=== PATIENT | female | born 1945 | race Caucasian/White ===

== ENCOUNTER → 2017-10-07 | Outpatient (CLI) | payer OTHER ==
[~2017-10-07] MED LIST: ARIP2TAB3 PO; ASPI81TA21 PO; ATOR-26 PO; CLON1TAB3 PO; LPR25 PO; MULT-506 PO; PARO1TAB29 PO; ZOLP10TA PO
--- NOTE | 2017-10-10 08:13 | MAMMOGRAPHY REPORT ---
BILATERAL DIGITAL SCREENING MAMMOGRAM TOMOSYNTHESIS WITH CAD: 10/07/2017 CLINICAL HISTORY: Routine screening. Patient has no complaints. TECHNIQUE: Breast tomosynthesis in addition to standard 2D mammography was performed. Current study was also evaluated with a Computer Aided Detection (CAD) system. COMPARISON: Comparison is made to exams dated: 09/27/2015 mammogram, 09/26/2014 mammogram, 09/24/2013 mammogram, 09/23/2012 mammogram, 09/30/2016 mammogram, and 04/10/2011 mammogram - [facility]. BREAST COMPOSITION: There are scattered areas of fibroglandular density in both breasts. FINDINGS: The parenchymal pattern is unchanged. No developing mass, architectural distortion or clus ter of suspicious microcalcifications is seen in either breast. IMPRESSION: ACR BI-RADS CATEGORY 2: BENIGN There is no mammographic evidence of malignancy. A 1 year screening mammogram is recommended. The pa tient will receive written notification of the results. Approximately 10% of breast cancers are not detected with mammography. A negative mammographic report should not delay biopsy if a clinically suggestive mass is present. Munira Malik M.D. ay/:10/07/2017 15:02:24 Sheet Metal Welder: Tika Shah, M, [facility] letter sent: Normal 1/2 BI-RADS Code: ACR BI-RADS Category 2: Benign
== END | disposition home or self-care (01) ==
LOC: C.MAMM 14:34
PROVIDERS: ATTEND Internal Medicine
DX: Z12.31 Encounter for screening mammogram for malignant neoplasm of breast (principal)

== ENCOUNTER → 2017-10-13 | Outpatient (CLI) | payer OTHER ==
[2017-10-13 13:26] LABS: BASO % 1.4 %; BASO ABS # 0.09 K/uL (0-0.2); COMPLETE YES; EOS % 5.7 %; HEMATOCRIT 43.2 % (37-47); IG% 0.2 %; LYMPH % 40.6 %; LYMPH ABS # 2.69 K/uL (1.2-3.4); MEAN CELL VOLUME 87.8 fL (80-100); MEAN CORPUSCULAR HEMOGLOBIN 29.3 pg (25-34); MEAN CORPUSCULAR HGB CONC 33.3 g/dl (32-36); MEAN PLATELET VOLUME 9.3 fL (7.4-10.4); MONO % 7.9 %; NEUT % 44.2 %; PLATELET COUNT 243 K/uL (130-400); RED BLOOD COUNT 4.92 M/uL (4.2-5.4); WHITE BLOOD COUNT 6.62 K/uL (4.8-10.8)
[2017-10-13 13:46] LABS: ALT/SGPT 20 U/L (12-78); AST/SGOT 20 U/L (15-37); BLOOD UREA NITROGEN 12 mg/dl (7-18); BUN/CREATININE RATIO 14.9 (10-20); CALCIUM 8.9 mg/dl (8.5-10.1); CARBON DIOXIDE 29 mmol/L (21-32); CHLORIDE 103 mmol/L (98-107); CHOLESTEROL 159 mg/dl (0-200); CREATININE 0.83 mg/dl (0.60-1.20); GLUCOSE 96 mg/dl (70-99); POTASSIUM 3.8 mmol/L (3.5-5.1); SODIUM 139 mmol/L (136-145); TRIGLYCERIDES 100 mg/dl (0-150); VERY LOW DENSITY LIPOPROT CALC 20 mg/dl
[2017-10-13 13:55] LABS: ALB/GLOB RATIO 1.1 (0.9-2); ALKALINE PHOSPHATASE 87 U/L (45-117); HDL CHOLESTEROL 79 mg/dl; LDL CHOLESTEROL CALCULATED 60 mg/dl; THYROID STIMULATING HORMONE 0.815 uIu/ml (0.300-4.500)
== END | disposition home or self-care (01) ==
LOC: C.LABBC 09:16
PROVIDERS: ATTEND Physician Assistant
DX: Z79.899 Other long term (current) drug therapy (principal); I10 Essential (primary) hypertension; I25.10 Atherosclerotic heart disease of native coronary artery without angina pectoris; R53.83 Other fatigue; M85.80 Other specified disorders of bone density and structure, unspecified site; E55.9 Vitamin D deficiency, unspecified

== ENCOUNTER → 2017-12-30 | Outpatient (CLI) | payer OTHER ==
[2017-12-30 17:09] LABS: BASO % 0.7 %; BASO ABS # 0.05 K/uL (0-0.2); EOS % 5.2 %; EOS ABS # 0.38 K/uL (0-0.5); HEMATOCRIT 42.2 % (37-47); IG# 0.01 K/uL (0.00-0.02); LYMPH % 38.8 %; LYMPH ABS # 2.86 K/uL (1.2-3.4); MEAN CELL VOLUME 87.2 fL (80-100); MEAN CORPUSCULAR HEMOGLOBIN 28.9 pg (25-34); MEAN CORPUSCULAR HGB CONC 33.2 g/dl (32-36); MEAN PLATELET VOLUME 9.4 fL (7.4-10.4); MONO % 8.5 %; MONO ABS # 0.63 K/uL (0.11-0.59); NEUT % 46.7 %; NEUT ABS # 3.44 K/uL (1.4-6.5); PLATELET COUNT 256 K/uL (130-400); RED CELL DISTRIBUTION WIDTH CV 13.3 % (11.5-14.5); RED CELL DISTRIBUTION WIDTH SD 42.8 fL (36.4-46.3); WHITE BLOOD COUNT 7.37 K/uL (4.8-10.8)
== END | disposition home or self-care (01) ==
LOC: C.LABBC 14:17
PROVIDERS: ATTEND Physician Assistant
DX: I25.10 Atherosclerotic heart disease of native coronary artery without angina pectoris (principal)

== ENCOUNTER → 2018-07-06 | Outpatient (CLI) | payer OTHER ==
[~2018-07-06] MED LIST changes: +ASPI-319 PO; -ASPI81TA21 PO; -CLON1TAB3 PO; +CLON1TAB4 PO
[2018-07-06 10:56] LABS: BASO % 0.8 %; BASO ABS # 0.05 K/uL (0-0.2); EOS % 6.5 %; EOS ABS # 0.42 K/uL (0-0.5); HEMATOCRIT 43.1 % (37-47); HEMOGLOBIN 14.7 g/dL (12.0-16.0); IG# 0.01 K/uL (0.00-0.02); LYMPH ABS # 2.91 K/uL (1.2-3.4); MEAN CELL VOLUME 87.2 fL (80-100); MEAN CORPUSCULAR HEMOGLOBIN 29.8 pg (25-34); MEAN CORPUSCULAR HGB CONC 34.1 g/dl (32-36); MEAN PLATELET VOLUME 9.4 fL (7.4-10.4); MONO ABS # 0.58 K/uL (0.11-0.59); NEUT % 38.5 %; PLATELET COUNT 256 K/uL (130-400); RED CELL DISTRIBUTION WIDTH CV 13.4 % (11.5-14.5); RED CELL DISTRIBUTION WIDTH SD 42.6 fL (36.4-46.3); WHITE BLOOD COUNT 6.47 K/uL (4.8-10.8)
[2018-07-06 11:37] LABS: ALBUMIN 3.6 gm/dl (3.4-5.0); ALKALINE PHOSPHATASE 89 U/L (45-117); ALT/SGPT 24 U/L (12-78); AST/SGOT 16 U/L (15-37); BLOOD UREA NITROGEN 13 mg/dl (7-18); CALCIUM 8.6 mg/dl (8.5-10.1); CARBON DIOXIDE 28 mmol/L (21-32); CHOLESTEROL 168 mg/dl (0-200); CREATININE 0.81 mg/dl (0.60-1.20); GLUCOSE 98 mg/dl (70-99); LDL CHOLESTEROL CALCULATED 72 mg/dl; POTASSIUM 3.7 mmol/L (3.5-5.1); SODIUM 141 mmol/L (136-145); TOTAL PROTEIN 7.2 gm/dl (6.4-8.2)
== END | disposition home or self-care (01) ==
LOC: C.LABBC 08:42
PROVIDERS: ATTEND Internal Medicine
DX: F32.9 Major depressive disorder, single episode, unspecified (principal); E78.5 Hyperlipidemia, unspecified; I10 Essential (primary) hypertension; I25.10 Atherosclerotic heart disease of native coronary artery without angina pectoris; E55.9 Vitamin D deficiency, unspecified; R53.83 Other fatigue

== ENCOUNTER 2020-03-16 08:51 | Observation (INO) ==
[2020-03-16] MEDS ORDERED: NITROGLYCERIN SL 0.4 MG/TAB TAB SL PRN ×2 (09:12→11:55)
[2020-03-16 09:21] LABS: Basophils # (auto) 0.02 K/uL (0-0.2); Basophils % (auto) 0.2 %; Eosinophils # (auto) 0.32 K/uL (0-0.5); Eosinophils % (auto) 3.4 %; Hematocrit (blood only) 43.2 % (37-47); Hemoglobin 14.8 g/dL (12.0-16.0); Immature Granulocytes # (auto) 0.02 K/uL (0.00-0.02); Immature Granulocytes % (auto) 0.2 %; Lymphocytes # (auto) 2.36 K/uL (1.2-3.4); Lymphocytes % (auto) 25.2 %; Mean Corpuscular Hemoglobin 29.7 pg (25-34); Mean Corpuscular Hgb Conc 34.3 g/dL (32-36); Mean Corpuscular Volume 86.7 fL (80-100); Mean Platelet Volume 8.6 fL (7.4-10.4); Monocytes # (auto) 0.94 K/uL (0.11-0.59); Platelet Count 249 K/uL (130-400); RDW Coefficient of Variation 13.2 % (11.5-14.5); RDW Standard Deviation 41.8 fL (36.4-46.3); Red Blood Count 4.98 M/uL (4.2-5.4); White Blood Count 9.36 K/uL (4.8-10.8)
[2020-03-16 09:32] LABS: Partial Thromboplastin Time 26.9 Seconds (21.0-31.0); Prothrombin Time 10.4 Seconds (9.0-12.0)
--- NOTE | 2020-03-16 09:33 | XRay Report ---
XR chest 1V portable HISTORY: 74 years-old Female Chest Pain acute atypical chest pain COMPARISON: Chest radiograph 09/10/2018 TECHNIQUE: Portable AP view of the chest FINDINGS: Cardiomediastinal and hilar silhouettes are within normal limits. Prior median sternotomy and CABG. T he inferior sternotomy wire is fractured. Mild left hemidiaphragmatic elevation with linear subsegmen thuy left basilar atelectasis/scarring is unchanged. There is no pneumothorax, pleural effusion, overt pulmonary edema or airspace consolidation typical for pneumonia. Degenerative changes of the shoulde rs and spine. IMPRESSION: No acute process. ACT 112: Negative or not required by law. The above report was generated using voice recognition software. It may contain grammatical, syntax o r spelling errors. Electronically signed by: Dereck Torres M.D. 03/16/2020 9:32 AM
[2020-03-16 09:36] LABS: Alanine Aminotransferase 20 U/L (12-78); Albumin Level 3.9 gm/dl (3.4-5.0); Aspartate Aminotransferase 15 U/L (15-37); BUN Creatinine Ratio 14.4 (10-20); Blood Urea Nitrogen 12 mg/dl (7-18); Calcium 8.9 mg/dl (8.5-10.1); Carbon Dioxide 28 mmol/L (21-32); Chloride 105 mmol/L (98-107); Creatinine Clr Calc Pharmacy 49.5 ml/min; Est GFR (African American) 79.3; Est GFR (Non-African American) 68.5; Glucose 89 mg/dl (70-99); Lipase 213 U/L (73-393); Potassium 3.3 mmol/L (3.5-5.1); Sodium 139 mmol/L (136-145)
--- NOTE | 2020-03-16 09:38 | Emergency Department Note ---
History of Present Illness General Chief complaint: Chest Pain Stated complaint: CHEST PAIN,HURT BURN,PAIN LT ARM AND JAW Time Seen by Provider: 03/16/20 09:00 Source: patient Mode of arrival: ambulatory Limitations: no limitations History of Present Illness Provider complaint: Chest pain Onset (ago): hour(s) 4 Location: chest Radiation: non-radiation Severity: mild Pain Consistency: + constant Maximum Pain Intensity: 3 Current Pain Intensity: 3 Quality: + burning Relieved By: + none Exacerbated By: + none Associated symptoms: + denies other symptoms Treatments prior to arrival: other (Coffee) This is a 74-year-old female who has a history of cardiac bypass that was performed 8 years ago Jose comes to the emergency department complaining of indigestion. The patient reports she is never had indigestion before however it woke her up in the middle of the night. She describes the indigestion as a burning sensation. She took coffee for the indigestion however it did not take it away. She reports never experiencing anything like this before. Home Medications Home Medications Medication Instructions Recorded Confirmed Type aripiprazole [Abilify] 2 mg PO QAM 09/10/18 03/16/20 History aspirin [Aspirin Low Dose] 81 mg PO PM 09/10/18 03/16/20 History atorvastatin [Lipitor] 80 mg PO PM 09/10/18 03/16/20 History clonazepam 1 mg PO HS 09/10/18 03/16/20 History paroxetine HCl [Paxil] 40 mg PO QAM 09/10/18 03/16/20 History trazodone 50 mg PO HS 09/10/18 03/16/20 History metoprolol tartrate 25 mg tablet 12.5 mg PO BID #90 tab 04/22/19 03/16/20 Rx paroxetine HCl 10 mg tablet 10 mg PO QAM tab 08/28/19 03/16/20 History cholecalciferol (vitamin D3) 125 5,000 units PO QAM 09/08/19 03/16/20 History mcg (5,000 unit) capsule vit C 250 mg-E 200 unit-zinc 40 1 tab PO BID 09/08/19 03/16/20 History mg-copper 1 [id number] capsule latanoprost (PF) 1 drp OPHTHALMIC (EYE) PM 10/11/19 03/16/20 History lisinopril 5 mg PO HS 10/11/19 03/16/20 History Allergies Allergy/AdvReac Type Severity Reaction Status Date / Time No Known Allergies Allergy Verified 03/16/20 09:41 Past Med/Surg History Medical History (Updated 03/16/20 @ 11:21 by Charles Gray) Basal cell carcinoma of lip Basal cell carcinoma of nose Coronary artery disease (Chronic) Depression with anxiety (Chronic) Glaucoma HTN (hypertension) (Chronic) Hyperlipidemia (Chronic) Macular degeneration (Inactive) Osteoarthritis 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) Palpitations (Inactive) Surgical History History of appendectomy History of cardiac cath 2011 @ [facility]--no stents History of cholecystectomy History of colonoscopy with polypectomy History of tonsillectomy History of tooth extraction all teeth removed History of total hysterectomy with bilateral salpingo-oophorectomy (BSO) History of wisdom tooth extraction S/P CABG x 3 [facility] Status post Mohs surgery for basal cell carcinoma x2 Family History Mother Depression Colorectal cancer Cancer Family history of esophageal cancer Myocardial infarction Sister Depression Basal cell adenocarcinoma Brother Malignant melanoma Father Myocardial infarction AAA (abdominal aortic aneurysm) Other Alcoholism in family No family history of adverse response to anesthesia Social History Preferred Language: Albanian Communication Ability: Effective Hearing Ability: Normal Director Of Clinical Education Required: No Beliefs That Will Affect Care: None marital status: Current Living Situation: Spouse Current Living Situation Comment: lives in [place]; 2 adult children current occupational 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 Other Information That Helps Us Care for You: No Feels Safe at Home: Yes Safety Concerns: Feels Safe At This Time Smoking Status: Former smoker Tobacco Type: cigarettes ; Age Started Using Tobacco: 22 ; Age Quit Using Tobacco: 64 ; packs per day: 1 ; Cigarettes Per Day: 20 ; Do You Dip or Chew Tobacco: No ; Second Hand Exposure: Yes (as a child) ; Tobacco Cessation Education Requested by Patient: No Hx Alcohol Use: Yes Alcohol type: wine Alcohol Intake Frequency: Holidays/Special Occasions Hx Substance Use: No Childhood Exposure to Second-Hand Smoke: Yes Dental Care, Regularly: No Seatbelt Use: always Sunscreen Use: No Review of Systems A total of 10 systems reviewed and were otherwise negative Physical Exam Vital Signs Vital Signs - 24 hr 03/16/20 08:56 03/16/20 09:04 03/16/20 09:10 Temperature 36.5 C Temperature Source Oral Pulse Rate 741 H 72 Pulse Rate from SpO2 Sensor 73 Respiratory Rate 18 17 Respiratory Depth Normal Blood Pressure 119/80 140/102 H Blood Pressure Mean 93 105 Blood Pressure Position Sitting Pulse Oximetry 95 96 Oxygen Delivery Method Room Air Room Air Oxygen Flow Rate 95 Sepsis Recent Fever Within 48 Hours No Sepsis Action Taken by Nursing No Action Required 03/16/20 09:25 03/16/20 09:27 03/16/20 09:39 Temperature Temperature Source Pulse Rate 70 79 Pulse Rate from SpO2 Sensor 71 79 Respiratory Rate 19 16 Respiratory Depth Blood Pressure 153/89 H 124/84 Blood Pressure Mean 93 88 Blood Pressure Position Pulse Oximetry 95 97 92 Oxygen Delivery Method Room Air Oxygen Flow Rate Sepsis Recent Fever Within 48 Hours Sepsis Action Taken by Nursing 03/16/20 09:45 03/16/20 10:07 03/16/20 10:15 Temperature Temperature Source Pulse Rate 76 77 71 Pulse Rate from SpO2 Sensor 75 77 71 Respiratory Rate 14 18 20 Respiratory Depth Blood Pressure 132/92 122/86 120/97 Blood Pressure Mean 103 92 105 Blood Pressure Position Pulse Oximetry 92 94 98 Oxygen Delivery Method Oxygen Flow Rate Sepsis Recent Fever Within 48 Hours Sepsis Action Taken by Nursing 03/16/20 10:45 Temperature Temperature Source Pulse Rate 72 Pulse Rate from SpO2 Sensor 76 Respiratory Rate 14 Respiratory Depth Blood Pressure 122/78 Blood Pressure Mean 96 Blood Pressure Position Pulse Oximetry 93 Oxygen Delivery Method Oxygen Flow Rate Sepsis Recent Fever Within 48 Hours Sepsis Action Taken by Nursing GENERAL: Patient is a healthy-appearing well-nourished female HEAD: Normocephalic atraumatic EYES: Ocular movements intact pupils equal and react to light OROPHARYNX mucous membranes are moist no exudates present no erythema or edema present NECK: Supple no nuchal rigidity CHEST: Good equal expansion LUNGS: Clear and equal to auscultation CARDIAC: Normal S1 and S2 ABDOMEN: Soft nontender no guarding BACK: No CVA tenderness EXTREMITIES: No pain upon palpation normal muscle strength in all groups no clubbing cyanosis or edema NEURO: Patient is following commands is answering questions appropriately. Alert and oriented x3 Cranial Nerves 2-12 grossly intact Course Administered Medications Aspirin (Ecotrin Ectab) 81 mg PO PM FRANK Stop: 04/15/20 20:59 Last Admin: 03/16/20 21:33 Dose: 81 mg Documented by: [id number] Atorvastatin Calcium (Lipitor) 80 mg PO PM FRANK Stop: 04/15/20 20:59 Last Admin: 03/16/20 21:35 Dose: 80 mg Documented by: [id number] Clonazepam (Klonopin) 1 mg PO HS [facility] Stop: 04/15/20 20:59 Last Admin: 03/16/20 21:33 Dose: 1 mg Documented by: [id number] Heparin Sodium (Porcine) (Heparin Sodium (Porcine)) 5,000 units SQ Q8 FRANK Stop: 04/15/20 13:59 Last Admin: 03/17/20 05:57 Dose: 5,000 units Documented by: [id number] Cosigned by: [id number] Admin: 03/16/20 21:36 Dose: 5,000 units Documented by: [id number] Cosigned by: [id number] Admin: 03/16/20 16:28 Dose: 5,000 units Documented by: [id number] Cosigned by: [id number] Latanoprost (Xalatan Oph) 1 drops OP PM FRANK Stop: 04/15/20 20:59 Last Admin: 03/16/20 22:32 Dose: Not Given Documented by: [id number] Lisinopril (Zestril) 5 mg PO HS [facility] Stop: 04/15/20 20:59 Last Admin: 03/16/20 21:35 Dose: 5 mg Documented by: [id number] Metoprolol Tartrate (Lopressor) 12.5 mg PO BID FRANK Stop: 04/15/20 20:59 Last Admin: 03/16/20 21:34 Dose: 12.5 mg Documented by: [id number] Multivitamins/Minerals (Multivitamin W/ Minerals Tab) 1 tab PO BID FRANK Stop: 04/15/20 20:59 Last Admin: 03/16/20 21:35 Dose: 1 tab Documented by: [id number] Nitroglycerin (Nitro-Bid 2%) 1 inch EXT Q6H [facility] Stop: 04/15/20 10:14 Last Admin: 03/17/20 04:20 Dose: Not Given Documented by: [id number] Admin: 03/16/20 22:33 Dose: Not Given Documented by: [id number] Admin: 03/16/20 16:29 Dose: 1 inch Documented by: [id number] Admin: 03/16/20 10:22 Dose: 1 inch Documented by: [id number] Trazodone HCl (Desyrel) 50 mg PO HS FRANK Stop: 04/15/20 20:59 Last Admin: 03/16/20 21:33 Dose: 50 mg Documented by: [id number] Discontinued Medications Nitroglycerin (Nitrostat) 0.4 mg SL UD PRN PRN Reason: Chest Pain Stop: 04/15/20 09:11 Last Admin: 03/16/20 09:31 Dose: 0.4 mg Documented by: [id number] Potassium Chloride (Klor-Con M20) 40 meq PO NOW STA Stop: 03/16/20 09:44 Last Admin: 03/16/20 10:00 Dose: 40 meq Documented by: [id number] Medical Decision Making Differential Diagnosis Cardiac ischemia, aortic dissection, pulmonary embolism, pneumothorax, pneum onia, pericarditis, myocarditis, esophageal rupture, GERD, cholecystitis, pancreatitis, musculoskeletal, as well as other pathologies. Medical Records Attestation: I reviewed the patient's medical records. Home Medications Current Medication List: was personally reviewed by me Laboratory Data Attestation: I reviewed the patient's lab results. Result diagrams: 03/16/20 09:10 03/17/20 04:19 Lab Results 03/16/20 03/16/20 03/16/20 Range/Units 09:10 09:10 09:10 WBC 9.36 (4.8-10.8) K/uL RBC 4.98 (4.2-5.4) M/uL Hgb 14.8 (12.0-16.0) g/dL Hct 43.2 (37-47) % MCV 86.7 (80-100) fL MCH 29.7 (25-34) pg MCHC 34.3 (32-36) g/dL RDW Std Deviation 41.8 (36.4-46.3) fL RDW Coeff of Paul 13.2 (11.5-14.5) % Plt Count 249 (130-400) K/uL MPV 8.6 (7.4-10.4) fL Immature Gran % (Auto) 0.2 % Neut % (Auto) 61.0 % Lymph % (Auto) 25.2 % Swift % (Auto) 10.0 % Eos % (Auto) 3.4 % Baso % (Auto) 0.2 % Immature Gran # (Auto) 0.02 (0.00-0.02) K/uL Neut # (Auto) 5.70 (1.4-6.5) K/uL Lymph # (Auto) 2.36 (1.2-3.4) K/uL Swift # (Auto) 0.94 H (0.11-0.59) K/uL Eos # (Auto) 0.32 (0-0.5) K/uL Baso # (Auto) 0.02 (0-0.2) K/uL PT 10.4 (9.0-12.0) Seconds INR 1.0 (0.9-1.1) APTT 26.9 (21.0-31.0) Seconds PTT Ratio 1.0 Sodium 139 (136-145) mmol/L Potassium 3.3 L (3.5-5.1) mmol/L Chloride 105 (98-107) mmol/L Carbon Dioxide 28 (21-32) mmol/L Anion Gap 7.0 (3-11) BUN 12 (7-18) mg/dl Creatinine 0.85 (0.6-1.2) mg/dl Est Cr Clr Drug Dosing 49.5 ml/min Est GFR ( Amer) 79.3 Est GFR (Non-Af Amer) 68.5 BUN/Creatinine Ratio 14.4 (10-20) Glucose 89 (70-99) mg/dl Calcium 8.9 (8.5-10.1) mg/dl Magnesium (1.8-2.4) mg/dl Total Bilirubin 0.6 (0.2-1) mg/dl AST 15 (15-37) U/L ALT 20 (12-78) U/L Alkaline Phosphatase 89 (45-117) U/L Total Creatine Kinase 81 (26-192) U/L CK-MB (CK-2) 1.9 (0.5-3.6) ng/ml CK/CKMB % Calc 2.3 (0-3.0) Troponin I < 0.015 (0-0.045) ng/ml Total Protein 7.3 (6.4-8.2) gm/dl Albumin 3.9 (3.4-5.0) gm/dl Globulin 3.4 (2.5-4.0) gm/dl Albumin/Globulin Ratio 1.2 (0.9-2) Lipase 213 (73-393) U/L 03/16/20 Range/Units 09:10 WBC (4.8-10.8) K/uL RBC (4.2-5.4) M/uL Hgb (12.0-16.0) g/dL Hct (37-47) % MCV (80-100) fL MCH (25-34) pg MCHC (32-36) g/dL RDW Std Deviation (36.4-46.3) fL RDW Coeff of Paul (11.5-14.5) % Plt Count (130-400) K/uL MPV (7.4-10.4) fL Immature Gran % (Auto) % Neut % (Auto) % Lymph % (Auto) % Swift % (Auto) % Eos % (Auto) % Baso % (Auto) % Immature Gran # (Auto) (0.00-0.02) K/uL Neut # (Auto) (1.4-6.5) K/uL Lymph # (Auto) (1.2-3.4) K/uL Swift # (Auto) (0.11-0.59) K/uL Eos # (Auto) (0-0.5) K/uL Baso # (Auto) (0-0.2) K/uL PT (9.0-12.0) Seconds INR (0.9-1.1) APTT (21.0-31.0) Seconds PTT Ratio Sodium (136-145) mmol/L Potassium (3.5-5.1) mmol/L Chloride (98-107) mmol/L Carbon Dioxide (21-32) mmol/L Anion Gap (3-11) BUN (7-18) mg/dl Creatinine (0.6-1.2) mg/dl Est Cr Clr Drug Dosing ml/min Est GFR ( Amer) Est GFR (Non-Af Amer) BUN/Creatinine Ratio (10-20) Glucose (70-99) mg/dl Calcium (8.5-10.1) mg/dl Magnesium 2.3 (1.8-2.4) mg/dl Total Bilirubin (0.2-1) mg/dl AST (15-37) U/L ALT (12-78) U/L Alkaline Phosphatase (45-117) U/L Total Creatine Kinase (26-192) U/L CK-MB (CK-2) (0.5-3.6) ng/ml CK/CKMB % Calc (0-3.0) Troponin I (0-0.045) ng/ml Total Protein (6.4-8.2) gm/dl Albumin (3.4-5.0) gm/dl Globulin (2.5-4.0) gm/dl Albumin/Globulin Ratio (0.9-2) Lipase (73-393) U/L Imaging Data Radiologist's Impression: [place] [phone] XRay Report Patient: JENNIFER WILLIAMSON Admit Date: 03/16/20 MR#: [id number] Address1: [address] [place] [address] Acct ID:[id number] Address2: Date: 1945 [facility] Zip: [place] [address] Age: 74 Location: ED Sex: F Room/Bed: Att Phy: Diagnosis: CHEST PAIN,HURT BURN,PAIN LT ARM AND JAW Mayra Phy: Ector Stanton MD Service Date: 03/16/20 Fam Phy: Interpreting Phy: Isai Torres Admit Phy: Ordering Phy: Ashish Santana MD cc: ~ XR chest 1V portable HISTORY: 74 years-old Female Chest Pain acute atypical chest pain COMPARISON: Chest radiograph 09/10/2018 TECHNIQUE: Portable AP view of the chest FINDINGS: Cardiomediastinal and hilar silhouettes are within normal limits. Prior median sternotomy and CABG. The inferior sternotomy wire is fractured. Mild left hemidiaphragmatic elevation with linear subsegmental left basilar atelectasis/scarring is unchanged. There is no pneumothorax, pleural effusion, overt pulmonary edema or airspace consolidation typical for pneumonia. D egenerative changes of the shoulders and spine. IMPRESSION: No acute process. ACT 112: Negative or not required by law. The above report was generated using voice recognition software. It may contain grammatical, syntax or spelling errors. Electronically signed by: Dereck Torres M.D. 03/16/2020 9:32 AM Dictated: 03/16/20929 Transcribed: 03/16/20929 ECG Data Attestation: I personally reviewed and interpreted this ECG as follows: Indication: chest pain Rate (beats per minute): 75 Rhythm: normal sinus Findings: + RBBB; no ST depression and no ST elevation Comparison ECG Date: from (09/10/2018) Change: no significant change Blood Pressure Blood Pressure Findings: Normal blood pressure MDM Narrative This is a 74-year-old female who presents emergency department complaining of chest pain. The patient's pain was relieved here in the emergency department with nitro. Her potassium was also repleted here in the emergency department. Due to the patient's past medical history I do feel that the patient should be admitted for at least observation. I did discuss this with the patient. She is in agreement with the treatment plan. Her CK-MB troponin and EKG did not show any evidence of acute ischemia. I did discuss the case with the hospitalist service who did agree to admit the patient. Patient is in agreement with the treatment plan. Impression & Plan Chest pain, Hypokalemia Discharge Plan Visit Data *Final* Discharge Date/Time: 03/16/20 10:25 Chief Complaint: Chest Pain Stated Complaint: CHEST PAIN,HURT BURN,PAIN LT ARM AND JAW ED Provider: Ashish Santana Problem: Chest pain, Hypokalemia Patient Disposition: Admitted As Inpatient Discharge Instructions Interventions: ED Discharge Assessment Last Done: 03/16/20 10:25
[2020-03-16 09:41] LABS: Albumin Globulin Ratio 1.2 (0.9-2); Alkaline Phosphatase 89 U/L (45-117); Bilirubin,Total 0.6 mg/dl (0.2-1); Creatine Kinase 81 U/L (26-192); Creatine Kinase MB 1.9 ng/ml (0.5-3.6); Globulin 3.4 gm/dl (2.5-4.0); Total Protein 7.3 gm/dl (6.4-8.2); Troponin I < 0.015 ng/ml (0-0.045)
[2020-03-16] MEDS ORDERED: POTASSIUM CHLORIDE 20 MEQ TABCR PO STA (09:43)
--- NOTE | 2020-03-16 10:04 | History & Physical Report ---
Date of Service March 16, 2020 Assessment & Plan (1) Chest pain: Presenting chest symptoms are concerning for angina given her known CAD and prior h/o CABG. She has also had several weeks of worsening STEPHENSON. Initial troponin is negative. Chest pain resolved with nitrates in the ER. EKG x 2 with anterior T wave inversions but chronic. Plan - * admit to telemetry * serial troponins * continue daily aspirin * cont statin, BB, AISHWARYA * cont nitropaste 1" q6h * no echo in several years - will order 2D echo - check LV function, wall motion, etc * formal consultation requested with [facility] [place] Card[facility] - I spoke with Dr Yusuf who will see her today * ?stress test vs proceeding with cath - defer to cardiology * lipids were just checked early this month - defer on repeat check * check hemoglobin a1c in am * TSH just checked earlier this month and was wnl * if pain recurs or there is a positive/rising troponin then initiate heparin IV (2) Coronary artery disease: s/p 3-vessel CABG 7-8 years ago at [facility] - will need to review old records to see which vessels were intervened on. See "chest pain" above. Cont asa, statin, BB, AISHWARYA and topical nitrates 1 inch q6h. Cardiology consult requested. (3) Hyperlipidemia: Cont high-intensity statin (lipitor 80mg daily). LDL on 02/24/20 was well below 70. Defer on repeat lipid profile while hospitalized. LFTs noted to be normal. (4) HTN (hypertension): Cont AISHWARYA, BB. if additional BP control is needed titrate beta philip. (5) Depression with anxiety: Follows with Dr Dougherty at [facility]. Cont all home meds. (6) S/P CABG x 3: see discussion above (7) Hypokalemia: Replaced in ER. Mag checked - wnl. Repeat BMP am. (8) DVT prophylaxis: heparin [address] on observation status of note - no symptoms/signs of COVID disease (has cough but present for 1-2 months -- PFTs were discussed as outpatient in January) History of Present Illness Chief Complaint: chest pain/heaviness, left arm pain Primary Care Provider: Ector Stanton MD Very pleasant 74yo female with h/o CAD s/p 3-vessel CABG 7-8 years ago at [facility], HTN, hyperlipidemia, anxiety d/o, and prior tobacco use who presents with the acute onset of mid-sternal chest discomfort/pain/heaviness that woke her from sleep about 0600. Some of the pain was in the high epigastric region as well. The chest symptoms were associated with dyspnea, diaphoresis, nausea, a brief episode of jaw pain, and left arm pain. The left arm pain subsided prior to coming to the hospital. She initially thought that she had indigestion but the left arm pain reminded her of her angina that she had had prior to her CABG. At some point she took a full 325mg aspirin at home. She did not have SL nitro at home. Just before 8am she called her PCP's office and advised coming to the ER. Upon arrival here her chest pain was about 7/10. She was given SL nitro x 1 with resolution of her pain down to 0/10. During her ER stay she needed to use the restroom and after using the toilet and walking back to the bed her chest pain returned. By the time of my assessment the pain once again subsided/resolved. 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 The frequency and intensity of the STEPHENSON has been getting worse in the last few weeks. She has also been experiencing more fatigue. Denies any recent chest pain episodes however. Allergies Allergy/AdvReac Type Severity Reaction Status Date / Time No Known Allergies Allergy Verified 03/16/20 09:41 Home Medications Home Medications Medication Instructions Recorded Confirmed Type aripiprazole [Abilify] 2 mg PO QAM 09/10/18 03/16/20 History aspirin [Aspirin Low Dose] 81 mg PO PM 09/10/18 03/16/20 History atorvastatin [Lipitor] 80 mg PO PM 09/10/18 03/16/20 History clonazepam 1 mg PO HS 09/10/18 03/16/20 History paroxetine HCl [Paxil] 40 mg PO QAM 09/10/18 03/16/20 History trazodone 50 mg PO HS 09/10/18 03/16/20 History metoprolol tartrate 25 mg tablet 12.5 mg PO BID #90 tab 04/22/19 03/16/20 Rx paroxetine HCl 10 mg tablet 10 mg PO QAM tab 08/28/19 03/16/20 History cholecalciferol (vitamin D3) 125 5,000 units PO QAM 09/08/19 03/16/20 History mcg (5,000 unit) capsule vit C 250 mg-E 200 unit-zinc 40 1 tab PO BID 09/08/19 03/16/20 History mg-copper 1 [id number] capsule latanoprost (PF) 1 drp OPHTHALMIC (EYE) PM 10/11/19 03/16/20 History lisinopril 5 mg PO HS 10/11/19 03/16/20 History Past Med/Surg History Medical History (Updated 03/16/20 @ 11:21 by Charles Gray) Basal cell carcinoma of lip Basal cell carcinoma of nose Coronary artery disease (Chronic) Depression with anxiety (Chronic) Glaucoma HTN (hypertension) (Chronic) Hyperlipidemia (Chronic) Macular degeneration (Inactive) Osteoarthritis 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) Palpitations (Inactive) Surgical History History of appendectomy History of cardiac cath 2011 @ [facility]--no stents History of cholecystectomy History of colonoscopy with polypectomy History of tonsillectomy History of tooth extraction all teeth removed History of total hysterectomy with bilateral salpingo-oophorectomy (BSO) History of wisdom tooth extraction S/P CABG x 3 [facility] Status post Mohs surgery for basal cell carcinoma x2 Family History Mother Depression Colorectal cancer Cancer Family history of esophageal cancer Myocardial infarction Sister Depression Basal cell adenocarcinoma Brother Malignant melanoma Father Myocardial infarction AAA (abdominal aortic aneurysm) Other Alcoholism in family No family history of adverse response to anesthesia Social History Preferred Language: Slovenian Communication Ability: Effective Hearing Ability: Normal Engineer Station Mainline Required: No Beliefs That Will Affect Care: None marital status: Current Living Situation: Spouse Current Living Situation Comment: lives in [place]; 2 adult children current occupational 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 Other Information That Helps Us Care for You: No Feels Safe at Home: Yes Safety Concerns: Feels Safe At This Time Smoking Status: Former smoker Tobacco Type: cigarettes ; Age Started Using Tobacco: 22 ; Age Quit Using Tobacco: 64 ; packs per day: 1 ; Cigarettes Per Day: 20 ; Do You Dip or Chew Tobacco: No ; Second Hand Exposure: Yes (as a child) ; Tobacco Cessation Education Requested by Patient: No Hx Alcohol Use: Yes Alcohol type: wine Alcohol Intake Frequency: Holidays/Special Occasions Hx Substance Use: No Childhood Exposure to Second-Hand Smoke: Yes Dental Care, Regularly: No Seatbelt Use: always Sunscreen Use: No Review of Systems Constitutional: + fatigue; no fever, no chills, no anorexia and no weight loss Eyes: no worsening vision Ear, Nose, Mouth, Throat: no nasal congestion, no nasal discharge and no sore throat Respiratory: + cough (chronic - several months in duration ) and + dyspnea on exertion; no sputum production Cardiovascular: as per Subjective / HPI and + chest pain; no orthopnea, no paroxysmal nocturnal dyspnea and no edema Gastrointestinal: + nausea; no abdominal pain, no vomiting and no diarrhea/loose stools Genitourinary: no dysuria Musculoskeletal: no joint pain and no myalgia Integumentary: no rash Neurologic: no paresthesia Psychiatric: + anxiety Endocrine: denies h/o Diabetes Hematologic / Lymphatic: no easy bruising Physical Exam Constitutional: average body habitus; no acute distress and no altered mental status mildly anxious; fine tremor noted (chronic) Eyes: + anicteric sclerae and PERRL ENMT: Ears: + unable to visualize TM (left - 2nd cerumen ) Mouth: no oropharynx abnormality and oral mucous membranes not dry Neck: trachea midline, no thyromegaly Respiratory: normal respiratory effort, lungs clear to auscultation Cardiovascular: Rate/Rhythm: regular rate and regular rhythm Heart Sounds: normal S1 and normal S2; no murmur Vessels: posterior tibial pulses present; no JVD Extremities: no edema Gastrointestinal (Abdomen): normal bowel sounds, soft, nontender, no hepatosplenomegaly Musculoskeletal: no cyanosis or clubbing, extremities motor strength 5/5 Skin: no rashes, warm and dry Neurologic: deep tendon reflexes 2+ bilaterally and moves all extremities; no focal motor deficits Psychiatric: Orientation: alert and oriented x 3 Affect: + anxious affect Lymphatic: no cervical lymphadenopathy Results & Data Results & Data ([facility]) Vital Signs (Past 12 Hours) Vital Signs Temp Pulse Resp BP Pulse Ox 03/16/20 09:45 76 14 132/92 92 04/30/20 09:39 79 16 124/84 92 03/16/20 09:27 70 19 153/89 H 97 03/16/20 09:25 95 03/16/20 09:04 72 17 140/102 H 96 03/16/20 08:56 36.5 C 741 H 18 119/80 95 Laboratory Results Laboratory Results - last 24 hr 03/16/20 03/16/20 03/16/20 09:10 09:10 09:10 WBC 9.36 RBC 4.98 Hgb 14.8 Hct 43.2 MCV 86.7 MCH 29.7 MCHC 34.3 RDW Std Deviation 41.8 RDW Coeff of Paul 13.2 Plt Count 249 MPV 8.6 Immature Gran % (Auto) 0.2 Neut % (Auto) 61.0 Lymph % (Auto) 25.2 [place] % (Auto) 10.0 Eos % (Auto) 3.4 Baso % (Auto) 0.2 Immature Gran # (Auto) 0.02 Neut # (Auto) 5.70 Lymph # (Auto) 2.36 [place] # (Auto) 0.94 H Eos # (Auto) 0.32 Baso # (Auto) 0.02 PT 10.4 INR 1.0 APTT 26.9 PTT Ratio 1.0 Sodium 139 Potassium 3.3 L Chloride 105 Carbon Dioxide 28 Anion Gap 7.0 BUN 12 Creatinine 0.85 Est Cr Clr Drug Dosing 49.5 Est GFR ( Amer) 79.3 Est GFR (Non-Af Amer) 68.5 BUN/Creatinine Ratio 14.4 Glucose 89 Calcium 8.9 Magnesium Total Bilirubin 0.6 AST 15 ALT 20 Alkaline Phosphatase 89 Total Creatine Kinase 81 CK-MB (CK-2) 1.9 CK/CKMB % Calc 2.3 Troponin I < 0.015 Total Protein 7.3 Albumin 3.9 Globulin 3.4 Albumin/Globulin Ratio 1.2 Lipase 213 03/16/20 09:10 WBC RBC Hgb Hct MCV MCH MCHC RDW Std Deviation RDW Coeff of Paul Plt Count MPV Immature Gran % (Auto) Neut % (Auto) Lymph % (Auto) [place] % (Auto) Eos % (Auto) Baso % (Auto) Immature Gran # (Auto) Neut # (Auto) Lymph # (Auto) [place] # (Auto) Eos # (Auto) Baso # (Auto) PT INR APTT PTT Ratio Sodium Potassium Chloride Carbon Dioxide Anion Gap BUN Creatinine Est Cr Clr Drug Dosing Est GFR ( Amer) Est GFR (Non-Af Amer) BUN/Creatinine Ratio Glucose Calcium Magnesium 2.3 Total Bilirubin AST ALT Alkaline Phosphatase Total Creatine Kinase CK-MB (CK-2) CK/CKMB % Calc Troponin I Total Protein Albumin Globulin Albumin/Globulin Ratio Lipase Diagnostic Findings cxr: FINDINGS: Cardiomediastinal and hilar silhouettes are within normal limits. Prior median sternotomy and CABG. The inferior sternotomy wire is fractured. Mild left hemidiaphragmatic elevation with linear subsegmental left basilar atelecta sis/scarring is unchanged. There is no pneumothorax, pleural effusion, overt pulmonary edema or airspace consolidation typical for pneumonia. Degenerative changes of the shoulders and spine. IMPRESSION: No acute process. EKG - my reading - NSR, RBBB, T wave inversions anterior leads (old/chronic); mild flattening ST segments I/AVL (old); LVH by voltage criteria; no new ST changes Code Status & VTE Plan Code Status full code - but would NOT want prolonged intubation/mech ventilation/life support VTE Prophylaxis Plan VTE Prophylaxis will be ordered: Yes PG Care Time/CCT Total # of Minutes Spent Total Time Spent with Patient: Total time spent is greater than 50% in coordination of care (as documented) at patient's floor/unit and/or counseling patient: Coding Level of Care Code 77149 OBS Care - Level 3 Diagnoses Chest pain R07.9 Chest pain type: unspecified Coronary artery disease I25.10 Coronary Disease-Associated Artery/Lesion type: unspecified vessel or lesion type [place] vs. transplanted heart: [place] heart Associated angina: angina presence unspecified Hyperlipidemia E78.2 Hyperlipidemia type: mixed hyperlipidemia HTN (hypertension) I10 Hypertension type: essential hypertension Depression with anxiety F41.8 S/P CABG x 3 Z95.1 Hypokalemia E87.6 DVT prophylaxis Z29.9 (1) Chest pain Chest pain type: unspecified Qualified Code(s): R07.9 - Chest pain, unspecified (2) Coronary artery disease Coronary Disease-Associated Artery/Lesion type: unspecified vessel or lesion type [place] vs. transplanted heart: [place] heart Associated angina: angina presence unspecified Qualified Code(s): I25.10 - Atherosclerotic heart disease of [place] coronary artery without angina pectoris (3) Hyperlipidemia Hyperlipidemia type: mixed hyperlipidemia Qualified Code(s): E78.2 - Mixed hyperlipidemia (4) HTN (hypertension) Hypertension type: essential hypertension Qualified Code(s): I10 - Essential (primary) hypertension
[2020-03-16] MEDS: NITROGLYCERIN 2% OINTMENT 30GM TUBE EXT SCH ×3 (10:22→22:33)
[2020-03-16] MEDS ORDERED: ACETAMINOPHEN 325 MG TAB PO PRN (11:55)
[2020-03-16] MEDS ORDERED: ALUMINUM/MAGNESIUM SUSP 30 ML UDC PO PRN (11:55)
[2020-03-16] MEDS ORDERED: MAGNESIUM HYDROXIDE SUSP 30 ML UDC PO PRN (11:55)
[2020-03-16] MEDS ORDERED: ONDANSETRON INJ 2 MG/ML 2 ML VIAL IV PRN (11:55)
[2020-03-16] MEDS ORDERED: MoRPHine SULFATE 2 MG/ML CARP IV PRN (11:55)
--- NOTE | 2020-03-16 14:55 | Electrocardiogram Report ---
Test Reason : Blood Pressure : / mmHG Vent. Rate : 075 BPM Atrial Rate : 075 BPM P-R Int : 122 ms QRS Dur : 130 ms QT Int : 436 ms P-R-T Axes : 033 -44 104 degrees QTc Int : 486 ms Normal sinus rhythm Possible Left atrial enlargement Left axis deviation Right bundle branch block Left ventricular hypertrophy with repolarization abnormality Abnormal ECG When compared with ECG of 10-SEP-2018 12:11, No significant change was found Confirmed by Osman Yusuf ([id number]) on 03/16/2020 2:55:02 PM Referred By: Confirmed By:Osman Yusuf
--- NOTE | 2020-03-16 14:57 | Electrocardiogram Report ---
Test Reason : Blood Pressure : / mmHG Vent. Rate : 066 BPM Atrial Rate : 066 BPM P-R Int : 124 ms QRS Dur : 122 ms QT Int : 432 ms P-R-T Axes : 034 -54 093 degrees QTc Int : 452 ms Normal sinus rhythm Possible Left atrial enlargement Right bundle branch block Left anterior fascicular block Bifascicular block Abnormal ECG When compared with ECG of 16-MAR-2020 09:02, (unconfirmed) Nonspecific T wave abnormality has replaced inverted T waves in Lateral leads Confirmed by Osman Yusuf ([id number]) on 03/16/2020 2:57:05 PM Referred By: REFERRED SELF Confirmed By:Osman Yusuf
--- NOTE | 2020-03-16 15:46 | XCELERA ---
[id number]
--- NOTE | 2020-03-16 16:19 | Cardiology Consultation ---
Date of Consultation March 16, 2020 Assessment & Plan (1) Chest pain: The patient's description of chest discomfort prompting hospitalization has both typical and atypical features of classic angina pectoris. Fortunately, there are no acute EKG changes, and her initial 2 troponin levels are undetectable. Would proceed with a stress echocardiogram tomorrow morning if her 3rd troponin level is not significantly elevated. (2) Coronary artery disease: The patient underwent a three-vessel bypass in February 2012 as described. (3) HTN (hypertension): Adequate control on current medical regimen. (4) Hyperlipidemia: Continue atorvastatin. History of Present Illness Attending Physician: Charles Gray History of Present Illness Mrs. Gerardo is a 74-year-old female admitted earlier today with a chest pain syndrome. This consultation was ordered to assist in her cardiac management. Of note, the patient typically sees Dr. Walsh in the outpatient setting. The patient was in her usual state of health until 530 this morning when she was awaken from sleep with a substernal chest burning type sensation. The patient noted concurrent dyspnea and low-grade nausea. Does radiation of the discomfort to her left-sided jaw. Her left upper extremity felt "heavy. " The patient took a full-strength aspirin and waited until 8 a.m. to call her primary care physician's office. She was instructed to proceed immediately to the emergency. On arrival here, the patient's initial EKG noted a right bundle-branch block with repolarization abnormalities. There is also left ventricular hypertrophy with repolarization abnormalities. This was unchanged from a prior tracing. She was given sublingual nitroglycerin and her discomfort resolved immediately. She has been pain-free since time. The patient does carry history of coronary artery disease having undergone a 3 vessel bypass in February 2012. This included DUNN to the LAD, and SVG to posterolateral branch, and SVG to the distal LCx. She has done well from a cardiac perspective since that time. Although she does not follow a routine exercise program, she is active on a daily basis caring for her home. She has never experience classic exertional angina pectoris. She further denies syncope, presyncope, PND, orthopnea, palpitations, lower extremity edema, and claudication. Currently, patient is resting comfortably in bed without complaints. Past medical and surgical history 1. CABG x 3 - February 2012, see above 2. Hypertension 3. Moderate left hypertrophy 4. Hypercholesterolemia 5. Osteopenia 6. Vitamin-D deficiency 7. Anxiety/depression 8. Interocular lens implants 9. Appendectomy 10. Cholecystectomy 11. Hysterectomy Social history and lives with her Quit tobacco at age 64, 40 pack year history One glass of wine each evening Family history Noncontributory Review of systems A 10 point review systems was negative except for that described above. Allergies Allergy/AdvReac Type Severity Reaction Status Date / Time No Known Allergies Allergy Verified 03/16/20 09:41 Home Medications Home Medications Medication Instructions Recorded Confirmed Type aripiprazole [Abilify] 2 mg PO QAM 09/10/18 03/16/20 History aspirin [Aspirin Low Dose] 81 mg PO PM 09/10/18 03/16/20 History atorvastatin [Lipitor] 80 mg PO PM 09/10/18 03/16/20 History clonazepam 1 mg PO HS 09/10/18 03/16/20 History paroxetine HCl [Paxil] 40 mg PO QAM 09/10/18 03/16/20 History trazodone 50 mg PO HS 09/10/18 03/16/20 History metoprolol tartrate 25 mg tablet 12.5 mg PO BID #90 tab 04/22/19 03/16/20 Rx paroxetine HCl 10 mg tablet 10 mg PO QAM tab 08/28/19 03/16/20 History cholecalciferol (vitamin D3) 125 5,000 units PO QAM 09/08/19 03/16/20 History mcg (5,000 unit) capsule vit C 250 mg-E 200 unit-zinc 40 1 tab PO BID 09/08/19 03/16/20 History mg-copper 1 [id number] capsule latanoprost (PF) 1 drp OPHTHALMIC (EYE) PM 10/11/19 03/16/20 History lisinopril 5 mg PO HS 10/11/19 03/16/20 History Patient History Medical History (Updated 03/16/20 @ 11:21 by Charles Gray) Basal cell carcinoma of lip Basal cell carcinoma of nose Coronary artery disease (Chronic) Depression with anxiety (Chronic) Glaucoma HTN (hypertension) (Chronic) Hyperlipidemia (Chronic) Macular degeneration (Inactive) Osteoarthritis 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) Palpitations (Inactive) Surgical History History of appendectomy History of cardiac cath 2012 @ [facility]--no stents History of cholecystectomy History of colonoscopy with polypectomy History of tonsillectomy History of tooth extraction all teeth removed History of total hysterectomy with bilateral salpingo-oophorectomy (BSO) History of wisdom tooth extraction S/P CABG x 3 [facility] Status post Mohs surgery for basal cell carcinoma x2 Family History Mother Depression Colorectal cancer Cancer Family history of esophageal cancer Myocardial infarction Sister Depression Basal cell adenocarcinoma Brother Malignant melanoma Father Myocardial infarction AAA (abdominal aortic aneurysm) Other Alcoholism in family No family history of adverse response to anesthesia Social History Preferred Language: Lithuanian Communication Ability: Effective Hearing Ability: Normal 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: No Beliefs That Will Affect Care: None marital status: Current Living Situation: Spouse Current Living Situation Comment: lives in [place]; 2 adult children 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 occupational 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 Other Information That Helps Us Care for You: No Feels Safe at Home: Yes Safety Concerns: Feels Safe At This Time Smoking Status: Former smoker Tobacco Type: cigarettes ; Age Started Using Tobacco: 22 ; Age Quit Using Tobacco: 64 ; packs per day: 1 ; Cigarettes Per Day: 20 ; Do You Dip or Chew Tobacco: No ; Second Hand Exposure: Yes (as a child) ; Tobacco Cessation Education Requested by Patient: No Hx Alcohol Use: Yes Alcohol type: wine Alcohol Intake Frequency: Holidays/Special Occasions Hx Substance Use: No Childhood Exposure to Second-Hand Smoke: Yes Dental Care, Regularly: No Seatbelt Use: always Sunscreen Use: No Physical Exam Physical Exam: In general this is a well-developed well-nourished White femalein no acute distress. HEENT exam is negative. Neck is supple with full carotid upstrokes. There are no carotid bruits. Jugular venous pressure is flat at 90. There is no thyromegaly. Cardiovascular exam reveals a regular rhythm with a normal S1-S2. Heart sounds are distant. No obvious murmurs. Chest reveals a well-healed midline scar. Lungs are clear without rales, rhonchi, or wheezes. Abdomen is soft and nontender without bruits. Extremities reveal intact radial artery and posterior tibial pulses bilaterally. There is no peripheral edema. Results & Data ([facility]) Vital Signs (Past 12 Hours) Vital Signs Temp Pulse Pulse Resp BP BP Pulse Ox 03/16/20 15:10 36.5 C 74 20 121/80 92 03/16/20 15:04 75 16 121/80 92 03/16/20 13:29 72 03/16/20 12:00 36.8 C 71 14 95 03/16/20 11:39 36.8 C 71 21 150/91 H 97 03/16/20 10:45 72 14 122/78 93 03/16/20 10:15 71 20 120/97 98 03/16/20 10:07 77 18 122/86 94 03/16/20 09:45 76 14 132/92 92 03/16/20 09:39 79 16 124/84 92 03/16/20 09:27 70 19 153/89 H 97 03/16/20 09:25 95 03/16/20 09:04 72 17 140/102 H 96 03/16/20 08:56 36.5 C 741 H 18 119/80 95 Laboratory Results CBC notes hemoglobin of 14.8, hematocrit 43.2, white count 9.36, and platelet count of 185081. Electrolytes noted a sodium of 139, potassium 3.3, chloride 105, bicarb 28, BUN 12, creatinine 0.05, and glucose of 89. Two troponin I levels are undetectable less than 0.015. Diagnostic Findings Initial EKG notes normal sinus rhythm with a complete right bundle-branch block and left ventricle hypertrophy with repolarization changes. This is unchanged from a tracing performed on September 10, 2018. grants assistant is benign. Chest x-ray shows cardiomegaly but no acute disease. PG Care Time/CCT Total # of Minutes Spent Total Time Spent with Patient: Total time spent is greater than 50% in coordination of care (as documented) at patient's floor/unit and/or counseling patient: Coding Level of Care Code 32747 OBS Care - Level 3 Diagnoses Chest pain R07.9 Chest pain type: unspecified Coronary artery disease I25.10 Associated angina: angina presence unspecified Coronary Disease-Associated Artery/Lesion type: unspecified vessel or lesion type [place] vs. transplanted heart: [place] heart HTN (hypertension) I10 Hypertension type: essential hypertension Hyperlipidemia E78.2 Hyperlipidemia type: mixed hyperlipidemia (1) Coronary artery disease Associated angina: angina presence unspecified Coronary Disease-Associated Artery/Lesion type: unspecified vessel or lesion type [place] vs. transplanted heart: [place] heart Qualified Code(s): I25.10 - Atherosclerotic heart disease of [place] coronary artery without angina pectoris (2) Hyperlipidemia Hyperlipidemia type: mixed hyperlipidemia Qualified Code(s): E78.2 - Mixed hyperlipidemia (3) Chest pain Chest pain type: unspecified Qualified Code(s): R07.9 - Chest pain, unspecified (4) HTN (hypertension) Hypertension type: essential hypertension Qualified Code(s): I10 - Essential (primary) hypertension
[2020-03-16] MEDS: HEPARIN SOD 5,000 UNIT/0.5 ML VIAL SQ SCH ×2 (16:28→21:36)
[2020-03-16] MEDS ORDERED: clonazePAM 1 MG TAB PO SCH (21:00)
[2020-03-16] MEDS ORDERED: ASPIRIN 81 MG ECTAB PO SCH (21:00)
[2020-03-16] MEDS ORDERED: LATANOPROST 0.005% OP SOLN 2.5 ML BTL OP SCH ×2 (21:00)
[2020-03-16] MEDS ORDERED: ATORVASTATIN 40 MG TAB PO SCH (21:00)
[2020-03-16] MEDS ORDERED: lisinopriL 5 MG TAB PO SCH (21:00)
[2020-03-16] MEDS ORDERED: TRAZODONE HCL 50 MG TAB PO SCH (21:00)
[2020-03-16] MEDS: METOPROLOL TARTRATE 25 MG TAB PO SCH (21:34)
[2020-03-16] MEDS: CEROVITE ADV FORMULA TAB PO SCH (21:35)
[2020-03-17] MEDS: NITROGLYCERIN 2% OINTMENT 30GM TUBE EXT SCH ×2 (04:20→08:18)
[2020-03-17 05:01] LABS: BUN Creatinine Ratio 13.9 (10-20); Calcium 8.5 mg/dl (8.5-10.1); Creatinine Clr Calc Pharmacy 51.9 ml/min; Est GFR (African American) 84.1; Est GFR (Non-African American) 72.6
[2020-03-17] MEDS: HEPARIN SOD 5,000 UNIT/0.5 ML VIAL SQ SCH (05:57)
[2020-03-17 06:03] LABS: Estimated Average Glucose 114 mg/dl; Hemoglobin A1C 5.6 % (4.5-5.6)
[2020-03-17] MEDS ORDERED: PARoxetine HCL 20 MG TAB PO SCH (09:00)
[2020-03-17] MEDS ORDERED: ARIPIprazole 1 MG/ML ORAL SOLN 150 ML BTL PO SCH (09:00)
[2020-03-17] MEDS ORDERED: CHOLECALCIFEROL 1,000 UNITS 25 MCG TAB PO SCH (09:00)
[2020-03-17] MEDS ORDERED: PARoxetine HCL 10 MG TAB PO SCH (09:00)
[2020-03-17] MEDS: METOPROLOL TARTRATE 25 MG TAB PO SCH (11:40)
[2020-03-17] MEDS: CEROVITE ADV FORMULA TAB PO SCH (11:40)
--- NOTE | 2020-03-17 13:01 | Discharge Summary ---
Date of Service March 17, 2020 Admission HPI Per Admitting Provider Very pleasant 74yo female with h/o CAD s/p 3-vessel CABG 7-8 years ago at [facility], HTN, hyperlipidemia, anxiety d/o, and prior tobacco use who presents with the acute onset of mid-sternal chest discomfort/ pain/heaviness that woke her from sleep about 0600. Some of the pain was in the high epigastric region as well. The chest symptoms were associated with dyspnea, diaphoresis, nausea, a brief episode of jaw pain, and left arm pain. The left arm pain subsided prior to coming to the hospital. She initially thought that she had indigestion but the left arm pain reminded her of her angina that she had had prior to her CABG. At some point she took a full 325mg aspirin at home. She did not have SL nitro at home. Just before 8am she called her PCP's office and advised coming to the ER. Upon arrival here her chest pain was about 7/10. She was given SL nitro x 1 with resolution of her pain down to 0/10. During her ER stay she needed to use the restroom and after using the toilet and walking back to the bed her chest pain returned. By the time of my assessment the pain once again subsided/resolved. 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 The frequency and intensity of the STEPHENSON has been getting worse in the last few weeks. She has also been experiencing more fatigue. Denies any recent chest pain episodes however. Principal Diagnosis chest pain - anxiety/stress more likely than indigestion/UGI Discharge Exam gen aao pleasant but at times tearful nad. heent nc at mmm breathing unlabored no accessory muscles good effort skin no rashes no pallor or icterus, no focal neuro deficits Discharge Data Allergies Allergy/AdvReac Type Severity Reaction Status Date / Time No Known Allergies Allergy Verified 03/16/20 09:41 Consultations 03/16/20 09:50 ED Decision to Admit Stat 03/16/20 11:55 Consult Cardiology Routine troponin negative x3, stress echo negative per input from cardiology Hospital Course (1) Chest pain: Presenting chest symptoms were concerning for angina given her known CAD and prior h/o CABG. however, fortunately troponins negative ruling out AR, and stress echo reassuring making unstable angina far less likely, cardiology saw pt and with negative stress felt that cardiac causes of pain were highly unlikley with no tachycardia/hypoxia and no real cause for VTE, this seems exceedingly unlikely as well resolved symptoms/clinical stability/BP readings/no mediastinal widening on CXR, and normal trop all plead heavily against aortic pathology on revisit of HPI pt does note that she is worried a lot about a friend who is dying, and had apparently had interactions the day prior to symptom onset - making stress/anxiety a high probability of ddx. certainly something UGI like reflux/indigestion would be possible too simply due to how common those e tiologies are, but stress/anxiety fits quite well w current situation stable for home (2) Coronary artery disease: fortunately stable. (3) Hyperlipidemia: Cont high-intensity statin (lipitor 80mg daily). LDL on 02/24/20 was well below 70. Deferred on repeat lipid profile while hospitalized. LFTs noted to be normal. (4) HTN (hypertension): Cont AISHWARYA, BB. BP readings overall acceptable (5) Depression with anxiety: Follows with Dr Dougherty at [facility]. Cont all home meds. current anxiety appears quite situational with friend's circumstances (6) S/P CABG x 3: see discussion above (7) Hypokalemia: Replaced in ER. Mag checked - wnl. 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 -the three main things that we see "masquerade" as cardiac chest pain when someone comes and after further review it isn't their heart are GI/indigestion, anxiety/stress, and rib/muscle ----the way the admitting team got your story it sounded fairly consistent with indigestion, and that may be the case; however, given that you are going through so much with your friend (i'm sorry she's going through this/sorry you are too) it seems more likely on further review that it was a set of symptoms caused by stress. both indigestion and stress can wake you from a sound sleep, but stress/anxiety is far more likely to do so. either way, since it's not been a recurrent problem I would hold off on making medication changes - and just have you follow how you're doing. if this continues to happen over and over, then it would be worth getting Dr Stanton's input on what to do next. -as we discussed, your situation is a really common thing that we see -- one of the most frequent reasons people will come to the ER is to evaluate some sort of chest discomfort or breathing problem with the concern that it may be their heart-- and i would rather you be here 100 times to have it not be cardiac than to have you sit at home for "the real thing" even once. Pending Studies at Discharge: No Stand-Alone Forms: My [facility] [employer], Smoking Cessation Medications and DC Order Prescriptions: Continued metoprolol tartrate 25 mg tablet 12.5 mg PO BID Qty: 90 RF: 3 PreserVision AREDS-2 [id number]-mg capsule 1 tab PO BID RF: 0 cholecalciferol (vitamin D3) 5,000 unit capsule 5,000 units PO QAM RF: 0 lisinopril 5 mg tablet 5 mg PO HS RF: 0 latanoprost (PF) 0.005 % Drops 1 drp OPHTHALMIC (EYE) PM RF: 0 atorvastatin [Lipitor] 80 mg Tablet 80 mg PO PM RF: 0 trazodone 50 mg tablet 50 mg PO HS RF: 0 clonazepam 1 mg Tablet 1 mg PO HS RF: 0 aspirin [Aspirin Low Dose] 81 mg Tablet,Delayed Release (Dr/Ec) 81 mg PO PM RF: 0 paroxetine HCl [Paxil] 40 mg Tablet 40 mg PO QAM RF: 0 aripiprazole [Abilify] 2 mg Tablet 2 mg PO QAM RF: 0 paroxetine HCl [Paxil] 10 mg tablet 10 mg PO QAM RF: 0 Discharge Orders: Discharge Order (Routine); Ordered 03/17/20 Ordered By: Osmany Loya Admission Data Admit Date/Time: 03/16/20 10:47 Attending Provider: Osmany Loya Admit Provider: Charles Gray Primary Care Provider: Ector Stanton Other Providers: Charles Gray ; Osman Yusuf Other Interventions: Discharge Summary Assessment (RN) Last Done: 03/17/20 12:09 Coding Level of Care Code 70596 OBS Care - Discharge Diagnoses Chest pain R07.9 Chest pain type: unspecified Coronary artery disease I25.10 Coronary Disease-Associated Artery/Lesion type: unspecified vessel or lesion type [place] vs. transplanted heart: [place] heart Associated angina: angina presence unspecified Hyperlipidemia E78.2 Hyperlipidemia type: mixed hyperlipidemia HTN (hypertension) I10 Hypertension type: essential hypertension Depression with anxiety F41.8 S/P CABG x 3 Z95.1 Hypokalemia E87.6 DVT prophylaxis Z29.9
--- NOTE | 2020-03-17 15:24 | XCELERA ---
[id number]
--- NOTE | 2020-03-17 15:29 | Electrocardiogram Report ---
Test Reason : Blood Pressure : / mmHG Vent. Rate : 073 BPM Atrial Rate : 073 BPM P-R Int : 132 ms QRS Dur : 122 ms QT Int : 436 ms P-R-T Axes : 060 -50 107 degrees QTc Int : 480 ms Normal sinus rhythm Possible Left atrial enlargement Right bundle branch block Left anterior fascicular block Bifascicular block T wave abnormality, consider lateral ischemia Abnormal ECG When compared with ECG of 16-MAR-2020 10:08, No significant change was found Confirmed by Osman Yusuf ([id number]) on 03/17/2020 3:29:48 PM Referred By: REFERRED SELF Confirmed By:Osman Yusuf
== END 2020-03-17 12:45 | disposition home or self-care (01) ==
LOC: 1E 08:51 → ED 08:51 → 1E 10:25 → SUATTDRO 10:47

== ENCOUNTER 2021-07-04 14:26 | Observation (INO) ==
[2021-07-04] MEDS ORDERED: dilTIAZem HCl 5 MG/ML 5 ML VIAL IV STA (14:56)
[2021-07-04] MEDS ORDERED: ASPIRIN CHEW 324 MG PO STA (14:56)
[2021-07-04 15:06] LABS: Basophils # (auto) 0.03 K/uL (0-0.2); Basophils % (auto) 0.4 %; Eosinophils % (auto) 2.4 %; Hematocrit (blood only) 42.6 % (37-47); Hemoglobin 14.6 g/dL (12.0-16.0); Immature Granulocytes # (auto) 0.01 K/uL (0.00-0.02); Immature Granulocytes % (auto) 0.1 %; Lymphocytes # (auto) 1.95 K/uL (1.2-3.4); Mean Corpuscular Hemoglobin 30.1 pg (25-34); Mean Corpuscular Hgb Conc 34.3 g/dL (32-36); Mean Corpuscular Volume 87.8 fL (80-100); Monocytes # (auto) 0.84 K/uL (0.11-0.59); Monocytes % (auto) 9.9 %; Neutrophils # (auto) 5.44 K/uL (1.4-6.5); Neutrophils % (auto) 64.2 %; Platelet Count 230 K/uL (130-400); RDW Standard Deviation 41.6 fL (36.4-46.3); Red Blood Count 4.85 M/uL (4.2-5.4); White Blood Count 8.47 K/uL (4.8-10.8)
--- NOTE | 2021-07-04 15:18 | Emergency Department Note ---
Impression & Plan Atrial fibrillation with rapid ventricular response, Chest pain, exertional ED Provider Note NAME: JENNIFER WILLIAMSON AGE: 76 SEX: F : 1945 ARRIVES VIA: Walk-In INFORMANT: Patient, ED PROVIDER(S): Osman Francisco DO CHIEF COMPLAINT: Chest pain HPI: The patient is a 76-year-old female who presented to the emergency departm ent for an evaluation of chest pain. The patient describes anterior chest pain that worsens with exertion. She is also had palpitations. She denies having any lower extremity swelling or pain. She does have a history of coronary artery bypass. The patient has not had any recent trauma. She has been compliant with all of her outpatient medications. She denies having any history of atrial fibrillation or atrial flutter. The patient has not seen her family doctor for the symptoms. The patient denies having any recent cold or exposure to COVID-19. She does feel more shortness of breath upon exertion. She states her symptoms are mild to moderate at this time. They improved significantly with rest. ROS: See above HPI for pertinent positives & negatives. A total of 10 systems reviewed and were otherwise negative. PAST MEDICAL HISTORY: See Below PAST SURGICAL HISTORY: See Below FAMILY HISTORY: See Below SOCIAL HISTORY: See Below HOME MEDICATIONS: See Below ALLERGIES: See Below VITALS: See Below PHYSICAL EXAMINATION: GENERAL: Patient is awake alert in no acute distress patient is resting comfortably and showing no signs of anxiety EYES: The conjunctivae are clear. The pupils are round and reactive. EARS, NOSE, MOUTH AND THROAT: The nose is without any evidence of any deformity. Mucous membranes are moist. Tongue is midline. NECK: The neck is nontender and supple. RESPIRATORY: Normal respiratory effort is noted there is no evidence of wheezing rhonchi or rales CARDIOVASCULAR: Tachycardic and irregular rate was noted to auscultation. There was no definite murmur. GASTROINTESTINAL: The abdomen is soft. Abdomen is nontender. MUSCULOSKELETAL/EXTREMITIES: There is no evidence of gross deformity full range of motion is noted in the hips and shoulders. SKIN: There is no obvious evidence of any rash. There are no petechiae, pallor or cyanosis noted. NEUROLOGIC: Patient is awake alert and oriented x 3. MEDICAL DECISION MAKING: The patient is a 76-year-old female who presented to the emergency department for an evaluation of exertional chest pain. The patient was found to be in A. fib with RVR. The patient was treated with a small fluid bolus as well as IV Cardizem. She was reevaluated multiple times. The patient went from significant tachycardia to a relatively normal rate frequently. She was experiencing her discomfort with this tachycardia. I discussed the patient's laboratory and r adiographic studies with her. Because of her complaints I also discussed her case with the on-call [facility] hospitalist. They have agreed to evaluate the patient in the emergency department for further management and disposition. Triage Nursing notes reviewed. Prior medical records reviewed Vital Signs: reviewed and remarkable for tachycardia and hypertension. Differential diagnosis: Cardiac ischemia, aortic dissection, pulmonary embolism, pneumothorax, pneumonia, pericarditis, myocarditis, esophageal rupture, GERD, cholecystitis, pancreatitis, musculoskeletal, as well as other pathologies. ER treatment provided: See below Diagnostics interpreted by me: ECG: EKG was obtained in the emergency department. My interpretation is atrial fibrillation at [address] segment abnormalities were noted. Right bundle branch block was noted. This was compared to a tracing from April 022020. Atrial fibrillation has replaced normal sinus rhythm. Cardiac Monitoring: An order was placed for continuous cardiac monitoring. The monitor shows a rate of 87 bpm with atrial fibrillation rhythm. Laboratory studies: As stated above and show below. Imaging studies: See below Consultation(s): 1630: I discussed this case with Dr. Morrison. He will evaluate the patient in the emergency department for further management and disposition. Past Med/Surg History Medical History (Updated 07/04/21 @ 17:43 by Osman Francisco DO) Basal cell carcinoma of lip HX Basal cell carcinoma of nose HX Colon polyps HX Coronary artery disease Depression with anxiety Glaucoma HTN (hypertension) Hyperlipidemia Kidney stones BOTH SIDES Macular degeneration Osteoarthritis SPINE Osteopenia after menopause Palpitations NOT REPORTED BY PT Panic disorder Surgical History History of appendectomy History of cardiac cath 2011 @ [facility]--no stents History of cholecystectomy History of colonoscopy with polypectomy History of tonsillectomy History of tooth extraction all teeth removed History of total hysterectomy with bilateral salpingo-oophorectomy (BSO) History of wisdom tooth extraction S/P CABG x 3 HX TRIPLE BYPASS 2011 FOR BLOCKAGES...[facility] Status post Mohs surgery for basal cell carcinoma x2 Family History Mother Family history of esophageal cancer Depression Myocardial infarction Lung cancer Colorectal cancer Cancer Sister Basal cell adenocarcinoma Depression Brother Malignant melanoma Father AAA (abdominal aortic aneurysm) Myocardial infarction Family history of colonic polyps Other Alcoholism in family No family history of adverse response to anesthesia Denies family history of Ovarian cancer Prostate cancer Breast cancer Social History Smoking Status: Former smoker Tobacco Type: Cigarettes Age Started Using Tobacco: 22; Age Quit Using Tobacco: 64; packs per day: 1; Years Smoked: 42; Cigarettes Per Day: 20; Second Hand Exposure: No (as a child); Hx Alcohol Use: Yes Alcohol type: wine Alcohol Intake Frequency: Monthly or Less Hx Substance Use: No Preferred Language: Croatian Communication Ability: Effective Visual Impairment: Limited Hearing Ability: Normal Call Center Trainer Required: No Beliefs That Will Affect Care: Tenriism Tenriism Beliefs: ORTHODOX marital status: Current Living Situation: Spouse Current Living Situation Comment: lives in [place]; 2 adult children current occupational 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 Feels Safe at Home: Yes Childhood Exposure to Second-Hand Smoke: Yes caffeine: Yes Dental Care, Regularly: No Physical Activity Frequency: Does not Exercise Seatbelt Use: always Sunscreen Use: Yes Do you think of yourself as: straight/heterosexual Assistive Devices: Denture - Upper, Denture - Lower and Glasses Allergies Allergies Allergy/AdvReac Type Severity Reaction Status Date / Time No Known Allergies Allergy Verified 07/04/21 16:02 Home Meds Home Medications Medication Instructions Recorded Confirmed aripiprazole 2 mg tablet (Abilify) 2 mg PO QAM 09/10/18 07/04/21 aspirin 81 mg tablet,delayed 81 mg PO HS 09/10/18 07/04/21 release (Aspirin Low Dose) paroxetine HCl 40 mg tablet (Paxil) 40 mg PO QAM 09/10/18 07/04/21 trazodone 50 mg tablet 50 mg PO HS 09/10/18 07/04/21 vit C 250 mg-vit E 90 mg-zinc 40 1 tab PO QAM 09/08/19 07/04/21 mg-copper 1 [id number] capsule (PreserVision AREDS-2) latanoprost (PF) 0.005 % eye drops 1 drp OPB HS 10/11/19 07/04/21 gabapentin 100 mg capsule 100 mg PO HS 10/05/20 07/04/21 (Neurontin) paroxetine HCl 20 mg tablet (Paxil) 20 mg PO HS 10/05/20 07/04/21 atorvastatin 80 mg tablet (Lipitor) 80 mg PO HS 06/29/21 07/04/21 tamsulosin 0.4 mg capsule 0.4 mg PO QDD 06/29/21 07/04/21 clonazepam 0.5 mg tablet 0.5 mg PO HS 07/04/21 07/04/21 Previous Rx's Medication Instructions Recorded lisinopril 5 mg tablet 5 mg PO HS #90 tab 09/27/20 metoprolol tartrate 25 mg tablet 12.5 mg PO BID #90 tab 04/23/21 ondansetron HCl 4 mg tablet 4 mg PO Q6H PRN #12 tab 06/29/21 (Zofran) nitroglycerin 0.4 mg sublingual 0.4 mg SUBLINGUAL Q5M PRN #25 tab 07/04/21 tablet (Nitrostat) Results & Data (ED) Vital Signs Vital Signs - 24 hr 07/04/21 14:27 07/04/21 14:38 07/04/21 14:46 Temperature 36.2 C L Temperature Source Temporal Artery Scan Pulse Rate 55 L 139 H Pulse Rate [Apical] Pulse Rate from SpO2 Sensor 135 H Pulse Rhythm [Apical] Respiratory Rate 18 24 Respiratory Effort / Characteristics Respiratory Depth Blood Pressure 130/92 123/100 Blood Pressure [Left Arm] Blood Pressure Mean 104 107 Blood Pressure Mean [Left Arm] Pulse Oximetry 100 97 Oxygen Delivery Method Room Air Room Air Room Air Sepsis Recent Fever Within 48 Hours No Sepsis New/Unexplained Change in Mental Status No Sepsis Action Taken by Nursing No Action Required 07/04/21 15:00 07/04/21 15:30 07/04/21 15:40 Temperature Temperature Source Pulse Rate 80 Pulse Rate [Apical] 71 Pulse Rate from SpO2 Sensor 77 Pulse Rhythm [Apical] Irregular Respiratory Rate 16 24 Respiratory Effort / Characteristics Respiratory Depth Blood Pressure 130/93 101/82 Blood Pressure [Left Arm] Blood Pressure Mean 105 88 Blood Pressure Mean [Left Arm] Pulse Oximetry 98 95 Oxygen Delivery Method Room Air Room Air Sepsis Recent Fever Within 48 Hours Sepsis New/Unexplained Change in Mental Status Sepsis Action Taken by Nursing 07/04/21 16:00 07/04/21 16:02 07/04/21 16:30 Temperature Temperature Source Pulse Rate 75 64 Pulse Rate [Apical] 64 Pulse Rate from SpO2 Sensor 67 65 Pulse Rhythm [Apical] Respiratory Rate 21 18 17 Respiratory Effort / Characteristics Non-Labored Spontaneous Respiratory Depth Normal Blood Pressure Blood Pressure [Left Arm] Blood Pressure Mean Blood Pressure Mean [Left Arm] Pulse Oximetry 95 95 96 Oxygen Delivery Method Room Air Room Air Room Air Sepsis Recent Fever Within 48 Hours Sepsis New/Unexplained Change in Mental Status Sepsis Action Taken by Nursing 07/04/21 17:00 Temperature Temperature Source Pulse Rate Pulse Rate [Apical] 87 Pulse Rate from SpO2 Sensor Pulse Rhythm [Apical] Irregular Respiratory Rate 22 Respiratory Effort / Characteristics Respiratory Depth Blood Pressure Blood Pressure [Left Arm] 141/92 H Blood Pressure Mean Blood Pressure Mean [Left Arm] 108 Pulse Oximetry 97 Oxygen Delivery Method Room Air Sepsis Recent Fever Within 48 Hours Sepsis New/Unexplained Change in Mental Status Sepsis Action Taken by Prison Medications Current Medication List: was personally reviewed by me Laboratory Data Attestation: I reviewed the patient's lab results. Result diagrams: 07/04/21 14:50 07/04/21 14:50 Lab Results 07/04/21 07/04/21 07/04/21 Range/Units 14:50 14:50 14:50 WBC 8.47 (4.8-10.8) K/uL RBC 4.85 (4.2-5.4) M/uL Hgb 14.6 (12.0-16.0) g/dL Hct 42.6 (37-47) % MCV 87.8 (80-100) fL MCH 30.1 (25-34) pg MCHC 34.3 (32-36) g/dL RDW Std Deviation 41.6 (36.4-46.3) fL RDW Coeff of Paul 13.0 (11.5-14.5) % Plt Count 230 (130-400) K/uL MPV 9.0 (7.4-10.4) fL Immature Gran % (Auto) 0.1 % Neut % (Auto) 64.2 % Lymph % (Auto) 23.0 % [place] % (Auto) 9.9 % Eos % (Auto) 2.4 % Baso % (Auto) 0.4 % Neut # (Auto) 5.44 (1.4-6.5) K/uL Lymph # (Auto) 1.95 (1.2-3.4) K/uL [place] # (Auto) 0.84 H (0.11-0.59) K/uL Eos # (Auto) 0.20 (0-0.5) K/uL Baso # (Auto) 0.03 (0-0.2) K/uL Immature Gran # (Auto) 0.01 (0.00-0.02) K/uL PT 9.9 (9.0-12.0) Seconds INR 1.0 (0.9-1.1) APTT 26.5 (21.0-31.0) Seconds PTT Ratio 1.0 Sodium 138 (136-145) mmol/L Potassium 3.7 (3.5-5.1) mmol/L Chloride 106 (98-107) mmol/L Carbon Dioxide 27 (21-32) mmol/L Anion Gap 5.0 (3-11) BUN 13 (7-18) mg/dl Creatinine 0.78 (0.6-1.2) mg/dl Est Cr Clr Drug Dosing 54.2 ml/min Est GFR ( Amer) 86.8 ml/min Est GFR (Non-Af Amer) 74.9 ml/min BUN/Creatinine Ratio 17.2 (10-20) Glucose 144 H (70-99) mg/dl Calcium 9.1 (8.5-10.1) mg/dl Magnesium 2.3 (1.8-2.4) mg/dl Total Bilirubin 0.9 (0.2-1) mg/dl AST 14 L (15-37) U/L ALT 20 (12-78) U/L Alkaline Phosphatase 112 (45-117) U/L Troponin I < 0.015 (0-0.045) ng/ml Total Protein 7.5 (6.4-8.2) gm/dl Albumin 3.9 (3.4-5.0) gm/dl Globulin 3.6 (2.5-4.0) gm/dl Albumin/Globulin Ratio 1.1 (0.9-2) TSH 0.975 (0.300-4.500) uIu/ml Urine Color Urine Appearance (Clear) Urine pH (4.5-7.5) Ur Specific [place] (1.000-1.030) Urine Protein (Negative) Urine Glucose (UA) (Negative) Urine Ketones (Negative) Urine Blood (Negative) Urine Nitrite (Negative) Urine Bilirubin (Negative) Urine Urobilinogen (Negative) Ur Leukocyte Esterase (Negative) COVID-19 Eval Order SARS-CoV-2 (PCR) (Negative) 07/04/21 07/04/21 07/04/21 Range/Units 15:21 15:21 15:39 WBC (4.8-10.8) K/uL RBC (4.2-5.4) M/uL Hgb (12.0-16.0) g/dL Hct (37-47) % MCV (80-100) fL MCH (25-34) pg MCHC (32-36) g/dL RDW Std Deviation (36.4-46.3) fL RDW Coeff of Paul (11.5-14.5) % Plt Count (130-400) K/uL MPV (7.4-10.4) fL Immature Gran % (Auto) % Neut % (Auto) % Lymph % (Auto) % [place] % (Auto) % Eos % (Auto) % Baso % (Auto) % Neut # (Auto) (1.4-6.5) K/uL Lymph # (Auto) (1.2-3.4) K/uL [place] # (Auto) (0.11-0.59) K/uL Eos # (Auto) (0-0.5) K/uL Baso # (Auto) (0-0.2) K/uL Immature Gran # (Auto) (0.00-0.02) K/uL PT (9.0-12.0) Seconds INR (0.9-1.1) APTT (21.0-31.0) Seconds PTT Ratio Sodium (136-145) mmol/L Potassium (3.5-5.1) mmol/L Chloride (98-107) mmol/L Carbon Dioxide (21-32) mmol/L Anion Gap (3-11) BUN (7-18) mg/dl Creatinine (0.6-1.2) mg/dl Est Cr Clr Drug Dosing ml/min Est GFR ( Amer) ml/min Est GFR (Non-Af Amer) ml/min BUN/Creatinine Ratio (10-20) Glucose (70-99) mg/dl Calcium (8.5-10.1) mg/dl Magnesium (1.8-2.4) mg/dl Total Bilirubin (0.2-1) mg/dl AST (15-37) U/L ALT (12-78) U/L Alkaline Phosphatase (45-117) U/L Troponin I (0-0.045) ng/ml Total Protein (6.4-8.2) gm/dl Albumin (3.4-5.0) gm/dl Globulin (2.5-4.0) gm/dl Albumin/Globulin Ratio (0.9-2) TSH (0.300-4.500) uIu/ml Urine Color Yellow Urine Appearance Clear (Clear) Urine pH 7.5 (4.5-7.5) Ur Specific [place] 1.005 (1.000-1.030) Urine Protein Negative (Negative) Urine Glucose (UA) Negative (Negative) Urine Ketones Negative (Negative) Urine Blood Negative (Negative) Urine Nitrite Negative (Negative) Urine Bilirubin Negative (Negative) Urine Urobilinogen Negative (Negative) Ur Leukocyte Esterase Negative (Negative) COVID-19 Eval Order Covid19 at [facility] SARS-CoV-2 (PCR) NEGATIVE (Negative) Administered Medications Heparin Sodium/Dextrose (Heparin Sodium/Dextrose) 25,000 units in 500 mls @ 19 mls/hr IV .Q24H [facility]; Protocol Stop: 08/03/21 17:14 Last Admin: 07/04/21 17:18 Dose: 950 units/hr, 19 mls/hr Documented by: [id number] Cosigned by: [id number] Discontinued Medications Aspirin (Aspirin Chew 324 Mg) 324 mg PO NOW STA Stop: 07/04/21 14:57 Last Admin: 07/04/21 15:15 Dose: 324 mg Documented by: [id number] Diltiazem HCl (Diltiazem Hcl 5 Mg/Ml 5 Ml Vial) 10 mg IV NOW STA Stop: 07/04/21 14:57 Last Admin: 07/04/21 15:26 Dose: 10 mg Documented by: [id number] Cosigned by: [id number] Heparin Sodium (Porcine) (Heparin Ivp From [facility] Protocol (With Bolus)) 4,000 units IV NOW ONE Stop: 07/04/21 17:16 Last Admin: 07/04/21 17:18 Dose: 4,000 units Documented by: [id number] Cosigned by: [id number] Heparin Sodium/Dextrose (Heparin Iv Adult Wt-Based Standard With Bolus Protocol) 1 ea IV NOW STA; Protocol Stop: 07/04/21 17:01 Last Admin: 07/04/21 17:21 Dose: 1 ea Documented by: [id number] Sodium Chloride (Nss) 500 mls @ 999 mls/hr IV .Q31M ONE Stop: 07/04/21 16:19 Last Infusion: 07/04/21 16:30 Dose: 0 mls/hr Documented by: [id number] Admin: 07/04/21 15:58 Dose: 999 mls/hr Documented by: [id number] Imaging Data Radiologist's Impression: Chest X-Ray 07/04/21 14:57 XR chest 1V portable CLINICAL HISTORY: weakness COMPARISON STUDY: April 02, 2021 FINDINGS: No pneumothorax. Elevated of the left hemidiaphragm and possible minimal left pleural effusion. Reticular opacities are seen at the left lower lung which might represent atelectasis or infiltrate. Cardiomediastinal silhouette is within normal limits in size. No significant pulmonary vascular congestion.. Aorta is tortuous. Prominence of right hilum is again seen. Osseous structures: Osteopenia. Degenerative changes of the spine. Redemonstration of the midline sternotomy wires. IMPRESSION: 1. Possible small left pleural effusion. Atelectasis or infiltrate at the left lower lung. 2. The rest of findings as above. ACT 112: Negative or not required by law. The above report was generated using voice recognition software. It may contain grammatical, syntax or spelling errors. Electronically signed by: Jia Su DO 07/04/2021 3:19 PM Discharge Plan Visit Data Chief Complaint: Chest Pain Stated Complaint: CHEST PAIN ED Provider: Osman Francisco Discharge Problem: Atrial fibrillation with rapid ventricular response, Chest pain, exertional Patient Disposition: Being Evaluated by Hospitalist Condition: Good Forms Stand Alone Forms: [employer] Prescriptions Prescriptions: No Action lisinopril 5 mg tablet 5 mg PO HS Qty: 90 RF: 3 metoprolol tartrate 25 mg tablet 12.5 mg PO BID Qty: 90 RF: 3 nitroglycerin [Nitrostat] 0.4 mg tablet, sublingual 0.4 mg sublingual Q5M PRN (Reason: chest pain) Qty: 25 RF: 3 paroxetine HCl [Paxil] 20 mg tablet 20 mg PO HS RF: 0 PreserVision AREDS-2 [id number] capsule 1 tab PO QAM RF: 0 gabapentin [Neurontin] 100 mg capsule 100 mg PO HS RF: 0 latanoprost (PF) 0.005 % Drops 1 drp OPB HS RF: 0 trazodone 50 mg tablet 50 mg PO HS RF: 0 aspirin [Aspirin Low Dose] 81 mg Tablet,Delayed Release (Dr/Ec) 81 mg PO HS RF: 0 paroxetine HCl [Paxil] 40 mg Tablet 40 mg PO QAM RF: 0 aripiprazole [Abilify] 2 mg Tablet 2 mg PO QAM RF: 0 atorvastatin [Lipitor] 80 mg tablet 80 mg PO HS RF: 0 tamsulosin 0.4 mg capsule 0.4 mg PO QDD RF: 0 ondansetron HCl [Zofran] 4 mg tablet 4 mg PO Q6H PRN (Reason: nausea and vomiting) Qty: 12 RF: 0 clonazepam 0.5 mg tablet 0.5 mg PO HS RF: 0 Referrals Referrals: Ector Stanton MD [Primary Care Provider] -
[2021-07-04 15:19] LABS: Partial Thromboplastin Time 26.5 Seconds (21.0-31.0); Prothrombin Time 9.9 Seconds (9.0-12.0)
[2021-07-04 15:30] LABS: Alanine Aminotransferase 20 U/L (12-78); Albumin Level 3.9 gm/dl (3.4-5.0); Aspartate Aminotransferase 14 U/L (15-37); BUN Creatinine Ratio 17.2 (10-20); Blood Urea Nitrogen 13 mg/dl (7-18); Calcium 9.1 mg/dl (8.5-10.1); Carbon Dioxide 27 mmol/L (21-32); Chloride 106 mmol/L (98-107); Creatinine Clr Calc Pharmacy 54.2 ml/min; Est GFR (African American) 86.8 ml/min; Est GFR (Non-African American) 74.9 ml/min; Glucose 144 mg/dl (70-99); Magnesium 2.3 mg/dl (1.8-2.4); Potassium 3.7 mmol/L (3.5-5.1); Sodium 138 mmol/L (136-145)
[2021-07-04 15:41] LABS: Albumin Globulin Ratio 1.1 (0.9-2); Alkaline Phosphatase 112 U/L (45-117); Bilirubin,Total 0.9 mg/dl (0.2-1); Globulin 3.6 gm/dl (2.5-4.0); Thyroid Stimulating Hormone 0.975 uIu/ml (0.300-4.500); Total Protein 7.5 gm/dl (6.4-8.2); Troponin I < 0.015 ng/ml (0-0.045)
[2021-07-04 15:49] LABS: Appearance Urine Clear (Clear); Bilirubin Urine Negative (Negative); Blood Urine Negative (Negative); Color Urine Yellow; Glucose Urine UA Negative (Negative); Ketones Urine Negative (Negative); Leukocyte Esterase Urine Negative (Negative); Nitrite Urine Negative (Negative); Protein Urine Negative (Negative); Specific Gravity Urine 1.005 (1.000-1.030); Urobilinogen Urine Negative (Negative); pH Urine 7.5 (4.5-7.5)
[2021-07-04] MEDS ORDERED: SODIUM CHLORIDE 0.9% 500 ML IV ONE (15:49)
--- NOTE | 2021-07-04 16:17 | History & Physical Report ---
Date of Service July 04, 2021 Assessment & Plan (1) Atrial fibrillation with rapid ventricular response: Plan: Patient was given a diltiazem bolus with some attempts to convert to NSR. she is having some short runs of nsr, Initial troponin is negative, electrolytes are within normal limits including magnesium and a TSH was found to be normal . We will continue her metoprolol at a higher dose which she typically is on for risk reduction and we will attempt to increase the dose as blood pressure allows. check an echocardiogram for left atrial size and systolic function . We will anticoagulate with heparin drip at this point in time and consult cardiology for further evaluation medications and outpatient follow-up. will have serial troponins also (2) Abnormal chest x-ray: Plan: Patient has comments of left basilar changes. The pt previously has had hyperinflation of her chest x ray, will order Chest CT to eval, was not started on antibiotics per ER, if CT confirms will start antibioics and check blood cultures. She relates that she had issues post op from her CABG with fluid in her chest, she also is with a significant smoking history (3) Coronary artery disease: Plan: Pt typically takes asprin atorvastatin 80 typically is on metoprolol 12.5 bid, and lisinopril these will be held while on diltiazem gtt for lower blood pressure, (4) Panic disorder: Plan: will continue abilify, clonazpam paroxitine and trazadone History of Present Illness Primary Care Provider: Ector Stanton MD 76-year-old female who presented to the emergency department for an evaluation of chest pain. The patient describes anterior chest pain that worsens with exertion. She is also had palpitations. She denies having any lower extremity swelling or pain. She does have a history of coronary artery bypass. The patient has not had any recent trauma. She has been compliant with all of her outpatient medications. She denies having any history of atrial fibrillation or atrial flutter. The patient has not seen her family doctor for the symptoms. The patient denies having any recent cold or exposure to COVID-19. She does feel more shortness of breath upon exertion. She states her symptoms are mild to moderate at this time. They improved significantly with rest. ROS Allergies Allergy/AdvReac Type Severity Reaction Status Date / Time No Known Allergies Allergy Verified 07/04/21 16:02 Home Medications Medication Instructions Recorded Confirmed Type aripiprazole 2 mg tablet (Abilify) 2 mg PO QAM 09/10/18 07/04/21 History aspirin 81 mg tablet,delayed 81 mg PO HS 09/10/18 07/04/21 History release (Aspirin Low Dose) paroxetine HCl 40 mg tablet (Paxil) 40 mg PO QAM 09/10/18 07/04/21 History trazodone 50 mg tablet 50 mg PO HS 09/10/18 07/04/21 History vit C 250 mg-vit E 90 mg-zinc 40 1 tab PO QAM 09/08/19 07/04/21 History mg-copper 1 [id number]-dscqjv capsule (PreserVision AREDS-2) latanoprost (PF) 0.005 % eye drops 1 drp OPB HS 10/11/19 07/04/21 History lisinopril 5 mg tablet 5 mg PO HS #90 tab 09/27/20 07/04/21 Rx gabapentin 100 mg capsule 100 mg PO HS 10/05/20 07/04/21 History (Neurontin) paroxetine HCl 20 mg tablet (Paxil) 20 mg PO HS 10/05/20 07/04/21 History metoprolol tartrate 25 mg tablet 12.5 mg PO BID #90 tab 04/23/21 07/04/21 Rx atorvastatin 80 mg tablet (Lipitor) 80 mg PO HS 06/29/21 07/04/21 History ondansetron HCl 4 mg tablet 4 mg PO Q6H PRN #12 tab 06/29/21 07/04/21 Rx (Zofran) tamsulosin 0.4 mg capsule 0.4 mg PO QDD 06/29/21 07/04/21 History clonazepam 0.5 mg tablet 0.5 mg PO HS 07/04/21 07/04/21 History nitroglycerin 0.4 mg sublingual 0.4 mg SUBLINGUAL Q5M PRN #25 tab 07/04/21 07/04/21 Rx tablet (Nitrostat) Past Med/Surg History Medical History (Updated 07/04/21 @ 17:43 by Osman Francisco DO) Basal cell carcinoma of lip HX Basal cell carcinoma of nose HX Colon polyps HX Coronary artery disease Depression with anxiety Glaucoma HTN (hypertension) Hyperlipidemia Kidney stones BOTH SIDES Macular degeneration Osteoarthritis SPINE Osteopenia after menopause Palpitations NOT REPORTED BY PT Panic disorder Surgical History History of appendectomy History of cardiac cath 2011 @ [facility]--no stents History of cholecystectomy History of colonoscopy with polypectomy History of tonsillectomy History of tooth extraction all teeth removed History of total hysterectomy with bilateral salpingo-oophorectomy (BSO) History of wisdom tooth extraction S/P CABG x 3 HX TRIPLE BYPASS 2011 FOR BLOCKAGES...[place] Health Status post Mohs surgery for basal cell carcinoma x2 Family History Mother Family history of esophageal cancer Depression Myocardial infarction Lung cancer Colorectal cancer Cancer Sister Basal cell adenocarcinoma Depression Brother Malignant melanoma Father AAA (abdominal aortic aneurysm) Myocardial infarction Family history of colonic polyps Other Alcoholism in family No family history of adverse response to anesthesia Denies family history of Ovarian cancer Prostate cancer Breast cancer Social History Smoking Status: Former smoker Tobacco Type: Cigarettes Age Started Using Tobacco: 22; Age Quit Using Tobacco: 64; packs per day: 1; Years Smoked: 42; Cigarettes Per Day: 20; Smoking End Date: 2011; Second Hand Exposure: No (as a child); Hx Alcohol Use: Yes Alcohol type: wine Alcohol Intake Frequency: Monthly or Less Hx Substance Use: No Preferred Language: Sinhala Communication Ability: Effective Visual Impairment: Limited Hearing Ability: Normal Window Cutter Required: No Beliefs That Will Affect Care: None marital status: Current Living Situation: Spouse Current Living Situation Comment: lives in [place]; 2 adult children current occupational 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 Other Information That Helps Us Care for You: No Feels Safe at Home: Yes Safety Concerns: Feels Safe At This Time Childhood Exposure to Second-Hand Smoke: Yes caffeine: Yes Dental Care, Regularly: No Physical Activity Frequency: Does not Exercise Seatbelt Use: always Sunscreen Use: Yes Do you think of yourself as: straight/heterosexual Assistive Devices: Denture - Upper, Denture - Lower and Glasses Review of Systems Review of Systems: Mild distress and fatigue no headache, no visual changes no speech or swallowing issues no chest pain, pressure or palpitations no shortness of breath, cough or wheezes no abdominal pain, nausea or vomiting, diarrhea or constipation no dysuria, hematuria or frequency no focal joint pain or swelling no back pain, CVA tenderness or radicular pain no bruising, bleeding or rashes no focal signs of weakness or numbness or altered sensation no complaints of anxiety or depression.. Physical Exam Physical Exam: The patient appeared well nourished and normally developed. Vital signs as documented. Head exam is normocephalic atraumatic Neck is without JVD, thyromegaly, or carotid bruits. Lungs are clear to auscultation, no focal loss of breath sounds Cardiac exam, Rhythm is regular.. No murmurs, rubs or gallops. Abdominal exam reveals normal bowel sounds, soft non tender, no masses Extremities are nonedematous and both pedal pulses are present Neurologic exam is alert and oriented, no focal loss of strength or sensation Skin is without bruises or rashes Psychologically is without concerns for anxiety or depression Results & Data Results & Data ([facility]) Vital Signs (Past 12 Hours) Vital Signs Temp Pulse Pulse Resp BP Pulse Ox 07/04/21 16:02 75 18 95 07/04/21 16:00 64 21 95 07/04/21 15:40 71 24 95 07/04/21 15:30 101/82 07/04/21 15:00 80 16 130/93 98 07/04/21 14:38 139 H 24 123/100 97 07/04/21 14:27 97.2 F L 55 L 18 130/92 100 Diagnostic Findings Chest x-ray shows atelectasis or infiltrate left lower lobe reticular opacities are seen elevation left hemidiaphragm ECG Additional Comments: ecg shows atrial fibrillation with rapid rate and right bundle branch block PG Care Time/CCT Total # of Minutes Spent Total Time Spent with Patient: Total time spent is greater than 50% in coordination of care (as documented) at patient's floor/unit and/or counseling patient: Coding Level of Care Code 85357 Initial Inpt Care Lvl 3 Diagnoses Atrial fibrillation with rapid ventricular response I48.91 Abnormal chest x-ray R93.89 Coronary artery disease I25.10 Panic disorder F41.0
[2021-07-04] MEDS ORDERED: STAT IV Infusion **Titration per Protocol STA (16:41)
[2021-07-04] MEDS ORDERED: Heparin IV Adult Wt-Based Standard WITH Bolus Protocol IV STA (17:00)
[2021-07-04] MEDS ORDERED: DIGOXIN 500 MCG/2 ML AMP IV ONE (17:00)
[2021-07-04] MEDS ORDERED: DIGOXIN 250 MCG in SYRINGE 9 ML IV STA (17:05)
--- NOTE | 2021-07-04 17:09 | Electrocardiogram Report ---
Test Reason : Blood Pressure : / mmHG Vent. Rate : 139 BPM Atrial Rate : 138 BPM P-R Int : 000 ms QRS Dur : 120 ms QT Int : 358 ms P-R-T Axes : 000 -53 083 degrees QTc Int : 544 ms Atrial fibrillation with rapid ventricular response Right bundle branch block Left anterior fascicular block Bifascicular block Minimal voltage criteria for LVH, may be normal variant Abnormal ECG When compared with ECG of 02-APR-2021 15:04, Atrial fibrillation has replaced Sinus rhythm Vent. rate has increased BY 73 BPM T wave inversion no longer evident in Lateral leads Confirmed by Osman Yusuf ([id number]) on 07/04/2021 5:09:28 PM Referred By: Confirmed By:Osman Yusuf
[2021-07-04] MEDS ORDERED: HEPARIN SODIUM/DEXTROSE 25,000 UNITS/500 ML BAG IV SCH (17:15)
[2021-07-04] MEDS ORDERED: HEPARIN SOD (PORCINE) 1000 UNIT/ML IV ONE (17:15)
[2021-07-04] MEDS ORDERED: Heparin IVP from UFH Protocol (WITH Bolus) IV ONE (17:15)
--- NOTE | 2021-07-04 19:20 | CT Scan Report ---
CT chest diagnostic wo con CT DOSE: 181.96 mGy.cm HISTORY: Abnormal chest x-ray. Left lower lobe density. eval left lower lobe TECHNIQUE: Multiaxial CT images of the chest were performed without contrast. A dose lowering techni que was utilized adhering to the principles of ALARA. COMPARISON: Abdomen and pelvis CT 06/29/2021. Chest x-ray 07/04/2021. FINDINGS: No pneumothorax. No pleural effusions. Moderate emphysema. Mild elevation of the left hemid iaphragm with linear density at the left lung base. This is similar to the prior abdomen and pelvis C T and likely represents subsegmental atelectasis or scarring. There is a 5 mm groundglass density wit hin the right lung apex on image 48. A 4 mm subpleural nodule within the right middle lobe abutting t he minor fissure on image 167. A few linear densities within the base of the right lower lobe posteri laura. This also favors subsegmental atelectasis or scarring. The central airways are patent. Limited views of the upper abdomen demonstrate a normal spleen and adrenal glands. The heart is normal in siz e. No pleural or pericardial effusions. Stable 2.7 cm cyst within the right hepatic lobe and dense ca lcification within the anterior segment of the right hepatic lobe. Normal esophagus. The ascending th oracic aorta measures up to 4.4 cm in diameter. The main pulmonary artery is normal in caliber. No me diastinal or hilar lymphadenopathy. There are poststernotomy changes. No acute fractures within the v isualized osseous structures. IMPRESSION: 1. Mild elevation of the left hemidiaphragm with linear densities at the left lung base. This is chelsey lar to the prior abdomen and pelvis CT and therefore likely represent subsegmental atelectasis or sca rring. 2. A 5 mm groundglass density within the right lung apex. A six-month follow-up chest CT is recommend ed to ensure resolution and to exclude the possibility low-grade neoplasm. 3. Moderate emphysema.. 4. Aneurysmal dilatation of the ascending thoracic aorta measuring up to 4.4 cm in diameter. ACT 112: Negative or not required by law. Electronically signed by: David Anderson M.D. 07/04/2021 7:19 PM
[2021-07-04] MEDS ORDERED: POLYETHYLENE (MIRALAX) 17 GM PACK PO PRN (20:00)
[2021-07-04] MEDS ORDERED: METOPROLOL TARTRATE 1 MG/ML VIAL IV PRN (20:00)
[2021-07-04] MEDS ORDERED: ONDANSETRON INJ 2 MG/ML 2 ML VIAL IV PRN (20:00)
[2021-07-04] MEDS ORDERED: NITROGLYCERIN SL 0.4 MG/TAB TAB SL PRN (20:00)
[2021-07-04] MEDS ORDERED: ACETAMINOPHEN 325 MG TAB PO PRN (20:00)
[2021-07-04] MEDS ORDERED: traZODone HCL 50 MG TAB PO SCH (21:00)
[2021-07-04] MEDS ORDERED: clonazePAM 0.5 MG TAB PO SCH (21:00)
[2021-07-04] MEDS ORDERED: PARoxetine HCL 20 MG TAB PO SCH (21:00)
[2021-07-04] MEDS ORDERED: GABAPENTIN 100 MG CAP PO SCH (21:00)
[2021-07-04] MEDS ORDERED: ATORVASTATIN 40 MG TAB PO SCH (21:00)
[2021-07-04] MEDS ORDERED: ASPIRIN 81 MG ECTAB PO SCH (21:00)
[2021-07-04] MEDS ORDERED: LATANOPROST 0.005% OP SOLN 2.5 ML BTL OPB SCH (21:00)
[2021-07-04] MEDS: METOPROLOL TARTRATE 25 MG TAB PO SCH (22:08)
[2021-07-05 00:01] LABS: Partial Thromboplastin Ratio 3.9
[2021-07-05 00:04] LABS: Partial Thromboplastin Time 103.3 Seconds (21.0-31.0)
[2021-07-05] MEDS: METOPROLOL TARTRATE 25 MG TAB PO SCH (08:29)
[2021-07-05 08:44] LABS: Partial Thromboplastin Ratio 2.7
[2021-07-05 08:53] LABS: BUN Creatinine Ratio 17.9 (10-20); Calcium 8.7 mg/dl (8.5-10.1); Creatinine Clr Calc Pharmacy 66.6 ml/min; Est GFR (African American) 101.9 ml/min; Est GFR (Non-African American) 87.9 ml/min; Magnesium 2.1 mg/dl (1.8-2.4); Potassium 3.7 mmol/L (3.5-5.1)
[2021-07-05 08:54] LABS: Partial Thromboplastin Time 71.9 Seconds (21.0-31.0)
[2021-07-05] MEDS ORDERED: ARIPIprazole 1 MG/ML ORAL SOLN 150 ML BTL PO SCH (09:00)
[2021-07-05] MEDS ORDERED: PARoxetine HCL 20 MG TAB PO SCH (09:00)
[2021-07-05] MEDS ORDERED: CEROVITE ADV FORMULA TAB PO SCH (09:00)
[2021-07-05 10:31] VITALS: TEMP 98.1; O2SAT 94
--- NOTE | 2021-07-05 13:52 | XCELERA ---
[id number]
--- NOTE | 2021-07-05 14:54 | Cardiology Consultation ---
Date of Consultation July 05, 2021 Assessment & Plan (1) Paroxysmal atrial fibrillation: (2) Atypical chest pain: (3) Coronary artery disease: (4) S/P CABG x 3: (5) HTN (hypertension): (6) Mild ascending aorta dilatation: ASSESSMENT/PLAN: 1. Paroxysmal atrial fibrillation with rapid ventricular response: Her morning dose of metoprolol was held due to mild bradycardia but she did receive digoxin last evening. Recommend increasing home dose of metoprolol to 25 mg twice daily on discharge. We discussed the diagnosis and treatment strategies in detail. Recommend rate control strategy for now. Recommend 30 day event monitor as an outpatient to monitor treatment response. If rate control strategy is limited due to bradycardia in the future, could consider antiarrhythmic approach. We discussed the importance of stroke risk reduction with anticoagulation. She was agreeable. Recommend novel agent on discharge if affordable. 2. CAD s/p CABG x 3: Has had atypical chest pain but different than prior angina. Troponin has remained unremarkable intermittent symptoms for 2 days and elevated heart rates with AFib. If she has recurrent issues are certainly exertional issues, could consider noninvasive ischemic evaluation as an outpatient. Her atypical chest pain may have been related to her AFib. Continue beta-philip and high-intensity statin therapy. 3. Hypertension: Blood pressure reasonably controlled. Continue current regimen as outlined. 4. Atypical chest pain: Plan as above. Possibly related to her AFib. 5. Mildly dilated ascending aorta: Recommend continuation of beta-philip. Avoid strenuous lifting for which the Valsalva maneuver is required. Annual surveillance recommended and if this is the first diagnosis of dilated ascending aorta, would recommend repeat imaging in 6 months for surveillance purposes. This diagnosis was not discussed with her as it was noted after our meeting today. This can be followed up as an outpatient with her primary cardiology team. Blood pressure control important. 6. Disposition: Plan of care discussed with primary hospitalist service, Dr. Loya. Patient care also discussed with Mr. Mcdonough as she has a pending appointment next month with him previously scheduled. Can be discharged home fr om a cardiology standpoint. Thank you for allowing me to participate in the care of your patient. Please call for any other questions or concerns. Sincerely, Edgar Capellan M.D. History of Present Illness Reason for Consultation: atrial fibrillation Requesting Physician: Dr. Morrison Attending Physician: Osmany Loya DO History of Present Illness Mrs. Gerardo is a pleasant 76-year-old female with a history significant for multivessel CAD s/p CABG x3, hypertension, dyslipidemia, anxiety with panic disorder, and obstructive airway disease/asthma. Her primary mobile patrol officer is Dr. Walsh and Siddhartha Cody Mcdonough. She has had the following studies/procedures: 1. CABG x3 February 2012 C: DUNN to LAD, SVG to PL, SVG to distal circumflex. 2. Echo 07/05/2021: Normal LV size and systolic function. EF 55-60%. Hypokinesis of the inferolateral wall. Moderate LVH of the anteroseptum. Mildly reduced RV systolic function. Mild left atrial dilation. Mild MR. RVSP 21. No significant change from prior study on 03/16/2020. She presented to [facility] and was admitted on 07/04/2021 with chest pain. She was found to be in AFib with RVR. She describes the chest pain is substernal and sharp. Episodes would last up to 10 seconds before spontaneously resolving. There was no specific trigger or alleviating factor. Symptoms would recur intermittently. There was associated shortness of breath but no radiation of the pain and no diaphoresis. This chest discomfort was completely different than prior angina. She has been experiencing this for 2 days. She has also be en experiencing palpitations, but more chronically. She has attributed palpitations to anxiety and panic attacks in the past. She has been noticing palpitations more so as well over the past 2 days. Since admission, she has had 2 episodes of chest pain but they were less intense, with the last being earlier this morning. She has not noted any palpitations since admitted. She does not recall being diagnosed with atrial fibrillation in the past. She denies melena or hematochezia but did have hematuria over the past few months attributed to kidney stones. This has since resolved. She has chronic but stable dyspnea with exertion while climbing stairs. She does not participate dedicated exercise but remains active. She denies syncope, near-syncope, edema, or exertional chest pain. While here, she has received digoxin and metoprolol tartrate 25 mg p.o. at 10:08 p.m. on 07/04/2021. Her morning dose of beta-philip was held due to bradycardia. Her heart rate was in the 50s during echo. Review of systems: As above. Review of systems otherwise negative/unremarkable. Family history: Mother had VT in her 60s and at the age of 68 with colon cancer. Social history: She quit smoking in 2011. Rare alcohol. No drugs. Lives at home with her . Has 2 daughters ([place] and [place]). Has adopted grandchildren. Her sister, Lurdes, was present at the bedside. Allergies Allergy/AdvReac Type Severity Reaction Status Date / Time No Known Allergies Allergy Verified 07/04/21 16:02 Home Medications Medication Instructions Recorded Confirmed Type aripiprazole 2 mg tablet (Abilify) 2 mg PO QAM 09/10/18 07/04/21 History aspirin 81 mg tablet,delayed 81 mg PO HS 09/10/18 07/04/21 History release (Aspirin Low Dose) paroxetine HCl 40 mg tablet (Paxil) 40 mg PO QAM 09/10/18 07/04/21 History trazodone 50 mg tablet 50 mg PO HS 09/10/18 07/04/21 History vit C 250 mg-vit E 90 mg-zinc 40 1 tab PO QAM 09/08/19 07/04/21 History mg-copper 1 [id number] capsule (PreserVision AREDS-2) latanoprost (PF) 0.005 % eye drops 1 drp OPB HS 10/11/19 07/04/21 History lisinopril 5 mg tablet 5 mg PO HS #90 tab 09/27/20 07/04/21 Rx gabapentin 100 mg capsule 100 mg PO HS 10/05/20 07/04/21 History (Neurontin) paroxetine HCl 20 mg tablet (Paxil) 20 mg PO HS 10/05/20 07/04/21 History metoprolol tartrate 25 mg tablet 12.5 mg PO BID #90 tab 04/23/21 07/04/21 Rx atorvastatin 80 mg tablet (Lipitor) 80 mg PO HS 06/29/21 07/04/21 History ondansetron HCl 4 mg tablet 4 mg PO Q6H PRN #12 tab 06/29/21 07/04/21 Rx (Zofran) tamsulosin 0.4 mg capsule 0.4 mg PO QDD 06/29/21 07/04/21 History clonazepam 0.5 mg tablet 0.5 mg PO HS 07/04/21 07/04/21 History nitroglycerin 0.4 mg sublingual 0.4 mg SUBLINGUAL Q5M PRN #25 tab 07/04/21 07/04/21 Rx tablet (Nitrostat) apixaban 5 mg tablet (Eliquis) 5 mg PO BID 30 Days #60 tab 07/05/21 Rx metoprolol tartrate 25 mg tablet 25 mg PO BID 30 Days #60 tab 07/05/21 Rx Patient History Medical History (Updated 07/05/21 @ 16:46 by Wilder Capellan MD) Basal cell carcinoma of lip HX Basal cell carcinoma of nose HX Colon polyps HX Coronary artery disease Depression with anxiety Glaucoma HTN (hypertension) Hyperlipidemia Kidney stones BOTH SIDES Macular degeneration Mild ascending aorta dilatation Osteoarthritis SPINE Osteopenia after menopause Palpitations NOT REPORTED BY PT Panic disorder Surgical History (Updated 07/05/21 @ 16:33 by Wilder Capellan MD) History of appendectomy History of cardiac cath 2011 @ [facility]--no stents History of cholecystectomy History of colonoscopy with polypectomy History of tonsillectomy History of tooth extraction all teeth removed History of total hysterectomy with bilateral salpingo-oophorectomy (BSO) History of wisdom tooth extraction S/P CABG x 3 Status post Mohs surgery for basal cell carcinoma x2 Family History Mother Family history of esophageal cancer Depression Myocardial infarction Lung cancer Colorectal cancer Cancer Sister Basal cell adenocarcinoma Depression Brother Malignant melanoma Father AAA (abdominal aortic aneurysm) Myocardial infarction Family history of colonic polyps Other Alcoholism in family No family history of adverse response to anesthesia Denies family history of Ovarian cancer Prostate cancer Breast cancer Social History Smoking Status: Former smoker Tobacco Type: Cigarettes Age Started Using Tobacco: 22; Age Quit Using Tobacco: 64; packs per day: 1; Years Smoked: 42; Cigarettes Per Day: 20; Smoking End Date: 2011; Second Hand Exposure: No (as a child); Hx Alcohol Use: Yes Alcohol type: wine Alcohol Intake Frequency: Monthly or Less Hx Substance Use: No Preferred Language: Croatian Communication Ability: Effective Visual Impairment: Limited Hearing Ability: Normal Elevator Repairer Required: No Beliefs That Will Affect Care: None marital status: Current Living Situation: Spouse Current Living Situation Comment: lives in [place]; 2 adult children current occupational 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 Alert and oriented. HEENT: Anicteric sclera. Neck: No JVD. No bruits. Normal carotid upstrokes bilaterally. Cardiac: PMI was nondisplaced. No ventricular heave. Regular in the 60s. Normal S1-S2. No murmurs, rubs, or gallops. Pulmonary: Initially had bibasilar crackles that cleared with cough. Abdomen: Soft, nontender, nondistended, with normoactive bowel sounds. No bruits noted. Extremities: 1+ radial pulses bilaterally. 2+ posterior tibialis pulses bilaterally. No significant pitting edema. No cyanosis. Psychiatric: Affect appears appropriate. Results & Data ([place]) Vital Signs (Past 12 Hours) Vital Signs Temp Pulse Pulse Resp BP BP Pulse Ox 07/05/21 10:29 36.7 C 52 L 18 121/81 94 07/05/21 10:27 64 07/05/21 07:56 37.1 C 57 L 17 134/72 95 07/05/21 04:26 36.5 C 60 16 102/67 96 Laboratory Results Laboratory Results - last 24 hr 07/04/21 07/04/21 07/04/21 14:50 14:50 14:50 WBC 8.47 RBC 4.85 Hgb 14.6 Hct 42.6 MCV 87.8 MCH 30.1 MCHC 34.3 RDW Std Deviation 41.6 RDW Coeff of Paul 13.0 Plt Count 230 MPV 9.0 Immature Gran % (Auto) 0.1 Neut % (Auto) 64.2 Lymph % (Auto) 23.0 [place] % (Auto) 9.9 Eos % (Auto) 2.4 Baso % (Auto) 0.4 Neut # (Auto) 5.44 Lymph # (Auto) 1.95 [place] # (Auto) 0.84 H Eos # (Auto) 0.20 Baso # (Auto) 0.03 Immature Gran # (Auto) 0.01 PT 9.9 INR 1.0 APTT 26.5 PTT Ratio 1.0 Sodium 138 Potassium 3.7 Chloride 106 Carbon Dioxide 27 Anion Gap 5.0 BUN 13 Creatinine 0.78 Est Cr Clr Drug Dosing 54.2 Est GFR ( Amer) 86.8 Est GFR (Non-Af Amer) 74.9 BUN/Creatinine Ratio 17.2 Glucose 144 H Calcium 9.1 Magnesium 2.3 Total Bilirubin 0.9 AST 14 L ALT 20 Alkaline Phosphatase 112 Troponin I < 0.015 Total Protein 7.5 Albumin 3.9 Globulin 3.6 Albumin/Globulin Ratio 1.1 TSH 0.975 Urine Color Urine Appearance Urine pH Ur Specific [place] Urine Protein Urine Glucose (UA) Urine Ketones Urine Blood Urine Nitrite Urine Bilirubin Urine Urobilinogen Ur Leukocyte Esterase COVID-19 Eval Order SARS-CoV-2 (PCR) Hepatitis C Ab Screen 07/04/21 07/04/21 07/04/21 14:50 15:21 15:21 WBC RBC Hgb Hct MCV MCH MCHC RDW Std Deviation RDW Coeff of Paul Plt Count MPV Immature Gran % (Auto) Neut % (Auto) Lymph % (Auto) [place] % (Auto) Eos % (Auto) Baso % (Auto) Neut # (Auto) Lymph # (Auto) [place] # (Auto) Eos # (Auto) Baso # (Auto) Immature Gran # (Auto) PT INR APTT PTT Ratio Sodium Potassium Chloride Carbon Dioxide Anion Gap BUN Creatinine Est Cr Clr Drug Dosing Est GFR ( Amer) Est GFR (Non-Af Amer) BUN/Creatinine Ratio Glucose Calcium Magnesium Total Bilirubin AST ALT Alkaline Phosphatase Troponin I Total Protein Albumin Globulin Albumin/Globulin Ratio TSH Urine Color Urine Appearance Urine pH Ur Specific [place] Urine Protein Urine Glucose (UA) Urine Ketones Urine Blood Urine Nitrite Urine Bilirubin Urine Urobilinogen Ur Leukocyte Esterase COVID-19 Eval Order Covid19 at [facility] SARS-CoV-2 (PCR) NEGATIVE Hepatitis C Ab Screen Neg 07/04/21 07/04/21 07/04/21 15:39 20:53 23:17 WBC RBC Hgb Hct MCV MCH MCHC RDW Std Deviation RDW Coeff of Paul Plt Count MPV Immature Gran % (Auto) Neut % (Auto) Lymph % (Auto) [place] % (Auto) Eos % (Auto) Baso % (Auto) Neut # (Auto) Lymph # (Auto) [place] # (Auto) Eos # (Auto) Baso # (Auto) Immature Gran # (Auto) PT INR APTT 103.3 H* PTT Ratio 3.9 Sodium Potassium Chloride Carbon Dioxide Anion Gap BUN Creatinine Est Cr Clr Drug Dosing Est GFR ( Amer) Est GFR (Non-Af Amer) BUN/Creatinine Ratio Glucose Calcium Magnesium Total Bilirubin AST ALT Alkaline Phosphatase Troponin I < 0.015 Total Protein Albumin Globulin Albumin/Globulin Ratio TSH Urine Color Yellow Urine Appearance Clear Urine pH 7.5 Ur Specific [place] 1.005 Urine Protein Negative Urine Glucose (UA) Negative Urine Ketones Negative Urine Blood Negative Urine Nitrite Negative Urine Bilirubin Negative Urine Urobilinogen Negative Ur Leukocyte Esterase Negative COVID-19 Eval Order SARS-CoV-2 (PCR) Hepatitis C Ab Screen 07/05/21 07/05/21 08:05 08:05 WBC RBC Hgb Hct MCV MCH MCHC RDW Std Deviation RDW Coeff of Paul Plt Count MPV Immature Gran % (Auto) Neut % (Auto) Lymph % (Auto) [place] % (Auto) Eos % (Auto) Baso % (Auto) Neut # (Auto) Lymph # (Auto) [place] # (Auto) Eos # (Auto) Baso # (Auto) Immature Gran # (Auto) PT INR APTT 71.9 H* PTT Ratio 2.7 Sodium 141 Potassium 3.7 Chloride 109 H Carbon Dioxide 27 Anion Gap 5.0 BUN 11 Creatinine 0.64 Est Cr Clr Drug Dosing 66.6 Est GFR ( Amer) 101.9 Est GFR (Non-Af Amer) 87.9 BUN/Creatinine Ratio 17.9 Glucose 115 H Calcium 8.7 Magnesium 2.1 Total Bilirubin AST ALT Alkaline Phosphatase Troponin I Total Protein Albumin Globulin Albumin/Globulin Ratio TSH Urine Color Urine Appearance Urine pH Ur Specific [place] Urine Protein Urine Glucose (UA) Urine Ketones Urine Blood Urine Nitrite Urine Bilirubin Urine Urobilinogen Ur Leukocyte Esterase COVID-19 Eval Order SARS-CoV-2 (PCR) Hepatitis C Ab Screen Diagnostic Findings Telemetry personally reviewed: Paroxysmal atrial fibrillation with sustained episodes but mostly sinus rhythm today. Last episode of AFib was 12:06 p.m. lasting approximately 30-40 seconds, and was with rapid ventricular response. Echo report reviewed as noted above in HPI. ECGs personally reviewed: ECG 07/04/2021 at 2:33 p.m.: AFib with RVR 139 beats per minute. RBBB. LAFB. ECG 07/05/2021 at 5:29 a.m.: Sinus bradycardia 59 beats per minute. RBBB. LAFB. Nonspecific T-wave abnormality. Chest x-ray 07/04/2021: Possible small left pleural effusion. Atelectasis or infiltrate left lower lung. CT chest without contrast 07/04/2021: Mild elevation left hemidiaphragm with linear densities left lung base. Likely represents subsegmental atelectasis or scarring per Radiology. 5 mm ground-glass density within right lung apex for which 6 month follow-up chest CT recommended by Radiology. Moderate emphysema. Ascending aorta 4.4 cm. Medications Administered Current Inpatient Medications Acetaminophen (Acetaminophen 325 Mg Tab) 650 mg PO Q4H PRN PRN Reason: Pain or Fever Stop: 08/03/21 19:59 Aripiprazole (Aripiprazole 1 Mg/Ml Oral Soln 150 Ml Btl) 2 mg PO QA FRANK Stop: 08/04/21 08:59 Last Admin: 07/05/21 08:29 Dose: 2 mg Documented by: Aspirin (Aspirin 81 Mg Ectab) 81 mg PO HS FRANK Stop: 08/03/21 20:59 Last Admin: 07/04/21 21:34 Dose: Not Given Documented by: Atorvastatin Calcium (Atorvastatin 40 Mg Tab) 80 mg PO HS FRANK Stop: 08/03/21 20:59 Last Admin: 07/04/21 21:35 Dose: 80 mg Documented by: Clonazepam (Clonazepam 0.5 Mg Tab) 0.5 mg PO HS FRANK Stop: 08/03/21 20:59 Last Admin: 07/04/21 21:33 Dose: 0.5 mg Documented by: Gabapentin (Gabapentin 100 Mg Cap) 100 mg PO HS FRANK Stop: 08/03/21 20:59 Last Admin: 07/04/21 21:35 Dose: 100 mg Documented by: Heparin Sodium/Dextrose (Heparin Sodium/Dextrose) 25,000 units in 500 mls @ 16 mls/hr IV .Q24H FRANK; Protocol Stop: 08/03/21 17:14 Last Titration: 07/05/21 09:00 Dose: 750 units/hr, 15 mls/hr Documented by: Latanoprost (Latanoprost 0.005% Op Soln 2.5 Ml Btl) 1 drops OPB [facility] Stop: 08/03/21 20:59 Last Admin: 07/04/21 21:34 Dose: 1 drops Documented by: Metoprolol Tartrate (Metoprolol Tartrate 25 Mg Tab) 25 mg PO BID [facility] Stop: 08/03/21 20:59 Last Admin: 07/05/21 08:29 Dose: Not Given Documented by: Metoprolol Tartrate (Metoprolol Tartrate 1 Mg/Ml Vial) 5 mg IV Q4H PRN PRN Reason: sbp> 185, dbp >95, HR >120 Stop: 08/03/21 19:59 Multivitamins/Minerals (Cerovite Adv Formula Tab) 1 tab PO [facility] Stop: 08/04/21 08:59 Last Admin: 07/05/21 08:29 Dose: 1 tab Documented by: Nitroglycerin (Nitroglycerin Sl 0.4 Mg/Tab Tab) 0.4 mg SL Q5M PRN PRN Reason: chest pain Stop: 08/03/21 19:59 Ondansetron HCl (Ondansetron Inj 2 Mg/Ml 2 Ml Vial) 4 mg IV Q6H PRN PRN Reason: Nausea Stop: 08/03/21 19:59 Paroxetine HCl (Paroxetine Hcl 20 Mg Tab) 20 mg PO [facility] Stop: 08/03/21 20:59 Last Admin: 07/04/21 21:35 Dose: 20 mg Documented by: Paroxetine HCl (Paroxetine Hcl 20 Mg Tab) [facility] Stop: 08/04/21 08:59 Last Admin: 07/05/21 08:30 Dose: 40 mg Documented by: Polyethylene Glycol (Polyethylene (Miralax) 17 Gm Pack) 17 gm PO DAILY PRN PRN Reason: Constipation Stop: 08/03/21 19:59 Trazodone HCl (Trazodone Hcl 50 Mg Tab) 50 mg PO [facility] Stop: 08/03/21 20:59 Last Admin: 07/04/21 22:08 Dose: 50 mg Documented by: PG Care Time/CCT Total # of Minutes Spent Total Time Spent with Patient: Total time spent is greater than 50% in coordination of care (as documented) at patient's floor/unit and/or counseling patient: Coding Level of Care Code 64883 Initial Inpt Care Lvl 3 Diagnoses Paroxysmal atrial fibrillation I48.0 Atypical chest pain R07.89 Coronary artery disease I25.10 S/P CABG x 3 Z95.1 HTN (hypertension) I10 Hypertension type: essential hypertension Mild ascending aorta dilatation I77.810 (1) HTN (hypertension) Hypertension type: essential hypertension Qualified Code(s): I10 - Essential (primary) hypertension
[2021-07-05 15:45] VITALS: BP 132/83; PULSE 63
--- NOTE | 2021-07-05 16:52 | Discharge Summary ---
Date of Service July 05, 2021 Admission HPI Per Admitting Provider 76-year-old female who presented to the emergency department for an evaluation of chest pain. The patient describes anterior chest pain that worsens with exertion. She is also had palpitations. She denies having any lower extremity swelling or pain. She does have a history of coronary artery bypass. The patient has not had any recent trauma. She has been compliant with all of her outpatient medications. She denies having any history of atrial fibrillation or atrial flutter. The patient has not seen her family doctor for the symptoms. The patient denies having any recent cold or exposure to COVID-19. She does feel more shortness of breath upon exertion. She states her symptoms are mild to moderate at this time. They improved significantly with rest. ROS Principal Diagnosis Atrial Fibrillation Discharge Exam Constitutional WD/WN, vitals as above Neck trachea midline, no thyromegaly Respiratory normal respiratory effort, lungs clear to auscultation Cardiovascular RRR, no murmur, no edema Gastrointestinal (Abdomen) normal bowel sounds, soft, nontender, no hepatosplenomegaly Musculoskeletal no cyanosis or clubbing, extremities motor strength 5/5 Psychiatric A+Ox3, euthymic affect Discharge Data Allergies Allergy/AdvReac Type Severity Reaction Status Date / Time No Known Allergies Allergy Verified 07/04/21 16:02 Consultations 07/04/21 16:32 ED Decision to Admit Stat 07/04/21 20:00 Consult Cardiology Routine Ordered Studies 07/04/21 16:42 CT chest diagnostic wo con Routine Hospital Course (1) Atrial fibrillation with rapid ventricular response: (1) Atrial fibrillation with rapid ventricular response: Patient was given a diltiazem bolus with some attempts to convert to NSR. she is having some short runs of nsr, Initial troponin was negative, electrolytes were within normal limits including magnesium and a TSH was found to be normal. We will continued her metoprolol at a higher dose which she typically is on for risk reduction and we will attempt to increase the dose as blood pressure allows. We will anticoagulated with heparin drip at this point in time and consulted cardiology for further evaluation medications and outpatient follow- up. - serial troponins negative - EKG showed bifascicular block without ischemic changes - normal sinus rhythm achieved 6 hours after admission, stable since - Echo: hypokinetic inferiolateral wall (no changes since 02/2021). Normal LV systolic function. - Patient asymptomatic, will continue with metoprolol 25mg BID for rate control. Elqiuis 5mg BID for anticoagulation. Aspirin 81mg. Continue home statin. (2) Abnormal chest x-ray: Patient has comments of left basilar changes. The pt previously has had hyperinflation of her chest x ray, ordered Chest CT to evaluate. -significant smoking history. -found to be left lower lobe atelectasis on CT scan (3) Coronary artery disease: - Pt typically takes aspirin 81mg daily and atorvastatin 80mg, continue - start metoprolol 25mg BID - start eliquis 5mg BID (4) Ground glass Density Right Lung Belt - f/u CT scan in 6 months (5) Ascending thoracic aorta aneurysm - monitor with CT scan in 6-12 months for size progression. (4) Panic disorder: - Continue home med abilify, clonazpam paroxitine and trazadone Total Time Total Time Spent Total Time Spent (In Minutes): <30 Discharge Plan Discharge Items Patient Disposition: Home - Self-Care Reason For Visit: ATRIAL FIBRILLATION RAPID VENTRICULAR RESONSE, ABN Discharge Diagnosis: Atrial Fibrillation Condition on Discharge: Good Activity: Resume your previous activity Non-emergency contact: Primary Care Provider Call non-emergency contact if: you have any medication questions and your symptoms worsen Follow-up/Referrals: Ector Stanton MD [Primary Care Provider] - Diet: Heart Healthy Addtl Attending Provider Instructions: Ms. Gerardo, estrada were admitted to the hospital for chest pain evaluation and new onset atrial fibrillation, which included an irregular rate and rhythm. Heart attack and ischemic disease was ruled out. At about 6 AM her heart went back into normal sinus rhythm and has been stable since. There are several reasons that can set your heart to go into atrial fibrillation, the most common being age. In your case it was most likely combination of age and anxiety induced. The one complication we worry about with atrial fibrillation is a potential for stroke. For stroke prevention, please prescribed you a beta-philip called metoprolol which you already use 12.5 mg twice a day. However, from here on out I want you using 25 mg twice a day. Also, to thin your blood and allow it to flow more smoother through your heart, I prescribed you an anticoagulant called Eliquis which I would like you to take 5 mg twice a day. These 2 medications together will dramatically decrease her chance of stroke in case your heart goes back into atrial fibrillation in the future. Although these medications may be more expensive than you would like, they will be worth the banks as they will increase your life expectancy. I have supplied you with 30 days worth of these medications. Following discharge, you should follow-up with their primary care provider in the next week so they can discuss atrial fibrillation in detail with you and assist with getting you the best prices for your medications. During your visit, we also performed a CT scan of your chest to evaluate lung changes found on a chest x-ray in the emergency department. On the CT exam we found a couple of things that I would just like you to follow-up with me in the future. One was a density in the upper right portion of your lung. It is unknown to what this is and could easily be benign, however, you should get a repeat CT scan for this in 6 months. Also found on the CT scan was not aneurysm under the ascending thoracic aorta measuring at about 4.4 cm. Though this is no concern at this time and should be monitored for size progression. We will get a repeat CT scan in 6 months, we can see if this aneurysm has progressed and needs to be further evaluated. Pending Studies at Discharge: No Stand-Alone Forms: My [facility] [employer], Smoking Cessation Medications and DC Order Prescriptions: New Eliquis 5 mg tablet 5 mg PO BID 30 Days Qty: 60 RF: 0 metoprolol tartrate 25 mg tablet 25 mg PO BID 30 Days Qty: 60 RF: 0 Continued lisinopril 5 mg tablet 5 mg PO HS Qty: 90 RF: 3 nitroglycerin [Nitrostat] 0.4 mg tablet, sublingual 0.4 mg sublingual Q5M PRN (Reason: chest pain) Qty: 25 RF: 3 paroxetine HCl [Paxil] 20 mg tablet 20 mg PO HS RF: 0 PreserVision AREDS-2 [id number]-mg capsule 1 tab PO QAM RF: 0 gabapentin [Neurontin] 100 mg capsule 100 mg PO HS RF: 0 latanoprost (PF) 0.005 % Drops 1 drp OPB HS RF: 0 trazodone 50 mg tablet 50 mg PO HS RF: 0 aspirin [Aspirin Low Dose] 81 mg Tablet,Delayed Release (Dr/Ec) 81 mg PO HS RF: 0 paroxetine HCl [Paxil] 40 mg Tablet 40 mg PO QAM RF: 0 aripiprazole [Abilify] 2 mg Tablet 2 mg PO QAM RF: 0 atorvastatin [Lipitor] 80 mg tablet 80 mg PO HS RF: 0 tamsulosin 0.4 mg capsule 0.4 mg PO QDD RF: 0 ondansetron HCl [Zofran] 4 mg tablet 4 mg PO Q6H PRN (Reason: nausea and vomiting) Qty: 12 RF: 0 clonazepam 0.5 mg tablet 0.5 mg PO HS RF: 0 Discontinued metoprolol tartrate 25 mg tablet 12.5 mg PO BID Qty: 90 RF: 3 Discharge Orders: Discharge Order (Routine); Ordered 07/05/21 Ordered By: Twin Singleton Admission Data Admit Date/Time: 07/04/21 16:41 Attending Provider: Osmany Loya Admit Provider: Duke Morrison Primary Care Provider: Ector Stanton Other Providers: Duke Morrison ; Osman Yusuf Other Interventions: Discharge Summary Assessment (RN) Last Done: 07/05/21 16:55 Supervising Physician Co-Signing Physician Notes I personally examined the patient and verified all casillas points of history and exam, discussed case, and agree with decision making with Dr Singleton. Feeling better. Walking around without any chest pain or discomfort, and no inappropriate tachycardia. Very much wants to go home. Vitals noted in general she is awake and alert pleasant no distress. HEENT normocephalic atraumatic mucous membranes moist. Walking around without any difficulty. No focal neuro deficits. Predominantly sinus on monitor with small burst of a flutter, when she was walking her heart rates basically stayed in the 60s. New onset atrial fibrillationrate controlled (now predominantly sinus)send out on higher dose of metoprolol than she was previously on, anticoagulate with Eliquis. Outpatient follow-up. Aortic aneurysm and groundglass nodular appearing lung lesionboth for outpatien t follow-up. Otherwise as above. Resident Activity Tracking Resident Involvement: Resident Care Provided Care Provided: Adult Hospital Medicine
--- NOTE | 2021-07-05 18:18 | Billing Data ---
Date of Service July 05, 2021 Coding Level of Care Code D/C DAY MANAGEMENT <30 MINS
--- NOTE | 2021-07-06 05:44 | Electrocardiogram Report ---
Test Reason : Blood Pressure : / mmHG Vent. Rate : 059 BPM Atrial Rate : 059 BPM P-R Int : 134 ms QRS Dur : 124 ms QT Int : 454 ms P-R-T Axes : 047 -45 094 degrees QTc Int : 449 ms Sinus bradycardia Possible Left atrial enlargement Right bundle branch block Left anterior fascicular block Bifascicular block T wave abnormality, consider lateral ischemia Abnormal ECG When compared with ECG of 04-JUL-2021 14:33, Sinus rhythm has replaced Atrial fibrillation Vent. rate has decreased BY 80 BPM Confirmed by Wilder Capellan ([id number]) on 07/06/2021 5:43:43 AM Referred By: REFERRED SELF Confirmed By:Wilder Capellan
== END 2021-07-05 17:46 | disposition home or self-care (01) ==
LOC: ED 14:26 → 2S 16:41 → SUATTDRO 16:41 → INTOOBSV 16:41 → 2S 18:40

== ENCOUNTER 2022-06-30 10:45 | Observation (INO) ==
[2022-06-30] MEDS ORDERED: SODIUM CHLORIDE 0.9% 1000ML 1,000 ML IV SCH (11:15)
[2022-06-30 11:18] LABS: Basophils # (auto) 0.06 K/uL (0-0.2); Basophils % (auto) 0.7 %; Eosinophils # (auto) 0.33 K/uL (0-0.50); Hematocrit (blood only) 46.8 % (34.1-44.9); Hemoglobin 15.4 g/dl (12.0-16.0); Immature Granulocytes # (auto) 0.02 K/uL (0.00-0.02); Immature Granulocytes % (auto) 0.2 %; Lymphocytes % (auto) 35.5 %; Mean Corpuscular Hemoglobin 28.4 pg (25.0-34.0); Mean Corpuscular Hgb Conc 32.9 g/dL (32.0-36.0); Mean Corpuscular Volume 86.2 fL (80.0-100.0); Mean Platelet Volume 8.9 fL (9.4-12.3); Monocytes # (auto) 0.76 K/uL (0.24-0.82); Monocytes % (auto) 9.3 %; Neutrophils % (auto) 50.3 %; Platelet Count 276 K/uL (130-400); RDW Coefficient of Variation 13.3 % (11.5-14.5); RDW Standard Deviation 41.3 fL (36.4-46.3); Red Blood Count 5.43 M/uL (3.93-5.22); White Blood Count 8.17 K/ul (4.8-10.8)
--- NOTE | 2022-06-30 11:22 | XRay Report ---
XR chest 1V portable CLINICAL HISTORY: Stroke Like Symptoms. Evaluate cardiopulmonary status COMPARISON STUDY: 07/04/2021 TECHNIQUE: 1 view of the chest FINDINGS: Single frontal view of the chest demonstrates the cardiomediastinal silhouette to be within normal li mits. The patient is status post previous cardiothoracic surgery. There is again asymmetric elevation of left hemidiaphragm. The lungs are clear of alveolar opacities. There is no evidence for pleural e ffusion. There is no evidence for vascular congestion. There is no acute osseous pathology. IMPRESSION: 1. No acute cardiopulmonary disease. ACT 112: Negative or not required by law. Electronically signed by: Dieudonne Moss M.D. 06/30/2022 11:20 AM
[2022-06-30] MEDS ORDERED: OPTIRAY 300 500mL IV ONE (11:24)
--- NOTE | 2022-06-30 11:37 | CT Scan Report ---
CT head/brain wo con CLINICAL HISTORY: Stroke Like Symptoms . Hypertension COMPARISON STUDY: No previous studies for comparison. CT DOSE: 1003.27 mGy.cm TECHNIQUE: Standard CT of the Brain was performed without IV contrast. A dose lowering technique was utilized adhering to the principles of ALARA. FINDINGS: Extraaxial space: There is no evidence for subdural hematoma. There are no extra-axial fluid collecti ons. Ventricles and cisterns: The ventricles are normal in size and configuration. There is no evidence fo r midline shift or mass effect. Parenchyma: There is no subarachnoid or intraparenchymal hemorrhage. There is no evidence for an acut e infarct or cerebral edema. There is mild cerebral cortical atrophy and decreased attenuation in the periventricular white matter representing remote small vessel disease. There are no gross mass lesio ns. Osseous structures: There is no evidence for an acute fracture. The visualized paranasal sinuses are clear. The mastoid air cells are clear bilaterally. Soft tissues: There is no evidence for focal soft tissue swelling. IMPRESSION: 1. No acute intracerebral pathology. 2. Cerebral cortical atrophy and remote small vessel disease. ACT 112: Negative or not required by law. Electronically signed by: Dieudonne Moss M.D. 06/30/2022 11:35 AM
--- NOTE | 2022-06-30 11:41 | CT Scan Report ---
CT angio head w con CLINICAL HISTORY: Stroke Like Symptoms . Hypertension COMPARISON STUDY: CT brain without contrast from 06/30/2022 CT DOSE: TECHNIQUE: CT Angio of the brain was performed.followed by image post processing with coronal, and s agittal MIP reformats. Contrast Volume: Optiray 320, 118 ml FINDINGS: Vascular findings: There is normal enhancement within the internal carotid arteries bilaterally. The re is normal enhancement noted within the anterior, middle and posterior cerebral arteries. Nonvascular findings: There is homogeneous attenuation of the brain parenchyma bilaterally. There is no evidence for an acute infarct or cerebral edema. IMPRESSION: 1. Negative CT angiogram of the brain with contrast. ACT 112: Negative or not required by law. Electronically signed by: Dieudonne Moss M.D. 06/30/2022 11:39 AM
[2022-06-30 11:43] LABS: Partial Thromboplastin Ratio 1.1; Prothrombin Time 10.6 Seconds (9.0-12.0)
--- NOTE | 2022-06-30 11:43 | CT Scan Report ---
CT angio neck with con CLINICAL HISTORY: Stroke Like Symptoms . Hypertension COMPARISON STUDY: No previous studies for comparison. CT DOSE: TECHNIQUE: CT Angio of the neck was performed.followed by image post processing with coronal, and sa gittal MIP reformats.. Stenosis assessment by NASCET criteria. Contrast Volume: Optiray 320, 118 ml FINDINGS: Vascular findings: Right common carotid artery: Patent without significant stenosis. Right internal carotid artery: Patent without significant stenosis. Right vertebral artery: Patent without significant stenosis. Left common carotid artery: Patent without significant stenosis. Left internal carotid artery: Patent without significant stenosis. Left vertebral artery: Patent without significant stenosis. The left vertebral arteries dominant when compared to the right. Nonvascular findings: The parotid and submandibular salivary glands appear normal. There is no enlarged cervical adenopathy noted. The airway appears patent. The thyroid gland appears within normal limits. There are mild kristie trilobular emphysematous changes at the lung apices.. Impression: 1. Essentially negative CT angiogram of the neck with contrast. ACT 112: Negative or not required by law. Electronically signed by: Dieudonne Moss M.D. 06/30/2022 11:41 AM
[2022-06-30 11:54] LABS: Albumin Globulin Ratio 1.4 (0.9-2); Albumin Level 4.2 gm/dl (3.4-5.0); BUN Creatinine Ratio 14.6 (10-20); Bilirubin,Total 0.7 mg/dl (0.2-1.0); Calcium 9.3 mg/dl (8.5-10.1); Creatinine Clr Calc Pharmacy 54.2 ml/min; Est GFR (African American) 81.7 ml/min; Est GFR (Non-African American) 70.5 ml/min; Globulin 3.1 gm/dl (2.5-4.0); Magnesium 2.2 mg/dl (1.7-2.4); Potassium 3.9 mmol/L (3.5-5.1); Total Protein 7.3 gm/dl (6.0-8.3)
[2022-06-30 11:59] LABS: Troponin I High Sensitivity 16.3 pg/ml (0-14)
[2022-06-30 12:25] LABS: Appearance Urine Clear (Clear); Bilirubin Urine Negative (Negative); Blood Urine Negative (Negative); Color Urine Yellow; Glucose Urine UA Negative (Negative); Ketones Urine Negative (Negative); Leukocyte Esterase Urine Negative (Negative); Nitrite Urine Negative (Negative); Protein Urine Negative (Negative); Specific Gravity Urine 1.023 (1.000-1.030); Urobilinogen Urine Negative (Negative)
--- NOTE | 2022-06-30 13:47 | Electrocardiogram Report ---
Test Reason : Blood Pressure : / mmHG Vent. Rate : 065 BPM Atrial Rate : 065 BPM P-R Int : 128 ms QRS Dur : 118 ms QT Int : 446 ms P-R-T Axes : 029 -53 090 degrees QTc Int : 463 ms Normal sinus rhythm Possible Left atrial enlargement Right bundle branch block Left anterior fascicular block Bifascicular block Left ventricular hypertrophy Abnormal ECG When compared with ECG of 05-JUL-2021 05:29, No significant change was found Confirmed by Osman Yusuf ([id number]) on 06/30/2022 1:47:16 PM Referred By: REFERRED SELF Confirmed By:Osman Yusuf
--- NOTE | 2022-06-30 14:04 | History & Physical Report ---
Date of Service June 30, 2022 Assessment & Plan (1) Hypertensive emergency: Plan: Presenting symptoms of left-sided numbness may have been from HTN emergency, TIA or actual stroke. If stroke is found I would anticipate a lacunar/brainstem stroke as the main symptom was that of sensory loss. Plan for MRI brain this evening. Continue metoprolol BID. If MRI brain is negative then increase her usual lisinopril to 10mg BID. Place on telemetry. (2) Numbness on left side: Plan: As stated above this could be due to the severely high blood pressure itself, TIA, or acute stroke. Fortunately the symptoms are already improving but they did last for several hours. Plan - * MRI brain r/o acute CVA * add aspirin 81mg daily in addition to usual Eliquis 5mg BID for secondary prevention * consult neurology for their opinion regarding her presentation * PT, OT, speech evals * echocardiogram - r/o source of thrombus, etc * place on telemetry * check a1c and lipids in am (3) PAF (paroxysmal atrial fibrillation): Plan: history of PAF in 2020. has been in NSR since presentation. continue Eliquis 5mg BID. continue metoprolol 25mg BID. telemetry. (4) Coronary artery disease: Plan: h/o 3-vessel CABG. HS troponins are minimally elevated - likely demand ischemia in setting of #1. follows with [facility] Cardiology. no obvious ischemic symptoms today. adding aspirin 81mg daily for possible TIA vs stroke. cont lipitor 80mg daily. cont metoprolol 25mg BID. (5) Hyperlipidemia: Plan: check lipids in am; however, last lipid profile showed LDL of 72 in November 2021. continue statin. if LDL is >70 could consider zetia in addition to her statin. (6) HTN (hypertension): Plan: see #1 above. continue metoprolol BID. continue lisinopril - was taking 10mg am, 5mg pm at home; increase to 10mg BID if MRI brain is negative for acute CVA. if MRI shows acute CVA then hold AISHWARYA to allow permissive HTN. (7) CHER (generalized anxiety disorder): Plan: Cont home meds including abilify, HS klonipin, paxil BID. She endorses severe anxiety a few days ago and again today. Consider increasing klonipin to BID dosing. Can't rule out that anxiety contributed to some of her symptoms today. (8) DVT prophylaxis: Plan: eliquis 5mg BID Plan place on observation status for now History of Present Illness Chief Complaint: numbness, elevated blood pressure Primary Care Provider: Ector Stanton MD Pleasant 76yo female with h/o CAD s/p 3-vessel CABG at [facility], severe anxiety disorder, HTN, and PAF presents from home after developing "racing heart," elevated blood pressures, and left-sided numbness. Patient states she woke up early this am, about 0430, and felt ok at that time. She went out to the living room and watched TV. Shortly after 0700 she felt her heart racing and decided to take her BP. SBP was at least 150s/160s. She doesn't recall what her pulse was. She checked her BPs at least 4-5 more times over the next 2-3 hours. Each time she took it the pressures barrera further, and at one point her SBP was in the 190s. About 0915am she noted her left face, left distal arm, and left distal leg were numb. No headache. No right-sided symptoms. She had no speech impairment or dysphagia. Her left leg felt "a little weak" when she got up to ambulate. She called her PCP's office due to the above symptoms and was advised to come to the ER. She came to [facility] and sometime while here the left-sided numbness improved. She does note, however, that the left face feels "more sensitive" than the right face. The overall numbness however has improved. Over the last few days she has felt well except for suffering a panic attack while at [employer] on . She does have severe anxiety disorder and sees Dr Dougherty from psychiatry. On Friday and Friday she felt well and did her usual day-to-day tasks at home. Patient denies any prior h/o TIA or CVA. She did not have her usual medications this am including her Eliquis. Allergies Allergy/AdvReac Type Severity Reaction Status Date / Time No Known Allergies Allergy Verified 05/01/22 13:52 Home Medications Medication Instructions Recorded Confirmed Type aripiprazole 2 mg tablet (Abilify) 2 mg PO QAM 09/10/18 05/01/22 History paroxetine HCl 40 mg tablet (Paxil) 40 mg PO QAM 09/10/18 05/01/22 History trazodone 50 mg tablet 50 mg PO HS 09/10/18 05/01/22 History vit C 250 mg-vit E 90 mg-zinc 40 1 tab PO QAM 09/08/19 05/01/22 History mg-copper 1 [id number] capsule (PreserVision AREDS-2) gabapentin 100 mg capsule 100 mg PO HS 10/05/20 05/01/22 History (Neurontin) paroxetine HCl 20 mg tablet (Paxil) 20 mg PO HS 10/05/20 05/01/22 History clonazepam 0.5 mg tablet 0.5 mg PO HS 07/04/21 05/01/22 History nitroglycerin 0.4 mg sublingual 0.4 mg sublingual Q5M PRN chest 07/04/21 05/01/22 Rx tablet (Nitrostat) pain #25 tabs apixaban 5 mg tablet (Eliquis) 5 mg PO BID 30 days #60 tabs 07/30/21 05/01/22 Rx atorvastatin 80 mg tablet (Lipitor) 80 mg PO HS #90 tabs 08/24/21 05/01/22 Rx lisinopril 5 mg tablet 5 mg PO .COMPLEX #270 tabs 02/11/22 05/01/22 Rx metoprolol tartrate 25 mg tablet 25 mg PO BID 30 days #60 tabs 03/19/22 05/01/22 Rx Past Med/Surg History Medical History Basal cell carcinoma of lip HX Basal cell carcinoma of nose HX Colon polyps HX Coronary artery disease Depression with anxiety Glaucoma HTN (hypertension) Hyperlipidemia Kidney stones BOTH SIDES - hx Macular degeneration 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 Walsh Osteoarthritis SPINE Osteopenia after menopause Palpitations just on occasion Panic disorder Surgical History History of appendectomy History of cardiac cath 2011 @ [facility]--no stents History of cholecystectomy History of colonoscopy with polypectomy History of lithotripsy History of tonsillectomy History of tooth extraction all teeth removed History of total hysterectomy with bilateral salpingo-oophorectomy (BSO) History of wisdom tooth extraction Hx of left cataract extraction S/P CABG x 3 2011 > [place] Status post Mohs surgery for basal cell carcinoma x2 Family History Mother , age 68 Family history of esophageal cancer Depression Myocardial infarction Lung cancer Colorectal cancer Cancer Sister Basal cell adenocarcinoma Depression Brother Malignant melanoma Father , age 73 - 2nd to AAA? AAA (abdominal aortic aneurysm) Myocardial infarction Family history of colonic polyps Grandfather (Maternal) Stroke Other Alcoholism in family No family history of adverse response to anesthesia Denies family history of Ovarian cancer Prostate cancer Diabetes Breast cancer Social History Smoking Status: Former smoker Tobacco Type: Cigarettes Age Started Using Tobacco: 22; Age Quit Using Tobacco: 64; packs per day: 1; Years Smoked: 42; Cigarettes Per Day: 20; Smoking End Date: 10 years ago; Second Hand Exposure: No; Hx Alcohol Use: No Hx Substance Use: No Preferred Language: Romanian Communication Ability: Effective Visual Impairment: Limited Hearing Ability: Normal [employer] Installation [employer]per Required: No Beliefs That Will Affect Care: None marital status: Current Living Situation: Spouse Current Living Situation Comment: lives in [place]; 2 adult children current occupational 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 How many Children do You have: 2 Other Information That Helps Us Care for You: No Feels Safe at Home: Yes Safety Concerns: Feels Safe At This Time Childhood Exposure to Second-Hand Smoke: Yes caffeine: Yes Dental Care, Regularly: No Physical Activity Frequency: Does not Exercise Seatbelt Use: always Sunscreen Use: Yes Do you think of yourself as: straight/heterosexual Assistive Devices: Denture - Upper, Denture - Lower and Glasses Review of Systems Review of Systems: gen - no fevers or chills eyes - no visual changes today HENT - no dysphagia; no URI symptoms neck - no pain CV - no chest pain, but palpitations/heart racing present this am pulm - no dyspnea or cough GI - no vomiting, no diarrhea, no abd pain - no dysuria musculo - denies any joint pains endo - no diabetes psych - severe anxiety; panic attacks neuro - no true vertigo, no aphasia or dysarthria skin - no rash Physical Exam Physical Exam: gen - mildly anxious, otherwise NAD; no aphasia or dysarthria eyes - PERRL HENT - MMM, no lesions, nose clear neck - no JVD, no bruits, no masses heart - RRR, s1 s2 lungs - CTA b/l abd - soft NT ND BS+; no HSM ext - no edema, pulses 2+ b/l neuro - CN 3-12 intact, strength 5/5 x 4 exts, finger/nose/finger maneuver without ataxia; visual macias full by direct confrontation; sensation intact to light touch x 4 extremities as well as face; gait not tested; speech fluent/clear; DTRs 2+ b/l psych - a/o x 3, anxious skin - no rash lymph - no cervical lymph nodes b/l Results & Data Results & Data ([facility]) Vital Signs (Past 12 Hours) Vital Signs Temp Pulse Pulse Resp BP BP Pulse Ox 06/30/22 12:30 58 L 11 L 95 06/30/22 12:30 132/84 06/30/22 12:00 60 16 96 06/30/22 12:00 137/85 06/30/22 11:34 145/91 H 06/30/22 11:34 96 06/30/22 11:32 67 18 06/30/22 11:04 157/88 H 06/30/22 11:04 65 20 94 06/30/22 11:02 66 21 94 06/30/22 11:09 78 16 158/88 H 97 06/30/22 10:49 36.2 C L 67 16 165/103 H 97 O2 Del Method 06/30/22 12:30 06/30/22 12:30 06/30/22 12:00 06/30/22 12:00 06/30/22 11:34 06/30/22 11:34 06/30/22 11:32 06/30/22 11:04 06/30/22 11:04 06/30/22 11:02 06/30/22 11:09 Room Air 06/30/22 10:49 Room Air Laboratory Results Laboratory Results - last 24 hr 06/30/22 06/30/22 06/30/22 11:01 11:01 11:01 WBC 8.17 RBC 5.43 H Hgb 15.4 Hct 46.8 H MCV 86.2 MCH 28.4 MCHC 32.9 RDW Std Deviation 41.3 RDW Coeff of Paul 13.3 Plt Count 276 MPV 8.9 L Immature Gran % (Auto) 0.2 Neut % (Auto) 50.3 Lymph % (Auto) 35.5 Collier % (Auto) 9.3 Eos % (Auto) 4.0 Baso % (Auto) 0.7 Neut # (Auto) 4.10 Lymph # (Auto) 2.90 Collier # (Auto) 0.76 Eos # (Auto) 0.33 Baso # (Auto) 0.06 Immature Gran # (Auto) 0.02 PT 10.6 INR 1.0 APTT 31.0 PTT Ratio 1.1 Sodium 139 Potassium 3.9 Chloride 104 Carbon Dioxide 28 Anion Gap 7 BUN 12 Creatinine 0.82 Est Cr Clr Drug Dosing 54.2 Est GFR ( Amer) 81.7 Est GFR (Non-Af Amer) 70.5 BUN/Creatinine Ratio 14.6 Glucose 105 H Calcium 9.3 Magnesium 2.2 Total Bilirubin 0.7 AST 18 ALT 12 Alkaline Phosphatase 103 Troponin I High Sens 16.3 H Total Protein 7.3 Albumin 4.2 Globulin 3.1 Albumin/Globulin Ratio 1.4 Urine Color Urine Appearance Urine pH Ur Specific [place] Urine Protein Urine Glucose (UA) Urine Ketones Urine Blood Urine Nitrite Urine Bilirubin Urine Urobilinogen Ur Leukocyte Esterase SARS-CoV-2, RNA, NAAT Blood Type Antibody Screen 06/30/22 06/30/22 06/30/22 11:01 11:16 17:30 WBC RBC Hgb Hct MCV MCH MCHC RDW Std Deviation RDW Coeff of Paul Plt Count MPV Immature Gran % (Auto) Neut % (Auto) Lymph % (Auto) Collier % (Auto) Eos % (Auto) Baso % (Auto) Neut # (Auto) Lymph # (Auto) Collier # (Auto) Eos # (Auto) Baso # (Auto) Immature Gran # (Auto) PT INR APTT PTT Ratio Sodium Potassium Chloride Carbon Dioxide Anion Gap BUN Creatinine Est Cr Clr Drug Dosing Est GFR ( Amer) Est GFR (Non-Af Amer) BUN/Creatinine Ratio Glucose Calcium Magnesium Total Bilirubin AST ALT Alkaline Phosphatase Troponin I High Sens 14.3 H Total Protein Albumin Globulin Albumin/Globulin Ratio Urine Color Urine Appearance Urine pH Ur Specific [place] Urine Protein Urine Glucose (UA) Urine Ketones Urine Blood Urine Nitrite Urine Bilirubin Urine Urobilinogen Ur Leukocyte Esterase SARS-CoV-2, RNA, NAAT NEGATIVE Blood Type O Positive Antibody Screen NEGATIVE 06/30/22 06/30/22 22:30 Unknown WBC RBC Hgb Hct MCV MCH MCHC RDW Std Deviation RDW Coeff of Paul Plt Count MPV Immature Gran % (Auto) Neut % (Auto) Lymph % (Auto) Collier % (Auto) Eos % (Auto) Baso % (Auto) Neut # (Auto) Lymph # (Auto) Collier # (Auto) Eos # (Auto) Baso # (Auto) Immature Gran # (Auto) PT INR APTT PTT Ratio Sodium Potassium Chloride Carbon Dioxide Anion Gap BUN Creatinine Est Cr Clr Drug Dosing Est GFR ( Amer) Est GFR (Non-Af Amer) BUN/Creatinine Ratio Glucose Calcium Magnesium Total Bilirubin AST ALT Alkaline Phosphatase Troponin I High Sens 15.9 H Total Protein Albumin Globulin Albumin/Globulin Ratio Urine Color Yellow Urine Appearance Clear Urine pH 8.0 H Ur Specific [place] 1.023 Urine Protein Negative Urine Glucose (UA) Negative Urine Ketones Negative Urine Blood Negative Urine Nitrite Negative Urine Bilirubin Negative Urine Urobilinogen Negative Ur Leukocyte Esterase Negative SARS-CoV-2, RNA, NAAT Blood Type Antibody Screen Diagnostic Findings Chest X-Ray 06/30/22 11:02 XR chest 1V portable CLINICAL HISTORY: Stroke Like Symptoms. Evaluate cardiopulmonary status COMPARISON STUDY: 07/04/2021 TECHNIQUE: 1 view of the chest FINDINGS: Single frontal view of the chest demonstrates the cardiomediastinal silhouette to be within normal limits. The patient is status post previous cardiothoracic surgery. There is again asymmetric elevation of left hemidiaphragm. The lungs are clear of alveolar opacities. There is no evidence for pleural effusion. There is no evidence for vascular congestion. There is no acute osseous pathology. IMPRESSION: 1. No acute cardiopulmonary disease. ACT 112: Negative or not required by law. Electronically signed by: Diuedonne Moss M.D. 06/30/2022 11:[address] 06/30/22 11:02 CT head/brain wo con CLINICAL HISTORY: Stroke Like Symptoms . Hypertension COMPARISON STUDY: No previous studies for comparison. CT DOSE: 1003.27 mGy.cm TECHNIQUE: Standard CT of the Brain was performed without IV contrast. A dose lowering technique was utilized adhering to the principles of ALARA. FINDINGS: Extraaxial space: There is no evidence for subdural hematoma. There are no extra-axial fluid collections. Ventricles and cisterns: The ventricles are normal in size and configuration. There is no evidence for midline shift or mass effect. Parenchyma: There is no subarachnoid or intraparenchymal hemorrhage. There is no evidence for an acute infarct or cerebral edema. There is mild cerebral cortical atrophy and decreased attenuation in the periventricular white matter representing remote small vessel disease. There are no gross mass lesions. Osseous structures: There is no evidence for an acute fracture. The visualized paranasal sinuses are clear. The mastoid air cells are clear bilaterally. Soft tissues: There is no evidence for focal soft tissue swelling. IMPRESSION: 1. No acute intracerebral pathology. 2. Cerebral cortical atrophy and remote small vessel disease. ACT 112: Negative or not required by law. Electronically signed by: Dieudonne Moss M.D. 06/30/2022 11:35 AM Head CTA 06/30/22 11:02 CT angio head w con CLINICAL HISTORY: Stroke Like Symptoms . Hypertension COMPARISON STUDY: CT brain without contrast from 06/30/2022 CT DOSE: TECHNIQUE: CT Angio of the brain was performed.followed by image post processing with coronal, and sagittal MIP reformats. Contrast Volume: Optiray 320, 118 ml FINDINGS: Vascular findings: There is normal enhancement within the internal carotid arteries bilaterally. There is normal enhancement noted within the anterior, middle and posterior cerebral arteries. Nonvascular findings: There is homogeneous attenuation of the brain parenchyma bilaterally. There is no evidence for an acute infarct or cerebral edema. IMPRESSION: 1. Negative CT angiogram of the brain with contrast. ACT 112: Negative or not required by law. Electronically signed by: Dieudonne Moss M.D. 06/30/2022 11:39 AM Neck CTA 06/30/22 11:02 CT angio neck with con CLINICAL HISTORY: Stroke Like Symptoms . Hypertension COMPARISON STUDY: No previous studies for comparison. CT DOSE: TECHNIQUE: CT Angio of the neck was performed.followed by image post processing with coronal, and sagittal MIP reformats.. Stenosis assessment by NASCET criteria. Contrast Volume: Optiray 320, 118 ml FINDINGS: Vascular findings: Right common carotid artery: Patent without significant stenosis. Right internal carotid artery: Patent without significant stenosis. Right vertebral artery: Patent without significant stenosis. Left common carotid artery: Patent without significant stenosis. Left internal carotid artery: Patent without significant stenosis. Left vertebral artery: Patent without significant stenosis. The left vertebral arteries dominant when compared to the right. Nonvascular findings: The parotid and submandibular salivary glands appear normal. There is no enlarged cervical adenopathy noted. The airway appears patent. The thyroid gland appears within normal limits. There are mild centrilobular emphysematous changes at the lung apices.. Impression: 1. Essentially negative CT angiogram of the neck with contrast. ACT 112: Negative or not required by law. Electronically signed by: Dieudonne Moss M.D. 06/30/2022 11:41 AM EKG - my reading - NSR, RBBB, no ST changes Code Status & VTE Plan Code Status full code PG Care Time/CCT Total # of Minutes Spent Total Time Spent with Patient: Total time spent is greater than 50% in coordination of care (as documented) at patient's floor/unit and/or counseling patient: Coding Level of Care Code INT OBSERVATION CARE 70M LVL 3 Diagnoses Hypertensive emergency I16.1 Numbness on left side R20.0 PAF (paroxysmal atrial fibrillation) I48.0 Coronary artery disease I25.10 Hyperlipidemia E78.2 Hyperlipidemia type: mixed hyperlipidemia HTN (hypertension) I10 Hypertension type: essential hypertension CHER (generalized anxiety disorder) F41.1 DVT prophylaxis Z29.9 (1) Hyperlipidemia Hyperlipidemia type: mixed hyperlipidemia Qualified Code(s): E78.2 - Mixed hyperlipidemia (2) HTN (hypertension) Hypertension type: essential hypertension Qualified Code(s): I10 - Essential (primary) hypertension
--- NOTE | 2022-06-30 15:37 | Emergency Department Note ---
Impression & Plan Stroke-like symptoms, Hypertension, Numbness on right side ED Provider Note INFORMANT: Patient ED PROVIDER(S): Tacho Renee MD CHIEF COMPLAINT: Numbness on the right side PLAN: Disposition: Admitted Condition: Good Outpatient prescription management: none Referral: None MEDICAL DECISION MAKING: Patient presented to emergency department complaining of right-sided numbness. She also noted moderate hypertension at home. Her hypertension improved without direct intervention here. She underwent a work-up. She is on anticoagulation and therefore is not a TNKase candidate. Stroke alert was not initiated however the work-up including imaging was expedited in the same fashion. CT was made aware and the patient was taken emergently over for CT and CT angiography. This thankfully was negative. Chest x-ray was unremarkable. ECG did not show any significant findings nor did cardiac monitoring. Patient's urinalysis, CBC, chemistry panel and LFTs were negative. The patient does have a mildly elevated troponin. In light of the hypertension, elevated troponin, and strokelike symptoms further management in the hospital is necessary. [facility] Patient was evaluated for further management. Triage Nursing notes reviewed and agree them. Vital Signs: reviewed and remarkable for no significant abnormalities Differential diagnosis: Hypertensive emergency, TIA, CVA, infection, dehydration, metabolic abnormality, hypo/hyperglycemia, electrolyte disturbance, anemia, hypoxia, cardiac sources, intracerebral event, toxicologic, neurologic, as well as other pathologies. Diagnostics interpreted by me: ECG: Twelve-lead ECG reveals a normal sinus rhythm at 65 bpm. Left atrial enlargement. Right bundle-branch block. Left anterior fascicular block. Cardiac Monitoring: Cardiac monitoring ordered by me: The patient was placed on continuous cardiac monitoring and observed. It revealed a normal sinus rhythm at 70 beats per minute without ectopy or evidence of dysrhythmia. Imaging studies: Chest x-ray unremarkable. The patient had a CT of the head, CT angiogram of the head, and CT angiogram of the neck that did not reveal any acute findings. I refer you to the EMR for further details. HPI: The patient is a 76-year old who presents to the Emergency Room with complaints of right-sided numbness. This started this morning and is improved. The patient also notes the following associated symptoms, drooping of the right side of her mouth and having high blood pressure. The patient has taken no medication for relieving factors. Current pain is rated as 0/10. Pt denies LOC, headache, fevers, chills, diaphoresis, visual changes, neck pain, chest pain, breathing difficulties, nausea, vomiting, abdominal pain, back pain, melena, hematochezia, urinary symptoms, lymphadenopathy, rash, or other complaints. ROS: See above HPI for pertinent positives & negatives. A total of 10 systems reviewed and were otherwise negative. PAST MEDICAL HISTORY:See Below , A. fib, anticoagulated PAST SURGICAL HISTORY:See Below, FAMILY HISTORY:See Below SOCIAL HISTORY:See Below, retired HOME MEDICATIONS:See Below ALLERGIES:See Below VITALS:See Below PHYSICAL EXAMINATION: GENERAL: Awake, alert, mildly anxious-appearing, in no distress HENT: Normocephalic, atraumatic. Oropharynx unremarkable. EYES: Normal conjunctiva. Sclera non-icteric. PERRLA. EOMI. NECK: Inspection normal. Non-tender. Supple. No nuchal rigidity. FROM. No masses. RESPIRATORY: Clear to auscultation. No wheezes. No rales. Normal respiratory effort. CARDIAC: Normal rate. Normal rhythm. No murmurs. No rubs. Extremities warm and well perfused. Pulses equal. No JVD. GI: Soft, non-distended. No tenderness to palpation. No rebound or guarding. No masses. RECTAL: Deferred. MUSCULOSKELETAL: Atraumatic. Chest examination reveals no tenderness. The back is symmetrical on inspection without obvious abnormality. There is no CVA tenderness to palpation. No joint edema. LOWER EXTREMITIES: Calves are equal size bilaterally and non-tender. No edema. No discoloration. NEURO: Normal sensorium. Mild tingling in the right lower face. No sensory or motor deficits noted. SKIN: No rash or jaundice noted. Tacho Renee MD Past Med/Surg History Medical History Basal cell carcinoma of lip HX Basal cell carcinoma of nose HX Colon polyps HX Coronary artery disease Depression with anxiety Glaucoma HTN (hypertension) Hyperlipidemia Kidney stones BOTH SIDES - hx Macular degeneration Mesenteric cyst just monitoring Mild ascending aorta dilatation New onset a-fib recently diagnosed 06/2021 - hospitalized at [facility] - started on BB, Eliquis > follows with Dr. Walsh Osteoarthritis SPINE Osteopenia after menopause Palpitations just on occasion Panic disorder Surgical History History of appendectomy History of cardiac cath 2011 @ [facility]--no stents History of cholecystectomy History of colonoscopy with polypectomy History of lithotripsy History of tonsillectomy History of tooth extraction all teeth removed History of total hysterectomy with bilateral salpingo-oophorectomy (BSO) History of wisdom tooth extraction Hx of left cataract extraction S/P CABG x 3 2011 > [place] Status post Mohs surgery for basal cell carcinoma x2 Family History Mother , age 68 Family history of esophageal cancer Depression Myocardial infarction Lung cancer Colorectal cancer Cancer Sister Basal cell adenocarcinoma Depression Brother Malignant melanoma Father , age 73 - 2nd to AAA? AAA (abdominal aortic aneurysm) Myocardial infarction Family history of colonic polyps Grandfather (Maternal) Stroke Other Alcoholism in family No family history of adverse response to anesthesia Denies family history of Ovarian cancer Prostate cancer Diabetes Breast cancer Social History (Updated 06/30/22 @ 15:01 by Charles Gray) Smoking Status: Former smoker Tobacco Type: Cigarettes Age Started Using Tobacco: 22; Age Quit Using Tobacco: 64; packs per day: 1; Years Smoked: 42; Cigarettes Per Day: 20; Second Hand Exposure: No; Hx Alcohol Use: Yes Alcohol type: wine Alcohol Intake Frequency: Monthly or Less Hx Substance Use: No Preferred Language: Bulgarian Communication Ability: Effective Visual Impairment: Limited Hearing Ability: Normal Photographic Reproduction Technician Required: No Beliefs That Will Affect Care: None marital status: Current Living Situation: Spouse Current Living Situation Comment: lives in [place]; 2 adult children current occupational 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 How many Children do You have: 2 Feels Safe at Home: Yes Childhood Exposure to Second-Hand Smoke: Yes caffeine: Yes Dental Care, Regularly: No Physical Activity Frequency: Does not Exercise Seatbelt Use: always Sunscreen Use: Yes Do you think of yourself as: straight/heterosexual Assistive Devices: Denture - Upper, Denture - Lower and Glasses Allergies Allergies Allergy/AdvReac Type Severity Reaction Status Date / Time No Known Allergies Allergy Verified 05/01/22 13:52 Home Meds Home Medications Medication Instructions Recorded Confirmed aripiprazole 2 mg tablet (Abilify) 2 mg PO QAM 09/10/18 05/01/22 paroxetine HCl 40 mg tablet (Paxil) 40 mg PO QAM 09/10/18 05/01/22 trazodone 50 mg tablet 50 mg PO HS 09/10/18 05/01/22 vit C 250 mg-vit E 90 mg-zinc 40 1 tab PO QAM 09/08/19 05/01/22 mg-copper 1 [id number] capsule (PreserVision AREDS-2) gabapentin 100 mg capsule 100 mg PO HS 10/05/20 05/01/22 (Neurontin) paroxetine HCl 20 mg tablet (Paxil) 20 mg PO HS 10/05/20 05/01/22 clonazepam 0.5 mg tablet 0.5 mg PO HS 07/04/21 05/01/22 Previous Rx's Medication Instructions Recorded nitroglycerin 0.4 mg sublingual 0.4 mg sublingual Q5M PRN chest 07/04/21 tablet (Nitrostat) pain #25 tabs apixaban 5 mg tablet (Eliquis) 5 mg PO BID 30 days #60 tabs 07/30/21 atorvastatin 80 mg tablet (Lipitor) 80 mg PO HS #90 tabs 08/24/21 lisinopril 5 mg tablet 5 mg PO .COMPLEX #270 tabs 02/11/22 metoprolol tartrate 25 mg tablet 25 mg PO BID 30 days #60 tabs 03/19/22 Results & Data (ED) Vital Signs Vital Signs - 24 hr 06/30/22 10:49 06/30/22 11:09 06/30/22 11:02 Temperature 36.2 C L Temperature Source Oral Pulse Rate 67 66 Pulse Rate [Apical] 78 Pulse Rate from SpO2 Sensor 66 Pulse Rhythm Regular Pulse Strength Normal Respiratory Rate 16 16 21 Respiratory Effort / Characteristics Non-Labored Spontaneous Non-Labored Respiratory Depth Normal Normal Respiratory Pattern Regular Blood Pressure 165/103 H Blood Pressure [Left Arm] 158/88 H Blood Pressure Mean 123 Blood Pressure Mean [Left Arm] 111 Blood Pressure Position Sitting Pulse Oximetry 97 97 94 Oxygen Delivery Method Room Air Room Air Sepsis Recent Fever Within 48 Hours No Sepsis New/Unexplained Change in Mental Status No Sepsis Action Taken by Nursing No Action Required 06/30/22 11:04 06/30/22 11:04 06/30/22 11:32 Temperature Temperature Source Pulse Rate 65 67 Pulse Rate [Apical] Pulse Rate from SpO2 Sensor 66 Pulse Rhythm Pulse Strength Respiratory Rate 20 18 Respiratory Effort / Characteristics Respiratory Depth Respiratory Pattern Blood Pressure 157/88 H Blood Pressure [Left Arm] Blood Pressure Mean 111 Blood Pressure Mean [Left Arm] Blood Pressure Position Pulse Oximetry 94 Oxygen Delivery Method Sepsis Recent Fever Within 48 Hours Sepsis New/Unexplained Change in Mental Status Sepsis Action Taken by Nursing 06/30/22 11:34 06/30/22 11:34 06/30/22 12:00 Temperature Temperature Source Pulse Rate Pulse Rate [Apical] Pulse Rate from SpO2 Sensor 65 Pulse Rhythm Pulse Strength Respiratory Rate Respiratory Effort / Characteristics Respiratory Depth Respiratory Pattern Blood Pressure 145/91 H 137/85 Blood Pressure [Left Arm] Blood Pressure Mean 109 102 Blood Pressure Mean [Left Arm] Blood Pressure Position Pulse Oximetry 96 Oxygen Delivery Method Sepsis Recent Fever Within 48 Hours Sepsis New/Unexplained Change in Mental Status Sepsis Action Taken by Nursing 06/30/22 12:00 06/30/22 12:30 06/30/22 12:30 Temperature Temperature Source Pulse Rate 60 58 L Pulse Rate [Apical] Pulse Rate from SpO2 Sensor 60 57 L Pulse Rhythm Pulse Strength Respiratory Rate 16 11 L Respiratory Effort / Characteristics Respiratory Depth Respiratory Pattern Blood Pressure 132/84 Blood Pressure [Left Arm] Blood Pressure Mean 100 Blood Pressure Mean [Left Arm] Blood Pressure Position Pulse Oximetry 96 95 Oxygen Delivery Method Sepsis Recent Fever Within 48 Hours Sepsis New/Unexplained Change in Mental Status Sepsis Action Taken by Nursing Laboratory Data Result diagrams: 06/30/22 11:01 06/30/22 11:01 Lab Results 06/30/22 06/30/22 06/30/22 Range/Units 11:01 11:01 11:01 WBC 8.17 (4.8-10.8) K/ul RBC 5.43 H (3.93-5.22) M/uL Hgb 15.4 (12.0-16.0) g/dl Hct 46.8 H (34.1-44.9) % MCV 86.2 (80.0-100.0) fL MCH 28.4 (25.0-34.0) pg MCHC 32.9 (32.0-36.0) g/dL RDW Std Deviation 41.3 (36.4-46.3) fL RDW Coeff of Paul 13.3 (11.5-14.5) % Plt Count 276 (130-400) K/uL MPV 8.9 L (9.4-12.3) fL Immature Gran % (Auto) 0.2 % Neut % (Auto) 50.3 % Lymph % (Auto) 35.5 % [place] % (Auto) 9.3 % Eos % (Auto) 4.0 % Baso % (Auto) 0.7 % Neut # (Auto) 4.10 (1.4-6.5) K/uL Lymph # (Auto) 2.90 (1.2-3.4) K/uL [place] # (Auto) 0.76 (0.24-0.82) K/uL Eos # (Auto) 0.33 (0-0.50) K/uL Baso # (Auto) 0.06 (0-0.2) K/uL Immature Gran # (Auto) 0.02 (0.00-0.02) K/uL PT 10.6 (9.0-12.0) Seconds INR 1.0 (0.9-1.1) APTT 31.0 (21.0-31.0) Seconds PTT Ratio 1.1 Sodium 139 (136-145) mmol/L Potassium 3.9 (3.5-5.1) mmol/L Chloride 104 (98-107) mmol/L Carbon Dioxide 28 (21-32) mmol/L Anion Gap 7 (3-11) BUN 12 (6-23) mg/dl Creatinine 0.82 (0.6-1.2) mg/dl Est Cr Clr Drug Dosing 54.2 ml/min Est GFR ( Amer) 81.7 ml/min Est GFR (Non-Af Amer) 70.5 ml/min BUN/Creatinine Ratio 14.6 (10-20) Glucose 105 H (70-99(Fasting)) mg/dl Calcium 9.3 (8.5-10.1) mg/dl Magnesium 2.2 (1.7-2.4) mg/dl Total Bilirubin 0.7 (0.2-1.0) mg/dl AST 18 (13-39) U/L ALT 12 (7-52) U/L Alkaline Phosphatase 103 (34-104) U/L Troponin I High Sens 16.3 H (0-14) pg/ml Total Protein 7.3 (6.0-8.3) gm/dl Albumin 4.2 (3.4-5.0) gm/dl Globulin 3.1 (2.5-4.0) gm/dl Albumin/Globulin Ratio 1.4 (0.9-2) Urine Color Urine Appearance (Clear) Urine pH (4.5-7.5) Ur Specific [place] (1.000-1.030) Urine Protein (Negative) Urine Glucose (UA) (Negative) Urine Ketones (Negative) Urine Blood (Negative) Urine Nitrite (Negative) Urine Bilirubin (Negative) Urine Urobilinogen (Negative) Ur Leukocyte Esterase (Negative) SARS-CoV-2, RNA, NAAT (NEGATIVE) Blood Type Antibody Screen 06/30/22 06/30/22 06/30/22 Range/Units 11:01 11:16 Unknown WBC (4.8-10.8) K/ul RBC (3.93-5.22) M/uL Hgb (12.0-16.0) g/dl Hct (34.1-44.9) % MCV (80.0-100.0) fL MCH (25.0-34.0) pg MCHC (32.0-36.0) g/dL RDW Std Deviation (36.4-46.3) fL RDW Coeff of Paul (11.5-14.5) % Plt Count (130-400) K/uL MPV (9.4-12.3) fL Immature Gran % (Auto) % Neut % (Auto) % Lymph % (Auto) % [place] % (Auto) % Eos % (Auto) % Baso % (Auto) % Neut # (Auto) (1.4-6.5) K/uL Lymph # (Auto) (1.2-3.4) K/uL [place] # (Auto) (0.24-0.82) K/uL Eos # (Auto) (0-0.50) K/uL Baso # (Auto) (0-0.2) K/uL Immature Gran # (Auto) (0.00-0.02) K/uL PT (9.0-12.0) Seconds INR (0.9-1.1) APTT (21.0-31.0) Seconds PTT Ratio Sodium (136-145) mmol/L Potassium (3.5-5.1) mmol/L Chloride (98-107) mmol/L Carbon Dioxide (21-32) mmol/L Anion Gap (3-11) BUN (6-23) mg/dl Creatinine (0.6-1.2) mg/dl Est Cr Clr Drug Dosing ml/min Est GFR ( Amer) ml/min Est GFR (Non-Af Amer) ml/min BUN/Creatinine Ratio (10-20) Glucose (70-99(Fasting)) mg/dl Calcium (8.5-10.1) mg/dl Magnesium (1.7-2.4) mg/dl Total Bilirubin (0.2-1.0) mg/dl AST (13-39) U/L ALT (7-52) U/L Alkaline Phosphatase (34-104) U/L Troponin I High Sens (0-14) pg/ml Total Protein (6.0-8.3) gm/dl Albumin (3.4-5.0) gm/dl Globulin (2.5-4.0) gm/dl Albumin/Globulin Ratio (0.9-2) Urine Color Yellow Urine Appearance Clear (Clear) Urine pH 8.0 H (4.5-7.5) Ur Specific [place] 1.023 (1.000-1.030) Urine Protein Negative (Negative) Urine Glucose (UA) Negative (Negative) Urine Ketones Negative (Negative) Urine Blood Negative (Negative) Urine Nitrite Negative (Negative) Urine Bilirubin Negative (Negative) Urine Urobilinogen Negative (Negative) Ur Leukocyte Esterase Negative (Negative) SARS-CoV-2, RNA, NAAT NEGATIVE (NEGATIVE) Blood Type O Positive Antibody Screen NEGATIVE Administered Medications Sodium Chloride (Nss 1000ml) 1,000 mls @ 50 mls/hr IV .Q20H [facility] Stop: 07/30/22 11:14 Last Admin: 06/30/22 11:44 Dose: 50 mls/hr Documented By: HS Discontinued Medications Ioversol (Optiray 300 500ml) 118 ml IV ONCE ONE Stop: 06/30/22 11:25 Last Admin: 06/30/22 11:29 Dose: 118 ml Documented By: MERCEDES Imaging Data Radiologist's Impression: Chest X-Ray 06/30/22 11:02 XR chest 1V portable CLINICAL HISTORY: Stroke Like Symptoms. Evaluate cardiopulmonary status COMPARISON STUDY: 07/04/2021 TECHNIQUE: 1 view of the chest FINDINGS: Single frontal view of the chest demonstrates the cardiomediastinal silhouette to be within normal limits. The patient is status post previous cardiothoracic surgery. There is again asymmetric elevation of left hemidiaphragm. The lungs are clear of alveolar opacities. There is no evidence for pleural effusion. There is no evidence for vascular congestion. There is no acute osseous path ology. IMPRESSION: 1. No acute cardiopulmonary disease. ACT 112: Negative or not required by law. Electronically signed by: Dieudonne Moss M.D. 06/30/2022 11:[address] 06/30/22 11:02 CT head/brain wo con CLINICAL HISTORY: Stroke Like Symptoms . Hypertension COMPARISON STUDY: No previous studies for comparison. CT DOSE: 1003.27 mGy.cm TECHNIQUE: Standard CT of the Brain was performed without IV contrast. A dose lowering technique was utilized adhering to the principles of ALARA. FINDINGS: Extraaxial space: There is no evidence for subdural hematoma. There are no extra-axial fluid collections. Ventricles and cisterns: The ventricles are normal in size and configuration. There is no evidence for midline shift or mass effect. Parenchyma: There is no subarachnoid or intraparenchymal hemorrhage. There is no evidence for an acute infarct or cerebral edema. There is mild cerebral cortical atrophy and decreased attenuation in the periventricular white matter representing remote small vessel disease. There are no gross mass lesions. Osseous structures: There is no evidence for an acute fracture. The visualized paranasal sinuses are clear. The mastoid air cells are clear bilaterally. Soft tissues: There is no evidence for focal soft tissue swelling. IMPRESSION: 1. No acute intracerebral pathology. 2. Cerebral cortical atrophy and remote small vessel disease. ACT 112: Negative or not required by law. Electronically signed by: Dieudonne Moss M.D. 06/30/2022 11:35 AM Head CTA 06/30/22 11:02 CT angio head w con CLINICAL HISTORY: Stroke Like Symptoms . Hypertension COMPARISON STUDY: CT brain without contrast from 06/30/2022 CT DOSE: TECHNIQUE: CT Angio of the brain was performed.followed by image post process ing with coronal, and sagittal MIP reformats. Contrast Volume: Optiray 320, 118 ml FINDINGS: Vascular findings: There is normal enhancement within the internal carotid arteries bilaterally. There is normal enhancement noted within the anterior, middle and posterior cerebral arteries. Nonvascular findings: There is homogeneous attenuation of the brain parenchyma bilaterally. There is no evidence for an acute infarct or cerebral edema. IMPRESSION: 1. Negative CT angiogram of the brain with contrast. ACT 112: Negative or not required by law. Electronically signed by: Dieudonne Moss M.D. 06/30/2022 11:39 AM Neck CTA 06/30/22 11:02 CT angio neck with con CLINICAL HISTORY: Stroke Like Symptoms . Hypertension COMPARISON STUDY: No previous studies for comparison. CT DOSE: TECHNIQUE: CT Angio of the neck was performed.followed by image post processing with coronal, and sagittal MIP reformats.. Stenosis assessment by NASCET criteria. Contrast Volume: Optiray 320, 118 ml FINDINGS: Vascular findings: Right common carotid artery: Patent without significant stenosis. Right internal carotid artery: Patent without significant stenosis. Right vertebral artery: Patent without significant stenosis. Left common carotid artery: Patent without significant stenosis. Left internal carotid artery: Patent without significant stenosis. Left vertebral artery: Patent without significant stenosis. The left vertebral arteries dominant when compared to the right. Nonvascular findings: The parotid and submandibular salivary glands appear normal. There is no enlarged cervical adenopathy noted. The airway appears patent. The thyroid gland appears within normal limits. There are mild centrilobular emphysematous changes at the lung apices.. Impression: 1. Essentially negative CT angiogram of the neck with contrast. ACT 112: Negative or not required by law. Electronically signed by: Dieudonne Moss M.D. 06/30/2022 11:41 AM Discharge Plan Visit Data Chief Complaint: Hypertension Stated Complaint: HYPERTENSION, TINGLING IN LEFT SIDE ED Provider: Tacho Renee Discharge Problem: Stroke-like symptoms, Hypertension, Numbness on right side Forms Stand Alone Forms: My [facility] [employer] Prescriptions Prescriptions: No Action nitroglycerin [Nitrostat] 0.4 mg tablet, sublingual 0.4 mg sublingual Q5M PRN (Reason: chest pain) Qty: 25 3RF Rx Instructions: take 1 tablet every 5 minutes as needed for angina.if not resolved after the 3rd dose,call 911 Eliquis 5 mg tablet 5 mg PO BID 30 Days Qty: 60 11RF atorvastatin [Lipitor] 80 mg tablet 80 mg PO HS Qty: 90 3RF metoprolol tartrate 25 mg tablet 25 mg PO BID 30 Days Qty: 60 5RF paroxetine HCl [Paxil] 20 mg tablet 20 mg PO HS PreserVision AREDS-2 [id number] [id number]-mg capsule 1 tab PO QAM gabapentin [Neurontin] 100 mg capsule 100 mg PO HS lisinopril 5 mg tablet 5 mg PO .COMPLEX Qty: 270 3RF Rx Instructions: 5 mg tablet. Two tablets PO daily am and one tablet PO daily pm; trazodone 50 mg tablet 50 mg PO HS paroxetine HCl [Paxil] 40 mg Tablet 40 mg PO QAM aripiprazole [Abilify] 2 mg Tablet 2 mg PO QAM clonazepam 0.5 mg tablet 0.5 mg PO HS Referrals Referrals: Ector Stanton MD [Primary Care Provider] -
--- NOTE | 2022-06-30 16:00 | Magnetic Resonance Report ---
MR brain wo con CLINICAL HISTORY: elevated BP with face numbness. Evaluate for CVA. History of basal cell carcinoma of the left than nose COMPARISON STUDY: No previous studies for comparison. TECHNIQUE: Multiplanar multisequence images of the Brain were performed without IV contrast. Diffusi on weighted imaging and ADC mapping was also performed. FINDINGS: Extra-axial space: There is no evidence for a subdural hematoma, There are no extra-axial fluid clair ections. Ventricles and cisterns: The ventricles are normal in size and configuration. There is no evidence f or midline shift or mass effect. Parenchyma: There is no evidence for an acute hemorrhage or infarct. No acute diffusion abnormalities are noted on diffusion weighted imaging or ADC mapping. There is normal barahona-white differentiation. There is mild cerebral cortical atrophy present. There is bright signal seen on T2 and FLAIR weighte d sequences within the centrum semiovale and periventricular white matter characteristic of remote sm all vessel disease. The sulci and gyri appear normal without effacement. The midline structures are u nremarkable. The posterior fossa structures appear normal. There is no evidence for mass lesion. Osseous structures: The paranasal sinuses are well aerated. The mastoid air cells are well aerated. Soft tissues: No focal soft tissue abnormalities are identified. IMPRESSION: 1. No acute intracranial abnormalities. 2. Evidence for cerebral cortical atrophy and remote small vessel disease. ACT 112: Negative or not required by law. Electronically signed by: Dieudonne Moss M.D. 06/30/2022 3:58 PM
[2022-06-30] MEDS ORDERED: PHARMACIST DISCHARGE MED REC CONSULT PRN (17:18)
[2022-06-30] MEDS ORDERED: ONDANSETRON INJ 2 MG/ML 2 ML VIAL IV PRN (17:18)
[2022-06-30] MEDS ORDERED: NITROGLYCERIN SL 0.4 MG/TAB TAB SL PRN (17:18)
[2022-06-30] MEDS ORDERED: ACETAMINOPHEN 325 MG TAB PO PRN (17:18)
[2022-06-30] MEDS ORDERED: ACETAMINOPHEN 325 MG TAB ONE (17:23)
[2022-06-30] MEDS: ASPIRIN 81 MG ECTAB PO SCH (18:42)
[2022-06-30] MEDS ORDERED: Nursing to Pharmacy Communication SCH (19:00)
[2022-06-30] MEDS: clonazePAM 0.5 MG TAB PO SCH (20:42)
[2022-06-30] MEDS: APIXABAN 5 MG TABLET PO SCH (20:43)
[2022-06-30] MEDS: GABAPENTIN 100 MG CAP PO SCH (20:44)
[2022-06-30] MEDS: ATORVASTATIN 40 MG TAB PO SCH (20:44)
[2022-06-30] MEDS: METOPROLOL TARTRATE 25 MG TAB PO SCH (20:45)
[2022-06-30] MEDS: PARoxetine HCL 20 MG TAB PO SCH (20:45)
[2022-06-30] MEDS: traZODone HCL 50 MG TAB PO SCH (20:48)
[2022-06-30] MEDS ORDERED: clonazePAM 0.5 MG TAB PO SCH (21:00)
[2022-06-30] MEDS: lisinopril 10 MG TAB PO SCH (21:37)
[2022-07-01 06:33] LABS: BUN Creatinine Ratio 13.4 (10-20); Calcium 8.9 mg/dl (8.5-10.1); Chol HDL Ratio 3.4 (0-5); Creatinine Clr Calc Pharmacy 47.6 ml/min; Est GFR (African American) 81.7 ml/min; Est GFR (Non-African American) 70.5 ml/min; Potassium 3.5 mmol/L (3.5-5.1)
[2022-07-01 06:43] LABS: Estimated Average Glucose 120 mg/dl; Hemoglobin A1C 5.8 % (4.5-5.6)
--- NOTE | 2022-07-01 08:34 | Neurology Consultation ---
Date of Consultation July 01, 2022 Assessment & Plan (1) Stroke-like symptoms: (2) Action tremor: (3) Small vessel disease, cerebrovascular: (4) Paroxysmal atrial fibrillation: (5) Panic disorder: Plan Smiley Gerardo is a 76 year old female with past medical history of CAG with 3- vessel CABG, 40+ pack year tobacco hx, hypertension, paroxysmal afib on Eliquis, severe anxiety, and glaucoma who presented with left sided paresthesias and possible left lower facial droop yesterday morning in the context of elevated blood pressures. Symptoms have mostly resolved and MRI is not suggestive of CVA. Considered TIA/CVA vs severe anxiety vs migraine vs vasospasm/blood pressure re lated. Head/neck CTA and brain MRI did not suggest CVA. She has no history of migraines. MRI brain w/ moderate small vessel disease and cerebral cortical atrophy perhaps slightly greater than expected for age. The elevation in blood pressure (183/101 was highest recorded in ED) is less likely to be contributory to symptoms given the degree of elevation and the transient nature per HPI. TIA is more more likely. Possible location of TIA would be lacunar (pure hemisensory +/- facial droop. Also considered anxiety (conversion). She is on Eliquis for parox afib (risk factor for stroke). Fasting lipid panel with LDL of 73 on atorvastatin 80. Neuro exam today was reassuring w/ symptoms essentially resolved aside from sensation changes of left face. TTE reviewed. EF 60-65%. Mild LVH. Mild MR. No interatrial shunt. Recommendations: 1. Most likely diagnosis is TIA. MRI w/ moderate small-vessel disease noted. From a neuro standpoint, add baby aspirin (indefinite duration for now) because occurred in context of while on Eliquis. Primary team and cardiology to follow risks/benefits vs bleeding risk. 2. Fasting lipids more notable for hypertriglyceridemia than LDL of 73. On atorvastatin 80mg. +/- add 2nd agent, deferring to primary team. There are case reports on Abilify and elevated triglycerides. 3. Mild action tremor. Most likely familial as mother and sister have had. Does not seem to be significantly affecting patient quality of life. Hold off on adding a medication at this time. Propronalol could be possibility but she is on metoprolol for afib. 4. Aim for blood pressure with MAP of 90-95 until 48 hours out from onset of stroke-like symptoms. Avoid excessive correction. 5. Consider B12 supplementation. B12 was 184, low end of normal. Folate was wnl. Neuro will sign-off. Please contact if any questions. Patient may f/u with neuro office PRNSiddhartha Wong MD. PGY3. Family and Community Medicine. Supervising Physician Co-Signing Physician Notes I reviewed the history and physical examination, impression and treatment recommendations of Dr. Wong and I agree with his assessments and plan. Patient is a 76-year-old with a history of hypertension, coronary artery disease, Paroxysmal atrial fibrillation on Eliquis, and is severe longstanding anxiety depression disorder. She has been on her current anxiety a lytics including Abilify for years.She awoke at 7:30 a.m. on June 30 with left face arm and leg numbness and tingling without other symptoms although there may been some weakness. Today she had some occasional dysesthesias of the left face and another occurrence of this after we left the room associated with a blood pressure of 168/89 (this occurred at 10:48 a.m.) I performed a neurologic examination and there were no speech or mentation problems, meningeal signs, or encephalopathy. The patient had normal cranial nerve function including sensation on the face. She had normal coordination of the arms but did have mild postural and action tremor bilaterally. The patient told me that her sister and mother has tremor as well. Motor strength was 5/5 and symmetrical in all limbs with normal sensation and reflexes. Toes were downgoing with plantar stimulation bilaterally. CT angiography of the head and neck were unremarkable. MRI of the brain showed no acute stroke but did show atrophy and moderate old small vessel ischemia (I reviewed these films ). Echocardiogram was largely unremarkable. The patient had some left-sided dysesthesias which were likely a TIA, despite being on anticoagulant for paroxysmal atrial fibrillation. she has hypertension which likely drove this. She is asymptomatic currently. I wonder how much her significant panic disorder and anxiety drives her blood pressure and these symptoms. Since she does have moderate small vessel ischemia and these recent symptoms I would focus on controlling blood pressure (mean arterial pressure of 95-100 and try not to lower too much) and initiate 81 mg aspirin tablet daily. There is not much to consider for tremor at this time but I could follow as an outpatient. remain in inpatient until her symptoms resolve and her blood pressure is better controlled. -Luis Daniel Melchor MD History of Present Illness Reason for Consultation: stroke-like symptoms Requesting Physician: Dr. Gray Attending Physician: Dr. Melchor History of Present Illness Smiley Gerardo is a 76 year old female with past medical history of CAG with 3- vessel CABG, hypertension, paroxysmal afib on Eliquis, severe anxiety, and glaucoma who presented with left sided paresthesias yesterday morning in the context of hypertensive urgency vs emergency. She woke up normally at 4AM and upon return from bathroom, watched TV in the living room recliner and fell back asleep. She woke up 630AM with heart racing sensation. She checked her blood pressure via wrist cuff and noted ~145/95, which is high for her. She went back to sleep. She rechecked serially and noted increase to 160s systolic. She did not have any headache, visual changes, speech changes, or chest pain. At ~7AM, she noted gradual onset of paresthesias, involving in her left face, both upper and lower. This was described as her face feeling cool, numb, and prickly. She noted that her left forearm and entire left lower extremity also had some numbness and tingling. When she checked in the mirror she thought she had a slight left lower facial droop. Patient called her PCP's office who within 30 minutes, instructed her to visit the emergency department. Patient's symptoms gradually resolved later in the day over a course of hours. Currently, her only remaining symptom complaint is altered sensation of the left side of her face and a sensation of coolness there. Patient denies history of migraines. She has severe anxiety, on paroxetine, Abilify, and Klonopin and notes that she has had similar but much milder facial numbness and extremity tingling in the past that she would notice during exacerbations of her anxiety. She denies prior history of stroke/TIA workup. Allergies Allergy/AdvReac Type Severity Reaction Status Date / Time No Known Allergies Allergy Verified 05/01/22 13:52 Home Medications Medication Instructions Recorded Confirmed Type aripiprazole 2 mg tablet (Abilify) 2 mg PO QAM 09/10/18 05/01/22 History paroxetine HCl 40 mg tablet (Paxil) 40 mg PO QAM 09/10/18 05/01/22 History trazodone 50 mg tablet 50 mg PO HS 09/10/18 05/01/22 History vit C 250 mg-vit E 90 mg-zinc 40 1 tab PO QAM 09/08/19 05/01/22 History mg-copper 1 [id number] capsule (PreserVision AREDS-2) gabapentin 100 mg capsule 100 mg PO HS 10/05/20 05/01/22 History (Neurontin) paroxetine HCl 20 mg tablet (Paxil) 20 mg PO HS 10/05/20 05/01/22 History clonazepam 0.5 mg tablet 0.5 mg PO HS 07/04/21 05/01/22 History nitroglycerin 0.4 mg sublingual 0.4 mg sublingual Q5M PRN chest 07/04/21 05/01/22 Rx tablet (Nitrostat) pain #25 tabs apixaban 5 mg tablet (Eliquis) 5 mg PO BID 30 days #60 tabs 07/30/21 05/01/22 Rx atorvastatin 80 mg tablet (Lipitor) 80 mg PO HS #90 tabs 08/24/21 05/01/22 Rx lisinopril 5 mg tablet 5 mg PO .COMPLEX #270 tabs 02/11/22 05/01/22 Rx metoprolol tartrate 25 mg tablet 25 mg PO BID 30 days #60 tabs 03/19/22 05/01/22 Rx mirtazapine 15 mg tablet (Remeron) 15 mg PO HS 07/01/22 07/01/22 History Patient History Medical History Basal cell carcinoma of lip HX Basal cell carcinoma of nose HX Colon polyps HX Coronary artery disease Depression with anxiety Glaucoma HTN (hypertension) Hyperlipidemia Kidney stones BOTH SIDES - hx Macular degeneration Mesenteric cyst just monitoring Mild ascending aorta dilatation New onset a-fib recently diagnosed 06/2021 - hospitalized at [facility] - started on BB, Eliquis > follows with Dr. Walsh Osteoarthritis SPINE Osteopenia after menopause Palpitations just on occasion Panic disorder Surgical History History of appendectomy History of cardiac cath 2011 @ [facility]--no stents History of cholecystectomy History of colonoscopy with polypectomy History of lithotripsy History of tonsillectomy History of tooth extraction all teeth removed History of total hysterectomy with bilateral salpingo-oophorectomy (BSO) History of wisdom tooth extraction Hx of left cataract extraction S/P CABG x 3 2011 > [place] Status post Mohs surgery for basal cell carcinoma x2 Family History (Updated 07/01/22 @ 10:08 by Everardo Wong MD) Mother , age 68 Family history of esophageal cancer Depression Myocardial infarction Lung cancer Colorectal cancer Cancer Tremor Sister Basal cell adenocarcinoma Depression Brother Malignant melanoma Father , age 73 - 2nd to AAA? AAA (abdominal aortic aneurysm) Myocardial infarction Family history of colonic polyps Grandfather (Maternal) Stroke Other Alcoholism in family No family history of adverse response to anesthesia Denies family history of Ovarian cancer Prostate cancer Diabetes Breast cancer Social History Smoking Status: Former smoker Tobacco Type: Cigarettes Age Started Using Tobacco: 22; Age Quit Using Tobacco: 64; packs per day: 1; Years Smoked: 42; Cigarettes Per Day: 20; Smoking End Date: 10 years ago; Second Hand Exposure: No; Hx Alcohol Use: No Hx Substance Use: No Preferred Language: Albanian Communication Ability: Effective Visual Impairment: Limited Hearing Ability: Normal Metallurgical Specialist Required: No Beliefs That Will Affect Care: None marital status: Current Living Situation: Spouse Current Living Situation Comment: lives in [place]; 2 adult children current occupational 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 Physical Exam Physical Exam: General: A&Ox4. NAD. Cooperative. Conversational. HEENT: Atraumatic, normocephalic. EOMI. PERRL. Peripheral vision intact. Moist mucous membranes. Tongue slightly dark-red in appearance. Pulm: CTAB. -wheezes, -rales, -rhonchi. Symmetrical chest rise. No respiratory distress. Cardiac: RRR, -mrg. Radial pulses intact and symmetrical. Integ: Warm, dry, intact. Msk: Moving all extremities. Psych: Affect is appropriate. Neuro: Cranial nerves II-XII intact w/ exception of sensation of V2 branch of trigeminal. Strength and sensation of extremities intact. Negative Romberg and pronator drift. No dysmetria. Normal atqjab-sb-[id number], rapid alternating movements, and heel-domínguez tests. Patellar reflexes 2+ bilaterally. Results & Data ([facility]) Vital Signs (Past 12 Hours) Vital Signs Temp Pulse Resp BP Pulse Ox O2 Del Method 07/01/22 07:00 65 17 143/87 H 96 Room Air 07/01/22 07:00 Room Air 07/01/22 07:38 61 07/01/22 07:00 36.7 C 07/01/22 05:30 55 L 19 07/01/22 05:00 54 L 17 07/01/22 05:00 115/71 07/01/22 04:30 57 L 22 07/01/22 04:00 55 L 16 07/01/22 04:00 100/63 07/01/22 03:30 62 16 07/01/22 03:00 63 19 07/01/22 03:00 137/83 07/01/22 02:30 55 L 24 07/01/22 02:00 51 L 19 07/01/22 02:00 135/87 07/01/22 01:30 55 L 15 07/01/22 01:01 86/55 L 07/01/22 01:01 51 L 16 07/01/22 01:00 52 L 17 07/01/22 01:00 78/50 L 07/01/22 05:00 36.7 C 07/01/22 00:30 50 L 15 07/01/22 00:03 51 L 15 07/01/22 00:03 96/61 L 07/01/22 00:00 48 L 16 94 06/30/22 23:30 48 L 14 06/30/22 23:00 50 L 16 06/30/22 23:00 92/56 L 07/01/22 00:00 56 L 06/30/22 23:00 36.7 C 06/30/22 22:30 56 L 13 06/30/22 22:00 54 L 16 08/14/22 22:00 141/93 H 06/30/22 21:30 67 16 06/30/22 21:00 66 16 06/30/22 21:00 178/129 H 06/30/22 20:40 64 25 H 06/30/22 20:40 175/129 H 06/30/22 20:36 177/112 H 06/30/22 20:36 70 20 Laboratory Results Cardiac Enzymes 06/30/22 06/30/22 06/30/22 Range/Units 11:01 17:30 22:30 AST 18 (13-39) U/L Troponin I High Sens 16.3 H 14.3 H 15.9 H (0-14) pg/ml Coagulation 06/30/22 Range/Units 11:01 PT 10.6 (9.0-12.0) Seconds APTT 31.0 (21.0-31.0) Seconds Lipids 07/01/22 Range/Units 05:34 Triglycerides 229 H (0-150) mg/dl Cholesterol 169 (0-200) mg/dl HDL Cholesterol 50 mg/dl Cholesterol/HDL Ratio 3.4 (0-5) CBC 06/30/22 Range/Units 11:01 WBC 8.17 (4.8-10.8) K/ul RBC 5.43 H (3.93-5.22) M/uL Hgb 15.4 (12.0-16.0) g/dl Hct 46.8 H (34.1-44.9) % Plt Count 276 (130-400) K/uL Neut # (Auto) 4.10 (1.4-6.5) K/uL Lymph # (Auto) 2.90 (1.2-3.4) K/uL [place] # (Auto) 0.76 (0.24-0.82) K/uL Eos # (Auto) 0.33 (0-0.50) K/uL Baso # (Auto) 0.06 (0-0.2) K/uL Comprehensive Metabolic Panel 06/30/22 07/01/22 Range/Units 11:01 05:34 Sodium 139 141 (136-145) mmol/L Potassium 3.9 3.5 (3.5-5.1) mmol/L Chloride 104 106 (98-107) mmol/L Carbon Dioxide 28 30 (21-32) mmol/L BUN 12 11 (6-23) mg/dl Creatinine 0.82 0.82 (0.6-1.2) mg/dl Glucose 105 H 96 (70-99(Fasting)) mg/dl Calcium 9.3 8.9 (8.5-10.1) mg/dl AST 18 (13-39) U/L ALT 12 (7-52) U/L Alkaline Phosphatase 103 (34-104) U/L Total Protein 7.3 (6.0-8.3) gm/dl Albumin 4.2 (3.4-5.0) gm/dl Intake and Output 06/30/22 07/01/22 07/01/22 22:59 06:59 14:59 Intake Total 280 / 280 Output Total 700 / 700 Balance 280 / -420 -700 / -420 Intake: IV 280 / 280 Sodium Chloride 0.9% 1000ML 1, 280 / 280 000 ml @ 50 mls/hr IV .Q20H [facility] Rx#:[id number] Output: Urine Amount (Catheter) 700 / 700 Obrien/Indwelling 700 / 700 Other: # Unmeasured Voids 1 1 1 Weight 59.903 kg Weight Measurement Method Standing Scale Diagnostic Findings Chest X-Ray 06/30/22 11:02 XR chest 1V portable CLINICAL HISTORY: Stroke Like Symptoms. Evaluate cardiopulmonary status COMPARISON STUDY: 07/04/2021 TECHNIQUE: 1 view of the chest FINDINGS: Single frontal view of the chest demonstrates the cardiomediastinal silhouette to be within normal limits. The patient is status post previous cardiothoracic surgery. There is again asymmetric elevation of left hemidiaphragm. The lungs are clear of alveolar opacities. There is no evidence for pleural effusion. There is no evidence for vascular congestion. There is no acute osseous pathology. IMPRESSION: 1. No acute cardiopulmonary disease. ACT 112: Negative or not required by law. Electronically signed by: Dieudonne Moss M.D. 06/30/2022 11:[address] 06/30/22 11:02 CT head/brain wo con CLINICAL HISTORY: Stroke Like Symptoms . Hypertension COMPARISON STUDY: No previous studies for comparison. CT DOSE: 1003.27 mGy.cm TECHNIQUE: Standard CT of the Brain was performed without IV contrast. A dose lowering technique was utilized adhering to the principles of ALARA. FINDINGS: Extraaxial space: There is no evidence for subdural hematoma. There are no extra-axial fluid collections. Ventricles and cisterns: The ventricles are normal in size and configuration. There is no evidence for midline shift or mass effect. Parenchyma: There is no subarachnoid or intraparenchymal hemorrhage. There is no evidence for an acute infarct or cerebral edema. There is mild cerebral cortical atrophy and decreased attenuation in the periventricular white matter representing remote small vessel disease. There are no gross mass lesions. Osseous structures: There is no evidence for an acute fracture. The visualized paranasal sinuses are clear. The mastoid air cells are clear bilaterally. Soft tissues: There is no evidence for focal soft tissue swelling. IMPRESSION: 1. No acute intracerebral pathology. 2. Cerebral cortical atrophy and remote small vessel disease. ACT 112: Negative or not required by law. Electronically signed by: Dieudonne Moss M.D. 06/30/2022 11:35 AM Head CTA 06/30/22 11:02 CT angio head w con CLINICAL HISTORY: Stroke Like Symptoms . Hypertension COMPARISON STUDY: CT brain without contrast from 06/30/2022 CT DOSE: TECHNIQUE: CT Angio of the brain was performed.followed by image post processing with coronal, and sagittal MIP reformats. Contrast Volume: Optiray 320, 118 ml FINDINGS: Vascular findings: There is normal enhancement within the internal carotid arteries bilaterally. There is normal enhancement noted within the anterior, middle and posterior cerebral arteries. Nonvascular findings: There is homogeneous attenuation of the brain parenchyma bilaterally. There is no evidence for an acute infarct or cerebral edema. IMPRESSION: 1. Negative CT angiogram of the brain with contrast. ACT 112: Negative or not required by law. Electronically signed by: Dieudonne Moss M.D. 06/30/2022 11:39 AM Neck CTA 06/30/22 11:02 CT angio neck with con CLINICAL HISTORY: Stroke Like Symptoms . Hypertension COMPARISON STUDY: No previous studies for comparison. CT DOSE: TECHNIQUE: CT Angio of the neck was performed.followed by image post processing with coronal, and sagittal MIP reformats.. Stenosis assessment by NASCET criteria. Contrast Volume: Optiray 320, 118 ml FINDINGS: Vascular findings: Right common carotid artery: Patent without significant stenosis. Right internal carotid artery: Patent without significant stenosis. Right vertebral artery: Patent without significant stenosis. Left common carotid artery: Patent without significant stenosis. Left internal carotid artery: Patent without significant stenosis. Left vertebral artery: Patent without significant stenosis. The left vertebral arteries dominant when compared to the right. Nonvascular findings: The parotid and submandibular salivary glands appear normal. There is no enlarged cervical adenopathy noted. The airway appears patent. The thyroid gland appears within normal limits. There are mild centrilobular emphysematous changes at the lung apices.. Impression: 1. Essentially negative CT angiogram of the neck with contrast. ACT 112: Negative or not required by law. Electronically signed by: Dieudonne Moss M.D. 06/30/2022 11:41 AM Brain MRI 06/30/22 13:55 MR brain wo con CLINICAL HISTORY: elevated BP with face numbness. Evaluate for CVA. History of basal cell carcinoma of the left than nose COMPARISON STUDY: No previous studies for comparison. TECHNIQUE: Multiplanar multisequence images of the Brain were performed without IV contrast. Diffusion weighted imaging and ADC mapping was also performed. FINDINGS: Extra-axial space: There is no evidence for a subdural hematoma, There are no extra-axial fluid collections. Ventricles and cisterns: The ventricles are normal in size and configuration. There is no evidence for midline shift or mass effect. Parenchyma: There is no evidence for an acute hemorrhage or infarct. No acute diffusion abnormalities are noted on diffusion weighted imaging or ADC mapping. There is normal barahona-white differentiation. There is mild cerebral cortical atr ophy present. There is bright signal seen on T2 and FLAIR weighted sequences within the centrum semiovale and periventricular white matter characteristic of remote small vessel disease. The sulci and gyri appear normal without effacement. The midline structures are unremarkable. The posterior fossa structures appear normal. There is no evidence for mass lesion. Osseous structures: The paranasal sinuses are well aerated. The mastoid air cells are well aerated. Soft tissues: No focal soft tissue abnormalities are identified. IMPRESSION: 1. No acute intracranial abnormalities. 2. Evidence for cerebral cortical atrophy and remote small vessel disease. ACT 112: Negative or not required by law. Electronically signed by: Dieudonne Moss M.D. 06/30/2022 3:58 PM ECG Additional Comments: 06/30/22 ecg Vent. Rate : 065 BPM Atrial Rate : 065 BPM P-R Int : 128 ms QRS Dur : 118 ms QT Int : 446 ms P-R-T Axes : 029 -53 090 degrees QTc Int : 463 ms Normal sinus rhythm Possible Left atrial enlargement Right bundle branch block Left anterior fascicular block Bifascicular block Left ventricular hypertrophy Abnormal ECG When compared with ECG of 05-JUL-2021 05:29, No significant change was found Confirmed by Osman Yusuf ([id number]) on 06/30/2022 1:47:16 PM Resident Activity Tracking Resident Involvement: Resident Care Provided Care Provided: Adult Hospital Medicine
[2022-07-01] MEDS ORDERED: NON-FORMULARY MEDICATION (Vit C,E-Zn-Coppr-Lutein-Zeaxan [Preservision Areds-2] 250-200-40 PO SCH (09:00)
[2022-07-01] MEDS ORDERED: ENOXAPARIN INJ 30 MG/0.3 ML SYR SQ SCH (09:00)
[2022-07-01] MEDS: APIXABAN 5 MG TABLET PO SCH ×2 (09:09→21:15)
[2022-07-01] MEDS: ARIPIprazole 1 MG/ML ORAL SOLN 150 ML BTL PO SCH (09:10)
[2022-07-01] MEDS: lisinopril 10 MG TAB PO SCH ×2 (09:10→21:14)
[2022-07-01] MEDS: ASPIRIN 81 MG ECTAB PO SCH (09:10)
[2022-07-01] MEDS: METOPROLOL TARTRATE 25 MG TAB PO SCH ×2 (09:11→21:14)
[2022-07-01] MEDS: PARoxetine HCL 20 MG TAB PO SCH ×2 (09:11→21:15)
--- NOTE | 2022-07-01 10:02 | XCELERA ---
[id number]
[2022-07-01 10:05] LABS: Folate (Folic Acid) 12.59 ng/ml (>5.38)
[2022-07-01] MEDS ORDERED: hydrOXYzine HCl 25 MG TAB PO PRN (10:53)
--- NOTE | 2022-07-01 14:18 | Hospitalist Progress Note ---
Date of Service July 01, 2022 Assessment & Plan (1) Numbness on left side: Plan: Had recurrence of symptoms immediately after neurology saw her- left upper extremity and then face; not very consistentTIA versus anxiety related; very anxious on exam; added aspirin, LDL notedno change for now; given recurrence of symptoms observe 1 more day per discussion with neurology (2) CHER (generalized anxiety disorder): Plan: Very anxious, suspect contributing to symptoms; discussed psychiatry input but at present she was not interested; added hydroxyzine as needed (3) HTN (hypertension): Plan: Acceptable pressuresno change today; noted increase in lisinopril dose; I cannot diagnose hypertensive emergency or urgency (4) PAF (paroxysmal atrial fibrillation): Plan: history of PAF in 2020. has been in NSR since presentation. continue Eliquis 5mg BID. continue metoprolol 25mg BID. telemetry. (5) Coronary artery disease: Plan: Troponins noted, flat; nothing to suggest ACS; echo preserved LV functionno other change other than above (6) Hyperlipidemia: Plan: Did not add additional agent; can consider as outpatient after recheck Admission and Anticipated Discharge Date Admission Date: June 30, 2022 Subjective Follow-up of left-sided numbnessimmediately after neurology saw again had recurrence of left upper extremity and facial numbness Physical Exam Physical Exam: Constitutional and general: Extremely anxious, looks biologic age Head and face: No puffiness, atraumatic Eyes: No scleral icterus, extraocular movements normal Neck: Supple, no JVD Musculoskeletal: No acute joint swelling, no bony abnormalities Skin/dermatologic/integument: No rash, no purpura Hematologic and lymphatic: pallor none, no petechia Gastrointestinal/abdomen: Nondistended, soft, nonacute Neurologic: cranial nerves intact, nonfocal when I saw her Cardiovascular: Heart rhythm regular, no rub, no murmur, no gallop Respiratory: Chest movements equal, no use of accessory muscles, no adventitious sounds Extremities: No edema, no cyanosis Results & Data Results & Data ([facility]) Vital Signs (Past 12 Hours) Vital Signs Temp Pulse Resp BP Pulse Ox O2 Del Method 07/01/22 11:16 58 L 18 155/96 H 95 Room Air 07/01/22 11:28 36.5 C 07/01/22 11:00 61 15 164/100 H 07/01/22 10:48 60 13 166/101 H 07/01/22 10:32 59 L 21 164/85 H 07/01/22 10:01 59 L 13 144/88 H 07/01/22 10:00 63 21 134/84 07/01/22 09:09 63 17 126/85 07/01/22 09:00 66 17 102/84 07/01/22 08:00 62 16 123/79 07/01/22 07:00 65 17 143/87 H 96 Room Air 07/01/22 07:00 Room Air 07/01/22 07:38 61 07/01/22 07:00 36.7 C 07/01/22 05:30 55 L 19 07/01/22 05:00 54 L 17 07/01/22 05:00 115/71 07/01/22 04:30 57 L 22 07/01/22 04:00 55 L 16 07/01/22 04:00 100/63 07/01/22 03:30 62 16 07/01/22 03:00 63 19 07/01/22 03:00 137/83 07/01/22 02:30 55 L 24 07/01/22 05:00 36.7 C Laboratory Results Laboratory Results - last 24 hr 06/30/22 06/30/22 07/01/22 17:30 22:30 05:34 Sodium 141 Potassium 3.5 Chloride 106 Carbon Dioxide 30 Anion Gap 5 BUN 11 Creatinine 0.82 Est Cr Clr Drug Dosing 47.6 Est GFR ( Amer) 81.7 Est GFR (Non-Af Amer) 70.5 BUN/Creatinine Ratio 13.4 Glucose 96 Estimat Average Glucose Hemoglobin A1c Calcium 8.9 Troponin I High Sens 14.3 H 15.9 H Triglycerides 229 H Cholesterol 169 LDL Cholesterol, Calc 73 VLDL Cholesterol, Calc 46 H HDL Cholesterol 50 Cholesterol/HDL Ratio 3.4 Vitamin B12 Folate 07/01/22 07/01/22 05:34 08:58 Sodium Potassium Chloride Carbon Dioxide Anion Gap BUN Creatinine Est Cr Clr Drug Dosing Est GFR ( Amer) Est GFR (Non-Af Amer) BUN/Creatinine Ratio Glucose Estimat Average Glucose 120 Hemoglobin A1c 5.8 H Calcium Troponin I High Sens Triglycerides Cholesterol LDL Cholesterol, Calc VLDL Cholesterol, Calc HDL Cholesterol Cholesterol/HDL Ratio Vitamin B12 187 Folate 12.59 PG Care Time/CCT Total # of Minutes Spent Total Time Spent with Patient: Total time spent is greater than 50% in coordination of care (as documented) at patient's floor/unit and/or counseling patient: Coding Level of Care Code 43723 Subseq Obs Care Lvl 2 Diagnoses Numbness on left side R20.0 CHER (generalized anxiety disorder) F41.1 HTN (hypertension) I10 Hypertension type: essential hypertension PAF (paroxysmal atrial fibrillation) I48.0 Coronary artery disease I25.10 Hyperlipidemia E78.2 Hyperlipidemia type: mixed hyperlipidemia (1) Hyperlipidemia Hyperlipidemia type: mixed hyperlipidemia Qualified Code(s): E78.2 - Mixed hyperlipidemia (2) HTN (hypertension) Hypertension type: essential hypertension Qualified Code(s): I10 - Essential (primary) hypertension
[2022-07-01] MEDS ORDERED: MIRTAZAPINE TAB 15 MG TAB PO SCH (21:00)
[2022-07-01] MEDS: traZODone HCL 50 MG TAB PO SCH (21:13)
[2022-07-01] MEDS: clonazePAM 0.5 MG TAB PO SCH (21:13)
[2022-07-01] MEDS: ATORVASTATIN 40 MG TAB PO SCH (21:14)
[2022-07-01] MEDS: GABAPENTIN 100 MG CAP PO SCH (21:14)
[2022-07-02] MEDS ORDERED: STROKE PATIENT DISCHARGE STA (07:55)
--- NOTE | 2022-07-02 07:55 | Discharge Summary ---
Date of Service July 02, 2022 Admission HPI Per Admitting Provider Pleasant 76yo female with h/o CAD s/p 3-vessel CABG at [facility], severe anxiety disorder, HTN, and PAF presents from home after developing "racing heart," elevated blood pressures, and left-sided numbness. Patient states she woke up early this am, about 0430, and felt ok at that time. She went out to the living room and watched TV. Shortly after 0700 she felt her heart racing and decided to take her BP. SBP was at least 150s/160s. She doesn't recall what her pulse was. She checked her BPs at least 4-5 more times over the next 2-3 hours. Each time she took it the pressures barrera further, and at one point her SBP was in the 190s. About 0915am she noted her left face, left distal arm, and left distal leg were numb. No headache. No right-sided symptoms. She had no speech impairment or dysphagia. Her left leg felt "a little weak" when she got up to ambulate. She called her PCP's office due to the above symptoms and was advised to come to the ER. She came to [facility] and sometime while here the left-sided numbness improved. She does note, however, that the left face feels "more sensitive" than the right face. The overall numbness however has improved. Over the last few days she has felt well except for suffering a panic attack while at [employer] . She does have severe anxiety disorder and sees Dr Dougherty from psychiatry. On Friday and Friday she felt well and did her usual day-to-day tasks at home. Patient denies any prior h/o TIA or CVA. She did not have her usual medications this am including her Eliquis. Principal Diagnosis Possible TIA Discharge Exam Constitutional and general: No acute distress, looks biologic age Head and face: No puffiness, atraumatic Eyes: No scleral icterus, extraocular movements normal Neck: Supple, no JVD Musculoskeletal: No acute joint swelling, no bony abnormalities Skin/dermatologic/integument: No rash, no purpura Hematologic and lymphatic: pallor +, no petechia Gastrointestinal/abdomen: Nondistended, soft, nonacute Neurologic: Cranial nerves intact, nonfocal; intention-like tremor noted Psychiatry: Awake, alert, pleasant, communicative Cardiovascular: Heart rhythm regular, no rub, no murmur, no gallop Respiratory: Chest movements equal, no use of accessory muscles, no adventitious sounds Extremities: No edema, no cyanosis Vital Signs Temp Pulse Pulse Resp BP BP Pulse Ox 07/02/22 04:10 36.3 C L 60 18 113/79 99 07/01/22 23:34 60 07/01/22 20:40 139/89 07/01/22 19:37 36.7 C 78 18 94/69 L 94 07/01/22 18:22 94 07/01/22 16:45 61 19 148/94 H 94 07/01/22 14:25 66 20 166/90 H 07/01/22 14:00 68 18 127/86 07/01/22 13:00 63 18 127/88 07/01/22 12:00 62 15 152/93 H 07/01/22 11:52 62 22 128/95 07/01/22 16:00 61 07/01/22 16:47 36.6 C 07/01/22 11:16 58 L 18 155/96 H 95 07/01/22 11:28 36.5 C 07/01/22 11:00 61 15 164/100 H 07/01/22 10:48 60 13 166/101 H 07/01/22 10:32 59 L 21 164/85 H 07/01/22 10:01 59 L 13 144/88 H 07/01/22 10:00 63 21 134/84 07/01/22 09:09 63 17 126/85 07/01/22 09:00 66 17 102/84 07/01/22 08:00 62 16 123/79 O2 Del Method 07/02/22 04:10 07/01/22 23:34 07/01/22 20:40 07/01/22 19:37 Room Air 07/01/22 18:22 07/01/22 16:45 Room Air 07/01/22 14:25 07/01/22 14:00 07/01/22 13:00 07/01/22 12:00 07/01/22 11:52 07/01/22 16:00 07/01/22 16:47 07/01/22 11:16 Room Air 07/01/22 11:28 07/01/22 11:00 07/01/22 10:48 07/01/22 10:32 07/01/22 10:01 07/01/22 10:00 07/01/22 09:09 07/01/22 09:00 07/01/22 08:00 Intake and Output 07/01/22 07/02/22 07/02/22 22:59 06:59 14:59 Intake Total 200 / 200 Balance 200 / 200 Intake: Oral 200 / 200 Other: # Unmeasured Voids 2 Weight 60 kg Discharge Data Allergies Allergy/AdvReac Type Severity Reaction Status Date / Time No Known Allergies Allergy Verified 05/01/22 13:52 Consultations 06/30/22 17:18 Consult Neurology Routine Ordered Studies 06/30/22 11:02 CT angio head w con Stat CT angio neck with con Stat CT head/brain wo con Stat 06/30/22 13:55 MRI Brain [MR brain wo con] Routine Hospital Course (1) Numbness on left side: Resolved; imaging and echo noncontributory including CTA head and neck and MRI brain except for small vessel disease on MRI; today feels well and wants to go home; etiology not completely clear TIA versus related to anxiety; continue low- dose aspirin; outpatient neurology follow-up including for tremor (2) CHER (generalized anxiety disorder): Continue hydroxyzine as needed; psychiatry follow-up (3) HTN (hypertension): Fluctuating pressures but clinically doing well; lisinopril at discharge increased to 7.5 twice a day compared to prior home dose of 10 mg once a day (4) PAF (paroxysmal atrial fibrillation): history of PAF in 2020. has been in NSR since presentation. continue Eliquis 5mg BID. continue metoprolol 25mg BID. telemetry. (5) Coronary artery disease: Troponins noted, flat; nothing to suggest ACS; echo preserved LV functionno other change other than above (6) Hyperlipidemia: LDL 73; at present did not add additional agent; can consider as outpatient after recheck Plan Low B12 levelsupplemented Total Time Total Time Spent Total Time Spent (In Minutes): 25 Discharge Plan Discharge Items Patient Disposition: Home - Self-Care Reason For Visit: HTN EMERGENCY,POSSIBLE TIA Discharge Diagnosis: Possible TIA Activity: Resume your previous activity Non-emergency contact: Primary Care Provider Call non-emergency contact if: your symptoms worsen Follow-up/Referrals: Ector Stanton MD [Primary Care Provider] - Henrik Melchor MD [Physician] - (TIA, tremors, seen in housefollow-up in about a month) Derick Dougherty MD [Physician] - (Known to you, admitted with possible TIA, follow-up for anxiety disorder) Diet: Heart Healthy Addtl Attending Provider Instructions: One of your blood pressure medicine dose has been increase (lisinopril increased from 10 mg once a day to 7.5 mg twice a day); new prescription has been sent to pharmacy; in order to avoid confusion best start a new prescription and discard the old bottles of lisinopril; there has been no change in metoprolol. Keep all prior your healthcare appointments Pending Studies at Discharge: No Stand-Alone Forms: My [facility], Smoking Cessation Medications and DC Order Prescriptions: New aspirin 81 mg Tablet,Delayed Release (Dr/Ec) 81 mg PO QAM Qty: 30 2RF cyanocobalamin (vitamin B-12) 500 mcg Tablet 2,000 mcg PO QAM Qty: 120 0RF hydroxyzine HCl 25 mg Tablet 25 mg PO Q8 PRN (Reason: anxiety) Qty: 20 0RF lisinopril [Zestril] 5 mg Tablet 7.5 mg PO BID Qty: 120 1RF Rx Instructions: New dose of this medication Continued nitroglycerin [Nitrostat] 0.4 mg tablet, sublingual 0.4 mg sublingual Q5M PRN (Reason: chest pain) Qty: 25 3RF Rx Instructions: take 1 tablet every 5 minutes as needed for angina.if not resolved after the 3rd dose,call 911 Eliquis 5 mg tablet 5 mg PO BID 30 Days Qty: 60 11RF atorvastatin [Lipitor] 80 mg tablet 80 mg PO HS Qty: 90 3RF metoprolol tartrate 25 mg tablet 25 mg PO BID 30 Days Qty: 60 5RF paroxetine HCl [Paxil] 20 mg tablet 20 mg PO HS PreserVision AREDS-2 [id number]-mg capsule 1 tab PO QAM gabapentin [Neurontin] 100 mg capsule 100 mg PO HS trazodone 50 mg tablet 50 mg PO HS paroxetine HCl [Paxil] 40 mg Tablet 40 mg PO QAM aripiprazole [Abilify] 2 mg Tablet 2 mg PO QAM mirtazapine [Remeron] 15 mg Tablet 15 mg PO HS clonazepam 0.5 mg tablet 0.5 mg PO HS Discontinued lisinopril 5 mg tablet 5 mg PO .COMPLEX Qty: 270 3RF Rx Instructions: 5 mg tablet. Two tablets PO daily am and one tablet PO daily pm; Discharge Orders: Discharge Order (Routine); Ordered 07/02/22 Ordered By: Muriel La Admission Data Admit Date/Time: 06/30/22 14:46 Attending Provider: Muriel La Admit Provider: Charles Gray Primary Care Provider: Ector Stanton Other Providers: German Philippe Coding Level of Care Code 36996 OBS Care - Discharge Diagnoses Numbness on left side R20.0 CHER (generalized anxiety disorder) F41.1 HTN (hypertension) I10 Hypertension type: essential hypertension PAF (paroxysmal atrial fibrillation) I48.0 Coronary artery disease I25.10 Hyperlipidemia E78.2 Hyperlipidemia type: mixed hyperlipidemia
[2022-07-02] MEDS: ASPIRIN 81 MG ECTAB PO SCH (08:17)
[2022-07-02] MEDS: METOPROLOL TARTRATE 25 MG TAB PO SCH (08:17)
[2022-07-02] MEDS: APIXABAN 5 MG TABLET PO SCH (08:17)
[2022-07-02] MEDS: ARIPIprazole 1 MG/ML ORAL SOLN 150 ML BTL PO SCH (08:18)
[2022-07-02] MEDS: PARoxetine HCL 20 MG TAB PO SCH (08:18)
--- NOTE | 2022-07-02 08:43 | Neurology Progress Note ---
Date of Service July 02, 2022 Assessment & Plan (1) Stroke-like symptoms: (2) Action tremor: (3) Small vessel disease, cerebrovascular: (4) Paroxysmal atrial fibrillation: (5) Panic disorder: Plan The patient had some intermittent left-sided dysesthesias which were likely a TIA. This was despite being on anticoagulant for paroxysmal atrial fibrillation. she has hypertension which likely drove this. She is asymptomatic currently with no dysesthesias. Neurologic examination is unremarkable focal findings, meningeal signs, or encephalopathy. Her significant panic disorder and anxiety likely increases her blood pressure and intensifies the dysesthesias. MRI of the brain showed no stroke. CT angiography of the head and neck were unremarkable. MRI of the brain showed no acute stroke but did show atrophy and moderate old small vessel ischemia (I reviewed these films ). Echocardiogram was largely unremarkable. 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 She has a significant anxiety and panic disorder on multiple medications. This has been fairly stable. The patient has elevated triglycerides with a normal total cholesterol and LDL. She is on high dose atorvastatin already. I would point out that there are case reports in the literature that correlate Abilify and elevated triglycerides. Recommendations: 1. continue 81 mg aspirin tablet daily. 2. continue Eliquis 5 mg twice daily. 3. There is nothing I am going to do for the tremor currently but we could follow as an outpatient and make additional recommendations depending on her clinical course. 4. Avoid over-correction of blood pressure, aiming for a mean arterial pressure of at least 90-95. 5. B12 was somewhat low at 187. I would suggest B12 replacement ( 1000 mcg shot once, followed by multiple vitamin with B12 daily) Please contact me if I can be of further assistance in this case. Otherwise, If desired, follow up in 2-3 weeks as an outpatient in Neurology with 1 of our PAs. Overall, I spent a total of 35 minutes with this case including review of records, direct evaluation the patient bedside, and discussion of the case with the patient at bedside. Admission and Anticipated Discharge Date Admission Date: June 30, 2022 Subjective patient feels well this morning with no numbness or tingling on her face bilaterally, pain or headache, dizziness, vision problems, speech abnormalities, or walking problems. She has no numbness or weakness in the limbs. Blood pressure is 106/71 and she is afebrile. Echocardiogram showed some mild left ventricular hypertrophy but otherwise was unremarkable Results & Data ([facility]) Vital Signs (Past 12 Hours) Vital Signs Temp Pulse Pulse Resp BP Pulse Ox 07/02/22 08:00 36.4 C L 66 18 106/71 97 07/02/22 04:10 36.3 C L 60 18 113/79 99 07/01/22 23:34 60 07/01/22 20:40 139/89 Exam (Neuro) Physical Exam: she is awake and alert. Speech is without aphasia or dysarthria. Mood is normal and affect is appropriate. Thought processes are intact. Extraocular eye muscles are intact without nystagmus. There is no facial droop. Tongue is midline. Coordination is normal in the arms without ataxia. There is mild postural action tremor bilaterally but no rest tremor. Strength is symmetrical the limbs and gait is stable. PG Care Time/CCT Total # of Minutes Spent Total Time Spent with Patient: Total time spent is greater than 50% in coordination of care (as documented) at patient's floor/unit and/or counseling patient: Coding Level of Care Code 33772 Subseq Hosp Care Lvl 3 Diagnoses Stroke-like symptoms R29.90 Action tremor G25.2 Small vessel disease, cerebrovascular I67.9 Paroxysmal atrial fibrillation I48.0 Panic disorder F41.0
[2022-07-02] MEDS ORDERED: CYANOCOBALAMIN (B-12) 500 MCG TABLET PO SCH (09:00)
[2022-07-02] MEDS ORDERED: lisinopril 5 MG TAB PO SCH (09:00)
== END 2022-07-02 09:21 | disposition home or self-care (01) ==
LOC: 1E 10:45 → ED 10:45 → SUATTDRO 14:46 → 1E 16:28 → 2S 07-01 19:34

== ENCOUNTER 2024-01-21 19:51 | Observation (INO) ==
[2024-01-21] MEDS: MoRPHine SULFATE 2 MG/ML CARP IV STA ×2 (20:23→21:23)
[2024-01-21] MEDS: FAMOTIDINE 20MG IV PUSH 20 MG/5 ML SYR IV STA (20:25)
[2024-01-21] MEDS: ACETAMINOPHEN 1,000 MG/100 ML VIAL IV STA (20:29)
[2024-01-21 20:39] LABS: Basophils # (auto) 0.03 K/uL (0.00-0.20); Basophils % (auto) 0.3 %; Eosinophils # (auto) 0.17 K/uL (0.00-0.50); Eosinophils % (auto) 1.9 %; Hematocrit (blood only) 37.1 % (37.0-47.0); Hemoglobin 12.1 g/dl (12.0-16.0); Immature Granulocytes # (auto) 0.05 K/uL (0.01-0.20); Immature Granulocytes % (auto) 0.5 %; Lymphocytes # (auto) 1.64 K/uL (1.20-3.40); Lymphocytes % (auto) 17.9 %; Mean Corpuscular Hemoglobin 28.8 pg (25.0-34.0); Mean Corpuscular Hgb Conc 32.6 g/dL (32.0-36.0); Mean Corpuscular Volume 88.3 fL (80.0-100.0); Mean Platelet Volume 8.2 fL (9.4-12.4); Monocytes # (auto) 1.08 K/uL (0.11-0.59); Monocytes % (auto) 11.8 %; Neutrophils # (auto) 6.17 K/uL (1.40-6.50); Neutrophils % (auto) 67.6 %; Platelet Count 374 K/uL (130-400); RDW Coefficient of Variation 13.9 % (11.5-14.5); RDW Standard Deviation 45.1 fL (36.4-46.3); White Blood Count 9.14 K/ul (4.8-10.8)
[2024-01-21 20:53] LABS: Alanine Aminotransferase 22 U/L (7-52); Albumin Globulin Ratio 1.2 (0.9-2); Albumin Level 3.8 gm/dl (3.4-5.0); Alkaline Phosphatase 117 U/L (34-104); Anion Gap 11 (3-11); Aspartate Aminotransferase 19 U/L (13-39); BUN Creatinine Ratio 11.1 (10-20); Bilirubin,Total 1.1 mg/dl (0.2-1.0); Blood Urea Nitrogen 7 mg/dl (6-23); Calcium 8.9 mg/dl (8.6-10.3); Carbon Dioxide 27 mmol/L (21-32); Chloride 103 mmol/L (98-107); Est GFR (Non-African American) 87.1 ml/min; Globulin 3.3 gm/dl (2.5-4.0); Glucose 100 mg/dl (70-99(Fasting)); Sodium 141 mmol/L (136-145); Total Protein 7.1 gm/dl (6.0-8.3)
[2024-01-21 21:00] LABS: Troponin I High Sensitivity 49.7 pg/ml (0-14)
[2024-01-21 21:04] LABS: INR 1.2 (0.9-1.1); Partial Thromboplastin Time 27 Seconds (21-31); Prothrombin Time 12.7 Seconds (9.0-12.0)
[2024-01-21] MEDS: OPTIRAY 320 125ml IV ONE (21:12)
[2024-01-21] MEDS: ONDANSETRON INJ 2 MG/ML 2 ML VIAL IV STA (21:22)
--- NOTE | 2024-01-21 22:02 | CT Scan Report ---
Exam(s): CTA CHEST W/WO Contrast IV Amt: 116ml EXAM: CT Angiography Chest Without and With Intravenous Contrast CLINICAL HISTORY: Reason for exam: chest pain, hx intramural hematoma. TECHNIQUE: Axial computed tomographic angiography images of the chest without and with intravenous contrast. CTDI is 20.2 mGy and DLP is 727 mGy-cm. Automated exposure control was utilized for the study. A dose lowering technique was utilized adhering to the principles of ALARA. MIP reconstructed images were created and reviewed. CONTRAST: Patient received 116ml of IV contrast COMPARISON: January 12, 2024 FINDINGS: Pulmonary arteries: Unremarkable. No pulmonary embolism. 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 Great vessels of aortic arch: The great vessels are widely patent. Lungs: Mild emphysematous changes in the lungs. Small amount of left lung base atelectasis, similar to previous. No mass. Pleural space: There are small bilateral pleural effusions measuring approximate 1 cm. No pneumothorax. Heart: Previous CABG with severe coronary calcification and mild cardiomegaly. No pericardial effusion. No evidence of RV dysfunction. Bones/joints: Mild multilevel degenerative change are seen throughout the spine. No acute fracture or subluxation is seen. Soft tissues: Unremarkable. Lymph nodes: Unremarkable. No enlarged lymph nodes. Gallbladder and bile ducts: Limited images of the upper abdomen demonstrate biliary duct dilation. 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 No great vessel compromise is seen. Small bilateral pleural effusions with mild emphysematous changes and bibasilar atelectasis, increased since previous. Communications: Call Doctor Aortic Dissection Electronically signed by: José Diana MD 01/21/24 22:01 PM
--- NOTE | 2024-01-21 22:22 | Emergency Department Note ---
Impression & Plan Chest pain, Elevated troponin, Dissecting aneurysm of thoracic aorta, Raven type A ED Provider Note ED Provider Note NAME: JENNIFER WILLIAMSON AGE:78 SEX: Female : 1945 ARRIVES VIA: private vehicle INFORMANT: Patient ED PROVIDER(s): Linsey Polo DO CHIEF COMPLAINT: chest pain HPI: This is a 78-year-old female who presents emergency department due to concern for abrupt onset central chest pain. Patient states she was seated this evening when the pain began and was sharp. She states it was nonradiating but admits to increased shortness of breath and nausea with it. at bedside states she has also had dyspnea with exertion over the last several days since she was admitted last week to [facility] following her initial presentation here. They state she had a problem with her aorta and was sent down there via aviation for additional evaluation. No surgical intervention performed but her medications were changed and she was discharged on Friday. She states she has been adhering to the new medication regimen. She has been more fatigued since her hospitalization, and had persistent nausea and dry heaving. She denies fevers or chills, worsening cough, leg swelling, or abdominal pain. PAST MEDICAL HISTORY:See Below PAST SURGICAL HISTORY:See Below FAMILY HISTORY:See Below SOCIAL HISTORY:See Below HOME MEDICATIONS:See Below ALLERGIES:See Below VITALS:See Below PHYSICAL EXAMINATION: GENERAL: alert, well appearing, well nourished, no distress, non-toxic EYE EXAM: normal conjunctiva, PERRL and EOM's grossly intact OROPHARYNX: no exudate, no erythema, lips, buccal mucosa, and tongue normal and mucous membranes are moist NECK: supple, no nuchal rigidity, no adenopathy, non-tender LUNGS: Clear to auscultation. Normal chest wall mechanics, no w/r/r HEART: no murmurs, S1 normal and S2 normal ABDOMEN: abdomen soft, non-tender, normo-active bowel sounds, no masses, no rebound or guarding. BACK: Back is symmetrical on inspection and there is no deformity, no midline tenderness, no CVA tenderness. SKIN: no rashes, petechiae, orbruising UPPER EXTREMITIES: upper extremities are grossly normal. FROM, nml pulses b/l. LOWER EXTREMITIES: No pitting edema. FROM, nml pulses b/l. NEURO EXAM: Normal sensorium, cranial nerves II-XII grossly intact, normal speech, no facial droop,nogross weakness of arms, no gross weakness of legs. Gross sensation intact. No ataxia. Vital Signs: reviewed and remarkable Differential Diagnosis: acute coronary syndrome, pericarditis, pulmonary embolus, aortic dissection, pneumonia, pneumothorax, musculoskeletal pain, shingles, GERD, GI bleed, as well as others were considered MEDICAL DECISION MAKING: This is a 78-year-old female presents emergency department due to concern for chest pain. Patient with recent evaluation here and transferred to [facility] due to concern for acute aortic syndrome due to an intramural hematoma. Patient was afebrile vital signs stable on arrival here. Labs drawn and sent, IV established, EKG and chest x-ray performed bedside interpreted by me and patient sent urgently for CT angiography of the chest. Patient was started on gentle IV fluid hydration and given IV morphine, IV Tylenol, and IV Zofran for her symptoms. Patient did have improvement after 2 doses of IV morphine. I did receive a call from overnight outside radiology who read the CT and states there is a clear dissection and increased size of the hematoma. Case discussed with cardiothoracic surgery at [facility] and significant time spent discussing findings as well as recommendations of CT surgery with the patient and family at bedside. After extensive discussion, patient does not want to be transferred, does not want surgical intervention, understands the high rate of mortality with this process and would like to remain here close to family. Given concern for pain control and blood pressure control we discussed inpatient management here until medication adjustments and possible arrangements for home hospice could be made. Patient and family verbalized understanding of this. Consultation(s): 2209: Discussed with outside rad Dr. Diana, CT chest with Alfonzo A dissection. 223: Discussed with Dr. George, on-call for for cardiothoracic surgery initially via transfer center. Recommends discussion with cardiac surgeon. 2244: Discussed with Dr. Garvey, CTS, at [facility]. Upon review, he agrees CT tonight does appear worse compared to prior. We discussed presentation, labs, vitals. He recommends maintaining systolic blood pressure less than 120. They suggest patient still not a surgical candidate and medical management advised. He is going to discuss with the CT surgeon who saw the patient last week during her stay additionally. 2319: Additional discussion with . Dr. Vaughan, CT surgery, agreed that patient not a surgical candidate, and that medical management or comfort care is appropriate at this time. ER Treatment Provided: See below 2250: Extensive bedside conversation with patient and 2 family members regarding the CT findings as well as my discussion with cardiothoracic surgery at [facility]. After lengthy discussion, patient states she does not want to have surgery and she understands the risk of mortality associated with her current condition. She states she does not want transferred to [facility]. Patient would like to be assured that she would not have pain. We also discussed CT surgery recommendation for blood pressure and heart rate control. Patient and family understand critical nature of these findings and her presentation tonight and verbalized understanding of recommendations made by cardiothoracic surgery. We discussed that we cannot predict if or when she may succumb to this disease. They inquired as to possibility of arranging home hospice additionally. They would like to remain local and ideally at home so that family could be with her. Diagnostics Interpreted By Me: -ECG: Normal sinus at 93, leftward axis, incomplete right bundle branch block, ST depression noted in V2 and V3, baseline artifact noted, other prior T wave inversions now appear improved compared to prior from January 12, 2024 -Cardiac Monitoring: An order was placed for continuous cardiac monitoring. The monitor shows a rate of 94 with normal sinus rhythm. -Laboratory studies: As stated above and show below. -Imaging studies: X-ray Chest: A single view study of the chest was reviewed and was negative for cardiomegaly, focal infiltrate, pulmonary edema, or wide mediastinum. Midline sternotomy wires noted. Right pleural effusion now seen, new compared to prior Triage Nursing Note Reviewed Prior/Outside Records Reviewed -recent discharge summary from [facility] on 01/16/24 reviewed Critical Care: Critical care of 72 min performed to assess and manage high likelihood of life- threatening aortic dissection, involving labs and imaging performed with assessment to evaluate chest pain diagnosis with frequent reassessment. This time includes bedside time, treatment discussions with patient/family/consultants, documentation time and excludes procedure time. 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 Walsh Mild ascending aorta dilatation Kidney stones BOTH SIDES - hx Panic disorder Colon polyps HX Macular degeneration Palpitations just on occasion Osteoarthritis SPINE Basal cell carcinoma of nose HX Basal cell carcinoma of lip HX Depression with anxiety Osteopenia after menopause Hyperlipidemia Coronary artery disease Glaucoma Surgical History Hx of left cataract extraction History of lithotripsy History of total hysterectomy with bilateral salpingo-oophorectomy (BSO) History of colonoscopy with polypectomy History of cholecystectomy History of appendectomy Status post Mohs surgery for basal cell carcinoma x2 History of tooth extraction all teeth removed History of wisdom tooth extraction History of tonsillectomy History of cardiac cath 2011 @ [facility]--no stents S/P CABG x 3 2011 > [facility] Family History Mother , age 68 Family history of esophageal cancer Depression Myocardial infarction Lung cancer Colorectal cancer Cancer Tremor Sister Basal cell adenocarcinoma Depression Brother Malignant melanoma Father , age 73 - 2nd to AAA? AAA (abdominal aortic aneurysm) Myocardial infarction Family history of colonic polyps Grandfather (Maternal) Stroke Other Alcoholism in family No family history of adverse response to anesthesia Denies family history of Ovarian cancer Prostate cancer Diabetes Breast cancer Social History Smoking Status: Former smoker Tobacco Type: Cigarettes Age Started Using Tobacco: 22; Age Quit Using Tobacco: 64; packs per day: 1; Cigarettes Per Day: 20; Second Hand Exposure: No; Do You Dip or Chew Tobacco: No; Hx Alcohol Use: No Hx Substance Use: No Preferred Language: Bruneian Communication Ability: Effective Visual Impairment: Limited Hearing Ability: Normal Water Mechanic Required: No Beliefs That Will Affect Care: None marital status: Current Living Situation: Spouse Current Living Situation Comment: lives in [place]; 2 adult children current occupational 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 How many Children do You have: 2 Feels Safe at Home: Yes Childhood Exposure to Second-Hand Smoke: Yes Diet: regular caffeine: Yes Dental Care, Regularly: No Physical Activity Frequency: Does not Exercise Seatbelt Use: always Sunscreen Use: Yes Do you think of yourself as: straight/heterosexual Assistive Devices: None Allergies Allergies Allergy/AdvReac Type Severity Reaction Status Date / Time amlodipine Allergy Unknown Verified 01/21/24 23:18 pneumococcal vaccine Allergy Unknown Verified 01/21/24 23:19 Home Meds Home Medications Medication Instructions Recorded Confirmed paroxetine HCl 40 mg tablet (Paxil) 40 mg PO QAM 09/10/18 01/21/24 trazodone 50 mg tablet 50 mg PO HS PRN Insomnia 09/10/18 01/21/24 vit C 250 mg-vit E 90 mg-zinc 40 2 tab PO QAM 09/08/19 01/21/24 mg-copper 1 [id number] capsule (PreserVision AREDS-2) gabapentin 100 mg capsule 100 mg PO DAILY PRN Anxiety 10/01/22 01/21/24 (Neurontin) aripiprazole 2 mg tablet (Abilify) 2 mg PO DAILY 05/08/23 01/21/24 docusate sodium 100 mg capsule 100 mg PO TID PRN Constipation 01/20/24 01/21/24 labetalol 100 mg tablet 100 mg PO BID 01/20/24 01/21/24 amiodarone 200 mg tablet 200 mg PO .UD 01/21/24 01/21/24 levalbuterol tartrate 45 1 inh inhalation Q4H PRN shortness 01/21/24 01/21/24 mcg/actuation aerosol inhaler of breath or wheezing (Xopenex HFA) oxycodone 5 mg tablet 5 mg PO Q4H PRN Pain 01/21/24 01/21/24 sennosides 8.6 mg tablet (senna) 8.6 mg PO DAILY PRN Constipation 01/21/24 01/21/24 Previous Rx's Medication Instructions Recorded nitroglycerin 0.4 mg sublingual 0.4 mg sublingual Q5M PRN chest 07/04/21 tablet (Nitrostat) pain #25 tabs atorvastatin 80 mg tablet (Lipitor) 80 mg PO HS #90 tabs 01/13/23 clonazepam 0.5 mg tablet 0.5 mg PO HS #3 tabs 04/04/23 Results & Data (ED) Vital Signs Vital Signs - 24 hr 01/21/24 19:54 01/21/24 19:57 01/21/24 19:57 Temperature 36.0 C L Temperature Source Temporal Artery Scan Pulse Rate 88 Pulse Rate [Apical] Pulse Rate from SpO2 Sensor Respiratory Rate 16 Respiratory Effort / Characteristics Non-Labored Spontaneous Respiratory Depth Normal Respiratory Pattern Blood Pressure 132/84 Blood Pressure [Left Arm] Blood Pressure Mean 100 Blood Pressure Mean [Left Arm] Blood Pressure Position Sitting Blood Pressure Position [Left Arm] Pulse Oximetry 94 94 94 Oxygen Delivery Method Room Air Room Air Room Air Oxygen Flow Rate Sepsis Recent Fever Within 48 Hours No Sepsis New/Unexplained Change in Mental Status N/A Sepsis Action Taken by Nursing No Action Required Oxygen Flow Rate - Titration Pulse Oximetry Post Tiitration 01/21/24 20:22 01/21/24 20:29 01/21/24 21:23 Temperature Temperature Source Pulse Rate 88 92 H 93 H Pulse Rate [Apical] Pulse Rate from SpO2 Sensor 93 H 92 H Respiratory Rate 17 21 Respiratory Effort / Characteristics Respiratory Depth Respiratory Pattern Blood Pressure 149/83 H 142/84 H Blood Pressure [Left Arm] Blood Pressure Mean 105 103 Blood Pressure Mean [Left Arm] Blood Pressure Position Blood Pressure Position [Left Arm] Pulse Oximetry 93 93 Oxygen Delivery Method Oxygen Flow Rate Sepsis Recent Fever Within 48 Hours Sepsis New/Unexplained Change in Mental Status Sepsis Action Taken by Nursing Oxygen Flow Rate - Titration Pulse Oximetry Post Tiitration 01/21/24 21:30 01/21/24 21:34 01/21/24 21:40 Temperature Temperature Source Pulse Rate 94 H 96 H Pulse Rate [Apical] Pulse Rate from SpO2 Sensor 94 H 95 H Respiratory Rate 22 16 Respiratory Effort / Characteristics Respiratory Depth Respiratory Pattern Blood Pressure 140/76 Blood Pressure [Left Arm] Blood Pressure Mean 97 Blood Pressure Mean [Left Arm] Blood Pressure Position Blood Pressure Position [Left Arm] Pulse Oximetry 88 L 94 Oxygen Delivery Method Nasal Cannula Nasal Cannula Oxygen Flow Rate 0 2 Sepsis Recent Fever Within 48 Hours Sepsis New/Unexplained Change in Mental Status Sepsis Action Taken by Nursing Oxygen Flow Rate - Titration 2 Pulse Oximetry Post Tiitration 93 01/21/24 22:33 01/21/24 22:45 01/21/24 22:55 Temperature Temperature Source Pulse Rate 96 H 75 75 Pulse Rate [Apical] Pulse Rate from SpO2 Sensor Respiratory Rate Respiratory Effort / Characteristics Respiratory Depth Respiratory Pattern Blood Pressure 134/80 132/74 132/74 Blood Pressure [Left Arm] Blood Pressure Mean Blood Pressure Mean [Left Arm] Blood Pressure Position Blood Pressure Position [Left Arm] Pulse Oximetry Oxygen Delivery Method Oxygen Flow Rate Sepsis Recent Fever Within 48 Hours Sepsis New/Unexplained Change in Mental Status Sepsis Action Taken by Nursing Oxygen Flow Rate - Titration Pulse Oximetry Post Tiitration 01/21/24 23:00 01/21/24 23:17 01/21/24 23:36 Temperature Temperature Source Pulse Rate 72 80 Pulse Rate [Apical] 76 Pulse Rate from SpO2 Sensor Respiratory Rate 18 Respiratory Effort / Characteristics Non-Labored Spontaneous Respiratory Depth Normal Respiratory Pattern Regular Blood Pressure 138/87 144/81 H Blood Pressure [Left Arm] Blood Pressure Mean Blood Pressure Mean [Left Arm] Blood Pressure Position Blood Pressure Position [Left Arm] Pulse Oximetry 94 Oxygen Delivery Method Nasal Cannula Oxygen Flow Rate 2 Sepsis Recent Fever Within 48 Hours Sepsis New/Unexplained Change in Mental Status Sepsis Action Taken by Nursing Oxygen Flow Rate - Titration Pulse Oximetry Post Tiitration 01/22/24 00:07 01/22/24 00:15 01/22/24 00:15 Temperature Temperature Source Pulse Rate 74 66 Pulse Rate [Apical] 65 Pulse Rate from SpO2 Sensor Respiratory Rate 18 Respiratory Effort / Characteristics Non-Labored Spontaneous Respiratory Depth Normal Respiratory Pattern Regular Blood Pressure 129/62 Blood Pressure [Left Arm] 117/68 Blood Pressure Mean Blood Pressure Mean [Left Arm] 84 Blood Pressure Position Blood Pressure Position [Left Arm] Semi-fowlers Pulse Oximetry 92 Oxygen Delivery Method Nasal Cannula Oxygen Flow Rate 2 Sepsis Recent Fever Within 48 Hours Sepsis New/Unexplained Change in Mental Status Sepsis Action Taken by Nursing Oxygen Flow Rate - Titration Pulse Oximetry Post Tiitration 01/22/24 00:27 Temperature Temperature Source Pulse Rate 65 Pulse Rate [Apical] Pulse Rate from SpO2 Sensor Respiratory Rate Respiratory Effort / Characteristics Respiratory Depth Respiratory Pattern Blood Pressure 117/68 Blood Pressure [Left Arm] Blood Pressure Mean Blood Pressure Mean [Left Arm] Blood Pressure Position Blood Pressure Position [Left Arm] Pulse Oximetry Oxygen Delivery Method Oxygen Flow Rate Sepsis Recent Fever Within 48 Hours Sepsis New/Unexplained Change in Mental Status Sepsis Action Taken by Nursing Oxygen Flow Rate - Titration Pulse Oximetry Post Tiitration Laboratory Data 01/21/24 20:17 01/21/24 20:17 Lab Results 01/21/24 01/21/24 Range/Units 20:17 22:33 WBC 9.14 (4.8-10.8) K/ul RBC 4.20 (4.20-5.40) M/uL Hgb 12.1 (12.0-16.0) g/dl Hct 37.1 (37.0-47.0) % MCV 88.3 (80.0-100.0) fL MCH 28.8 (25.0-34.0) pg MCHC 32.6 (32.0-36.0) g/dL RDW Std Deviation 45.1 (36.4-46.3) fL RDW Coeff of Paul 13.9 (11.5-14.5) % Plt Count 374 (130-400) K/uL MPV 8.2 L (9.4-12.4) fL Immature Gran % (Auto) 0.5 % Neut % (Auto) 67.6 % Lymph % (Auto) 17.9 % Fergus % (Auto) 11.8 % Eos % (Auto) 1.9 % Baso % (Auto) 0.3 % Neut # (Auto) 6.17 (1.40-6.50) K/uL Lymph # (Auto) 1.64 (1.20-3.40) K/uL Fergus # (Auto) 1.08 H (0.11-0.59) K/uL Eos # (Auto) 0.17 (0.00-0.50) K/uL Baso # (Auto) 0.03 (0.00-0.20) K/uL Immature Gran # (Auto) 0.05 (0.01-0.20) K/uL PT 12.7 H (9.0-12.0) Seconds INR 1.2 H (0.9-1.1) APTT 27 (21-31) Seconds PTT Ratio 1.0 Sodium 141 (136-145) mmol/L Potassium 3.0 L (3.5-5.1) mmol/L Chloride 103 (98-107) mmol/L Carbon Dioxide 27 (21-32) mmol/L Anion Gap 11 (3-11) BUN 7 (6-23) mg/dl Creatinine 0.63 (0.6-1.2) mg/dl Est Cr Clr Drug Dosing Not Reportable Est GFR ( Amer) 101.0 ml/min Est GFR (Non-Af Amer) 87.1 ml/min BUN/Creatinine Ratio 11.1 (10-20) Glucose 100 H (70-99(Fasting)) mg/dl Calcium 8.9 (8.6-10.3) mg/dl Total Bilirubin 1.1 H (0.2-1.0) mg/dl AST 19 (13-39) U/L ALT 22 (7-52) U/L Alkaline Phosphatase 117 H (34-104) U/L Troponin I High Sens 49.7 H 41.7 H (0-14) pg/ml Total Protein 7.1 (6.0-8.3) gm/dl Albumin 3.8 (3.4-5.0) gm/dl Globulin 3.3 (2.5-4.0) gm/dl Albumin/Globulin Ratio 1.2 (0.9-2) Administered Medications Sodium Chloride (Nss) 1,000 mls @ 125 mls/hr IV .Q8H FRANK Stop: 02/20/24 22:29 Last Admin: 01/21/24 22:28 Dose: 125 mls/hr Documented By: JEMIMA Discontinued Medications Famotidine (Pepcid 20mg Iv Push) 20 mg in 5 mls @ 2.5 mls/min IV NOW STA Stop: 01/21/24 20:19 Last Admin: 01/21/24 20:25 Dose: 2.5 mls/min Documented By: JEMIMA Acetaminophen (Ofirmev) 1,000 mg in 100 mls @ 400 mls/hr IV NOW STA Stop: 01/21/24 20:32 Last Infusion: 01/21/24 20:44 Dose: Infused Documented By: Admin: 01/21/24 20:29 Dose: 400 mls/hr Documented By: JEMIMA Ioversol (Optiray 320 125ml) 116 ml IV ONCE ONE Stop: 01/21/24 21:13 Last Admin: 01/21/24 21:12 Dose: 116 ml Documented By: TIANNA Labetalol HCl (Labetalol Hcl Iv 5 Mg/Ml 20ml) 5 mg IV NOW STA Stop: 01/21/24 22:20 Last Admin: 01/21/24 22:33 Dose: 5 mg Documented By: JEMIMA Co-signed By: Labetalol HCl (Labetalol Hcl Iv 5 Mg/Ml 20ml) 5 mg IV NOW STA Stop: 01/21/24 22:41 Last Admin: 01/21/24 22:55 Dose: 5 mg Documented By: JEMIMA Co-signed By: Labetalol HCl (Labetalol Hcl Iv 5 Mg/Ml 20ml) 10 mg IV NOW STA Stop: 01/21/24 23:29 Last Admin: 01/21/24 23:36 Dose: 10 mg Documented By: JEMIMA Co-signed By: JARED Labetalol HCl (Labetalol Hcl Iv 5 Mg/Ml 20ml) 10 mg IV NOW STA Stop: 01/21/24 23:58 Last Admin: 01/22/24 00:07 Dose: 10 mg Documented By: JEMIMA Co-signed By: JS Morphine Sulfate (Morphine Sulfate 2 Mg/Ml Carp) 2 mg IV NOW STA Stop: 01/21/24 20:19 Last Admin: 01/21/24 20:23 Dose: 2 mg Documented By: JEMIMA Morphine Sulfate (Morphine Sulfate 2 Mg/Ml Carp) 2 mg IV NOW STA Stop: 01/21/24 21:06 Last Admin: 01/21/24 21:23 Dose: 2 mg Documented By: JEMIMA Ondansetron HCl (Ondansetron Inj 2 Mg/Ml 2 Ml Vial) 4 mg IV NOW STA Stop: 01/21/24 21:06 Last Admin: 01/21/24 21:22 Dose: 4 mg Documented By: JEMIMA Imaging Data Radiologist's Impression: Chest CTA 01/21/24 20:10 CR Exam(s): CTA CHEST W/WO Contrast IV Amt: 116ml EXAM: CT Angiography Chest Without and With Intravenous Contrast CLINICAL HISTORY: Reason for exam: chest pain, hx intramural hematoma. TECHNIQUE: Axial computed tomographic angiography images of the chest without and with intravenous contrast. CTDI is 20.2 mGy and DLP is 727 mGy-cm. Automated exposure control was utilized for the study. A dose lowering technique was utilized adhering to the principles of ALARA. MIP reconstructed images were created and reviewed. CONTRAST: Patient received 116ml of IV contrast COMPARISON: January 12, 2024 FINDINGS: Pulmonary arteries: Unremarkable. No pulmonary embolism. Aorta: There is a Alfonzo a dissection with dilation of the ascending aortic arch to 4.4 cm and mural thrombus extending over the descending thoracic aorta to the level of the diaphragm. Great vessels of aortic arch: The great vessels are widely patent. Lungs: Mild emphysematous changes in the lungs. Small amount of left lung base atelectasis, similar to previous. No mass. Pleural space: There are small bilateral pleural effusions measuring approximate 1 cm. No pneumothorax. Heart: Previous CABG with severe coronary calcification and mild cardiomegaly. No pericardial effusion. No evidence of RV dysfunction. Bones/joints: Mild multilevel degenerative change are seen throughout the spine. No acute fracture or subluxation is seen. Soft tissues: Unremarkable. Lymph nodes: Unremarkable. No enlarged lymph nodes. Gallbladder and bile ducts: Limited images of the upper abdomen demonstrate biliary duct dilation. IMPRESSION: There is a Alfonzo A dissection with dilation of the ascending aortic arch to 4.4 cm and mural thrombus extending over the descending thoracic aorta to the level of the diaphragm. No great vessel compromise is seen. Small bilateral pleural effusions with mild emphysematous changes and bibasilar atelectasis, increased since previous. Communications: Call Doctor Aortic Dissection Electronically signed by: José Diana MD 01/21/24 22:01 PM Discharge Plan Visit Data Chief Complaint: Chest Pain Stated Complaint: CHEST PAIN, SOB, JUST LIFE-FLIGHTED ED Provider: Linsey Polo Discharge Problem: Chest pain, Elevated troponin, Dissecting aneurysm of thoracic aorta, Raven type A Forms Stand Alone Forms: My [facility] [employer] Prescriptions Prescriptions: No Action nitroglycerin [Nitrostat] 0.4 mg tablet, sublingual 0.4 mg sublingual Q5M PRN (Reason: chest pain) Qty: 25 3RF Rx Instructions: take 1 tablet every 5 minutes as needed for angina.if not resolved after the 3rd dose,call 911 atorvastatin [Lipitor] 80 mg tablet 80 mg PO HS Qty: 90 3RF clonazepam 0.5 mg tablet 0.5 mg PO HS Qty: 3 0RF PreserVision AREDS-2 [id number] capsule 2 tab PO QAM gabapentin [Neurontin] 100 mg capsule 100 mg PO DAILY PRN (Reason: Anxiety) docusate sodium 100 mg capsule 100 mg PO TID PRN (Reason: Constipation) labetalol 100 mg tablet 100 mg PO BID trazodone 50 mg tablet 50 mg PO HS PRN (Reason: Insomnia) paroxetine HCl [Paxil] 40 mg Tablet 40 mg PO QAM aripiprazole [Abilify] 2 mg tablet 2 mg PO DAILY amiodarone 200 mg tablet 200 mg PO .UD Rx Instructions: BEGIN 01/19/24 : TAKE ONE TABLET BY MOUTH WITH BREAKFAST, AND ONE TABLET WITH LUNCH, AND ONE TABLET WITH EVENING MEAL FOR ONE WEEK. THEN, TAKE ONE TABLET BY MOUTH WITH BREAKFAST AND ONE TABLET WITH EVENING MEAL ONLY FOR THE REST OF THE MONTH. TAKE THIS MEDICATION WITH MEALS. levalbuterol tartrate [Xopenex HFA] 45 mcg/actuation HFA aerosol inhaler 1 inh inhalation Q4H PRN (Reason: shortness of breath or wheezing) sennosides [senna] 8.6 mg Tablet 8.6 mg PO DAILY PRN (Reason: Constipation) oxycodone 5 mg tablet 5 mg PO Q4H PRN (Reason: Pain) Referrals Referrals: Valerie Gonsalves DO [Primary Care Provider] -
[2024-01-21] MEDS: SODIUM CHLORIDE 0.9% 1,000 ML IV SCH (22:28)
[2024-01-21] MEDS: LABETALOL HCL IV 5 MG/ML 20ML IV STA ×3 (22:33→23:36)
[2024-01-22] MEDS: LABETALOL HCL IV 5 MG/ML 20ML IV STA (00:07)
--- NOTE | 2024-01-22 00:47 | History & Physical Report ---
Date of Service January 22, 2024 Assessment & Plan (1) Dissecting aneurysm of thoracic aorta, [place] type A: (2) Aortic mural thrombus: (3) Aortic arch syndrome: (4) Enlarging aortic aneurysm: (5) Elevated troponin: (6) S/P CABG x 3: (7) Coronary artery disease: (8) Hypertension: (9) CHER (generalized anxiety disorder): Plan Dissecting aneurysm of thoracic aorta, [place] type a/aortic mural thrombus/aortic arch syndrome/enlarging aortic aneurysm- Patient has did been determined to not be a good surgical candidate, and would therefore be admitted for pain control and to control blood pressure Patient will be DNR/DNI. Patient has had questions regarding hospice, and palliative care will be consulted in the morning Patient did receive multiple doses of labetalol: 5, 5, 10 then 10 mg IV, with systolic blood pressure decreased to less than 120, target recommended by [facility] surgery She also received morphine 2 mg IV, then 4 mg IV with good pain control Will increase patient's labetalol from 100 mg p.o. twice daily to 200 mg p.o. twice daily, and continue amiodarone 200 mg twice daily Labetalol 10 mg IV every 4 hours as needed systolic blood pressure greater than 160 Acetaminophen 650 mg by mouth every 6 hours as needed for mild pain or fever Oxycodone 5 mg by mouth every 4 hours as needed for moderate pain Roxanol 10 mg by mouth every 1 hour as needed for severe pain Zofran ODT 8 mg every 4 hours as needed Lorazepam 0.5 mg every 6 hours as needed for breakthrough anxiety NSS + KCl 20 mill equivalents at 80 mL/h x 1 L Insomnia/generalized anxiety disorder- Continue aripiprazole, clonazepam at bedtime, gabapentin as needed, paroxetine, and trazodone at bedtime as needed History of Present Illness Chief Complaint: The patient presents to the emergency department with acute onset of centralized chest pain that began earlier this evening while seated, and since that time has become more short of breath and had nausea without vomiting. Her reports that she has been progressively more short of breath over the last several days since she was discharged from [facility] in [place], where she was noted to have a problem with her aorta, with determination that she was not a surgical intervention candidate and she was to be managed medically. During that admission, she was started on labetalol 100 mg p.o. twice daily, and amiodarone 200 mg daily, which she reports taking as directed. At that admission, she also had her anticoagulation Eliquis stopped due to concerns regarding potential bleeding from her aorta Primary Care Provider: Valerie Gonsalves DO The patient is a 78-year-old female with a past medical history including aortic mural thrombus, enlarging aortic aneurysm, aortic arch syndrome, multiple pulmonary nodules, COPD with emphysema, status post CABG x 3, coronary artery disease, generalized anxiety disorder, hypertension, cerebrovascular disease and B12 deficiency. She presents to the emergency department with symptoms and history as above. CT angiography of chest performed in the emergency departments evening showed ascending aortic dissection 4.4 cm, and when reviewed by cardiothoracic surgery at [facility] in [place], they felt that there was a worsening since she was there and discharged on 01/16/2024. Since cardiothoracic surgery felt that there was no surgical intervention to be performed since she was not a good candidate, they advised admission to [facility] and control of blood pressure and pain. Allergies Allergy/AdvReac Type Severity Reaction Status Date / Time amlodipine Allergy Unknown Verified 01/21/24 23:18 pneumococcal vaccine Allergy Unknown Verified 01/21/24 23:19 Home Medications Medication Instructions Recorded Confirmed Type paroxetine HCl 40 mg tablet (Paxil) 40 mg PO QAM 09/10/18 01/21/24 History trazodone 50 mg tablet 50 mg PO HS PRN Insomnia 09/10/18 01/21/24 History vit C 250 mg-vit E 90 mg-zinc 40 2 tab PO QAM 09/08/19 01/21/24 History mg-copper 1 [id number] capsule (PreserVision AREDS-2) nitroglycerin 0.4 mg sublingual 0.4 mg sublingual Q5M PRN chest 07/04/21 01/21/24 Rx tablet (Nitrostat) pain #25 tabs gabapentin 100 mg capsule 100 mg PO DAILY PRN Anxiety 10/01/22 01/21/24 History (Neurontin) atorvastatin 80 mg tablet (Lipitor) 80 mg PO HS #90 tabs 01/13/23 01/21/24 Rx clonazepam 0.5 mg tablet 0.5 mg PO HS #3 tabs 04/04/23 01/21/24 Rx aripiprazole 2 mg tablet (Abilify) 2 mg PO DAILY 05/08/23 01/21/24 History docusate sodium 100 mg capsule 100 mg PO TID PRN Constipation 01/20/24 01/21/24 History labetalol 100 mg tablet 100 mg PO BID 01/20/24 01/21/24 History amiodarone 200 mg tablet 200 mg PO .UD 01/21/24 01/21/24 History levalbuterol tartrate 45 1 inh inhalation Q4H PRN shortness 01/21/24 01/21/24 History mcg/actuation aerosol inhaler of breath or wheezing (Xopenex HFA) oxycodone 5 mg tablet 5 mg PO Q4H PRN Pain 01/21/24 01/21/24 History sennosides 8.6 mg tablet (senna) 8.6 mg PO DAILY PRN Constipation 01/21/24 01/21/24 History Past Med/Surg History Medical History Osteoporosis DVT prophylaxis Numbness on right side Stroke-like symptoms Numbness on left side Mesenteric cyst just monitoring New onset a-fib recently diagnosed 06/2021 - hospitalized at [facility] - started on BB, Eliquis > follows with Dr. Walsh Mild ascending aorta dilatation Kidney stones BOTH SIDES - hx Panic disorder Colon polyps HX Macular degeneration Palpitations just on occasion Osteoarthritis SPINE Basal cell carcinoma of nose HX Basal cell carcinoma of lip HX Depression with anxiety Osteopenia after menopause Hyperlipidemia Coronary artery disease Glaucoma Surgical History Hx of left cataract extraction History of lithotripsy History of total hysterectomy with bilateral salpingo-oophorectomy (BSO) History of colonoscopy with polypectomy History of cholecystectomy History of appendectomy Status post Mohs surgery for basal cell carcinoma x2 History of tooth extraction all teeth removed History of wisdom tooth extraction History of tonsillectomy History of cardiac cath 2011 @ [facility]--no stents S/P CABG x 3 2011 > [facility] Family History Mother , age 68 Family history of esophageal cancer Depression Myocardial infarction Lung cancer Colorectal cancer Cancer Tremor Sister Basal cell adenocarcinoma Depression Brother Malignant melanoma Father , age 73 - 2nd to AAA? AAA (abdominal aortic aneurysm) Myocardial infarction Family history of colonic polyps Grandfather (Maternal) Stroke Other Alcoholism in family No family history of adverse response to anesthesia Denies family history of Ovarian cancer Prostate cancer Diabetes Breast cancer Social History Smoking Status: Former smoker Tobacco Type: Cigarettes Age Started Using Tobacco: 22; Age Quit Using Tobacco: 64; packs per day: 1; Cigarettes Per Day: 20; Second Hand Exposure: No; Do You Dip or Chew Tobacco: No; Hx Alcohol Use: No Hx Substance Use: No Preferred Language: Korean Communication Ability: Effective Visual Impairment: Limited Hearing Ability: Normal [place] Required: No Beliefs That Will Affect Care: None marital status: Current Living Situation: Spouse Current Living Situation Comment: lives in [place]; 2 adult children current occupational 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 How many Children do You have: 2 Feels Safe at Home: Yes Childhood Exposure to Second-Hand Smoke: Yes Diet: regular caffeine: Yes Dental Care, Regularly: No Physical Activity Frequency: Does not Exercise Seatbelt Use: always Sunscreen Use: Yes Do you think of yourself as: straight/heterosexual Assistive Devices: None Review of Systems Review of Systems: The patient denies palpitations, lower extremity swelling, sore throat, fevers, chills, sweats, vomiting, diarrhea , constipation, abdominal pain, pelvic pain, blood in urine or stool, dysuria, urinary frequency or urgency, lightheadedness, dizziness, headache, memory loss, loss of consciousness, rash, abnormal bruising or bleeding, imbalance, focal weakness, numbness or tingling in arms or legs, generalized arthralgias or myalgias, back or neck pain, or night sweats. The review of systems is otherwise negative other than for that already noted above, and at least 10 systems have been reviewed. Physical Exam Physical Exam: The patient is awake, alert and oriented 3, well developed and well nourished, normocephalic and atraumatic, lying in bed and in no acute distress. HEENT--PERRL, EOMI, mucous membranes and oropharynx normal Neck--supple. No JVD. No bruits. Thyroid normal, trachea midline, no adenopathy. Heart--normal S1 and S2. No murmurs, rubs or gallops. Lungs--clear bilaterally, no respiratory distress, no accessory muscle use. Abdomen--normal bowel sounds and soft. Nontender. Nondistended Extremities--No edema. Dermatologic--normal skin turgor, normal color, no abnormal lymph nodes, no rash. Neurologic--cranial nerves II through XII grossly intact. Rheumatologic--normal range of motion. Psychiatric--normal affect. Results & Data Results & Data Vital Signs (Past 12 Hours) Vital Signs Temp Pulse Pulse Resp BP BP Pulse Ox 01/22/24 00:27 65 117/68 01/22/24 00:15 66 01/22/24 00:15 65 18 117/68 92 01/22/24 00:07 74 129/62 01/21/24 23:36 80 144/81 H 01/21/24 23:17 72 138/87 01/21/24 23:00 76 18 94 01/21/24 22:55 75 132/74 01/21/24 22:45 75 132/74 01/21/24 22:33 96 H 134/80 01/21/24 21:40 96 H 16 94 01/21/24 21:34 88 L 01/21/24 21:30 94 H 22 140/76 01/21/24 21:23 93 H 21 142/84 H 93 01/21/24 20:29 92 H 17 149/83 H 93 01/21/24 20:22 88 01/21/24 19:57 94 01/21/24 19:57 94 01/21/24 19:54 36.0 C L 88 16 132/84 94 O2 Del Method O2 Flow Rate 01/22/24 00:27 01/22/24 00:15 01/22/24 00:15 Nasal Cannula 2 01/22/24 00:07 01/21/24 23:36 01/21/24 23:17 01/21/24 23:00 Nasal Cannula 2 01/21/24 22:55 01/21/24 22:45 01/21/24 22:33 01/21/24 21:40 Nasal Cannula 2 01/21/24 21:34 Nasal Cannula 0 01/21/24 21:30 01/21/24 21:23 01/21/24 20:29 01/21/24 20:22 01/21/24 19:57 Room Air 01/21/24 19:57 Room Air 01/21/24 19:54 Room Air Laboratory Results Laboratory Results WBC 8.97 K/ul (4.8-10.8) 01/22/24 04:08 RBC 3.75 M/uL (4.20-5.40) L 01/22/24 04:08 Hgb 10.8 g/dl (12.0-16.0) L 01/22/24 04:08 Hct 33.1 % (37.0-47.0) L 01/22/24 04:08 MCV 88.3 fL (80.0-100.0) 01/22/24 04:08 MCH 28.8 pg (25.0-34.0) 01/22/24 04:08 MCHC 32.6 g/dL (32.0-36.0) 01/22/24 04:08 RDW Std Deviation 44.7 fL (36.4-46.3) 01/22/24 04:08 RDW Coeff of Paul 13.8 % (11.5-14.5) 01/22/24 04:08 Plt Count 339 K/uL (130-400) 01/22/24 04:08 MPV 8.3 fL (9.4-12.4) L 01/22/24 04:08 Immature Gran % (Auto) 0.8 % 01/22/24 04:08 Neut % (Auto) 70.5 % 01/22/24 04:08 Lymph % (Auto) 14.8 % 01/22/24 04:08 [place] % (Auto) 13.0 % 01/22/24 04:08 Eos % (Auto) 0.7 % 01/22/24 04:08 Baso % (Auto) 0.2 % 01/22/24 04:08 Neut # (Auto) 6.32 K/uL (1.40-6.50) 01/22/24 04:08 Lymph # (Auto) 1.33 K/uL (1.20-3.40) 01/22/24 04:08 [place] # (Auto) 1.17 K/uL (0.11-0.59) H 01/22/24 04:08 Eos # (Auto) 0.06 K/uL (0.00-0.50) 01/22/24 04:08 Baso # (Auto) 0.02 K/uL (0.00-0.20) 01/22/24 04:08 Immature Gran # (Auto) 0.07 K/uL (0.01-0.20) 01/22/24 04:08 PT 12.7 Seconds (9.0-12.0) H 01/21/24 20:17 INR 1.2 (0.9-1.1) H 01/21/24 20:17 APTT 27 Seconds (21-31) 01/21/24 20:17 PTT Ratio 1.0 01/21/24 20:17 Sodium 140 mmol/L (136-145) 01/22/24 04:08 Potassium 3.3 mmol/L (3.5-5.1) L 01/22/24 04:08 Chloride 105 mmol/L (98-107) 01/22/24 04:08 Carbon Dioxide 25 mmol/L (21-32) 01/22/24 04:08 Anion Gap 10 (3-11) 01/22/24 04:08 BUN 8 mg/dl (6-23) 01/22/24 04:08 Creatinine 0.66 mg/dl (0.6-1.2) 01/22/24 04:08 Est Cr Clr Drug Dosing 66.8 ml/min 01/22/24 04:08 Est GFR ( Amer) 99.5 ml/min 01/22/24 04:08 Est GFR (Non-Af Amer) 85.8 ml/min 01/22/24 04:08 BUN/Creatinine Ratio 12.1 (10-20) 01/22/24 04:08 Glucose 129 mg/dl (70-99(Fasting)) H 01/22/24 04:08 Calcium 8.2 mg/dl (8.6-10.3) L 01/22/24 04:08 Phosphorus 4.4 mg/dl (2.5-4.9) 01/22/24 04:08 Total Bilirubin 1.1 mg/dl (0.2-1.0) H 01/21/24 20:17 AST 19 U/L (13-39) 01/21/24 20:17 ALT 22 U/L (7-52) 01/21/24 20:17 Alkaline Phosphatase 117 U/L (34-104) H 01/21/24 20:17 Troponin I High Sens 41.7 pg/ml (0-14) H 01/21/24 22:33 Total Protein 7.1 gm/dl (6.0-8.3) 01/21/24 20:17 Albumin 3.5 gm/dl (3.4-5.0) 01/22/24 04:08 Globulin 3.3 gm/dl (2.5-4.0) 01/21/24 20:17 Albumin/Globulin Ratio 1.2 (0.9-2) 01/21/24 20:17 Impressions Chest CTA 01/21/24 20:10 CR Exam(s): CTA CHEST W/WO Contrast IV Amt: 116ml EXAM: CT Angiography Chest Without and With Intravenous Contrast CLINICAL HISTORY: Reason for exam: chest pain, hx intramural hematoma. TECHNIQUE: Axial computed tomographic angiography images of the chest without and with intravenous contrast. CTDI is 20.2 mGy and DLP is 727 mGy-cm. Automated exposure control was utilized for the study. A dose lowering technique was utilized adhering to the principles of ALARA. MIP reconstructed images were created and reviewed. CONTRAST: Patient received 116ml of IV contrast COMPARISON: January 12, 2024 FINDINGS: Pulmonary arteries: Unremarkable. No pulmonary embolism. Aorta: There is a [place] a dissection with dilation of the ascending aortic arch to 4.4 cm and mural thrombus extending over the descending thoracic aorta to the level of the diaphragm. Great vessels of aortic arch: The great vessels are widely patent. Lungs: Mild emphysematous changes in the lungs. Small amount of left lung base atelectasis, similar to previous. No mass. Pleural space: There are small bilateral pleural effusions measuring approximate 1 cm. No pneumothorax. Heart: Previous CABG with severe coronary calcification and mild cardiomegaly. No pericardial effusion. No evidence of RV dysfunction. Bones/joints: Mild multilevel degenerative change are seen throughout the spine. No acute fracture or subluxation is seen. Soft tissues: Unremarkable. Lymph nodes: Unremarkable. No enlarged lymph nodes. Gallbladder and bile ducts: Limited images of the upper abdomen demonstrate biliary duct dilation. IMPRESSION: There is a [place] A dissection with dilation of the ascending aortic arch to 4.4 cm and mural thrombus extending over the descending thoracic aorta to the level of the diaphragm. No great vessel compromise is seen. Small bilateral pleural effusions with mild emphysematous changes and bibasilar atelectasis, increased since previous. Communications: Call Doctor Aortic Dissection Electronically signed by: José Diana MD 01/21/24 22:01 PM Code Status & VTE Plan Code Status DNR/DNI VTE Prophylaxis Plan VTE Prophylaxis will be ordered: Yes PG Care Time/CCT Total # of Minutes Spent Total Time Spent with Patient: Total time spent is greater than 50% in coordination of care (as documented) at patient's floor/unit and/or counseling patient: Coding Level of Care Code 11942 INT INP/OBS CARE 3/75MIN Diagnoses Dissecting aneurysm of thoracic aorta, [place]fon[place] type A I71.010 Aortic mural thrombus I74.10 Aortic arch syndrome M31.4 Enlarging aortic aneurysm I71.9 Elevated troponin R79.89 S/P CABG x 3 Z95.1 Coronary artery disease I25.10 Hypertension I10 CHER (generalized anxiety disorder) F41.1
[2024-01-22] MEDS ORDERED: LABETALOL HCL IV 5 MG/ML 20ML IV PRN (00:48)
[2024-01-22] MEDS: MoRPHine SULFATE 4 MG/ML 1 ML CARP\\VIAL IV PRN (01:12)
[2024-01-22] MEDS ORDERED: ONDANSETRON 4 MG OD TAB PO PRN (01:16)
[2024-01-22] MEDS ORDERED: ACETAMINOPHEN 325 MG TAB PO PRN (01:56)
[2024-01-22] MEDS ORDERED: DOCUSATE SODIUM 100 MG CAP PO PRN (01:56)
[2024-01-22] MEDS ORDERED: LEVALBUTEROL TARTRATE 15 GM HFA.AER.AD INH PRN (01:56)
[2024-01-22] MEDS ORDERED: traZODone HCL 50 MG TAB PO PRN (01:56)
[2024-01-22] MEDS ORDERED: SENNA 8.6 MG TAB PO PRN (01:56)
[2024-01-22] MEDS: NSS + 20MEQ KCL 20 MEQ/1,000 ML BAG IV SCH (02:16)
[2024-01-22] MEDS: LORazepam 0.5 MG TAB PO PRN (03:37)
[2024-01-22] MEDS: MoRPHine SULFATE 10 MG/0.5 ML UDP PO PRN (04:02)
[2024-01-22 04:40] LABS: Basophils # (auto) 0.02 K/uL (0.00-0.20); Basophils % (auto) 0.2 %; Eosinophils # (auto) 0.06 K/uL (0.00-0.50); Eosinophils % (auto) 0.7 %; Hematocrit (blood only) 33.1 % (37.0-47.0); Hemoglobin 10.8 g/dl (12.0-16.0); Immature Granulocytes # (auto) 0.07 K/uL (0.01-0.20); Immature Granulocytes % (auto) 0.8 %; Lymphocytes # (auto) 1.33 K/uL (1.20-3.40); Lymphocytes % (auto) 14.8 %; Mean Corpuscular Hemoglobin 28.8 pg (25.0-34.0); Mean Corpuscular Hgb Conc 32.6 g/dL (32.0-36.0); Mean Corpuscular Volume 88.3 fL (80.0-100.0); Mean Platelet Volume 8.3 fL (9.4-12.4); Monocytes # (auto) 1.17 K/uL (0.11-0.59); Neutrophils # (auto) 6.32 K/uL (1.40-6.50); Neutrophils % (auto) 70.5 %; Platelet Count 339 K/uL (130-400); RDW Coefficient of Variation 13.8 % (11.5-14.5); RDW Standard Deviation 44.7 fL (36.4-46.3); Red Blood Count 3.75 M/uL (4.20-5.40); White Blood Count 8.97 K/ul (4.8-10.8)
[2024-01-22 04:48] LABS: Albumin Level 3.5 gm/dl (3.4-5.0); BUN Creatinine Ratio 12.1 (10-20); Calcium 8.2 mg/dl (8.6-10.3); Creatinine Clr Calc Pharmacy 66.8 ml/min; Est GFR (African American) 99.5 ml/min; Est GFR (Non-African American) 85.8 ml/min; Phosphorus 4.4 mg/dl (2.5-4.9); Potassium 3.3 mmol/L (3.5-5.1)
[2024-01-22] MEDS: GABAPENTIN 100 MG CAP PO PRN (05:01)
[2024-01-22] MEDS: NITROGLYCERIN SL 0.4 MG/TAB TAB SL PRN (05:03)
--- NOTE | 2024-01-22 06:43 | XRay Report ---
XR chest 1V not portable CLINICAL HISTORY: Chest pain, nonspecific TECHNIQUE: Single frontal radiograph of the chest was obtained. Comparison: Comparison is made to chest radiograph 01/12/2024 FINDINGS: Median sternotomy wires are unchanged. The aorta is tortuous. The remainder of the cardiomediastinal silhouette is unremarkable. The lungs are clear. Small bilateral pleural effusions are seen. IMPRESSION: Small bilateral pleural effusions. ACT 112: Negative or not required by law. Electronically signed by: Clyde Sabillon M.D. 01/22/2024 6:42 AM
[2024-01-22] MEDS: AMIODARONE 200 MG TAB PO SCH (08:29)
[2024-01-22] MEDS: POTASSIUM CHLORIDE / WTR 10 MEQ/100 ML PLCT IV SCH (08:29)
[2024-01-22] MEDS: oxyCODONE HCL IR 5 MG TAB (IMMEDIATE RELEASE) PO PRN (08:29)
[2024-01-22] MEDS: LABETALOL HCL 200 MG TAB PO SCH (08:29)
[2024-01-22] MEDS: ARIPIprazole 1 MG/ML ORAL SOLN 150 ML BTL PO SCH (08:30)
[2024-01-22] MEDS: PARoxetine HCL 20 MG TAB PO SCH (08:30)
[2024-01-22] MEDS ORDERED: NON-FORMULARY MEDICATION (Vit C,E-Zn-Coppr-Lutein-Zeaxan [Preservision Areds-2] 250-200-40 PO SCH (09:00)
[2024-01-22] MEDS: POTASSIUM CHLORIDE 20 MEQ/15 ML UDC PO STA (11:59)
--- OUTSIDE RECORDS SUMMARY | 2024-01-22 12:17 | External Medical Summary | Summary of Care ---
Author Name Unknown Organization [facility] Address [address] [place] [address] Phone [phone] Care Team Providers Care Mva Reactor Operator Name Role Phone Valerie Gonsalves MD Primary Care Provider [phone] Encounter Details Date Type Department Care Team (Late st Contact Info) Description 01/16/2024 CardioDiagnostic Study Cardiothoracic Surg [facility] [address] [place] [address] Rain Boland PA-C [address] [place] [address] EKG Report Allergies Active Allergy Reactions Criticality Noted Date Comments Amlodipine 12/12/2023 Pneumococcal Vaccines Edema Other,Rash Low 09/09/20 13 documented as of this encounter (statuses as of 01/19/2024) Medications Medication Sig Dispensed Refills Start Date End Date Status ABILIFY 2 MG PO TABS 1 tab once a day 0 Active NITROGLYCERIN 0.4 MG SL SUBLIndications:INT ERFACED RESULT 1 Tab Sublingual Every 5 minutes as needed for chest pain. Seek medical attention if you use this medication 20 Tab 20 04/27/2012 Active clonazePAM (KLONOPIN) 0.5 MG Tablet Take 1 Tablet by mouth at bedtime. 0 01/09/2015 Active PARoxetine (PAXIL) 10 MG Tablet 0 01/09/2015 Active atorvaSTATin (LIPITOR) 80 MG Tablet 0 01/06/2015 Active PARoxetine (PAXIL) 40 MG Tablet Take 1 Tablet by mouth in the morning. 0 01/15/2017 Active gabapentin (NEURONTIN) 100 MG Capsule take 1 capsule by mouth once daily if needed for anxiety 0 04/09/2018 Active traZODone (DESYREL) 50 MG Tablet Take 1 Tablet by mouth at bedtime as needed. 0 10/11/2019 Active PreserVision AREDS 2 Oral Tablet Chewable Take by mouth. 0 Active Levalbuterol Tartrate 45 MCG/ACT Inhalation Aerosol (Xopenex HFA) Inhale 1 Puff by mouth every 4 hours as needed for Wheezing. 0 Active Labetalol HCl 100 MG Oral Tablet (Normodyne) Take 1 Tablet by mouth in the morning and 1 Tablet before bedtime. 60 Tablet 2 01/16/2024 Active Sennosides 8.6 MG Oral Tablet (Senokot) Take 1 Tablet by mouth daily as needed for Constipation. 10 Tablet 0 01/16/2024 Active Docusate Sodium 100 MG Oral Capsule (Colace) Take 1 Capsule by mouth 3 times a day as needed for Constipation. 10 Capsule 0 01/16/2024 Active Amiodarone HCl 200 MG Oral Tablet (Cordarone) Take 1 Tablet by mouth with breakfast and 1 Tablet at lunch and 1 Tablet with dinner for 1 week. Then take 1 tablet by mouth with breakfast and 1 tablet by mouth with dinner only for the rest of the month.Take this medication with meals. 63 Tablet 0 01/16/2024 Active documented as of this encounter (statuses as of 01/19/2024) Active Problems Problem Noted Date Diagnosed Date Intramural aortic hematoma 01/14/2024 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 S/P CABG x 3 01/13/2024 Overview: 2011 History of basal cell carcinoma 09/06/2013 Overview: BCC R ala 10/2019 BCC on right upper cutaneous lip - 2012 BCC on left nasal ala -2011 treated Mohs surgery BCC on left nose - 2007 Pericarditis 04/28/2012 Chronic coronary artery disease 03/17/2012 Depression 03/17/2012 Anxiety 03/17/2012 Tobacco use disorder 03/17/2012 ADVANCE DIRECTIVE INFORMATION 10/19/2007 Overview: No, Advance Directive brochure offered , patient declined. documented as of this encounter (statuses as of 01/19/2024) Immunizations Name Administration Dates Next Due Pneumococcal Polysaccharide PPV23 (Pneumovax) documented as of this encounter Social History Tobacco Use Types Packs/Day Years Used Date Smoking Tobacco: Former Cigarettes Q uit: 01/10/2013 Smokeless Tobacco: Never Alcohol Use Standard Drinks/Week Comments No 0 (1 standard drink = 0.6 oz pur e alcohol) Sex and Gender Information Value Date Recorded Sex Assigned at Not on file Gender Identity Not on file Sexual Orientation Not on file Job Start Date Occupation Industry Not on file Not on file Not on file documented as of this encounter Procedure Notes * Haja Rodriguez DO - 01/16/2024 2:20 PM ESTAssociated Order(s): EKG REPORT REASON FOR STUDY: CHEST PAIN CONCLUSIONS: Normal sinus rhythm Right bundle branch block Nonspecific T wave abnormality When compared with ECG of 15-JAN-2024 15:46, (unconfirmed) No significant change was found Ventricular Rate: 83 Atrial Rate: 83 NH Interval: 132 QRS Duration: 120 QT/QTc: 394/462 ms P-R-T [place]: -1 : -26 : 86 degrees documented in this encounter Plan of Treatment Upcoming Encounters Date Type Department Care Team (Late st Contact Info) Description 02/18/2024 2:15 PM EDT Office Visit Cardiothoracic Surg [facility] [address] [place] [address] Brandan Fish MD [address] [place] [address] Scheduled Procedures Name Priority Associated Diagnoses Date/Ti me COLONOSCOPY FLEXIBLE PROXIMA L DIAGNOSTIC Recall Screening for malignant neoplasm of colon Health Maintenance Due Date Last Done Comments DXA Scan 1945 Depression Screening 1959 Hepatitis C Screening 1965 DTaP,Tdap,and Td Vaccines (1 - Tdap) 1966 Zoster Vaccines (1 of 2) 1997 Pneumococcal Vaccine: 65+ Years (2 of 2 - PCV) 03/17/2013 03/17/2012 COLONOSCOPY-EVERY 5 YRS AGES 18-100 12/01/2018 12/01/2013, 12/01/2013 COVID-19 Vaccine ( - 2022-2 4 season) 2023 Influenza Vaccine (FLU shot) (#1) 2023 GARDASIL-HPV IMMUNIZATION SERIES Aged Out No longer eligible b ased on patient's age to complete this topic Hepatitis B Aged Out No longer eligi ble based on patient's age to complete this topic MENINGOCOCCAL (MENACTRA/MENVEO) Aged Out No longer eligible b ased on patient's age to complete this topic documented as of this encounter Medical Devices Implanted Type Area [place] Weaver Device Identifier Shelf Expiration Date Model / Serial / Lot Sut Steel 6 [id number] - [id number] Implanted:Qty: 6 on 03/19/2012 at [place] [facility] [place] N/A: Chest DO NOT USE 11/17/2016 [id number] / / [id number] Graft Marker Coronary - [id number] Implanted:Qty: 2 on 03/19/2012 at OR [facility] [place] N/A: Aorta VM CARDIO VASCULAR 05/17/2014 [id number] / / [id number] documented as of this encounter Procedures Procedure Name Priority Date/Time Associated Diagnosis Comments EKG REPORT 01/16/2024 2:20 PM EST documented in this encounter Results * EKG REPORT (01/16/2024 2:20 PM EST) 01/16/2024 2:20 PM EST Narrative Procedure Note Haja Rodriguez DO - 01/16/2024 2:20 PM EST REASON FOR STUDY: CHEST PAIN CONCLUSIONS: Normal sinus rhythm Right bundle branch block Nonspecific T wave abnormality When compared with ECG of 15-JAN-2024 15:46, (unconfirmed) No significant change was found Ventricular Rate: 83 Atrial Rate: 83 NH Interval: 132 QRS Duration: 120 QT/QTc: 394/462 ms P-R-T [place]: -1 : -26 : 86 degrees Rain Boland PA-C EKG documented in this encounter Advance Directives Latest Code Status on File Code Status Date Activated Date Inactivated Comments Full Code 01/13/2024 2:57 AM 01/16/2024 9:18 PM This o rder reflects the patients wishes and were consensually agreed upon. Question Answer Comments Discussion of Advance Directives occurred with: Patient Code Status History Code Status Date Activated Date Inactivated Comments Full Code 04/26/2012 3:07 AM 04/27/2012 5:25 PM This order reflects the patients wishes and were consensually agreed upon. Question Answer Comments Discussion of Advance Directives occurred with: Patient Does the patient have a Living Will? No Does the patient have Health Care Power of Pari Mutuel Ticket Seller? No Full Code 03/19/2012 2:23 PM 03/23/2012 4:55 PM This o rder reflects the patients wishes and were consensually agreed upon. Full Code 03/16/2012 3:59 PM 03/19/2012 6:27 AM This o rder reflects the patients wishes and were consensually agreed upon. Question Answer Comments Discussion of Advance Directives occurred with: Patient Does the patient have a Living Will? No Does the patient have Health Care Power of Pari Mutuel Ticket Seller? No Care Teams Mva Reactor Operator Relationship Specialty Start Date End Date Valerie Gonsalves MD [address] [place] [address] PCP - General Family Medicine 12/18/23 documented as of this encounter
--- OUTSIDE RECORDS SUMMARY | 2024-01-22 12:17 | External Medical Summary ---
Author Name Unknown Address Unknown Organization K01:LABORATORY [facility] [place] - [address] [place] [address] Laboratory Report Ordering Provider Test Date Status KOKI MORA 01/16/2024 04:29:00 Final Observation Date Value Abnormality Reference (Units ) Status BUN 01/16/2024 04:29:00 17 6-20 (mg/dL) Final Creatinine 01/16/2024 04:29:00 0.8 0.5-1.0 (mg/dL) Final Glomerular filtration rate/1.73 sq M.predicted [Volume Rate/Area] in Serum, Plasma or Blood by Creatinine-based formula (CKD-EPI) 01/16/2024 04:29:00 77 >=60 (mL/min) Final eGFR is calculated based on the CKD-EPI 2020 equation SODIUM 01/16/2024 04:29:00 135 135-146 (m mol/L) Final Potassium 01/16/2024 04:29:00 3.9 3.5-5.1 (m mol/L) Final Cl 01/16/2024 04:29:00 103 98-107 (mm ol/L) Final CO2 01/16/2024 04:29:00 22 22-32 (mmo l/L) Final Anion gap 01/16/2024 04:29:00 10 7-15 (mmol /L) Final Glucose 01/16/2024 04:29:00 122 Above high normal 70 -120 (mg/dL) Final Calcium 01/16/2024 04:29:00 8.4 8.4-10.2 ( mg/dL) Final Performing Location LAB[facility]ORY [facility] [place] - [address] [place] [address]
--- OUTSIDE RECORDS SUMMARY | 2024-01-22 12:17 | External Medical Summary | Summary of Care ---
Author Name Unknown Organization [facility] Address [address] [place] [address] Phone [phone] Care Team Providers Care Building Operator Name Role Phone Valreie Gonsalves MD Primary Care Provider [phone] Reason for Visit * Reason Onset Date Comments Order Request 01/17/2024 Encounter Details Date Type Department Care Team ([facility] st Contact Info) Description 01/17/2024 Telephone Cardiothoracic Surg [facility] [address] [place], [place] [id number] Blanca Belle PA-C [address] [place] [address] Order Request Allergies Active Allergy Reactions Criticality Noted Date Comments Amlodipine 12/12/2023 Pneumococcal Vaccines Edema Other,Rash Low 09/09/20 13 documented as of this encounter (statuses as of 01/17/2024) Medications Medication Sig Dispensed Refills Start Date [...] with meals. 63 Tablet 0 01/16/2024 Active oxyCODONE HCl 5 MG Oral Tablet (Oxy IR) Take 1 Tablet by mouth every 4 hours as needed for Pain, Severe. 30 Tablet 0 01/17/2024 Active documented as of this encounter (statuses as of 01/17/2024) Active Problems Problem Noted Date Diagnosed Date [...] as of this encounter (statuses as of 01/17/2024) Immunizations Name Administration Dates Next Due Pneumococcal [...] on file documented as of this encounter Plan of Treatment Scheduled Procedures Name Priority Associated Diagnoses Date/Ti [...] AGES 18-100 12/01/2018 12/01/2013, 12/01/2013 COVID-19 Vaccine (1 - 2022-2 4 season) 2023 Influenza Vaccine [...] this encounter Medical Devices Implanted Type Area Sales Promotion Coordinator Device Identifier Shelf Expiration Date Model / Serial / Lot Sut Steel 6 [id number] - [id number] Implanted:Qty: 6 on 03/19/2012 at OR [facility] [place] N/A: Chest DO NOT USE 11/17/2016 [id number] / / [id number] Graft Marker Coronary - [id number] Implanted:Qty: 2 on 03/19/2012 at OR [facility] N/A: Aorta VM CARDIO VASCULAR 05/17/2014 [id number] / / [id number] documented as of this encounter Advance Directives Latest Code Status [...] the patient have Health Care Power of Federal Appellate Law Clerk? No Full Code 03/19/2012 2:23 PM 03/23/2012 4:55 PM This or nita reflects the patients wishes and were consensually agreed upon. Full Code 03/16/2012 3:59 PM 03/19/2012 6:27 AM This o rder reflects the patients wishes and were consensually agreed upon. Question Answer Comments Discussion of Advance Directives occurred with: Patient Does the patient have a Living Will? No Does the patient have Health Care Power of Federal Appellate Law Clerk? No Care Teams Building Operator Relationship Specialty Start Date End Date Valerie Gonsalves MD [address] [place] [address] PCP - General Family Medicine 12/18/23 documented as of this encounter
--- OUTSIDE RECORDS SUMMARY | 2024-01-22 12:17 | External Medical Summary ---
Author Name Unknown Address Unknown Organization K01:LAB[facility]ATORY [place] - [address] [place] [address] Laboratory Report Ordering Provider Test Date Status KOKI MORA 01/16/2024 04:29:00 Final Observation Date Value Abnormality Reference (Units ) Status WBC, Total 01/16/2024 04:29:00 8.00 4.00-10.80 (K/uL) Final RBC 01/16/2024 04:29:00 3.31 3.85-5.15 (M/uL) Final Hemoglobin 01/16/2024 04:29:00 10.0 Below low normal 12.0-15.3 (g/dL) Final HCT 01/16/2024 04:29:00 30.9 Below low normal 36.0-45.2 (%) Final MCV 01/16/2024 04:29:00 93.4 81.5-97.5 (fL) Final MCH 01/16/2024 04:29:00 30.2 27.0-34.0 (pg) Final MCHC 01/16/2024 04:29:00 32.4 32.0-36.0 (g/dL) Final RDW 01/16/2024 04:29:00 13.9 11.5-15.5 (%) Final Platelets 01/16/2024 04:29:00 139 Below low normal 140-400 (K/uL) Final MPV 01/16/2024 04:29:00 9.5 6.6-11.1 (fL) Final Nucleated erythrocytes/100 leukocytes [Ratio] in Blood by Automated count 01/16/2024 04:29:00 0 <=0 (/100 WBCs) Final Performing Location [facility]AT[facility] [place] - [address] [place] [address]
--- OUTSIDE RECORDS SUMMARY | 2024-01-22 12:17 | External Medical Summary | Summary of Care ---
Author Name Unknown Organization [facility] Address [address] [place] [address] Phone [phone] Care Team Providers Care Montessori Lead Teacher Name Role Phone Valerie Gonsalves MD Primary Care Provider [phone] Reason for Visit * Reason Onset Date Comments Order Request 01/17/2024 Encounter Details Date Type Department Care Team (Late st Contact Info) Description 01/17/2024 Telephone Cardiothoracic Surg [facility] [address], [place] [phone] Blanca Belle PA-C [address], [place] [phone] Order Request Allergies Active Allergy Reactions Criticality Noted Date Comments Amlodipine 12/12/2023 Pneumococcal Vaccines Edema Other,Rash Low 09/09/20 13 documented as of this encounter (statuses as of 01/20/2024) Medications Medication Sig Dispensed Refills Start Date [...] as of this encounter (statuses as of 01/20/2024) Active Problems Problem Noted Date Diagnosed Date [...] as of this encounter (statuses as of 01/20/2024) Immunizations Name Administration Dates Next Due Pneumococcal [...] on file documented as of this encounter Miscellaneous Notes * Telephone Encounter - Rain Capellan RN - 01/20/2024 1:59 PM EST [facility] will not accept orders without a precert. Email sent to [facility] team to obtain precert. This can take 3-5 business days. Will fax all information once precert is received. Rain Capellan RN 01/20/2024 2:01 PM * Telephone Encounter - Jacinta Underwood OSA - 01/20/2024 9:43 AM EST Pt (Tirso) calling in stating they want to go to [facility] Could someone fax the orders to [facility] so the pt can be scheduled. The states [facility] still doesn't have the orders for the pt to get scheduled yet. Pt would like an appointment set up ANJELICA. documented in this encounter Plan of Treatment Upcoming Encounters Date Type Department Care Team (Late st Contact Info) Description 01/23/2024 10:00 AM EST Telemedicine Cardiothoracic Surg [facility], [address] [address] Davey Mobley PA-C [address] [facility] [place] [address] 02/18/2024 2:15 PM EDT Office Visit Cardiothoracic Surg [facility] [address] [place] [address] Brandan Fish MD [address] [place] [address] Scheduled Procedures Name Priority Associated Diagnoses Date/Ti [...] this encounter Medical Devices Implanted Type Area Clinical Informatics Specialist Device Identifier Shelf Expiration Date Model / Serial / Lot Sut Steel 6 M654g - [id number] Implanted:Qty: 6 on 03/19/2012 at OR [facility] N/A: Chest DO NOT USE 11/17/2016 [id number] / / [id number] Graft Marker Coronary - [id number] Implanted:Qty: 2 on 03/19/2012 at OR [facility] N/A: Aorta VM CARDIO VASCULAR 05/17/2014 [id number] / / [id number] documented as of this encounter Advance Directives [...] the patient have Health Care Power of Carpenter Apprentice? No Full Code 03/19/2012 2:23 PM 03/23/2012 [...] the patient have Health Care Power of Carpenter Apprentice? No Care Teams Montessori Lead Teacher Relationship Specialty Start Date End Date Valerie Gonsalves MD [address] [place] [address] PCP - General Family Medicine 12/18/23 documented as of this encounter
--- OUTSIDE RECORDS SUMMARY | 2024-01-22 12:17 | External Medical Summary | Summary of Care ---
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 Role Phone Valerie Gonsalves MD Primary Care Provider [phone] Reason for Referral * Precert (Within 10 days (routine)) - Pending Review Specialty Diagnoses / Procedures Referred By Contac t Referred To Contact Radiology Diagnoses Intramural aortic hematoma (HCC) Procedures CTA CHEST NON-CORONARY W CONTRAST Blanca Belle PA-C [address] [place] [address] Referral ID Status Reason Start Date Expiration Date V isits Requested Visits Authorized [id number] Pending Review 02/16/2024 999 999 * Precert (Within 10 days (routine)) - Pending Review Specialty Diagnoses / Procedures Referred By Contac t Referred To Contact Radiology Diagnoses Intramural aortic hematoma (HCC) Procedures CT ABD/PELVIS W IV CONTRAST - WO ORAL CONTRAST Blanca Belle PA-C [address] [place] [address] Referral ID Status Reason Start Date Expiration Date V isits Requested Visits Authorized [id number] Pending Review 02/16/2024 999 999 Reason for Visit * Auth/Cert Specialty Diagnoses / Procedures Referred By Contac t Referred To Contact Diagnoses acute aortic syndrome [facility] [address] [place] [address] Phone: [phone] Admissions [facility] [address] [place] [address] Referral ID Status Reason Start Date Expiration Date Visits Re quested Visits Authorized [id number] Encounter Details Date Type Department Care Team (Latest Contact Info) Description 01/13/2024 2:44 AM EST - 01/16/2024 5:18 PM EST Hospital Encounter CICU, Cardiac Intensive Care Unit [facility] 7TH [address] [place] [address] Brandan Fish MD [address] [place] [address] EKG Report Discharge Disposition: Home - Self Care Allergies Active Allergy Reactions Criticality Noted Date Comments Amlodipine 12/12/2023 Pneumococcal Vaccines Edema Other,Rash Low 09/09/20 13 documented as of this encounter (statuses as of 01/17/2024) Medications Medication Sig Dispensed Refills Start Date End Date Status ABILIFY 2 MG PO TABS 1 tab once a day 0 Active NITROGLYCERIN 0.4 MG SL SUBLIndications: INTERFACED RESULT 1 Tab Sublingual Every 5 minutes [...] Oral Tablet Chewable Take by mouth. 0 Activ e Levalbuterol Tartrate 45 MCG/ACT Inhalation Aerosol (Xopenex [...] with meals. 63 Tablet 0 01/16/2024 Active METOPROLOL TARTRATE 25 MG PO TABSIndications: Chronic coronary artery disease Take 1/2 tab two times daily 60 Tab 3 03/23/2012 4 Discontinued ASPIRIN 325 MG PO TABSIndications: INTERFACED RESULT,Chronic coronary artery disease,BCC (basal cell carcinoma), face,Pericarditi s,Neoplasm of uncertain behavior of skin,ADVANCE DIRECTIVE INFORMATION,Hist ory of basal cell carcinoma,Depres althea,Anxiety,Tob acco use disorder As directed 200 Tab 0 04/27/2012 4 Discontinued busPIRone (BUSPAR) 5 MG Tablet Take 5 mg by mouth 2 times a day as needed. 0 02/03/2017 4 Discontinued lisinopril (PRINIVIL) 5 MG Tablet 0 01/17/2017 4 Discontinued latanoprost (XALATAN) 0.005 % ophthalmic solution place 1 drop into both eyes at bedtime 0 02/16/2018 4 Discontinued Apixaban 5 MG Oral Tablet (Eliquis) Eliquis 5 mg tablet take 1 tablet by mouth twice a day 0 4 Discontinued amLODIPine 1.25 MG OR TABS Take by mouth daily. 0 4 Discontinued Vitamin B12 100 MCG Oral Tablet Take by mouth. 0 4 Discontinued Potassium Citrate ER 10 MEQ (1080 MG) Oral Tablet Extended Release (Urocit-K) Take 1 Tablet by mouth in the morning. 0 4 Discontinued Amiodarone HCl 200 MG Oral Tablet (Cordarone) Take 1 Tablet by mouth in the morning and 1 Tablet at noon and 1 Tablet in the evening with meals. 30 Tablet 1 01/16/2024 4 Discontinued Docusate Sodium 100 MG Oral Capsule (Colace) Take 1 Capsule by mouth in the morning and 1 Capsule before bedtime. 10 Capsule 0 01/16/2024 4 Discontinued documented as of this encounter (statuses as [...] on file documented as of this encounter Last Filed Vital Signs Vital Sign Reading Time Taken Comments Blood Pressure 129/70 01/16/2024 1:00 PM EST Pulse 91 01/16/2024 3:00 PM EST Temperature 36.7 C (98.1 F) 01/16/2024 12:[address] Respiratory Rate 18 01/16/2024 3:00 PM EST Oxygen Saturation 93% 01/16/2024 3:00 PM EST Inhaled Oxygen Concentration - - Weight 63.6 kg (140 lb 3.4 oz) 01/16/2024 6:00 A M EST Height 158.8 cm (5' 2.52") 01/13/2024 3:45 AM ES T Body Mass Index 25.22 01/13/2024 3:45 AM EST documented in this encounter Discharge Instructions * Discharge Instr - AVS* Rain Boland PA-C - 01/16/2024 12:39 PM EST Discharge Date: 01/16/24 You may call of the department of Cardiothoracic Surgery at [phone] during business hours for any questions or test results. After hours emergencies: Call [phone] and have theCardiothoracic Surgery service paged. The information below provides you with the instructions and the list of medications you need to betaking following discharge from the hospital. If you have any questions, please ask before leaving.Please carry this letter with you when you see your doctor in the clinic. If you have questions, you can reach us at the numbers above. Brief summary of your inpatient care: you were treated medically with blood pressure control for your aortic aneurysm Your doctors during this hospitalization included: Your primary diagnosis at discharge was intramural aortic hematoma. Inpatient test results pending: None Operations & Procedures: None Complications: none significant Advance Directive Documented: Advance Directive Does the Patient have an Advance Directive? Yes Diet: Previous diet Activity: As tolerated Driving: N/A. Date you may return to work or school: N/A See your primary care physician (Valerie Gonsalves MD) in 1 week, cardiac surgery in 1 week and 1 month Routine wound/surgical site care: Soap and water, open to air. If skin glue present, some will peeloff on its own- you may peel it off completely in 1 week. Continue to wash over it daily. Remove any Band-Aids or dressing and CHANGE daily if needed. Watch for signs of infections: including increased redness, swelling, drainage, opening of either your sternal incision or leg incision, fever or chills. If this occurs call the office number above immediately and a surgeon or PA will see you immediately. Wear your STELLA stockings or AISHWARYA wraps during the day and remove at night. This helps to prevent tension on your incisions and prevents swelling. Weigh Yourself daily: You should SHOWER daily. Use soap and water on your incisions. DO NOT take tub baths. Medications: Prescriptions that are given without refills are only required for 30 days. Other Special Instructions: Home: No special instructions needed. You will receive a call from the Cardiac Rehab to schedule your Consultation. If not arranged by the time of your post-op follow-up visit, please let your surgical team know and this can be arranged. If you feel suicidal or homicidal, please call the crisis hotline at [phone]). documented in this encounter Progress Notes * Brandan Fish MD - 01/16/2024 12:06 AM EST PROGRESS NOTE - CARDIAC SURGERY [facility] [address] Name: Smiley Gerardo Location: [facility] H770/A Date: 01/16/2024 Time: 12:06 AM OPERATION: none SURGEON: Brandan Fish MD POD#: HD #4 PATIENT ISSUES/EVENTS: Stable. Mild chest pain. repeat CTA slightly worsening IMH No further afib PHYSICAL EXAM: General: no acute distress Heart Exam: regular rate and rhythm Lungs: clear to auscultation Abdominal Exam: abdomen soft, non-tender, no abnormal masses, and no hepatosplenomegaly Extremities: warm and dry Incision: n/a Neurological: alert Pulses: dorsalis pedis and posterior tibials ASSESSMENT/PLAN: Cardiovascular -history of afib -NSR HR 80-90 labetalol po. Afib 01/15 amio gtt to run out. 200 po BID -lipitor - CTA 01/13 with extensive IMH from ascending, arch and descending as well as a projection from the root to the left coronary ostium. DUNN patient 1 graft appears open and one most likely occluded -repeat CT 1. Slightly larger IMH also described a hypodense area in right hepatic lobe. And also a ? Appendiceal mucocele Pulmonary -NC O2 - 2L less O2 requirements after diureses -Pulm toilet -inhalers for COPD GI- -regular diet -Bowel regimen - LBM 01/13 -GI prophylaxis Endocrine- No history of diabetes - -pre-op renal function nl -voiding . Diuresed will repeat Hematology -holding Eliquis Infectious disease No infectious issue Neuro- History of anxiety Back on abilify, paxil,gabapentin, trazadone, clonazepam Plan Mild chest pain overnight NSR with good BP management CTA yesterday worsening IMH, possible appendiceal mucocele and hypodense are of right hepatic lobe Looking for rehab placement Brittney Balbuena PA-C 01/16/2024 12:19 AM Some back pain Hemodynamics stable Blood pressure well controlled CTA with improved appearance ascending aorta. Descending aorta with some progression and possible new area of ulceration Still believe medical therapy less risky than surgery Discussed with family yesterday afternoon Discharge planning - will need rehab * Brandan Joyce MD - 01/15/2024 12:02 AM EST PROGRESS NOTE - CARDIAC SURGERY [facility] [address] Name: Smiley Gerardo Location: [facility] H770/A Date: 01/15/2024 Time: 12:02 AM OPERATION: none SURGEON: Brandan Fish MD POD#: HD #3 PATIENT ISSUES/EVENTS: mild abdominal discomfort today . On more O2. Diuresed PHYSICAL EXAM: General: no acute distress Heart Exam: regular rate and rhythm Lungs: clear to auscultation Abdominal Exam: abdomen soft, non-tender, no abnormal masses, and no hepatosplenomegaly Extremities: warm and dry Incision: n/a Neurological: alert Pulses: dorsalis pedis and posterior tibials ASSESSMENT/PLAN: Cardiovascular -history of afib -NSR HR 80-90 labetalol po -lipitor - repeat CTA yesterday with extensive IMH from ascending, arch and descending as well as a projection from the root to the left coronary ostium. DUNN patient 1 graft appears open and one most likely occluded -will repeat CT today Pulmonary -NC O2 with increased O2 requirement -Pulm toilet -inhalers for COPD GI- -regular diet -Bowel regimen -GI prophylaxis Endocrine- No history of diabetes - -pre-op renal function nl -voiding . Diuresed will repeat Hematology -holding Eliquis Infectious disease No infectious issue Neuro- History of anxiety Back on abilify, paxil,gabapentin, trazadone, clonazepam Plan BP controlled on po labetalol Mild abdominal pain tonight Requiring more O2 - diuresed Repeat CTA today Brittney Balbuena PA-C 01/15/2024 12:05 AM addendum Asymptomatic Afib with RVR overnight lop IV, amio bolus, amio gtt and po started. Correct K+ Now in NSR ATTENDING STAFF I have seen and examined the patient. No pain. Brief afib. CTA today. Ambulate/PT evaluation for discharge planning * Brandan Fish MD - 01/14/2024 12:51 AM EST PROGRESS NOTE - CARDIAC SURGERY [facility] [address] Name: Smiley Gerardo Location: [facility] H770/A Date: 01/14/2024 Time: 12:51 AM OPERATION: none SURGEON: Brandan Fish MD POD#: 1 PATIENT ISSUES/EVENTS: admitted yesterday with an aortic mural hematoma- medical management. Pain free overnight. Labetolol started per Vascular . Vascular consulted for new abdominal pain PHYSICAL EXAM: General: no acute distress Heart Exam: regular rate and rhythm Lungs: clear to auscultation Abdominal Exam: abdomen soft, non-tender, no abnormal masses, and no hepatosplenomegaly Extremities: warm and dry Incision: n/a Neurological: alert Pulses: dorsalis pedis and posterior tibials ASSESSMENT/PLAN: Cardiovascular -history of afib -NSR labetalol started goal systolic BP <120 HR 60 -lipitor - repeat CTA yesterday with extensive IMH from ascending, arch and descending as well as a projection from the root to the left coronary ostium. DUNN patient 1 graft appears open and one most likely occluded Pulmonary -NC O2 -Pulm toilet -inhalers GI- - clear liquid diet -Bowel regimen -GI prophylaxis Endocrine- No history of diabetes - -pre-op renal function nl -voiding Hematology -holding Eliquis Infectious disease No infectious issue Neuro- History of anxiety Back on abilify, paxil,gabapentin, trazadone, clonazepam Plan No further abdominal pain BP control on labetalol Brittney Balbuena PA-C Abdominal, chest pain resolved Remains stable On IV labetolol Will convert to PO HTN meds Mobilize CTA tomorrow documented in this encounter H&P Notes * Brandan Fish MD - 01/13/2024 1:02 AM EST HISTORY AND PHYSICAL EXAMINATION - CARDIAC SURGERY [facility] [address] Name: Smiley Gerardo Location: [facility] H770/A Date: 01/13/2024 Time: 1:03 AM REFERRING PHYSICIAN: Jhonatan Bolanos MD PCP: Ector Stanton MD [employer] [employer] ERECTING: Dr. Walsh REASON FOR ADMISSION: ascending aortic intramural hematoma HPI: Smiley Gerardo is a 78 year old female who presents with [facility] with atypical chest pain and hypotension found to have an ascending aortic intramural hematoma on CT and transferred to [facility]. She had been hypertensive Friday and took her prn amlodipine. After a baby shower yesterday she hadacute chest pain that radiated to her left neck and arm. EMS was called and she was taken to [facility], after a dose of nitro she was hypotensive in the 70's systolic and required 3 L of Volume. BP stable on transport and now >100. NSR mild sternal pain and a little in her neck but her arm feels normal. Patient has PMH of: COPD with emphysema, CAD s/p CABG x 3 2011, CHER, hyperlipidemia, HTN, PAF-on eliquis, pulmonary nodule, hematochezia- Scope revealed hemorrhoids and diverticulosis Prior to Admission medications Medication Sig Last Dose Discont. amLODIPine 1.25 MG OR TABS Take by mouth daily. Levalbuterol Tartrate 45 MCG/ACT Inhalation Aerosol (Xopenex HFA) Inhale 1 Puff by mouth every 4 hours as needed for Wheezing. Potassium Citrate ER 10 MEQ (1080 MG) Oral Tablet Extended Release (Urocit-K) Take 1 Tablet by mouth in the morning. PreserVision AREDS 2 Oral Tablet Chewable Take by mouth. Vitamin B12 100 MCG Oral Tablet Take by mouth. Apixaban 5 MG Oral Tablet (Eliquis) Eliquis 5 mg tablet take 1 tablet by mouth twice a day traZODone (DESYREL) 50 MG Tablet Take 1 Tablet by mouth at bedtime as needed. gabapentin (NEURONTIN) 100 MG Capsule take 1 capsule by mouth once daily if needed for anxiety latanoprost (XALATAN) 0.005 % ophthalmic solution place 1 drop into both eyes at bedtime Patient not taking: No sig reported busPIRone (BUSPAR) 5 MG Tablet Take 5 mg by mouth 2 times a day as needed. Patient not taking: Reported on 10/29/2021 lisinopril (PRINIVIL) 5 MG Tablet PARoxetine (PAXIL) 40 MG Tablet Take 1 Tablet by mouth in the morning. atorvaSTATin (LIPITOR) 80 MG Tablet clonazePAM (KLONOPIN) 0.5 MG Tablet Take 1 Tablet by mouth at bedtime. PARoxetine (PAXIL) 10 MG Tablet ASPIRIN 325 MG PO TABS As directed NITROGLYCERIN 0.4 MG SL SUBL 1 Tab Sublingual Every 5 minutes as needed for chest pain. Seek medical attention if you use this medication ABILIFY 2 MG PO TABS 1 tab once a day METOPROLOL TARTRATE 25 MG PO TABS Take 1/2 tab two times daily CURRENT HOSPITAL MEDICATIONS: Note that completed medications (per the MAR) continue to display for 24 hours. Ordered medicationsto be given in the future also display. Current Facility-Administered Medications Medication Dose Route Frequency Provider [START ON 01/14/2024] hEParin inj 5,000 Units 5,000 Units Subcutaneous Q8H Brittney Balbuena PA-C sodium chloride 0.9 % flush peripheral milagro 3 mL 3 mL IV Push Q Shift Brittney Balbuena PA-C ALLERGIES: Amlodipine and Pneumococcal vaccines PAST MEDICAL HISTORY: Past Medical History: Diagnosis Date CAD (coronary artery disease) of artery bypass graft 03/2012 PAST SURGICAL HISTORY: Past Surgical History: Procedure Laterality Date CABG, ARTERIAL, SINGLE 03/19/2012 CORONARY ARTERY BYPASS GRAFT USING ARTERY 1 GRAFT performed by JAVI COSTA at [facility] COLONOSCOPY, DIAGNOSTIC (RECTUM) 12/01/2013 COLONOSCOPY FLEXIBLE PROXIMAL DIAGNOSTIC performed by Víctor Sy MD at ENDOSCOPY [facility] EGD, FLEXIBLE, DIAGNOSTIC 12/01/2013 ESOPHAGOGASTRODUODENOSCOPY (EGD), FLEXIBLE, TRANSORAL, DIAGNOSTIC performed by Víctor Sy MD at [facility]OSCOPY [facility] Hx of vein harvest or stripping?: yes SOCIAL HISTORY: Drug Use: Social History Tobacco Use Smoking status: Former Current packs/day: 0.00 Types: Cigarettes Quit date: 01/10/2013 Years since quittin.0 Smokeless tobacco: Never Substance Use Topics Alcohol use: No Drug use: No FAMILY HISTORY: No family history on file. REVIEW OF SYSTEMS: Constitutional: denies weight loss, denies fever, denies shaking chills Eyes: denies double vision , denies blurred vision , denies amaurosis fugax Ear, nose and throat: denies decreased hearing, denies trouble swallowing, denies epistaxis Dental: top plates, bottom plates Cardiac: see HPI Vascular: no claudication Respiratory: denies shortness of breath, denies dyspnea on exertion (STEPHENSON) Gastrointestinal: denies dysphagia, denies nausea, denies vomiting Genitourinary: denies dysuria, denies nocturia, denies hematuria Musculoskeletal: denies joint pain, denies joint deformities, denies chronic muscle pain Psychiatric: anxiety, denies depression Skin: denies rash, denies non-healing ulcers, denies jaundice Neurologic: denies trouble speaking, denies amaurosis fugax, denies syncope Endocrine: denies constant thirst, denies constant hunger, denies constant urinating Hematologic / Lymphatic: denies blood clotting problems Immunologic: denies exposure to hepatitis, denies exposure to TB CARDIOTHORACIC COMPLETE PHYSICAL EXAM: Most Recent Vital Signs: BP: 97 mmHg/49 mmHg (01/13/24 0300) Pulse: 76 (01/13/24 0315) Temp: 36.89 C (01/13/24 0240) Temp Summary: Temp Min: 36.9 C (98.4 F) Max: 36.9 C (98.4 F) SpO2: 95 % (01/13/24314) O2 flow rate: 2 L/MIN (01/13/24314) Supplemental O2 Delivery: Nasal Cannula (01/13/24314) PHYSICAL EXAM: General: no acute distress and anxious Teeth: edentulous Neck: supple, no adenopathy, no bruits, thyroid normal size, non-tender, without nodularity, normaljugular venous pulse, no hepatojugular reflux Lungs: clear to auscultation and percussion Cardiac Exam: regular rate & rhythm no murmurs gallops or rubs - normal S1, normal S2 Pulses: The following pulses are normal: carotids, femorals, abdominal aorta, dorsalis pedis pulses, and posterior tibials Extremities: no edema and no cyanosis Skin: skin color, texture, turgor are normal, no rashes or significant lesions Neuro: grossly normal exam Veins prior GSV harvest left LABS/STUDIES: Echo pending Labs reviewed as indicted below: Pending Hgb 12.7 at [facility] Society of Thoracic Surgeons (STS) Risk Score: STS site IMPRESSION: ascending aortic intramural hematoma Echo no pericardial effusion Repeat CTA 12 hour Brittney Balbuena PA-C 01/13/2024 3:36 AM Patient seen and studies reviewed. Smiley Gerardo is a 78-year-old female with past medical history significant for coronary artery bypass grafting x3 in 2012 and known 4.5 cm ascending aorta who presented to [facility] with a sudden onsetof atypical chest and back pain. She was initially hypotensive and received fluid resuscitation with normalization of her hemodynamics. A CT scan of the chest revealed an intramural hematoma of the ascending aorta extending throughout the arch and into the proximal descending aorta. There was no pericardial effusion and no intimal dissection flap within the aortic lumen. Her pain improved and [facility]was [facility] and [facility]. On arrival she was hemodynamically stable. She is anxious but states that her pain is nearly completely resolved. Shehas palpable pulses in all extremities and shows no evidence of malperfusion. Troponins are mildly elevated. She is on chronic anticoagulation with Eliquis. She took her last dose yesterday. Smiley has an intramural hematoma of the ascending aorta. Normally we would recommend surgical treatment. However Smiley has significant issues that place her at near prohibitive surgical risk. Sheis of advanced age and frail. Her chronic anticoagulation makes bleeding complications a serious issue. More importantly she would require redo sternotomy and a very difficult technical surgical procedure that would be prolonged. There is no recent evaluation of her coronary status although from anoperative report in 2012 it was described that she had heavily calcified and small coronary arteries that were not amenable to redo surgery should they become stenotic. Saphenous vein has been harvested from both extremities limiting options for revascularization should it be necessary. I think allthese place her at prohibitive risk for surgical repair of her intramural hematoma. The other treatment option would be permissive hypotension with hopes that the intramural hematoma will seal off and remained contained. Certainly this also has significant risk however given the risk of surgery I be lieve that medical therapy is the less risky option. I discussed all this in detail with Smiley. She understands that both surgical and medical treatment have significant risk and she shares my concern about her ability to tolerate major redo heart surgery. Our plan will be to repeat a CT scan later today to abalone processor stability or progression of the intramural hematoma. documented in this encounter Procedure Notes * Bob Mcgill DO - 01/15/2024 5:49 AM ESTAssociated Order(s): EKG REASON FOR STUDY: ? junctional;SOB (shortness of breath) CONCLUSIONS: Normal sinus rhythm Left axis deviation Right bundle branch block Marked ST abnormality, possible septal subendocardial injury When compared with ECG of 13-JAN-2024 12:48, ST now depressed in Lateral leads T wave inversion now evident in Lateral leads Ventricular Rate: 76 Atrial Rate: 76 DE Interval: 126 QRS Duration: 124 QT/QTc: 420/472 ms P-R-T [place]: 33 : -30 : 91 degrees * Maurice Choi MD - 01/13/2024 2:50 AM ESTAssociated Order(s): EKG REASON FOR STUDY: ROUTINE CONCLUSIONS: Normal sinus rhythm Left axis deviation Left ventricular hypertrophy with secondary QRS widening ST & T wave abnormality, consider anterior ischemia Abnormal ECG When compared with ECG of 27-APR-2012 06:33, Borderline criteria for Lateral infarct are no longer Present Criteria for Inferior-posterior infarct are no longer Present T wave inversion more evident in Anterior leads Nonspecific T wave abnormality has replaced inverted T waves in Lateral leads Ventricular Rate: 71 Atrial Rate: 71 DE Interval: 128 QRS Duration: 118 QT/QTc: 450/489 ms P-R-T [place]: 30 : -37 : 114 degrees documented in this encounter Consult Notes * Corazon Montes OTR/L - 01/16/2024 8:58 AM ESTAssociated Order(s): ADULT OCCUPATIONAL THERAPY CONSULT IP GENERAL EVALUATION - Occupational Therapy [address] [address] Name: Smiley Gerardo Location: [facility] H770/A Date: 01/16/2024 Time: 3:03 PM Smiley Gerardo is a 78 year old female. Patient Status: Inpatient Insurance: Payor: [employer] MEDICARE ADVANTAGE Plan: [employer] MEDICARE ADVANTAGE PPO Product Type: *No Product type* Patient Seen: at bedside, nursing cleared patient for therapy Patient Identified By: Name, ID Band and Date Diagnosis: aortic mural thrombus (01/16/24857) Status of treatment: Evaluation completed (01/16/24857) Orders: OT evaluation and treatment (01/16/24857) Weight Bearing Status: Weight bearing as tolerated (01/16/24857) Precautions: Alarms;Falls;Oxygen;Safety (01/16/24857) Total Treatment Time: 23 (01/16/24857) Past Medical History: Past Medical History: Diagnosis Date CAD (coronary artery disease) of artery bypass graft 03/2012 Past Surgical History: Past Surgical History: Procedure Laterality Date CABG, ARTERIAL, SINGLE 03/19/2012 CORONARY ARTERY BYPASS GRAFT USING ARTERY 1 GRAFT performed by JAVI COSTA at OR [facility] COLONOSCOPY, DIAGNOSTIC (RECTUM) 12/01/2013 COLONOSCOPY FLEXIBLE PROXIMAL DIAGNOSTIC performed by Víctor Sy MD at ENDOSCOPY [facility] EGD, FLEXIBLE, DIAGNOSTIC 12/01/2013 ESOPHAGOGASTRODUODENOSCOPY (EGD), FLEXIBLE, TRANSORAL, DIAGNOSTIC performed by Víctor Sy MD at ENDOSCOPY [facility] Social History/Disposition Lives with: Spouse (01/16/24857) Assistance available: Yes (01/16/24857) Dwelling type: Single story home (01/16/24857) Entry steps: 1 (01/16/24857) Inside steps: None (01/16/24857) Bedroom location: 1st floor (01/16/24857) Bath location: 1st floor full bath (01/16/24857) Prior Level of Function Reported by: Patient (01/16/24857) Ambulation: Ambulatory without device (01/16/24857) Grooming: Independent (01/16/24857) Bathing: Independent (01/16/24857) Dressing: Independent (01/16/24857) Feeding: Independent (01/16/24857) Toileting: Independent (01/16/24857) Meal Prep: Independent (01/16/24857) Homemaking: Independent (01/16/24857) Shopping: Independent (01/16/24857) Driving: Yes (01/16/24857) Subjective: Pt agreeable to OT evaluation. Pain: No complaints of pain Observations Consciousness: Alert (01/16/24857) Orientation: Oriented times 4 (01/16/24857) Psychosocial: Patient can communicate basic needs;Patient can converse in a social setting (01/16/24857) Sitting posture: Forward head;Rounded shoulders (01/16/24857) Standing posture: Forward head;Rounded shoulders (01/16/24857) Safety awareness: The Patient verbalizes insight of current deficits.;Needs cueing supervision. (01/16/24857) Other Findings Endurance: Functional activity;Fair (01/16/24857) Light touch sensation: LUE;RUE;Intact (01/16/24857) Coordination: LUE;RUE;Intact (01/16/24857) Current Functional Status: Bilateral Upper Extremity Range of Motion: WFL (01/16/24857) Strength Assessment: Deficits noted (01/16/24857) LUE: Shoulder;Elbow;Grasp;3+/5 (01/16/24857) RUE: Shoulder;Elbow;Grasp;3+/5 (01/16/24857) Self Care Able to provide self care: Yes (01/16/24857) Feeding: Supervision (Please comment) (pt has mild difficulty maintain food on spoon secondary to hand tremors) (01/16/24857) Grooming: Supervision (Please comment) (to comb hair and wash face when seated in recliner chair) (01/16/24857) Dressing Upper Body: Minimal Assistance (to don gown secondary to line management) (01/16/24857) Lower Body: Contact Guard (to don socks) (01/16/24857) Functional Ambulation Assistive Device: No device (pt reaches for furniture and handrails) (01/16/24857) Distance in feet:: 200 (01/16/24857) Level of Assistance: Contact Guard (01/16/24857) Bed Mobility Supine-Sit: Supervision (Please comment) (01/16/24857) OT Transfers Sit-Stand: Contact Guard (01/16/24857) Stand-Sit: Contact Guard (01/16/24857) Bed-Chair: Contact Guard (01/16/24857) Balance Sit (Static): Fair (01/16/24857) Sit (Dynamic): Fair (01/16/24857) Stand (Static): Fair (-) (01/16/24857) Stand (Dynamic): Fair (-) (01/16/24857) Alarm Status Patient positioned in: Chair (01/16/24857) With: Pressure pad alarm intact and functioning and call hernandez in reach (01/16/24857) Patient and Family Goals: to get well and to return home Patient Education Education Topic: Role of OT;Plan of care goals (01/16/24857) Review of Precautions: Safety;Fall (01/16/24857) Method of Education: Verbalized to patient (03/01/24 0858) Education Provided to: Patient (01/16/24857) Response to Education: Receptive and agreeable to education (01/16/24857) Barriers to learning: Medical status (01/16/24857) Preferred learning method: Combination (01/16/24857) Treatment Provided: Self Half-Way Management Trainin minutes Evaluation Moderate Complexity 10 minutes - 92000: Patient was cooperative during treatment session. Moderate complexity evaluation performed and 3-5 activity limitations were identified, including ADL deficit, functional mobility deficit, bed mobility deficit, decreased strength, decreased endurance, and impaired balance. Minimal or moderate modification of the functional task was necessary to complete the evaluation. Deficits Requiring O.T. Treatment: Deficits requiring O.T. treatment needs: ADL/self-care;Balance;Endurance;Functional mobility;IADL;Safety;Upper extremity strength;Weakness (01/16/24857) Goal Time Frame: 10 visits Assessment: Pt is a 78 year old female admitted to [facility] for an aortic mural thrombus. Pt reports shelives at home with her in a 1 story home with 1 MONI. Pt reports prior to admission she was independent in all ADL/IADL tasks and did not utilize a device for mobility. Pt supine in bed upon therapists arrival. Pt completed supine to sit transfer with supervision with use of bed railing to assist with righting trunk into neutral seated position. Pt tolerated ~5mins seated EOB with fair seated balance to further increase postural strengthening and endurance during functional ADL/IADL tasks. Pt donned socks seated EOB with contact guard assistance to ensure safety with forward readching.Pt completed sit to stand transfer from EOB with no device with contact guard assistance to [facility] due to slight instability and generalized weakness. Pt completed ~200ft of functional mobility throughout hallway with no device with contact guard assistance. Pt frequently reaches for furniture and handrails throughout mobility, therapist educated pt on use of a rolling walker for added stability, however pt declined use of rolling walker at this time. Pt reported feelings of fatigue requesting return to room. Once seated in recliner chair, pt combed hair and washed face with supervision. Pt required min A to don gown secondary to line management. Pt demonstrated ability to complete self-feeding task with supervision, however pt demonstrates mild difficulty maintaining food on spoon secondary to hand tremors. Pt reports tremors are chronic and she is following up with neurology post d/c. Pt would benefit from continue skilled OT services to further increase strength, endurance,and independence in ADL/IADL tasks and facilitate a safe transition to the next level of care. Please consider home with post-acute care services which may include home health or outpatient therapy. The level of care will be determined in collaboration with the patient, family/caregiver and care team members. OT Goals: Upper Extremity Strength/ROM Pt will increase bilateral upper extremity strength by 1/2 muscle grade. ADL/IADL Tasks Pt will demonstrate upper body bathing with independence. Pt will demonstrate upper body dressing with independence. Pt will demonstrate lower body bathing with independence. Pt will demonstrate lower body dressing with independence. Pt will demonstrate toileting with independence. Pt will demonstrate grooming with independence. Bed Mobility/Functional Mobility Pt will complete supine to sit transfer with independence. Pt will complete sit to supine transfer with independence. Pt will complete functional mobility with least restrictive device with independence. OT Transfers Pt will demonstrate sit to stand transfers with independence. Pt will demonstrate bed to chair transfers with independence. Pt will demonstrate toilet transfers with independence. Pt will demonstrate tub bench/shower transfers with independence. Balance Pt will increase seated balance to fair + during ADL tasks. Pt will increase standing balance to fair + during ADL tasks. Treatment Plan: Safety, Homemaking Skills, Bed mobility training, Functional Ambulation, Transfer training, Upper extremity strengthening, Balance activities, ADL training, and Endurance Anticipated Frequency (on eval): 1 to 3 times per week (01/16/24857) AM-PAC Help From Another Person Eating Meals: A little (01/16/24857) Help From Another Person Taking Care of Personal Grooming: A little (01/16/24857) Help From Another Person To Put On/Take Off Upper Body Clothing: A little (01/16/24857) Help From Another Person To Put On/Take Off Lower Body Clothing: A little (01/16/24857) Help From Another Person Toileting: A little (01/16/24857) Help From Another Person Bathing: A little (01/16/24857) OT AM-PAC Score: 18 (01/16/24857) OT AM-PAC t-Scale Score: 38.66 (01/16/24857) A portion of this AM-PAC assessment not scored based on functional assessment, rather clinical decision making utilized based on current findings and/or prior level of function. Please refer to future AM-PAC calculations of functional ability as they become available. * Ese Cyr, PT - 01/16/2024 8:58 AM ESTAssociated Order(s): ADULT PHYSICAL THERAPY CONSULT IP GENERAL EVALUATION - Physical Therapy [address] [address] Name: Smiley Gerardo Location: [facility] H770/A Date: 01/16/2024 Time: 3:45 PM Smiley Gerardo is a/an 78 year old female. Patient Status: Inpatient Insurance: Payor: [employer] MEDICARE ADVANTAGE Plan: [employer] MEDICARE ADVANTAGE PPO Product Type: *No Product type* Patient Seen: at bedside, nursing cleared patient for therapy Patient Identified By: Name, ID Band and Date Diagnosis: chest pain (01/16/24857) Status of treatment: Evaluation completed (01/16/24857) Orders: PT evaluation and treatment (01/16/24857) Weight Bearing Status: Weight bearing as tolerated (01/16/24857) Precautions: Oxygen (01/16/24857) Total Treatment Time--free text: 23 (01/16/24857) Past Medical History: Past Medical History: Diagnosis Date CAD (coronary artery disease) of artery bypass graft 03/2012 Past Surgical History: Past Surgical History: Procedure Laterality Date CABG, ARTERIAL, SINGLE 03/19/2012 CORONARY ARTERY BYPASS GRAFT USING ARTERY 1 GRAFT performed by JAVI COSTA at OR [facility] COLONOSCOPY, DIAGNOSTIC (RECTUM) 12/01/2013 COLONOSCOPY FLEXIBLE PROXIMAL DIAGNOSTIC performed by Víctor Sy MD at ENDOSCOPY [facility] EGD, FLEXIBLE, DIAGNOSTIC 12/01/2013 ESOPHAGOGASTRODUODENOSCOPY (EGD), FLEXIBLE, TRANSORAL, DIAGNOSTIC performed by Víctor Sy MD at ENDOSCOPY [facility] Subjective: Pt in bed and willing to get up to the chair. Social History/Disposition Lives with: Spouse (01/16/24857) Assistance available: Yes (01/16/24857) Dwelling type: Single story home (01/16/24857) Entry steps: 1 (01/16/24857) Inside steps: None (01/16/24857) Bedroom location: 1st floor (01/16/24857) Bath location: 1st floor full bath (01/16/24857) Prior Level of Function Reported by: Patient (01/16/24857) Ambulation: Ambulatory without device (01/16/24857) Observations Consciousness: Alert (01/16/24857) Orientation: Oriented times 4 (01/16/24857) Psychosocial: Patient can communicate basic needs (01/16/24857) Pain: No complaints of pain Range of Motion Range of Motion: WNL (01/16/24857) Strength Assessment Strength Assessment: Deficits noted (01/16/24857) WNL, except: LLE;RLE (01/16/24857) LLE: 4/5 (01/16/24857) RLE: 4/5 (01/16/24857) P.T. Bed Mobility Supine-Sit: Supervision (01/16/24857) Transfers Sit-Stand: Contact Guard (01/16/24857) Stand-Sit: Contact Guard (01/16/24857) Ambulation: Distance ambulated (feet): 200 ft Assist: Contact Guard Balance Sit (Static): Good (01/16/24857) Sit (Dynamic): Good (01/16/24857) Stand (Static): Fair (01/16/24857) Stand (Dynamic): Fair (01/16/24857) Patient and or Family Goal(s): to return home Patient Education Review of Precautions: Safety (01/16/24857) Safety Awareness: Patient verbalizes insight of current deficits (01/16/24857) Preferred learning method: Combination (01/16/24857) Barriers to learning: Medical Status (01/16/24857) Method of Education: Verbalized to patient (01/16/24857) Topic of Education: Safety with mobility and Goals/plan of care Method of Education: Verbal discussion and explanation provided to patient: verbalized understanding and or agreement of this information Treatment Provided: Gait Training 8 minutes: gait training with no device Evaluation Moderate Complexity 15 minutes - 85242: Patient was cooperative and pleasant during treatment session. Moderate complexity evaluation performed and 1-2 personal factors or comorbidities were identified that will impact plan of care, including cardiac history and requires O2. Patient presents with limitations in strength, bed mobility, transfers, gait, elevations, and balance, which will impact plan of care. These limitations will be addressed by the goals set for this patient. Alarm Status Patient positioned in: Chair (01/16/24857) With: Pressure pad alarm intact and functioning and call hernandez in reach (01/16/24857) Following session patient seated OOB in chair with chair alarm activated and cord plugged into callbell system. Treatment Status: Treatment at bedside (01/16/24857) Goals: Demonstrate Bed Mobility with: Supine to Sit: independent (pt does 100%) Sit to supine: independent (pt does 100%) Demonstrate Transfers with: Sit to stand: independent (pt does 100%) Stand to sit: independent (pt does 100%) Bed to chair: independent (pt does 100%) Demonstrate Ambulation: distance in feet: 250 ft level of assistance on level surface: independent (pt does 100%) Demonstrate Stairclimbing: Number of steps: 1 and Level of Assistance: independent (pt does 100%) Increase Strength of: BLE's to 5/5 Increase Balance: G dynamic standing Time Frame: 8 visits Assessment: Pt lives with her in a 1 story home with 1 step to enter and was not using a device for ambulation. She presented to the hospital on 01/13 with aortic mural thrombus. Pt on O2 at 2 L/min. Pt able to complete supine to sit with supervision. She was then able to stand and ambulatewithout a device 200 ft contact guard with slow and steady gait. Pt attempting to reach for hand rail in hallway and stationary objects. Offered use of a walker however pt declined. Feel pt would benefit from PT services in order to increase overall functional mobility as well as activity tolerance. Please consider home with post-acute care services which may include home health or outpatient therapy. The level of care will be determined in collaboration with the patient, family/caregiver and care team members. Deficits requiring P.T. treatment needs: Safety;Mobility;Balance;Weakness;Lower extremity strength (01/16/24857) Equipment Needs: Treatment Plan: Bed mobility training, Transfer training, Gait training, Elevation training, Strengthening exercises: BLE's, and Balance activities Anticipated Frequency (on eval): 1 to 3 times per week (01/16/24857) AM PAC Score with Stairs: 18 A portion of this AM-PAC assessment not scored based on functional assessment due to no assessment of elevations; rather clinical decision making utilized based on current findings and/or prior levelof function. Please refer to future AM-PAC calculations of functional ability as they become available. * Shan Church MD - 01/14/2024 9:30 AM ESTAssociated Order(s): VASCULAR SURGERY CONSULT IP See consult note already completed * Reuben Mac DO - 01/13/2024 5:21 PM EST CONSULT - Vascular Surgery [address] [address] Name: Smiley Gerardo Location: [facility] H770/A Date: 01/13/2024 Time: 5:21 PM Date of Service: 01/13/2024 5:21 PM Requesting Service/Physician: cardiac surgery Chief Complaint: back pain and chest pain HPI: This is a 78 year old women with a history of CABG in 2011, COPD and afib on eliquis who presented with chest pain and hypotension to [facility]. She was found to have a type A IMH and transferred to [facility]. She is being treated medically for her IMH and since arriving her chest pain has improved with anti impulse therapy but she has developed back pain this afternoon. Denies nausea, vomiting, abdominal pain. Currently denies back pain after receiving pain medication. FAMILY HISTORY: Family history is noncontributory. Current Facility-Administered Medications Medication Dose Route Frequency Provider Acetaminophen (Tylenol) tab 650 mg 650 mg Oral Q6H PRN Brittney Balbuena PA-C Albuterol Sulfate (Proventil) (2.5 MG/3ML) 0.083% inhalation solution 2.5 mg 2.5 mg Nebulizer Q4H PRN Brittney Balbuena PA-C ARIPiprazole (Abilify) tab 1 mg 1 mg Oral BID(AM/PM) Brittney Balbuena PA-C atorvaSTATin (Lipitor) tab 80 mg 80 mg Oral Q 1700 Brittney Balbuena PA-C clonazePAM (KlonoPIN) tab 0.5 mg 0.5 mg Oral Q8H PRN Tricia Russell PA-C Gabapentin (Neurontin) cap 200 mg 200 mg Oral HS Brittney Balbuena PA-C [START ON 01/14/2024] hEParin inj 5,000 Units 5,000 Units Subcutaneous Q8H Brittney Balbuena PA-C labetalol (Trandate) 500 mg in NSS 250 mL INFUSION Final Conc = 2 mg/mL 0.2 mg/min Intravenous Continuous PaceRain burris PA-C ondansetron (Zofran) inj 4 mg 4 mg IV Push Q6H PRN Tricia Russell PA-C oxyCODONE (Oxy IR) tab 5 mg 5 mg Oral Q4H PRN Brittney Balbuena PA-C PARoxetine (pAXil) tab 20 mg 20 mg Oral HS Brittney Balbuena PA-C PARoxetine (pAXil) tab 40 mg 40 mg Oral Daily(AM) Brittney Balbuena PA-C sodium chloride 0.9 % flush peripheral milagro 3 mL 3 mL IV Push Q Shift Brittney Balbuena PA-C traZODone (Desyrel) tab 50 mg 50 mg Oral QHS Brittney Balbuena PA-C Review of patient's allergies indicates: Allergen Reactions Amlodipine Pneumococcal Vaccines Edema Other and Rash Patient Active Problem List Diagnosis Code ADVANCE DIRECTIVE INFORMATION Chronic coronary artery disease I25.10 Depression F32.A Anxiety F41.9 Tobacco use disorder F17.200 Pericarditis I31.9 History of basal cell carcinoma Z85.828 Aortic mural thrombus (HCC) I74.10 S/P CABG x 3 Z95.1 Past Medical History: Diagnosis Date CAD (coronary artery disease) of artery bypass graft 03/2012 Past Surgical History: Procedure Laterality Date CABG, ARTERIAL, SINGLE 03/19/2012 CORONARY ARTERY BYPASS GRAFT USING ARTERY 1 GRAFT performed by JAVI COSTA at [facility] COLONOSCOPY, DIAGNOSTIC (RECTUM) 12/01/2013 COLONOSCOPY FLEXIBLE PROXIMAL DIAGNOSTIC performed by Víctor Sy MD at ENDOSCOPY [facility] EGD, FLEXIBLE, DIAGNOSTIC 12/01/2013 ESOPHAGOGASTRODUODENOSCOPY (EGD), FLEXIBLE, TRANSORAL, DIAGNOSTIC performed by Víctor Sy MD at ENDOSCOPY [facility] No family history on file. Social History Socioeconomic History Marital status: Spouse name: Not on file Number of children: Not on file Years of education: Not on file Highest education level: Not on file Occupational History Not on file Tobacco Use Smoking status: Former Current packs/day: 0.00 Types: Cigarettes Quit date: 01/10/2013 Years since quittin.0 Smokeless tobacco: Never Substance and Sexual Activity Alcohol use: No Drug use: No Sexual activity: Not on file Other Topics Concern Not on file Social History Narrative Not on file Social Determinants of Health Financial Resource Strain: Not on file Food Insecurity: Not on file Transportation Needs: Not on file Physical Activity: Not on file Stress: Not on file Social Connections: Not on file Intimate Partner Violence: Not on file Housing Stability: Not on file COMPLETE REVIEW OF SYSTEMS: Neurological: Negative for stroke, TIA, amaurosis fugax GENERAL MULTI-SYSTEM PHYSICAL EXAM: Vital Signs: BP 142/85 | Pulse 90 | Temp 37.6 C (99.7 F) (Tympanic) | Resp 20 | Ht 1.588 m (5' 2.52") | Wt 62.9 kg (138 lb 10.7 oz) | SpO2 91% | BMI 24.94 kg/m | BSA 1.67 m GENERAL: Normal grooming habits, no acute distress, and appears stated age. NECK: No masses and Normal Thyroid. RESPIRATORY: mild wheezes audible speaks in full sentences without difficulty. CARDIOVASCULAR: regular rate. GASTROINTESTINAL: no tenderness, protuberant, and abdominal aorta not palpable. LYMPHATIC: cervical lymph nodes normal and inguinial lymph nodes normal. SKIN: no ulcers, no rash, no induration, capillary refill normal, and no dependent rubor. PSYCHIATRIC: orientation to time, place and person normal and recent and remote memory normal. EYES: conjunctivae normal, eye lids normal, pupils normal, and irises normal. NEUROLOGIC: Cranial nerves intact, Motor function intact, and Sensory exam intact Vascular: left radial palpable Bilateral femoral pulses are palpable Non palpable DP or PT bilaterally DIAGNOSTIC STUDIES: CTA chest revived, large IMH in ascending and descending aorta IMPRESSIONS: IMH with type A and type B components PLAN: - agree with medical management of type B IMH with anti impulse therapy serial exams - currently creatinine is baseline, lactic acid is not elevated and abdominal exam is benign - please update vascular surgery with any change in abdominal or extremity exam. Reuben Mac DO Vascular Surgery Fellow Associated attestation - Shan Church MD - 01/14/2024 9:29 AM EST I saw and evaluated the patient 01/13/24. I have reviewed the trainee note and agree. IMH with entry points in ascending aorta and descending aorta. Certainly could cover descending aorta with stent graft but this would do nothing for ascending aorta defect which appears to be the larger issue. Discussed with cardiac surgeons and reviewed CT scans with them yesterday. Feel best option with patient is continued medical management given her medical problems. Please call us back with any questions Thanks * Anival Hernandez RN - 01/13/2024 2:31 PM EST CARE MANAGEMENT - ADULT INITIAL SCREENING [facility] [address] Name: Smiley Gerardo Location: [facility] H770/A Date: 01/13/2024 Time: 2:31 PM Discussed patient with the interdisciplinary care team. This Tax Compliance Agent performed a chart review and met with Tirso Reis, her at bedside to complete admission screen and assessed needs for transition planning. The healthcare account manager role and services were explained and emotional support was provided. Chief Complaint: No chief complaint on file. Prior Living Arrangements What was your living situation prior to admission/observation?: Independently;With Spouse ([phone]) Living Quarters: House (01/13/241421) Number of steps to enter living quarters:: 2 (01/13/241421) History of falling: No (01/13/24 0300) Prior Level of Functioning Describe the patient's ability prior to admission/observation to perform ADLs: Performs independently (01/13/241421) Describe the patient's mobility status prior to admission: Patient ambulates independently (01/13/241421) Patient uses assistive device: No (01/13/241421) Caregiver Information Patient Contacts Name Relation Home Work Mobile Tirso Gerardo Spouse [phone] Mitchell Ugarte Other - (no specific identity) [phone] Risk Stratification/Psychosocial/Care Gaps Risk Stratification Psycho Social / Medical Concerns Identified: Adjustment to illness/injury;New serious diagnosis (01/13/241421) OBRA or OPTIONS needed for placement: No (01/13/241421) Readmission Risk Score: 11.62 (01/13/24 1200) AM-PAC Score With Stairs : 10 (01/13/24 0800) Prior to Admission Services Services Prior to Admission [place] Dept[employer] of Aging (PDA) Waiver Program: N/A (01/13/241421) LOAD MIXER Transportation (Services received within the last 30 days): Family/Friends Personal Vehicle (01/13/241421) Outpatient Tax Compliance Agent: No care steamship agent to display Patient/Family Expectations: medical management of AAA at this time For further screening information, please refer to the Care Management flow document. documented in this encounter Nursing Notes * Jinny Leigh RN - 01/16/2024 5:18 PM EST I have conducted the discharge appointment with the patient (Smiley Gerardo) and spouse (Ever Gerardo) on 01/16/2024 at 16:45. This discussion occurred bedside. Meds to beds offered: yes. The following post care is planned: PCP follow up and cardiac surgery follow up in one week/month. I encouraged the patient and/or family to call the hospital with any questions or concerns about the hospital admission. At the time of discharge patient had pain management with oral medications, denied nausea, chest pain or breathing difficulty. Patient assisted out to personal vehicle and assisted into vehicle, spouse present. * Frederick Jin RN - 01/13/2024 3:00 AM EST Dual Licensed Skin Assessment completed by Frederick Jin, RN and Michelle Davis RN. The patient is/has a N/A Skin Breakdown (includes non blanchable erythema): No documented in this encounter Miscellaneous Notes * Care Plan - Nubia Lopez RN - 01/16/2024 5:56 AM EST Clinical Goal(s): Patient will maintain O2 sat greater than 92% this shift (01/15/241999) Possible barriers to meeting goal(s)/advancing plan of care: copd Stability of the patient: Moderately stable - low risk of patient condition declining or worsening Summary regarding today's goal(s): Met: Recommendations: O2 prn and treatments per orders * Ancillary Progress Note - Purnima Soto RN - 01/15/2024 1:53 PM EST CARE MANAGEMENT - ADULT TRANSITION NOTE [facility] [place] [address] Name: Smiley Gerardo Location: [facility] H770/A Date: 01/15/2024 Time: 8:45 AM Risk Stratification Risk Stratification Psycho Social / Medical Concerns Identified: Adjustment to illness/injury;New serious diagnosis (01/13/241421) OBRA or OPTIONS needed for placement: No (01/13/241421) Readmission Risk Score: 11.01 (01/15/24 0801) AM-PAC Score With Stairs : 17 (01/15/24 0800) Caregiver Information Patient Contacts Name Relation Home Work Mobile Tirso Gerardo Spouse [phone] Liam Ugarte Adult Child [phone] Transition of Care Checklist Narrative: Patient discussed in IDT rounds and chart reviewed. Patient is not medically stable for discharge. Requiring amiodarone gtt. Plan for repeat CTA today. Further disposition planning pendingmedical stability and OOB therapy evals. CM will continue to follow and support any needs. Anticipated Transportation at Discharge: Family Patient/Family Expectations: Return home when medically stable, needs evolving Transition Planning Transition Planning Transition Plan/Considerations: Needs uncertain at this time - Continue monitoring for needs;Discussed at Interdisciplinary Team / Boost Rounds;CM provided contact information and will update plan asneeds arise (01/13/24 142) Transition plan discussed with - Enter name and phone #: Tirso Reis, spouse, and daughter (01/13/24 4894) Additional Considerations: Care Management will continue to monitor and assist with discharge planning needs * Ancillary Progress Note - Sydnie Castillo RRT - 01/15/2024 9:21 AM EST PATIENT DRIVEN PROTOCOL - Respiratory Care Services [address] [address] Name: Smiley Gerardo Location: [facility] H770/A Date: 01/15/2024 Time: 9:21 AM Patient Driven Protocol Summary: Re-evaluation . This Treatment Plan and medications will be reviewed by the Primary Care Team for any contraindications. Respiratory Care Treatment Plan Aerosol Therapy Treatment:: Hand Held Nebulizer Tx PRN with Albuterol Sulfate: Unit dose 0.083%. to reduce work of breathing and improve pulmonary gas exchange. . Pulmonary Volume Expansion Therapy: Incentive Spirometry PRN to prevent or treat alveolar consolidation and atelectasis. . Secretion Management Treatment: Flutter TherapyPRN to enhance mobilization of secretions. . The patient will be re-evaluated: No re-evaluation needed. Indications for treatment met. The Triage Level is: (Assessment Score = 6 -10) Level 4. Triage Level Definitions: Level 1 Severe Respiratory/Airway Compromise Level 2 Moderate Respiratory/Airway Compromise or high risk for pulmonary complications Level 3 Mild Respiratory/Airway Compromise or moderate risk for pulmonary complications Level 4 Episodic Respiratory/Airway Compromise or low risk for pulmonary complications Level 5 No Respiratory/Airway Compromise Triage 1 Triage 2 Triage 3 Triage 4 Triage 5 greater than 20 16 - 20 11 - 15 6 - 10 0 - 5 Medical Record Assessment Clinical Findings Pulmonary Status: 3 - Pulm Impairment (acute or chronic) w/o exacerbation, or 1 - 2 rib fractures Surgical Status: 0 - No Surgical History Chest X-Ray: 2 - Infiltrates and/or Atelectasis Assessment Score: 5 Patient Assessment Clinical Findings Respiratory Pattern: 0 - RR 12 - 20; Patient only gets breathless with strenuous exercise. Breath Sounds: 0 - Clear to auscultation Cough Effectiveness: 0 - Strong non-productive Sputum Production: 0 - No sputum production Level of Activity: 1 - Ambulatory with assist O2 needed to keep SpO2 greater than or equal to 92%: 1 - Oxygen 1-3 LPM or FiO2 less than 35% Assessment Score: 2 Total Assessment Score: 7 Breath Sounds: Inspiratory and expiratory clear bilaterally.. Cough and Sputum: An effective cough produced no sputum... CXR: 1. Small to moderate pleural effusion. 2. Pulmonary edema. 3. Patchy atelectasis or infiltrate at the left lung base.. Vital Signs: Resp: 18 (01/15/24 08) Pulse: 75 (01/15/24799) Temp: 37.2 C (99 F) (01/15/24 08) BP: 108/60 (01/15/24 08) SpO2: 100 % (01/15/24799) PFT: Inspiratory capacity: 1.0L. Primary Service: Cardiac Surgery. Admitting Diagnosis: Chest pain, unspecified type [R07.9] Pulmonary Diagnosis: Atelectasis and COPD. Prescriptions/Home Medications/Durable Medical Equipment: n/a. Recommended New home medications/durable medical equipment/outpatient pulmonary/sleep referral n/a. * Care Plan - Nubia Lopez RN - 01/15/2024 5:06 AM EST Clinical Goal(s): Patient will maintain O2 sat greater than 92% this shift (01/14/241999) Possible barriers to meeting goal(s)/advancing plan of care: COPD Stability of the patient: Moderately stable - low risk of patient condition declining or worsening Summary regarding today's goal(s): Met: Recommendations: O2 prn and treatments per orders * Ancillary Progress Note - Anival Hernandez RN - 01/14/2024 9:15 AM EST CARE MANAGEMENT - ADULT TRANSITION NOTE [facility] [address] Name: Smiley Gerardo Location: [facility] H770/A Date: 01/14/2024 Time: 9:15 AM Risk Stratification Risk Stratification Psycho Social / Medical Concerns Identified: Adjustment to illness/injury;New serious diagnosis (01/13/241421) OBRA or OPTIONS needed for placement: No (01/13/241421) Readmission Risk Score: 10.46 (01/14/24800) AM-PAC Score With Stairs : 10 (01/13/241999) Caregiver Information Patient Contacts Name Relation Home Work Mobile Tirso Gerardo Spouse [phone] Liam Ugarte Adult Child [phone] Transition of Care Checklist Narrative: CM has been following Smiley's hospital course. Patient discussed in IDT rounds. They are not medically stable for discharge at this time. She is being followed by CVTS and Vascular surgery for IMH of aorta. She remains on NCO2@4L/min and labetolol infusion. Team medically managing her at this time. She has a strong support system, with and adult children that can assist at discharge. Discharge plan evolving - CM will continue to follow for discharge needs. Anticipated Transportation at Discharge: family Patient/Family Expectations: return to home, pending medical stability Transition Planning Transition Planning Transition Plan/Considerations: Needs uncertain at this time - Continue monitoring for needs;Discussed at Interdisciplinary Team / Boost Rounds;CM provided contact information and will update plan asneeds arise (01/13/241427) Transition plan discussed with - Enter name and phone #: Tirso Reis, spouse, and daughter (01/13/241427) Additional Considerations: n/a Care Management will continue to monitor and assist with discharge planning needs * Communication - Brandan Joyce MD - 01/13/2024 5:20 PM EST CARDIAC SURGERY Worsening back pain today. Improved with IV pain medicine. On exam, afebrile, BP 140/80. No peritoneal signs, palpable femoral, pedal pulses. Will get labs, trend lactate. She just had CTA at 1145 today- there is some progression of IMH in the distal descending thoracic aorta. Pt and family have desired nonoperative management of ascending, and will continue to pursue that course with BP and paincontrol. I updated the family at the bedside. Will also get opinion from Vascular surgery- I reviewed with the case with them. * Ancillary Progress Note - Paul Andrea RRT - 01/13/2024 6:42 AM EST PATIENT DRIVEN PROTOCOL - Respiratory Care Services [address] [address] Name: Smiley Gerardo Location: [facility] H770/A Date: 01/13/2024 Time: 6:42 AM Patient Driven Protocol Summary: Initial evaluation performed. This Treatment Plan and medications will be reviewed by the Primary Care Team for any contraindications. Respiratory Care Treatment Plan Aerosol Therapy Treatment:: Hand Held Nebulizer Tx PRN with Albuterol Sulfate: Unit dose 0.083%. to reduce work of breathing and improve pulmonary gas exchange. . Pulmonary Volume Expansion Therapy: Incentive Spirometry BID to prevent or treat alveolar consolidation and atelectasis. . Secretion Management Treatment: Flutter TherapyQID to enhance mobilization of secretions. . The patient will be re-evaluated: within 24 hours. The Triage Level is: (Assessment Score = 6 -10) Level 4. Triage Level Definitions: Level 1 Severe Respiratory/Airway Compromise Level 2 Moderate Respiratory/Airway Compromise or high risk for pulmonary complications Level 3 Mild Respiratory/Airway Compromise or moderate risk for pulmonary complications Level 4 Episodic Respiratory/Airway Compromise or low risk for pulmonary complications Level 5 No Respiratory/Airway Compromise Triage 1 Triage 2 Triage 3 Triage 4 Triage 5 greater than 20 16 - 20 11 - 15 6 - 10 0 - 5 Medical Record Assessment Clinical Findings Pulmonary Status: 0 - No Smoking or quit greater than 10 years ago Surgical Status: 1 - General Surgery Chest X-Ray: 1 - CXR Pending Assessment Score: 2 Patient Assessment Clinical Findings Respiratory Pattern: 0 - RR 12 - 20; Patient only gets breathless with strenuous exercise. Breath Sounds: 3 - Crackles, mild wheezes, coarse bronchial, upper airway noises Cough Effectiveness: 1 - Strong productive Sputum Production: 1 - Less than 20 ml per day, chronic Level of Activity: 0 - Ambulatory O2 needed to keep SpO2 greater than or equal to 92%: 1 - Oxygen 1-3 LPM or FiO2 less than 35% Assessment Score: 6 Total Assessment Score: 8 Breath Sounds: Inspiratory and expiratory rhonchi bilaterally.. Cough and Sputum: An effective cough produced sputum that was swallowed... CXR: pending. Vital Signs: Resp: 19 (01/13/24614) Pulse: 81 (01/13/24614) Temp: 37 C (98.6 F) (01/13/24399) BP: 101/54 (01/13/24614) SpO2: 93 % (01/13/24614) PFT: Minimal Predicted IC: 0.684 L. Inspiratory capacity: 0.374L. Primary Service: Cardiac Surgery. Admitting Diagnosis: Chest pain, unspecified type [R07.9] Pulmonary Diagnosis: Asthma and COPD. Prescriptions/Home Medications/Durable Medical Equipment: levalbuterol PRN. * Progress Notes - Non-Billable - Jcarlos Merrill MD - 01/13/2024 5:01 AM EST Limited Transthoracic Echo (TTE) Reason: Effusion Ordering Service: CVT surgery Date: 01/13/2024 Time: 5:01 AM History: 78 y F presented to outside facility with chest pain and found to have arotic intramural thrombus. A limited TTE was ordered to evaluate Pericardial effusion. Vital Signs: BP: 98 mmHg/55 mmHg (01/13/24429) Pulse: 75 (01/13/24429) Temp: 37 C (01/13/24399) Temp Summary: Temp Min: 36.9 C (98.4 F) Max: 37 C (98.6 F) SpO2: 93 % (02/27/24 0430) O2 flow rate: 2 L/MIN (01/13/24 0400) Supplemental O2 Delivery: Nasal Cannula (01/13/24 0400) Echo Findings: Left Ventricle (LV) = EF >50%, no dilatation (qualitatively) Right Ventricle (RV) = Normal function, no dilatation (qualitatively) Wall Motion Abnormalities = No gross wall motion noted Valves = MV mild to moderate MR present, AV poorly visualized, no significant AI appreciated, TV mild TR present, PV not visualized adequately Hemodynamics = IVC Collapsible Pericardium = small anterior effusion present PLAN: - Please place order for repeat full transthoracic echo in am. Formal read will be done by daytime attending. documented in this encounter Plan of Treatment Scheduled Orders Name Type Priority Associated Diagnoses Orde r Schedule CT ABD/PELVIS W IV CONTRAST - WO ORAL CONTRAST Medical Imaging Routine Intramural aortic hematoma (HCC) Expected: 02/16/2024, Expires: 02/16/2024 CTA CHEST NON-CORONARY W CONTRAST Medical Imaging Routine Intramural aortic hematoma (HCC) Expected: 02/16/2024, Expires: 02/16/2024 Scheduled Procedures Name Priority Associated Diagnoses Date/Ti [...] this encounter Medical Devices Implanted Type Area Sign Painter Apprentice Device Identifier Shelf Expiration Date Model / Serial / Lot Sut Steel 6 [id number] - [id number] Implanted:Qty: 6 on 03/19/2012 at OR [facility] N/A: Chest DO NOT USE 11/17/2016 [id number] / / [id number] Graft Marker Coronary - [id number] Implanted:Qty: 2 on 03/19/2012 at OR [facility] N/A: Aorta VM CARDIO VASCULAR 05/17/2014 [id number] / / [id number] documented as of this encounter Procedures Procedure Name Priority Date/Time Associated Diagnosis Comments PT INR STAT 01/16/2024 4:30 AM EST BASIC METABOLIC PANEL STAT 01/16/2024 4:29 AM EST CBC STAT 01/16/2024 4:29 AM EST CTA CHEST/ABDOMEN/PELVIS Routine 01/15/2024 8:25 AM EST HC ECG TRACING ONLY Routine 01/15/2024 5 :49 AM EST SOB (shortness of breath) DIFFERENTIAL, AUTOMATED STAT 01/15/2024 4:44 AM EST BASIC METABOLIC PANEL Routine 01/15/2024 4:44 AM EST CBC STAT 01/15/2024 4:44 AM EST LACTATE Routine 01/15/2024 4:44 AM EST CBC STAT 01/15/2024 4:44 AM EST CULTURE, URINE, QUANTITATIVE Routine 01/14/2024 8:38 AM EST DIFFERENTIAL, AUTOMATED STAT 01/14/2024 4:36 AM EST BASIC METABOLIC PANEL Routine 01/14/2024 4:36 AM EST CBC STAT 01/14/2024 4:36 AM EST LACTATE Routine 01/14/2024 4:36 AM EST CBC STAT 01/14/2024 4:36 AM EST LACTATE Routine 01/13/2024 4:34 PM EST GLUCOSE METER, POINT OF CARE ANJELICA 01/13/2024 12:[address] CARDIAC COMPLETE STAT 01/13/2024 1 1:40 AM EST ECHO, COMPLETE (2D), TRANS-THORACIC Routine 01/13/2024 10:23 AM EST Chest pain, unspecified type LACTATE STAT 01/13/2024 9:26 AM EST BASIC METABOLIC PANEL STAT 01/13/2024 9:25 AM EST ECHO, TTE, LIMITED Routine 01/13/2024 7: 52 AM EST Valvular heart disease XR CHEST 1 VIEW Routine 01/13/2024 6:09 AM EST SARS-COV-2 (COVID-19), NAAT STAT 01/13/2024 4:19 AM EST DIFFERENTIAL, AUTOMATED STAT 01/13/2024 3:55 AM EST TROPONIN T, HIGH SENSITIVITY STAT 01/13/2024 3:55 AM EST RETICULOCYTE PANEL STAT 01/13/2024 3: 55 AM EST HEPATIC FUNCTION PANEL STAT 3:55 AM EST BASIC METABOLIC PANEL STAT 01/13/2024 3:55 AM EST TYPE AND SCREEN STAT 01/13/2024 3:55 AM EST IRON SCREEN, INCLUDING TIBC STAT 01/13/2024 3:55 AM EST CBC STAT 01/13/2024 3:55 AM EST PT INR STAT 01/13/2024 3:55 AM EST CBC STAT 01/13/2024 3:55 AM EST TSH STAT 01/13/2024 3:55 AM EST HC COMPATIBILITY ELECTRONIC CROSSMATCH Routine 01/13/2024 3:00 AM EST HC ECG TRACING ONLY Routine 01/13/2024 2 :50 AM EST Chest pain documented in this encounter Results * PT INR (01/16/2024 4:30 AM EST) Prothrombin Time 14.3 11.6 - 15.2 seconds 01/16/2024 5:17 AM EST LABORATORY [facility] INR 1.1 0.8 - 1.2 01/16/2024 5:17 AM EST LABORATORY [facility] Blood Venous blood specimen / Unknown Venipuncture / Unknown 01/16/2024 4:30 AM EST 01/16/2024 4:51 AM EST Narrative LABORATORY [facility] - 01/16/2024 5:17 AM EST Warfarin Therapy INR: 2.0-3.0 conventional anticoagulation INR: 2.5-3.5 high intensity anticoagulation Brittney Balbuena PA-C LAB BLOOD ORDERABL ES LABORATORY [facility] [address] [place] [address] * (ABNORMAL) CBC (01/16/2024 4:29 AM EST) WBC 8.00 4.00 - 10.80 K/uL 01/16/2024 5:06 AM EST LABORATORY [facility] RBC 3.31 3.85 - 5.15 M/uL 01/16/2024 5:06 AM EST LABORATORY [facility] HGB 10.0(L) 12.0 - 15.3 g/dL 01/16/2024 5:06 AM EST LABORATORY [facility] HCT 30.9(L) 36.0 - 45.2 % 01/16/2024 5:06 AM EST LABORATORY [facility] MCV 93.4 81.5 - 97.5 fL 01/16/2024 5:06 AM EST LAB[facility]ATORY [facility] MCH 30.2 27.0 - 34.0 pg 01/16/2024 5:06 AM EST LABORATORY [facility] MCHC 32.4 32.0 - 36.0 g/dL 01/16/2024 5:06 AM EST LAB[facility]ATORY [facility] RDW 13.9 11.5 - 15.5 % 01/16/2024 5:06 AM EST LABORATORY [facility] PLT 139(L) 140 - 400 K/uL 01/16/2024 5:06 AM EST LAB[facility]AT[facility] MPV 9.5 6.6 - 11.1 fL 01/16/2024 5:06 AM EST LAB[facility]ATORY [facility] nRBCs 0 <=0 /100 WBCs 01/16/2024 5:06 AM EST LAB[facility]AT[facility] Blood Venous blood specimen / Unknown Venipuncture / Unknown 01/16/2024 4:29 AM EST 01/16/2024 4:51 AM EST Brittney Balbuena PA-C LAB BLOOD ORDERABL ES LABORATORY [facility] [address] [place] [address] * (ABNORMAL) BASIC METABOLIC PANEL (01/16/2024 4:29 AM EST) BUN 17 6 - 20 mg/dL 01/16/2024 5:23 AM EST LAB[facility]ATORY [facility] Creatinine 0.8 0.5 - 1.0 mg/dL 01/16/2024 5:23 AM EST LAB[facility]ATORY [facility] Estimated Glomerular Filtration Rate 77 >=60 mL/min 01/16/2024 5:23 AM EST LAB[facility]AT[facility] Comment:eGFR is calculated b ased on the CKD-EPI 2020 equation Sodium 135 135 - 146 mmol/L 01/16/2024 5:23 AM EST LAB[facility]ATORY [facility] Potassium 3.9 3.5 - 5.1 mmol/L 01/16/2024 5:23 AM EST LAB[facility]ATORY [facility] Chloride 103 98 - 107 mmol/L 01/16/2024 5:23 AM EST LAB[facility]ATORY [facility] CO2 22 22 - 32 mmol/L 01/16/2024 5:23 AM EST LAB[facility]ATORY [facility] Anion Gap 10 7 - 15 mmol/L 01/16/2024 5:23 AM EST LAB[facility]ATORY [facility] Glucose 122(H) 70 - 120 mg/dL 01/16/2024 5:23 AM EST LAB[facility]AT[facility] Calcium 8.4 8.4 - 10.2 mg/dL 01/16/2024 5:23 AM EST LAB[facility]ATORY [facility] Blood Venous blood specimen / Unknown Venipuncture / Unknown 01/16/2024 4:29 AM EST 01/16/2024 4:51 AM EST Brittney Balbuena PA-C LAB BLOOD ORDERABL ES LABORATORY [facility] [address] [place] [address] * CTA CHEST/ABDOMEN/PELVIS (01/15/2024 8:25 AM EST) Anatomical Region Laterality Modality Chest, Abdomen, Pelvis, Body, Cardio Computed Tomography 01/15/2024 11:4 4 AM EST Narrative 01/15/2024 11:42 AM EST EXAM: CTA CHEST/ABDOMEN/PELVIS HISTORY: monitoring aortic mural hematoma COMPARISON: CT dated 01/13/2024, outside CT dated 01/12/2024 TECHNIQUE: CTA chest, abdomen and pelvis with IV contrast FINDINGS: Chest: There is mild cardiomegaly, stable since prior CTA. There is no pericardial effusion. A large intramural hematoma is again seen throughout the thoracic aorta. At the proximal descending thoracic aorta, there is a focus of irregular IV contrast extending from the posteromedial aorta into the intramural hematoma, increased in size as compared to the prior exam (series 5, image 98). There are additional smaller foci more distally, similar to the prior exam. However there is a new focus of penetrating ulcer at the level of the thoracic outlet (series 5, image 298). The evaluation of the mediastinum is limited for lymphadenopathy. There are moderate-sized bilateral pleural effusions. There is thickening of the secondary interlobular septa, consistent with mild pulmonary edema. Findings consistent with pulmonary emphysema are noted. There is bilateral lower lobe compressive atelectasis. There is no pneumothorax. Abdomen/pelvis: The evaluation of the abdominal and pelvic viscera is limited secondary to the early phase of contrast administration. The liver is normal in size. Dystrophic calcifications are seen in the left hepatic lobe. A hypodense lesion in the right hepatic lobe measuring 1.9 x 1.6 cm, not further characterized on this exam. There is a small cyst in the right hepatic lobe (series 4 image 77). The gallbladder is absent. The pancreas is unremarkable. The spleen is unremarkable. The right adrenal gland is unremarkable. There is mild nonspecific thickening of the left adrenal gland. There is no hydronephrosis. Several small bilateral renal hypodensities are noted, too small to further characterize. The bladder is unremarkable. The uterus is not seen. The stomach is grossly unremarkable. There is no evidence of small bowel obstruction. There are no enlarged lymph nodes. There is a large tubular fluid-filled structure in the right lower quadrant abutting the cecum possibly abnormal appendix. There are sigmoid colonic diverticula. There is no evidence of acute diverticulitis. The colon is otherwise not adequately evaluated for masses or polyps with CT. There is minimal pelvic free fluid. Bones and soft tissues: The bones are osteopenic. There are median sternotomy wires. There are moderate degenerative changes of the thoracic and lumbar spine. There are median sternotomy wires. There is a lipoma in the left lateral abdominal wall measuring 6.8 x 3.4 cm (series 5, image 293). IMPRESSION: Chest: 1. A large intramural hematoma is again seen throughout the thoracic aorta. There are several foci of penetrating ulcer with IV contrast extending from the lumen into the intramural hematoma, also seen on the prior exam. The focus of penetrating ulcer at the proximal descending thoracic aorta has increased in size with a larger focus of IV contrast extending from the posteromedial lumen of the aorta into the intramural hematoma. There is also a new focus of penetrating ulcer at the level of the thoracic outlet. The findings are concerning for pending rupture. 2. Moderate-sized bilateral pleural effusions. Mild pulmonary edema. Bilateral lower lobe compressive atelectasis. 3. Pulmonary emphysema. Abdomen/pelvis: 1. No new findings in the abdomen. 2. A hypodense lesion in the right hepatic lobe measuring 1.9 x 1.6 cm, not further characterized on this exam. Consider a follow up ultrasound for further evaluation. 3. A large tubular fluid-filled structure in the right lower quadrant abutting the cecum, also seen on the prior outside CT, maybe abnormal appendix. 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 The differential diagnosis includes a fluid collection or lymphocele. Since an appendiceal malignancy is not reliably differentiated, consider surgical consultation or close continued follow-up. 4. Other incidental findings as detailed above. Procedure Note Clemencia Martinez MD - 01/15/2024 EXAM: CTA CHEST/ABDOMEN/PELVIS HISTORY: monitoring aortic mural hematoma COMPARISON: CT dated 01/13/2024, outside CT dated 01/12/2024 TECHNIQUE: CTA chest, abdomen and pelvis with IV contrast FINDINGS: Chest: There is mild cardiomegaly, stable since prior CTA. There is nopericardial effusion. A large intramural hematoma is again seen throughout the thoracic aorta.At the proximal descending thoracic aorta, there is a focus of irregularIV contrast extending from the posteromedial aorta into the intramuralhematoma, increased in size as compared to the prior exam (series 5, image98). There are additional smaller foci more distally, similar to theprior exam. However there is a new focus of penetrating ulcer at thelevel of the thoracic outlet (series 5, image 298). The evaluation of the mediastinum is limited for lymphadenopathy. There are moderate-sized bilateral pleural effusions. There is thickeningof the secondary interlobular septa, consistent with mild pulmonaryedema. Findings consistent with pulmonary emphysema are noted. There isbilateral lower lobe compressive atelectasis. There is no pneumothorax. Abdomen/pelvis: The evaluation of the abdominal and pelvic viscera islimited secondary to the early phase of contrast administration. Theliver is normal in size. Dystrophic calcifications are seen in the lefthepatic lobe. A hypodense lesion in the right hepatic lobe measuring 1.9x 1.6 cm, not further characterized on this exam. There is a small cystin the right hepatic lobe (series 4 image 77). The gallbladder is absent. The pancreas is unremarkable. The spleen is unremarkable. The right adrenal gland is unremarkable. There is mild nonspecificthickening of the left adrenal gland. There is no hydronephrosis. Several small bilateral renal hypodensitiesare noted, too small to further characterize. The bladder isunremarkable. The uterus is not seen. The stomach is grossly unremarkable. There is no evidence of small bowelobstruction. There are no enlarged lymph nodes. There is a large tubular fluid-filled structure in the right lowerquadrant abutting the cecum possibly abnormal appendix. There are sigmoid colonic diverticula. There is no evidence of acutediverticulitis. The colon is otherwise not adequately evaluated formasses or polyps with CT. There is minimal pelvic free fluid. Bones and soft tissues: The bones are osteopenic. There are mediansternotomy wires. There are moderate degenerative changes of the thoracicand lumbar spine. There are median sternotomy wires. There is a lipoma in the left lateral abdominal wall measuring 6.8 x 3.4cm (series 5, image 293). IMPRESSION: Chest: 1. A large intramural hematoma is again seen throughout the thoracicaorta. There are several foci of penetrating ulcer with IV contrastextending from the lumen into the intramural hematoma, also seen on theprior exam. The focus of penetrating ulcer at the proximal descendingthoracic aorta has increased in size with a larger focus of IV contrastextending from the posteromedial lumen of the aorta into the intramuralhematoma. There is also a new focus of penetrating ulcer at the level ofthe thoracic outlet. The findings are concerning for pending rupture. 2. Moderate-sized bilateral pleural effusions. Mild pulmonary edema.Bilateral lower lobe compressive atelectasis. 3. Pulmonary emphysema. Abdomen/pelvis: 1. No new findings in the abdomen. 2. A hypodense lesion in the right hepatic lobe measuring 1.9 x 1.6 cm,not further characterized on this exam. Consider a follow up ultrasoundfor further evaluation. 3. A large tubular fluid-filled structure in the right lower quadrantabutting the cecum, also seen on the prior outside CT, maybe abnormalappendix. 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 Thedifferential diagnosis includes a fluid collection or lymphocele. Sincean appendiceal malignancy is not reliably differentiated, considersurgical consultation or close continued follow-up. 4. Other incidental findings as detailed above. Rain Boland PA-C RAD CT * EKG (01/15/2024 5:49 AM EST) 01/15/2024 5:49 AM EST Narrative Procedure Note Bob Mcgill, DO - 01/15/2024 5:49 AM EST REASON FOR STUDY: ? junctional;SOB (shortness of breath) CONCLUSIONS: Normal sinus rhythm Left axis deviation Right bundle branch block Marked ST abnormality, possible septal subendocardial injury When compared with ECG of 13-JAN-2024 12:48, ST now depressed in Lateral leads T wave inversion now evident in Lateral leads Ventricular Rate: 76 Atrial Rate: 76 DE Interval: 126 QRS Duration: 124 QT/QTc: 420/472 ms P-R-T [place]: 33 : -30 : 91 degrees Brittney Balbuena PA-C EKG [facility] * (ABNORMAL) DIFFERENTIAL, AUTOMATED (01/15/2024 4:44 AM EST) WBC 8.79 4.00 - 10.80 K/uL 01/15/2024 5:04 AM EST LAB[facility] Neutrophils % 70.2 40.0 - 75.0 % 01/15/2024 5:04 AM EST [facility] Lymphocytes % 14.4(L) 18.0 - 42.0 % 01/15/2024 5:04 AM EST [facility] Monocytes % 13.9(H) 1.0 - 11.0 % 01/15/2024 5:04 AM EST [facility] Eosinophils % 0.6 0.0 - 6.0 % 01/15/2024 5:04 AM EST [facility] Basophils % 0.3 0.0 - 2.0 % 01/15/2024 5:04 AM EST [facility] Immature Granulocytes % 0.6 0.0 - 2.0 % 01/15/2024 5:04 AM EST [facility] Absolute Neutrophils 6.17 1.80 - 7.70 K/uL 01/15/2024 5:04 AM EST [facility] Absolute Lymphocytes 1.27 1.00 - 4.80 K/ul 01/15/2024 5:04 AM EST [facility] Absolute Monocytes 1.22(H) 0.00 - 1.10 K/uL 01/15/2024 5:04 AM EST [facility] Absolute Eosinophils 0.05 0.00 - 0.70 K/uL 01/15/2024 5:04 AM EST [facility] Absolute Basophils 0.03 0.00 - 0.20 K/uL 01/15/2024 5:04 AM EST [facility] Absolute Immature Granulocytes 0.05 0.00 - 0.20 K/uL 01/15/2024 5:04 AM EST [facility] Blood Venous blood specimen / Unknown Venipuncture / Unknown 01/15/2024 4:44 AM EST 01/15/2024 4:50 AM EST Brittney Balbuena PA-C LAB BLOOD ORDERABL ES [facility] [address] [place] [address] * (ABNORMAL) CBC (01/15/2024 4:44 AM EST) WBC 8.79 4.00 - 10.80 K/uL 01/15/2024 5:04 AM EST [facility] RBC 3.37 3.85 - 5.15 M/uL 01/15/2024 5:04 AM EST [facility] HGB 10.1(L) 12.0 - 15.3 g/dL 01/15/2024 5:04 AM EST [facility] HCT 31.4(L) 36.0 - 45.2 % 01/15/2024 5:04 AM EST [facility] MCV 93.2 81.5 - 97.5 fL 01/15/2024 5:04 AM EST [facility] MCH 30.0 27.0 - 34.0 pg 01/15/2024 5:04 AM EST [facility] MCHC 32.2 32.0 - 36.0 g/dL 01/15/2024 5:04 AM EST [facility] RDW 13.7 11.5 - 15.5 % 01/15/2024 5:04 AM EST [facility] PLT 126(L) 140 - 400 K/uL 01/15/2024 5:04 AM EST [facility] MPV 9.2 6.6 - 11.1 fL 01/15/2024 5:04 AM EST LABORATORY [facility] nRBCs 0 <=0 /100 WBCs 01/15/2024 5:04 AM EST LABORATORY [facility] Blood Venous blood specimen / Unknown Venipuncture / Unknown 01/15/2024 4:44 AM EST 01/15/2024 4:50 AM EST Brittney Balbuena PA-C LAB BLOOD ORDERABL ES Performing Organization Address City/[facility]/ZIP Co de Phone Number LABORATORY [facility] [address] [place] [address] * LACTATE (01/15/2024 4:44 AM EST) Lactate 0.9 0.4 - 2.0 mmol/L 01/15/2024 5:16 AM EST LABORATORY [facility] Blood Venous blood specimen / Unknown Venipuncture / Unknown 01/15/2024 4:44 AM EST 01/15/2024 4:50 AM EST Tricia Russell PA-C LAB BLOOD ORDERA BLES Performing Organization Address City[facility] Co de Phone Number LABORATORY [facility] [address] [place] [address] * (ABNORMAL) BASIC METABOLIC PANEL (01/15/2024 4:44 AM EST) BUN 16 6 - 20 mg/dL 01/15/2024 5:18 AM EST LABORATORY [facility] Creatinine 0.8 0.5 - 1.0 mg/dL 01/15/2024 5:18 AM EST [facility] Estimated Glomerular Filtration Rate 80 >=60 mL/min 01/15/2024 5:18 AM EST [facility] Comment:eGFR is calculated b ased on the CKD-EPI 2020 equation Sodium 135 135 - 146 mmol/L 01/15/2024 5:18 AM EST [facility] Potassium 3.3(L) 3.5 - 5.1 mmol/L 01/15/2024 5:18 AM EST [facility] Chloride 103 98 - 107 mmol/L 01/15/2024 5:18 AM EST [facility] CO2 23 22 - 32 mmol/L 01/15/2024 5:18 AM EST [facility] Anion Gap 9 7 - 15 mmol/L 01/15/2024 5:18 AM EST [facility] Glucose 116 70 - 120 mg/dL 01/15/2024 5:18 AM EST [facility] Calcium 8.4 8.4 - 10.2 mg/dL 01/15/2024 5:18 AM EST [facility] Blood Venous blood specimen / Unknown Venipuncture / Unknown 01/15/2024 4:44 AM EST 01/15/2024 4:50 AM EST Tricia Russell PA-C LAB BLOOD ORDERA BLES Performing Organization Address City/[facility]/ZIP Co de Phone Number LABORATORY [facility] [address] [place] [address] * CULTURE, URINE, QUANTITATIVE (01/14/2024 8:38 AM EST) Pathologist [facility] Culture Growth No significant growth 01/15/2024 8:52 AM EST [facility] Urine Urine specimen obtained by clean catch procedure / Unknown Non-blood Collection / Unknown 01/14/2024 8:38 AM EST 01/14/2024 9:09 AM EST Brittney Balbuena PA-C LAB MICRO - GENERA L ORDERABLES Performing Organization Address [facility]/ZIP Co de Phone Number LABORATORY [facility] [address] [place] [address] * (ABNORMAL) DIFFERENTIAL, AUTOMATED (01/14/2024 4:36 AM EST) WBC 9.55 4.00 - 10.80 K/uL 01/14/2024 5:18 AM EST [facility] Neutrophils % 72.4 40.0 - 75.0 % 01/14/2024 5:18 AM EST [facility] Lymphocytes % 12.3(L) 18.0 - 42.0 % 01/14/2024 5:18 AM EST [facility] Monocytes % 14.6(H) 1.0 - 11.0 % 01/14/2024 5:18 AM EST [facility] Eosinophils % 0.0 0.0 - 6.0 % 01/14/2024 5:18 AM EST [facility] Basophils % 0.2 0.0 - 2.0 % 01/14/2024 5:18 AM EST [facility] Immature Granulocytes % 0.5 0.0 - 2.0 % 01/14/2024 5:18 AM EST [facility] Absolute Neutrophils 6.92 1.80 - 7.70 K/uL 01/14/2024 5:18 AM EST [facility] Absolute Lymphocytes 1.17 1.00 - 4.80 K/ul 01/14/2024 5:18 AM EST [facility] Absolute Monocytes 1.39(H) 0.00 - 1.10 K/uL 01/14/2024 5:18 AM EST [facility] Absolute Eosinophils 0.00 0.00 - 0.70 K/uL 01/14/2024 5:18 AM EST [facility] Absolute Basophils 0.02 0.00 - 0.20 K/uL 01/14/2024 5:18 AM EST [facility] Absolute Immature Granulocytes 0.05 0.00 - 0.20 K/uL 01/14/2024 5:18 AM EST [facility] Blood Venous blood specimen / Unknown Venipuncture / Unknown 01/14/2024 4:36 AM EST 01/14/2024 5:09 AM EST Brittney Balbuena PA-C LAB BLOOD ORDERABL ES LABORATORY [facility] [address] [place] [address] * (ABNORMAL) CBC (01/14/2024 4:36 AM EST) WBC 9.55 4.00 - 10.80 K/uL 01/14/2024 5:18 AM EST [facility] RBC 3.55 3.85 - 5.15 M/uL 01/14/2024 5:18 AM EST [facility] HGB 10.7(L) 12.0 - 15.3 g/dL 01/14/2024 5:18 AM EST [facility] HCT 33.4(L) 36.0 - 45.2 % 01/14/2024 5:18 AM EST [facility] MCV 94.1 81.5 - 97.5 fL 01/14/2024 5:18 AM EST [facility] MCH 30.1 27.0 - 34.0 pg 01/14/2024 5:18 AM EST [facility] MCHC 32.0 32.0 - 36.0 g/dL 01/14/2024 5:18 AM EST [facility] RDW 13.7 11.5 - 15.5 % 01/14/2024 5:18 AM EST [facility] PLT 156 140 - 400 K/uL 01/14/2024 5:18 AM EST [facility] MPV 9.0 6.6 - 11.1 fL 01/14/2024 5:18 AM EST [facility] nRBCs 0 <=0 /100 WBCs 01/14/2024 5:18 AM EST [facility] Blood Venous blood specimen / Unknown Venipuncture / Unknown 01/14/2024 4:36 AM EST 01/14/2024 5:09 AM EST Brittney Balbuena PA-C LAB BLOOD ORDERABL ES Performing Organization Address City/[facility]/ZIP Co de Phone Number LABORATORY [place] [address] [place] [address] * (ABNORMAL) LACTATE (01/14/2024 4:36 AM EST) Lactate 2.4(H) 0.4 - 2.0 mmol/L 01/14/2024 5:35 AM EST [facility] Blood Venous blood specimen / Unknown Venipuncture / Unknown 01/14/2024 4:36 AM EST 01/14/2024 5:09 AM EST Tricia Russell PA-C LAB BLOOD ORDERA BLES LABORATORY [facility] [address] [place] [address] * (ABNORMAL) BASIC METABOLIC PANEL (01/14/2024 4:36 AM EST) BUN 16 6 - 20 mg/dL 01/14/2024 5:38 AM EST [facility] Creatinine 0.7 0.5 - 1.0 mg/dL 01/14/2024 5:38 AM EST [facility] Estimated Glomerular Filtration Rate 87 >=60 mL/min 01/14/2024 5:38 AM EST [facility] Comment:eGFR is calculated b ased on the CKD-EPI 2020 equation Sodium 141 135 - 146 mmol/L 01/14/2024 5:38 AM EST [facility] Potassium 3.8 3.5 - 5.1 mmol/L 01/14/2024 5:38 AM EST [facility] Chloride 109(H) 98 - 107 mmol/L 01/14/2024 5:38 AM EST [facility] CO2 22 22 - 32 mmol/L 01/14/2024 5:38 AM EST [facility] Anion Gap 10 7 - 15 mmol/L 01/14/2024 5:38 AM EST [facility] Glucose 127(H) 70 - 120 mg/dL 01/14/2024 5:38 AM EST [facility] Calcium 8.6 8.4 - 10.2 mg/dL 01/14/2024 5:38 AM EST [facility] Blood Venous blood specimen / Unknown Venipuncture / Unknown 01/14/2024 4:36 AM EST 01/14/2024 5:10 AM EST Tricia Russell PA-C LAB BLOOD ORDERA BLES LABORATORY [facility] [address] [place] [address] * LACTATE (01/13/2024 4:34 PM EST) Lactate 1.8 0.4 - 2.0 mmol/L 01/13/2024 5:07 PM EST [facility] Blood Venous blood specimen / Unknown Venipuncture / Unknown 01/13/2024 4:34 PM EST 01/13/2024 4:38 PM EST Rain Boland PA-C LAB BLOOD ORDERABLES LABORATORY [facility] [address] [place] [address] * GLUCOSE METER, POINT OF CARE (01/13/2024 12:43 PM EST) Glucose Meter 106 70 - 120 mg/dL 01/13/2024 9:49 PM EST City Notes [facility] Blood Whole blood specimen / Unknown 01/13/2024 12:43 PM EST 01/13/2024 9:49 PM EST Brandan Fish MD LAB POINT O F CARE TEST DOCKED DEVICE UNSOLICITED RESULTS [facility] [address] [place] [address] * CT CARDIAC COMPLETE (01/13/2024 11:40 AM EST) Anatomical Region Laterality Modality Cardio, Chest, Body Computed Jeff ography Narrative 01/13/2024 4:43 PM EST Interpretation Summary 1. Extensive intramural hematoma extending from the proximal ascending aorta, arch, and descending aorta, in keeping with known history. This is complicated by an ulcer-like projection extending from the aortic root at the left coronary ostium. Ulcer-like projections known to adversely affect prognosis (with lower likelihood of resorption and higher likelihood of progressive dissection/rupture) and are likely on the spectrum with a limited intimal tear. 2. Severe nisqually coronary disease; heavy calcification renders [place] vessels uninterpretable. 3. The left internal mammary artery graft to the 'left anterior descending vessel' is patent. There are two saphenous vein grafts. The first graft is likely patent: there is contrast opacification throughout its proximal and mid segments however the touchdown (in the region of the posterolateral branch) is not well seen. The other graft has no contrast opacification and is likely occluded. 4. Inferolateral wall thinning consistent with prior infarction. 5. Pulmonary interstitial edema and small pleural effusions implying decompensated heart failure. 6. Background moderate COPD. The exam quality is fair (artifacts are present that interfere with interpretation). Coronary Findings The exam quality is fair (artifacts are present that interfere with interpretation). The Agatston calcium score is 3460. The patients age and sex matched coronary calcium content is 99 % (BLAKELY). Left Main Coronary Artery There is an ulcer-like projection extending from the ostium of the left main and extending posteriorly. The left main is otherwise a short segment and patent without significant stenosis. Left Anterior Descending Coronary Artery The LAD is heavily calcified in its proximal portion and is not interpretable. Circumflex Coronary Artery The proximal circumflex is heavily calcified and is not interpretable. Right Coronary Artery The proximal RCA is heavily calcified and is not interpretable. The remainder of the RCA is also fairly calcified. Bypass Grafts The left internal mammary artery graft to the 'left anterior descending vessel' is patent. There are two saphenous vein grafts. The first graft is likely patent: there is contrast opacification throughout its proximal and mid segments however the touchdown (in the region of the posterolateral branch) is not well seen. The other graft has no contrast opacification and is likely occluded. Great Vessels Extensive intramural hematoma extending from the proximal ascending aorta, arch, and descending aorta is noted. As above, there is an ulcer-like projection of contrast extending from the ostium of the left coronary artery into the posterior wall of the aorta at the root. Ulcer-like blood pool in this area measures 2.4 x 0.6 x 2.0 cm. Other small foci of intramural blood pool not contiguous with the aortic lumen are thought to have no prognostic significance in contrast with ULPs. The main PA is borderline enlarged (30 mm). The pulmonary venous drainage is normal. Pericardium The pericardium is of normal thickness without evidence of significant pericaridal effusion. Noncardiac findings Interlobular septal thickening typical of hydrostatic/cardiogenic edema. Small pleural effusions. Moderate emphysema predominating in the upper lung zones. Referral Diagnosis Chest pain R07.89 Mural thrombus I21.3 CAD (coronary artery disease) I25.10 Procedure Details The Body Mass Index is '24.9' meter squared . Patient has a history of prior CABG. Indication: chronic chest pain with low intermediate risk of CAD. Cardiac CT protocol: "Retrospective" . Cardiac CT with Ca score performed: [id number] (0149T and 0151T). Heart Rate: "92-94" bpm. Dose Length Produce (DLP) "738.8". Radiation dose: '10.3' mSv. Voltage setting: '110' KV. Field of view: 'entire chest.' Scan Length 252 mm. IV contrast dose: '66' ml Visapaque. mAs "196". Contrast infusion rate "5.0 mL/s". Nursing Care:: Cecilia Kaufman RN heavy equipment service technician: Rolanda Gonzalez RT( R) Quantitative Analysis Inferolateral wall thinning consistent with prior infarction. Aortic root: 29 x 29 x 29 mm (transverse). Tricia Russell PA-C RAD CT * ECHO, COMPLETE (2D), TRANS-THORACIC (01/13/2024 10:23 AM EST) Pathologist [facility] LEFT VENTRICULAR EJECTION FRACTION 55 % [facility] 01/13/2024 3:16 AM EST Brittney Balbuena PA-C ECHOCARDIOLOGY Performing Organization Address City/[facility]/ZIP Co de Phone Number [facility] * LACTATE (01/13/2024 9:26 AM EST) Pathologist [facility] Lactate 1.4 0.4 - 2.0 mmol/L 01/13/2024 10:03 AM EST LABORATORY [facility] Blood Venous blood specimen / Unknown Venipuncture / Unknown 01/13/2024 9:26 AM EST 01/13/2024 9:35 AM EST Tricia Russell PA-C LAB BLOOD ORDERA BLES LABORATORY [facility] [address] [place] [address] * (ABNORMAL) BASIC METABOLIC PANEL (01/13/2024 9:25 AM EST) Pathologist [facility] BUN 15 6 - 20 mg/dL 01/13/2024 10:02 AM EST LABORATORY [facility] Creatinine 0.7 0.5 - 1.0 mg/dL 01/13/2024 10:02 AM EST LABORATORY [facility] Estimated Glomerular Filtration Rate >90 >=60 mL/min 01/13/2024 10:02 AM EST LABORATORY [facility] Comment:eGFR is calculated b ased on the CKD-EPI 2020 equation Sodium 140 135 - 146 mmol/L 01/13/2024 10:02 AM EST [facility] Potassium 3.8 3.5 - 5.1 mmol/L 01/13/2024 10:02 AM EST [facility] Chloride 111(H) 98 - 107 mmol/L 01/13/2024 10:02 AM EST [facility] CO2 19(L) 22 - 32 mmol/L 01/13/2024 10:02 AM EST [facility] Anion Gap 10 7 - 15 mmol/L 01/13/2024 10:02 AM EST [facility] Glucose 109 70 - 120 mg/dL 01/13/2024 10:02 AM EST [facility] Calcium 8.0(L) 8.4 - 10.2 mg/dL 01/13/2024 10:02 AM EST LABORATORY [facility] Blood Venous blood specimen / Unknown Venipuncture / Unknown 01/13/2024 9:25 AM EST 01/13/2024 9:36 AM EST Tricia Russell PA-C LAB BLOOD ORDERA BLES LABORATORY [facility] [address] [place] [address] * ECHO, TTE, LIMITED (01/13/2024 7:52 AM EST) LEFT VENTRICULAR EJECTION FRACTION 55 % [facility] 01/13/2024 9:43 AM EST Brittney Balbuena PA-C ECHOCARDIOLOGY [facility] * XR CHEST 1 VIEW (01/13/2024 6:09 AM EST) Anatomical Region Laterality Modality Chest Computed Radiogr aphy 01/13/2024 11:5 9 AM EST Impressions 01/13/2024 11:56 AM EST IMPRESSION 1. Small to moderate pleural effusion. 2. Pulmonary edema. 3. Patchy atelectasis or infiltrate at the left lung base. Narrative 01/13/2024 11:56 AM EST EXAM XR CHEST 1 VIEW- 01/13/2024 6:09 am HISTORY pre-op COMPARISON Chest radiographs from 04/26/2012. TECHNIQUE A single portable semi-upright AP view of the chest was obtained at 0604 hours. FINDINGS Catheters: None Tubes: None Foreign bodies: No radiopaque foreign bodies are identified. The chest wall and cardiomediastinal structures are stable in appearance. The patient is status post median sternotomy and CABG. There is no significant right pleural effusion. There is a small to moderate left pleural effusion. There are Tavo B lines noted, consistent with pulmonary edema. There is patchy atelectasis or infiltrate at the left lung base. Procedure Note Go, Naeem Bernard MD - 01/13/2024 EXAM XR CHEST 1 VIEW- 01/13/2024 6:09 am HISTORY pre-op COMPARISON Chest radiographs from 04/26/2012. TECHNIQUE A single portable semi-upright AP view of the chest was obtained at 0604hours. FINDINGS Catheters: None Tubes: None Foreign bodies: No radiopaque foreign bodies are identified. The chest wall and cardiomediastinal structures are stable in appearance.The patient is status post median sternotomy and CABG. There is nosignificant right pleural effusion. There is a small to moderate leftpleural effusion. There are Tavo B lines noted, consistent withpulmonary edema. There is patchy atelectasis or infiltrate at the leftlung base. IMPRESSION IMPRESSION 1. Small to moderate pleural effusion. 2. Pulmonary edema. 3. Patchy atelectasis or infiltrate at the left lung base. Brittney Balbuena PA-C RADIOLOGY (RAD GEN ERAL) * SARS-COV-2 (COVID-19), NAAT (01/13/2024 4:19 AM EST) [facility] SARS-CoV-2 (COVID-19) Result Negative Negative 01/13/2024 6:02 AM EST LABORATORY [facility] Comment: 2019 Novel Coronavirus not detected. This express test was developed and its performance characteristics determined by [facility]. It has not been cleared or approved by the U.S. Food and Drug Administration (FDA). FDA does not require this test to go thru premarket FDA review. This test is used for clinical purposes. It should not be regarded as investigational or for research. This laboratory is certified under the Clinical Laboratory Improvement Amendments (CLIA) as qualified to perform high complexity clinical laboratory testing. This test is a nucleic acid amplification test (NAAT), a reverse transcriptase polymerase chain reaction (RT-PCR) test, or a Centers for Disease Control- acceptable equivalent. The test is performed in a high complexity Clinical Laboratory Improvement Amendments-(CLIA) certified laboratory. The test is acceptable for SARS-CoV-2 diagnosis, surveillance, and travel within the [place] and to most countries. Please check with local testing authorities about requirements before travel. The validation of bronchial specimens, tracheal aspirates, and sputum for this assay was developed and performance characteristics determined by [facility]. The validation of alternate specimen types has not been cleared or approved by the U.S. Food and Drug Administration (FDA). It has been determined that such clearance is not necessary. Upper Respiratory Mid-turbinate nasal swab / Unknown Non-blood Collection / Unknown 01/13/2024 4:19 AM EST 01/13/2024 5:00 AM EST Brittney Balbuena PA-C LAB MICRO - GENERA L ORDERABLES Performing Organization Address [facility] Co de Phone Number LABORATORY [place] [address] [place] [address] * (ABNORMAL) TROPONIN T, HIGH SENSITIVITY (01/13/2024 3:55 AM EST) Troponin T, High Sensitivity 80(H) <=14 ng/L 01/13/2024 5:01 AM EST LABORATORY [facility] Blood Venous blood specimen / Unknown Venipuncture / Unknown 01/13/2024 3:55 AM EST 01/13/2024 4:25 AM EST Brittney Balbuena PA-C LAB BLOOD ORDERABL ES Performing Organization Address [facility] Co de Phone Number LABORATORY [place] [address] [place] [address] * (ABNORMAL) DIFFERENTIAL, AUTOMATED (01/13/2024 3:55 AM EST) WBC 8.67 4.00 - 10.80 K/uL 01/13/2024 4:35 AM EST LAB[facility]ATORY [facility] Neutrophils % 84.0(H) 40.0 - 75.0 % 01/13/2024 4:35 AM EST LAB[facility] Lymphocytes % 9.7(L) 18.0 - 42.0 % 01/13/2024 4:35 AM EST LAB[facility] Monocytes % 5.7 1.0 - 11.0 % 01/13/2024 4:35 AM EST LAB[facility] Eosinophils % 0.1 0.0 - 6.0 % 01/13/2024 4:35 AM EST LAB[facility] Basophils % 0.2 0.0 - 2.0 % 01/13/2024 4:35 AM EST LAB[facility] Immature Granulocytes % 0.3 0.0 - 2.0 % 01/13/2024 4:35 AM EST LAB[facility] Absolute Neutrophils 7.28 1.80 - 7.70 K/uL 01/13/2024 4:35 AM EST LAB[facility] Absolute Lymphocytes 0.84(L) 1.00 - 4.80 K/ul 01/13/2024 4:35 AM EST LAB[facility] Absolute Monocytes 0.49 0.00 - 1.10 K/uL 01/13/2024 4:35 AM EST LAB[facility] Absolute Eosinophils 0.01 0.00 - 0.70 K/uL 01/13/2024 4:35 AM EST [facility] Absolute Basophils 0.02 0.00 - 0.20 K/uL 01/13/2024 4:35 AM EST LAB[facility] Absolute Immature Granulocytes 0.03 0.00 - 0.20 K/uL 01/13/2024 4:35 AM EST [facility] Blood Venous blood specimen / Unknown Venipuncture / Unknown 01/13/2024 3:55 AM EST 01/13/2024 4:25 AM EST Brittney Balbuena PA-C LAB BLOOD ORDERABL ES LABORATORY [facility] [address] [place] [address] * (ABNORMAL) CBC (01/13/2024 3:55 AM EST) WBC 8.67 4.00 - 10.80 K/uL 01/13/2024 4:35 AM EST LAB[facility]ORY [facility] RBC 3.75 3.85 - 5.15 M/uL 01/13/2024 4:35 AM EST LAB[facility] HGB 11.3(L) 12.0 - 15.3 g/dL 01/13/2024 4:35 AM EST LAB[facility] HCT 34.1(L) 36.0 - 45.2 % 01/13/2024 4:35 AM EST LAB[facility] MCV 90.9 81.5 - 97.5 fL 01/13/2024 4:35 AM EST LAB[facility] MCH 30.1 27.0 - 34.0 pg 01/13/2024 4:35 AM EST [facility] MCHC 33.1 32.0 - 36.0 g/dL 01/13/2024 4:35 AM EST LAB[facility] RDW 13.6 11.5 - 15.5 % 01/13/2024 4:35 AM EST LAB[facility]ORY [facility] PLT 187 140 - 400 K/uL 01/13/2024 4:35 AM EST LAB[facility] MPV 9.4 6.6 - 11.1 fL 01/13/2024 4:35 AM EST LAB[facility] nRBCs 0 <=0 /100 WBCs 01/13/2024 4:35 AM EST LABORATORY C Blood Venous blood specimen / Unknown Venipuncture / Unknown 01/13/2024 3:55 AM EST 01/13/2024 4:25 AM EST Brittney Balbuena PA-C LAB BLOOD ORDERABL ES Performing Organization Address City/State/[facility] Co de Phone Number LABORATORY [facility] [address] [place] [address] * TYPE AND SCREEN (01/13/2024 3:55 AM EST) ABO O 01/13/2024 5:09 AM EST LABORATORY [facility] BLOOD BANK Rh Positive 01/13/2024 5:09 AM EST LABORATORY [facility] BLOOD BANK Red Blood Cell Antibody Screen Negative 01/13/2024 5:09 AM EST LABORATORY [facility] BLOOD BANK Specimen Expiration Date 01/16/2024 23:59 01/13/2024 5:09 AM EST LABORATORY [facility] BLOOD BANK Blood Venous blood specimen / Unknown Venipuncture / Unknown 01/13/2024 3:55 AM EST 01/13/2024 4:25 AM EST Brittney Balbuena PA-C LAB BLOOD BANK OMARI T ORDERABLES Performing Organization Address [facility]/ZIP Co de Phone Number LABORATORY [facility] BLOOD BANK [address] [place] [address] * PT INR (01/13/2024 3:55 AM EST) Prothrombin Time 13.9 11.6 - 15.2 seconds 01/13/2024 6:37 AM EST LABORATORY [facility] INR 1.1 0.8 - 1.2 01/13/2024 6:37 AM EST LABORATORY [facility] Blood Venous blood specimen / Unknown Venipuncture / Unknown 01/13/2024 3:55 AM EST 01/13/2024 4:26 AM EST Narrative LABORATORY [facility] - 01/13/2024 6:37 AM EST Warfarin Therapy INR: 2.0-3.0 conventional anticoagulation INR: 2.5-3.5 high intensity anticoagulation Brittney Balbuena PA-C LAB BLOOD ORDERABL ES Performing Organization Address City/[facility] Co de Phone Number LABORATORY [facility] [address] [place] [address] * RETICULOCYTE PANEL (01/13/2024 3:55 AM EST) Reticulocyte Percent 1.48 0.80 - 1.90 % 01/13/2024 4:35 AM EST LABORATORY [facility] Absolute Reticulocyte 55.5 31.3 - 100.1 K/uL 01/13/2024 4:35 AM EST LABORATORY [facility] Immature Reticuloctye Fraction 7.7 2.5 - 20.6 % 01/13/2024 4:35 AM EST LABORATORY [facility] Reticulocyte Hemoglobin 34.8 29.7 - 37.4 pg 01/13/2024 4:35 AM EST LABORATORY C Blood Venous blood specimen / Unknown Venipuncture / Unknown 01/13/2024 3:55 AM EST 01/13/2024 4:25 AM EST Brittney Balbuena PA-C LAB BLOOD ORDERABL ES Performing Organization Address [facility] Co de Phone Number LABORATORY [facility] [address] [place] [address] * (ABNORMAL) IRON SCREEN, INCLUDING TIBC (01/13/2024 3:55 AM EST) Iron 83 33 - 151 ug/dL 01/13/2024 5:01 AM EST LABORATORY [facility] Iron Binding Capacity 243(L) 250 - 425 ug/dL 01/13/2024 5:01 AM EST LABORATORY [facility] Transferrin Saturation Percent 34 15 - 55 % 01/13/2024 5:01 AM EST LABORATORY [facility] Blood Venous blood specimen / Unknown Venipuncture / Unknown 01/13/2024 3:55 AM EST 01/13/2024 4:25 AM EST Brittney Balbuena PA-C LAB BLOOD ORDERABL ES Performing Organization Address [facility] Co de Phone Number LABORATORY C [address] [place] [address] * TSH (01/13/2024 3:55 AM EST) Pathologist [facility] TSH 1.55 0.27 - 4.20 uIU/mL 01/13/2024 5:56 AM EST LABORATORY [facility] Blood Venous blood specimen / Unknown Venipuncture / Unknown 01/13/2024 3:55 AM EST 01/13/2024 4:25 AM EST Brittney Balbuena PA-C LAB BLOOD ORDERABL ES Performing Organization Address [facility] Co de Phone Number LABORATORY [facility] [address] [place] [address] * (ABNORMAL) HEPATIC FUNCTION PANEL (01/13/2024 3:55 AM EST) Albumin 3.5(L) 3.8 - 5.0 g/dL 01/13/2024 5:01 AM EST LABORATORY [facility] AST 33 10 - 35 U/L 01/13/2024 5:01 AM EST LABORATORY [facility] Alkaline Phosphatase 67 35 - 130 U/L 01/13/2024 5:01 AM EST LABORATORY [facility] ALT 20 10 - 35 U/L 01/13/2024 5:01 AM EST LABORATORY [facility] Bilirubin, Total 0.6 <=1.2 mg/dL 01/13/2024 5:01 AM EST LABORATORY [facility] Bilirubin, Direct 0.2 0.0 - 0.3 mg/dL 01/13/2024 5:01 AM EST LABORATORY [facility] Protein 5.7(L) 6.0 - 8.3 g/dL 01/13/2024 5:01 AM EST LABORATORY [facility] Blood Venous blood specimen / Unknown Venipuncture / Unknown 01/13/2024 3:55 AM EST 01/13/2024 4:25 AM EST Brittney Balbuena PA-C LAB BLOOD ORDERABL ES LABORATORY [facility] [address] [place] [address] * (ABNORMAL) BASIC METABOLIC PANEL (01/13/2024 3:55 AM EST) BUN 14 6 - 20 mg/dL 01/13/2024 5:01 AM EST LABORATORY [facility] Creatinine 0.7 0.5 - 1.0 mg/dL 01/13/2024 5:01 AM EST LABORATORY [facility] Estimated Glomerular Filtration Rate 90 >=60 mL/min 01/13/2024 5:01 AM EST LABORATORY [facility] Comment:eGFR is calculated b ased on the CKD-EPI 2020 equation Sodium 141 135 - 146 mmol/L 01/13/2024 5:01 AM EST LABORATORY [facility] Potassium 4.0 3.5 - 5.1 mmol/L 01/13/2024 5:01 AM EST LABORATORY [facility] Chloride 112(H) 98 - 107 mmol/L 01/13/2024 5:01 AM EST LABORATORY [facility] CO2 18(L) 22 - 32 mmol/L 01/13/2024 5:01 AM EST LABORATORY [facility] Anion Gap 11 7 - 15 mmol/L 01/13/2024 5:01 AM EST LABORATORY [facility] Glucose 106 70 - 120 mg/dL 01/13/2024 5:01 AM EST LABORATORY [facility] Calcium 7.7(L) 8.4 - 10.2 mg/dL 01/13/2024 5:01 AM EST LABORATORY [facility] Blood Venous blood specimen / Unknown Venipuncture / Unknown 01/13/2024 3:55 AM EST 01/13/2024 4:25 AM EST Brittney Balbuena PA-C LAB BLOOD ORDERABL ES Performing Organization Address City/[facility]/ZIP Co de Phone Number LABORATORY [facility] [address] [place] [address] * PREPARE PACKED RED BLOOD CELLS (01/13/2024 3:00 AM EST) Unit Product Code C5901X18 LABORATORY C BLOOD BANK Unit Number [id number] LABO RATORY C BLOOD BANK Unit ABO O LABORATORY [facility] BLOOD BANK Unit Rh POS LABORATORY [facility] BLOOD BANK Unit Crossmatch Compatible LABORATORY [facility] BLOOD BANK Unit Status RE LABORATO RY C BLOOD BANK Unit Blood Type OPOS LABORATORY [facility] BLOOD BANK Unit Expiration [id number] LABORATORY [facility] BLOOD BANK Unit Barcode 5100 LABORAT ORY C BLOOD BANK Unit Product Code [id number] LABORATORY C BLOOD BANK Unit Number [id number] LABO RATORY C BLOOD BANK Unit ABO O LABORATORY [facility] BLOOD BANK Unit Rh POS LABORATORY [facility] BLOOD BANK Unit Crossmatch Compatible LABORATORY [facility] BLOOD BANK Unit Status RE LABORATO RY C BLOOD BANK Unit Blood Type OPOS LABORATORY [facility] BLOOD BANK Unit Expiration [id number] LABORATORY C BLOOD BANK Unit Barcode 5100 LABORAT ORY C BLOOD BANK 01/13/2024 3:00 AM EST Brittney Balbuena PA-C BLD BANK PRODUCT O RDERABLES LABORATORY [facility] BLOOD BANK [address] [place] [address] * EKG (01/13/2024 2:50 AM EST) 01/13/2024 2:50 AM EST Narrative Procedure Note Maurice Choi MD - 01/13/2024 2:50 AM EST REASON FOR STUDY: ROUTINE CONCLUSIONS: Normal sinus rhythm Left axis deviation Left ventricular hypertrophy with secondary QRS widening ST & T wave abnormality, consider anterior ischemia Abnormal ECG When compared with ECG of 27-APR-2012 06:33, Borderline criteria for Lateral infarct are no longer Present Criteria for Inferior-posterior infarct are no longer Present T wave inversion more evident in Anterior leads Nonspecific T wave abnormality has replaced inverted T waves in [place] Ventricular Rate: 71 Atrial Rate: 71 DE Interval: 128 QRS Duration: 118 QT/QTc: 450/489 ms P-R-T [place]: 30 : -37 : 114 degrees Brittney Balbuena PA-C EKG [facility] documented in this encounter Visit Diagnoses Diagnosis 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 Chest pain, unspecified type Valvular heart disease Endocarditis, valve unspecified, unspecified cause SOB (shortness of breath) Shortness of breath 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, unspecified site Depression Depressive disorder, not elsewhere classified Chronic coronary artery disease Coronary atherosclerosis of unspecified type of vessel, [place] or graft S/P CABG x 3 Postsurgical aortocoronary bypass status Anxiety Anxiety state, unspecified 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 Given 01/15/2024 8:48 AM EST 650 mg Given 01/13/2024 8:51 AM EST 650 mg Albuterol Sulfate (Proventil) (2.5 MG/3ML) 0.083% inhalation solution 2.5 mg 2.5 mg, Nebulizer, Q4H PRN Dyspnea, Starting on Fri01/13/24 at 0608, Until Fri01/16/24 at 2118 Given 01/15/2024 6:06 PM EST 2.5 mg Given 01/15/2024 9:09 AM EST 2.5 mg Given 01/14/2024 10:28 PM EST 2.5 mg Amiodarone (Cordarone) 150 mg in dextrose 100 mL BOLUS 150 mg, Central IV, ONCE, 1 dose, On Deb 01/15/24 at 0145, Administer over 10 Minutes, USE 0.22 micron inline filter Rate Change 01/15/2024 1:16 AM EST 900 mg/hr 600 mL/hr Start Infusion 01/15/2024 1:15 AM EST 150 mg 660 mL/hr Amiodarone (Cordarone) 150 mg in dextrose 100 mL BOLUS 150 mg, Central IV, ONCE, 1 dose, On Deb 01/15/24 at 0200, Administer over 10 Minutes, USE 0.22 micron inline filter Rate Change 01/15/2024 1:33 AM EST 594.6 mg/hr 436.1 mL/hr New Bag 01/15/2024 1:33 AM EST 150 mg 660 mL/hr amiodarone (Cordarone) 900 mg in NSS 500 mL INFUSION Central IV, 1 mg/min (33.3333 mL/hr, rounded to 33.33 mL/hr), Amiodarone to be run using Smart pump mode: Pump is programmed to *ALERT* at 200 ml to notify of RATE change from 1mg/min to go to 0.5 mg/min. Use 0.22 micron filter., CONTINUOUS, Starting on Fri01/15/24 at 0245, Until Fri01/15/24 at 0455 Rate Change 01/15/2024 3:55 AM EST 0.5 mg/min 16.67 mL/hr Rate Verify 01/15/2024 3:00 AM EST 1 mg/min 33.33 mL/hr New Bag 01/15/2024 2:38 AM EST 1 mg/min 33.33 mL/hr amiodarone (Cordarone) 900 mg in NSS 500 mL INFUSION Central IV, 0.5 mg/min (16.6667 mL/hr, rounded to 16.67 mL/hr), Amiodarone to be run using Smart pump mode: Pump is programmed to *ALERT* at 200 ml to notify of RATE change from 1mg/min to go to 0.5 mg/min. Use 0.22 micron filter., CONTINUOUS CALL PHARMACY TO DISPENSE, Starting on Fri01/15/24 at 0815, Until Fri01/15/24 at 2213 Rate Verify 01/16/2024 12:00 AM EST 0.5 mg/min 16.66 mL/hr Nurse Change 01/15/2024 7:11 PM EST 0.5 mg/min 16.67 mL/hr Rate Verify 01/15/2024 12:00 PM EST 0.5 mg/min 16.66 mL/hr amiodarone (Cordarone) 900 mg in NSS 500 mL INFUSION Central IV, 0.5 mg/min (16.6667 mL/hr, rounded to 16.67 mL/hr), Please let gtt run out and do not replace Amiodarone to be run using Smart pump mode: Pump is programmed to *ALERT* at 200 ml to notify of RATE change from 1mg/min to go to 0.5 mg/min. Use 0.22 micron filter., CONTINUOUS CALL PHARMACY TO DISPENSE, Starting on Fri01/15/24 at 2245, Until Fri01/16/24 at 0536 Rate Verify 01/15/2024 10:45 PM EST 0.5 mg/min 16.67 mL/hr amiodarone (Cordarone) tab 200 mg 200 mg, Oral, WITH MEALS, First dose on Fri01/15/24 at 0800, Until Discontinued Given 01/16/2024 12:07 PM EST 200 mg Given 01/16/2024 9:00 AM EST 200 mg Given 01/15/2024 4:24 PM EST 200 mg ARIPiprazole (Abilify) tab 1 mg 1 mg, Oral, BID (.AM/PM), First dose on Fri01/13/24 at 0900, Until Discontinued Given 01/16/2024 9:00 AM EST 1 mg Given 01/15/2024 9:22 PM EST 1 mg Given 01/15/2024 8:46 AM EST 1 mg atorvaSTATin (Lipitor) tab 80 mg 80 mg, Oral, Q1700, First dose on Fri01/13/24 at 1700, Until Discontinued Given 01/15/2024 4:24 PM EST 80 mg Given 01/14/2024 4:44 PM EST 80 mg Given 01/13/2024 5:11 PM EST 80 mg clonazePAM (KlonoPIN) tab 0.5 mg 0.5 mg, Oral, Q8H PRN Anxiety, Starting on Fri01/13/24 at 1321, Until Fri01/16/24 at 2118 Given 01/16/2024 5:1 1 AM EST 0.5 mg Given 01/15/2024 9:38 PM EST 0.5 mg Given 01/14/2024 10:22 PM EST 0.5 mg Furosemide (Lasix) inj 40 mg 40 mg, IV Push, ONCE, On Fri01/14/24 at 1830, For 1 dose Given 01/14/2024 7:30 PM EST 40 mg Furosemide (Lasix) inj 40 mg 40 mg, IV Push, ONCE, On Fri01/15/24 at 0900, For 1 dose Given 01/15/2024 8:45 AM EST 40 mg Gabapentin (Neurontin) cap 200 mg 200 mg, Oral, HS, First dose on Fri01/13/24 at 2200, Until Discontinued Given 01/15/2024 9:38 PM EST 200 mg Given 01/14/2024 10:22 PM EST 200 mg Given 01/13/2024 9:07 PM EST 200 mg hEParin inj 5,000 Units 5,000 Units, Subcutaneous, Q8H, First dose on Fri01/14/24 at 0600, Until Discontinued, Post-op Given 01/16/2024 6:38 AM EST 5,000 Units Abdomen Left Lower Given 01/15/2024 9:38 PM EST 5,000 Units A bdomen Right Lower Given 01/15/2024 1:23 PM EST 5,000 Units A bdomen Left Lower Ioversol (Optiray 350) 74 % inj 100 mL 100 mL, Intravenous, ONCE, On Fri01/13/24 at 1215, For 1 dose, Radiology Medication Routing (Non-IR) Given 01/13/2024 12:15 PM EST 67 mL Ioversol (Optiray 350) 74 % inj 100 mL 100 mL, Intravenous, ONCE, On Fri01/15/24 at 0900, For 1 dose, Radiology Medication Routing (Non-IR) Given 01/15/2024 9:00 AM EST 84 mL labetalol (Normodyne) tab 100 mg 100 mg, Oral, BID (.AM/PM), First dose on Fri01/14/24 at 0900, Until Discontinued, Hold for HR less than 60 or SBP below 100 and notify service if dose is held Given 01/16/2024 9:00 AM EST 100 mg Given 01/15/2024 9:22 PM EST 100 mg Given 01/15/2024 8:46 AM EST 100 mg labetalol (Trandate) 500 mg in NSS 250 mL INFUSION Final Conc = 2 mg/mL Intravenous, 0.2 mg/min (6 mL/hr), TOTAL VOLUME TO = 250 mL CONC: 2 MG/mL Please hold for MAP below 60, CONTINUOUS, Starting on Fri01/13/24 at 1815, Until Fri01/13/24 at 1947 Rate Change 01/13/2024 8:27 PM EST 1 mg/min 30 mL/hr New Bag 01/13/2024 7:31 PM EST 0.2 mg/min 6 mL/hr labetalol (Trandate) 500 mg in NSS 250 mL INFUSION Final Conc = 2 mg/mL Intravenous, 1 mg/min (30 mL/hr), TOTAL VOLUME TO = 250 mL CONC: 2 MG/mL Please hold for MAP below 60, CONTINUOUS, Starting on Fri01/13/24 at 2030, Until Fri01/14/24 at 1410 Rate Verify 01/14/2024 1:00 PM EST 1 mg/min 30 mL/hr New Bag 01/14/2024 12:18 PM EST 1 mg/min 30 mL/hr Rate Verify 01/14/2024 12:16 PM EST 1 mg/min 30 mL/hr LORazepam (Ativan) inj 0.5 mg 0.5 mg, IV Push, ONCE, On Fri01/13/24 at 0915, For 1 dose, MUST FURTHER DILUTE FOR IV PUSH WITH EQUAL VOLUME OF NSS Given 01/13/2024 8:51 AM EST 0.5 mg LORazepam (Ativan) inj 1 mg 1 mg, IV Push, Q6H PRN Agitation, Starting on Fri01/13/24 at 1118, Until Fri01/13/24 at 1250, MUST FURTHER DILUTE FOR IV PUSH WITH EQUAL VOLUME OF NSS Given 01/13/2024 11:30 AM EST 1 mg LORAzepam (Ativan) tab 0.5 mg 0.5 mg, Sublingual, ONCE, On Fri01/13/24 at 0645, For 1 dose Given 01/13/2024 6:11 AM EST 0.5 mg Metoprolol Tartrate (Lopressor) inj 5 mg 5 mg, IV Push, ONCE, On Fri01/15/24 at 0145, For 1 dose Given 01/15/2024 1:11 AM EST 5 mg Metoprolol Tartrate (Lopressor) tab 12.5 mg 12.5 mg, Oral, Q12H, First dose on Fri01/13/24 at 1400, Until Discontinued, Hold for HR less than 60 or SBP below 100 and notify service if dose is held Given 01/13/2024 1:39 PM EST 12.5 mg ondansetron (Zofran) inj 4 mg 4 mg, IV Push, Q6H PRN Nausea, Starting on Fri01/13/24 at 0845, Until Fri01/16/24 at 2117 Given 01/16/2024 3:14 PM EST 4 mg Given 01/13/2024 3:40 PM EST 4 mg oxyCODONE (Oxy IR) tab 5 mg 5 mg, Oral, Q4H PRN Pain, Moderate, Starting on Fri01/13/24 at 0532, Until Fri01/16/24 at 2117 Given 01/16/2024 3:12 PM EST 5 mg Given 01/16/2024 5:11 AM EST 5 mg Given 01/15/2024 1:46 PM EST 5 mg PARoxetine (pAXil) tab 20 mg 20 mg, Oral, HS, First dose on Fri01/13/24 at 2200, Until Discontinued Given 01/15/2024 10:44 PM EST 20 mg Given 01/14/2024 10:22 PM EST 20 mg Given 01/13/2024 9:07 PM EST 20 mg PARoxetine (pAXil) tab 40 mg 40 mg, Oral, Daily(AM), First dose on Fri01/13/24 at 0900, Until Discontinued Given 01/16/2024 9:00 AM EST 40 mg Given 01/15/2024 8:45 AM EST 40 mg Given 01/14/2024 8:28 AM EST 40 mg potassium chloride ER tab 20 mEq 20 mEq, Oral, ONCE, On Fri01/14/24 at 1830, For 1 dose, This med should NOT be Crushed or Chewed Given 01/14/2024 7:28 PM EST 20 mEq potassium chloride ER tab 20 mEq 20 mEq, Oral, ONCE, On Fri01/15/24 at 0900, For 1 dose, This med should NOT be Crushed or Chewed Given 01/15/2024 8:48 AM EST 20 mEq potassium chloride ER tab 20 mEq 20 mEq, Oral, PRN Other, Potassium repletion, Starting on Fri01/15/24 at 0530, Until Fri01/16/24 at 2118, Patients MUST meet ALL the following criteria. IF ANY criteria are not met, Do Not Administer, and call covering provider for orders 1. Serum creatinine must be less than 1.5 2. Current urine output must be greater than 30 mL/hr. 3. Patient is taking medications by mouth (PO). Potassium repletion based on level 4.0 - 4.2, Give 20mEq x 1 dose 3.5 - 3.9, Give 20mEq every 2 hours x 2 doses 3.0 - 3.4, Give 20mEq every 2 hours x 3 doses If potassium is less than 3.0, Give 20mEq x1 dose and immediately call the covering provider for orders. 4. BMP result must be no older than 24 hours. Given 01/16/2024 11:00 AM EST 20 mEq Given 01/16/2024 9:00 AM EST 20 mEq Given 01/15/2024 11:11 AM EST 20 mEq sodium chloride 0.9 % flush peripheral milagro 3 mL 3 mL, IV Push, QSHIFT, First dose on Fri01/13/24 at 0800, Until Discontinued, Do not flush if lock, PICC, or central line not in place; IV infusing or unable to flush., Post-op Given 01/16/2024 8 :00 AM EST 3 mL Given 01/16/2024 12:03 AM EST 3 mL Given 01/15/2024 4:00 PM EST 3 mL traZODone (Desyrel) tab 50 mg 50 mg, Oral, QHS, First dose on Fri01/13/24 at 2200, Until Discontinued Given 01/15/2024 9:38 PM EST 50 mg Given 01/14/2024 10:22 PM EST 50 mg Given 01/13/2024 9:07 PM EST 50 mg documented in this encounter Active and Recently Administered Medications Times are shown in EST. Scheduled Medication Order 01/14/2024 01/15/2024 01/16/2024 Amiodarone (Cordarone) 150 mg in dextrose 100 mL BOLUS (COMPLETED) 150 mg, Central IV, ONCE, 1 dose, On Deb 01/15/24 at 0145, Administer over 10 Minutes, USE 0.22 micron inline filter 0115 (Start Infusion - Provider: Nubia Lopez RN)0116 (Rate Change - Provider: Nubia Lopez RN)0125 (Finish Infusion - Provider: Nubia Lopez RN) Amiodarone (Cordarone) 150 mg in dextrose 100 mL BOLUS (COMPLETED) 150 mg, Central IV, ONCE, 1 dose, On Deb 01/15/24 at 0200, Administer over 10 Minutes, USE 0.22 micron inline filter 0133 (New Bag - Provider: Nubia Lopez RN)0133 (Paused - Provider: Nubia Lopez RN)0133 (Rate Change - Provider: Nubia Lopez RN)0148 (Finish Infusion - Provider: Nubia Lopez RN - Comment: per ignacio Balbuena, wanted infusion to run a bit slower) amiodarone (Cordarone) tab 200 mg 200 mg, Oral, WITH MEALS, First dose on Fri01/15/24 at 0800, Until Discontinued 0847 (Given - Provider: Katelyn Mott RN)1111 (Given - Provider: Katelyn Mott RN)1624 (Given - Provider: Katelyn Mott RN) 0900 (Given - Provider: Brandie Edwards, FIORELLA)1207 (Given - Provider: Brandie Edwards RN)1700 (Due) ARIPiprazole (Abilify) tab 1 mg 1 mg, Oral, BID (.AM/PM), First dose on Fri01/13/24 at 0900, Until Discontinued 08 (Given - Provider: Cecilia Balderas RN)2012 (Given - Provider: Nubia Lopez RN) 0846 (Given - Provider: Katelyn Mott RN)2122 (Given - Provider: Nubia Lopez RN) 0900 (Given - Provider: Brandie Edwards RN) atorvaSTATin (Lipitor) tab 80 mg 80 mg, Oral, Q1700, First dose on Fri01/13/24 at 1700, Until Discontinued 1644 (Given - Provider: Cecilia Balderas, FIORELLA) 1624 (Given - Provider: Katelyn Mott RN) 1700 (Due) Furosemide (Lasix) inj 40 mg (COMPLETED) 40 mg, IV Push, ONCE, On Fri01/14/24 at 1830, For 1 dose 1930 (Given - Provider: Cecilia Balderas RN) Furosemide (Lasix) inj 40 mg (COMPLETED) 40 mg, IV Push, ONCE, On Fri01/15/24 at 0900, For 1 dose 0845 (Given - Provider: Katelyn Mott RN) Gabapentin (Neurontin) cap 200 mg 200 mg, Oral, HS, First dose on Fri01/13/24 at 2200, Until Discontinued 2221 (Given - Provider: Nubia Lopez RN) 2138 (Given - Provider: Nubia Lopez RN) hEParin inj 5,000 Units 5,000 Units, Subcutaneous, Q8H, First dose on Fri01/14/24 at 0600, Until Discontinued, Post-op 0509 (Given - Provider: Allie Ramos RN)1519 (Given - Provider: Cecilia Balderas RN)2223 (Given - Provider: Nubia Lopez RN) 0547 (Given - Provider: Nubia Lopez RN)1323 (Given - Provider: Katelyn Mott RN)2138 (Given - Provider: Nubia Lopez RN) 0638 (Given - Provider: Nubia Lopez RN)1400 (Due) Ioversol (Optiray 350) 74 % inj 100 mL (COMPLETED) 100 mL, Intravenous, ONCE, On Fri01/15/24 at 0900, For 1 dose, Radiology Medication Routing (Non-IR) 0900 (Given - Provider: Jinny Lovelace, TECH) labetalol (Normodyne) tab 100 mg 100 mg, Oral, BID (.AM/PM), First dose on Fri01/14/24 at 0900, Until Discontinued, Hold for HR less than 60 or SBP below 100 and notify service if dose is held 827 (Given - Provider: Cecilia Balderas RN)2012 (Given - Provider: Nubia Lopez RN) 0846 (Given - Provider: Katelyn Mott, FIORELLA)2121 (Given - Provider: Nubia Lopez, FIORELLA) 0900 (Given - Provider: Brandie Edwards RN) Metoprolol Tartrate (Lopressor) inj 5 mg (COMPLETED) 5 mg, IV Push, ONCE, On Fri01/15/24 at 0145, For 1 dose 0111 (Given - Provider: Nubia Lopez RN) milk of magnesia (Mom) oral susp 30 mL 30 mL, Oral, ONCE, On Fri01/16/24 at 1545, For 1 dose 1545 (Due) PARoxetine (pAXil) tab 20 mg 20 mg, Oral, HS, First dose on Fri01/13/24 at 2200, Until Discontinued 2221 (Given - Provider: Nubia Lopez RN) 2243 (Given - Provider: Nubia Lopez RN) PARoxetine (pAXil) tab 40 mg 40 mg, Oral, Daily(AM), First dose on Fri01/13/24 at 0900, Until Discontinued 827 (Given - Provider: Cecilia Balderas RN) 0845 (Given - Provider: Katelyn Mott, FIORELLA) 0900 (Given - Provider: Brandie Edwards, FIORELLA) potassium chloride ER tab 20 mEq (COMPLETED) 20 mEq, Oral, ONCE, On Fri01/14/24 at 1830, For 1 dose, This med should NOT be Crushed or Chewed 1928 (Given - Provider: Cecilia Balderas, FIORELLA) potassium chloride ER tab 20 mEq (COMPLETED) 20 mEq, Oral, ONCE, On Fri01/15/24 at 0900, For 1 dose, This med should NOT be Crushed or Chewed 0848 (Given - Provider: Katelyn Mott, FIORELLA) sodium chloride 0.9 % flush peripheral milagro 3 mL 3 mL, IV Push, QSHIFT, First dose on Fri01/13/24 at 0800, Until Discontinued, Do not flush if lock, PICC, or central line not in place; IV infusing or unable to flush., Post-op 0000 (Given - Provider: Allie Ramos RN)0800 (Not Given - Provider: Cecilia Balderas RN - Reason: Parameter(s) Not Met)1645 (Given - Provider: Cecilia Balderas, FIORELLA)2330 (Given - Provider: Nubia Lopez RN) 0800 (Given - Provider: Katelyn Mott, FIORELLA)1600 (Given - Provider: Katelyn Mott, FIORELLA) 0003 (Given - Provider: Nubia Lopez RN)0800 (Given - Provider: Brandie Edwards RN)1600 (Due) traZODone (Desyrel) tab 50 mg 50 mg, Oral, QHS, First dose on Fri01/13/24 at 2200, Until Discontinued 2221 (Given - Provider: Nubia Lopez RN) 2138 (Given - Provider: Nubia Lopez RN) Continuous Medication Order 01/14/2024 01/15/2024 01/16/2024 amiodarone (Cordarone) 900 mg in NSS 500 mL INFUSION (CANCELED) Central IV, 1 mg/min (33.3333 mL/hr, rounded to 33.33 mL/hr), Amiodarone to be run using Smart pump mode: Pump is programmed to *ALERT* at 200 ml to notify of RATE change from 1mg/min to go to 0.5 mg/min. Use 0.22 micron filter., CONTINUOUS, Starting on Fri01/15/24 at 0245, Until Fri01/15/24 at 0455 0238 (New Bag - Provider: Nubia Lopez RN)0300 (Rate Verify - Provider: Nubia Lopez RN)0355 (Rate Change - Provider: Nubia Lopez RN - Comment: per pac jeana)0500 (Finish Infusion - Provider: Nubia Lopez RN) amiodarone (Cordarone) 900 mg in NSS 500 mL INFUSION (CANCELED) Central IV, 0.5 mg/min (16.6667 mL/hr, rounded to 16.67 mL/hr), Amiodarone to be run using Smart pump mode: Pump is programmed to *ALERT* at 200 ml to notify of RATE change from 1mg/min to go to 0.5 mg/min. Use 0.22 micron filter., CONTINUOUS CALL PHARMACY TO DISPENSE, Starting on Fri01/15/24 at 0815, Until Fri01/15/24 at 2213 0500 (Continue on Pump - Provider: Nubia Lopez RN - Comment: pac jeana changed rate to 0.5 at time noted earlier)0500 (Rate Verify - Provider: Nubia Lopez RN)0700 (Rate Verify - Provider: Nubia Lopez RN)1200 (Rate Verify - Provider: Katelyn Mott, RN)1911 (Nurse Change - Provider: Katelyn Mott, RN) 0000 (Rate Verify - Provider: Nubia Lopez RN) amiodarone (Cordarone) 900 mg in NSS 500 mL INFUSION (CANCELED) Central IV, 0.5 mg/min (16.6667 mL/hr, rounded to 16.67 mL/hr), Please let gtt run out and do not replace Amiodarone to be run using Smart pump mode: Pump is programmed to *ALERT* at 200 ml to notify of RATE change from 1mg/min to go to 0.5 mg/min. Use 0.22 micron filter., CONTINUOUS CALL PHARMACY TO DISPENSE, Starting on Fri01/15/24 at 2245, Until Fri01/16/24 at 0536 2245 (Rate Verify - Provider: Nubia Lopez RN) 0600 (Stopped - Provider: Nubia Lopez RN) labetalol (Trandate) 500 mg in NSS 250 mL INFUSION Final Conc = 2 mg/mL (CANCELED) Intravenous, 1 mg/min (30 mL/hr), TOTAL VOLUME TO = 250 mL CONC: 2 MG/mL Please hold for MAP below 60, CONTINUOUS, Starting on Fri01/13/24 at 2030, Until Fri01/14/24 at 1410 0000 (Rate Verify - Provider: Allie Ramos RN)0001 (New Bag - Provider: Allie Ramos, RN)0302 (New Bag - Provider: Allie Ramos, RN)0500 (Rate Verify - Provider: Allie Ramos, FIORELLA)0600 (Rate Verify - Provider: Allie Ramos RN)0800 (Rate Verify - Provider: Cecilia Balderas RN)0900 (Rate Verify - Provider: Cecilia Balderas, FIORELLA)1000 (Rate Verify - Provider: Cecilia Balderas RN)1030 (Rate Verify - Provider: Cecilia Balderas, FIORELLA)1031 (Rate Verify - Provider: Cecilia Balderas, FIORELLA)1100 (Rate Verify - Provider: Cecilia Balderas, FIORELLA)1200 (Rate Verify - Provider: Cecilia Balderas RN)1216 (Rate Verify - Provider: Cecilia Balderas RN)1218 (New Bag - Provider: Cecilia Balderas, FIORELLA)1300 (Rate Verify - Provider: Cecilia Balderas, FIORELLA)1359 (Stopped - Provider: Cecilia Balderas RN) PRN Medication Order 01/14/2024 01/15/2024 01/16/2024 Acetaminophen (Tylenol) tab 650 mg 650 mg, Oral, Q6H PRN Pain, Mild, Starting on Fri01/13/24 at 0532, Until Fri01/16/24 at 2118, Maximum of 4 grams (4000 mg) per day. 0848 (Given - Provider: Katelyn Mott RN) Albuterol Sulfate (Proventil) (2.5 MG/3ML) 0.083% inhalation solution 2.5 mg 2.5 mg, Nebulizer, Q4H PRN Dyspnea, Starting on Fri01/13/24 at 0608, Until Fri01/16/24 at 2118 0641 (Given - Provider: Gilmar Aponte, EMBER-FILTER MACHINE OPERATOR)1342 (Given - Provider: Brandan Montoya RRT)1745 (Given - Provider: Brandan Montoya ACTUARIAL ASSISTANT)2228 (Given - Provider: Gilmar Aponte, EMBER-FILTER MACHINE OPERATOR) 0909 (Given - Provider: Sydnie Castillo RRT)1806 (Given - Provider: Sydnie Castillo RRT) clonazePAM (KlonoPIN) tab 0.5 mg 0.5 mg, Oral, Q8H PRN Anxiety, Starting on Fri01/13/24 at 1321, Until Fri01/16/24 at 2118 2222 (Given - Provider: Nubia Lopez RN) 2138 (Given - Provider: Nubia Lopez RN) 0511 (Given - Provider: Nubia Lopez RN) ondansetron (Zofran) inj 4 mg 4 mg, IV Push, Q6H PRN Nausea, Starting on Fri01/13/24 at 0845, Until Fri01/16/24 at 2117 1514 (Given - Provider: Jinny Leigh, RN) oxyCODONE (Oxy IR) tab 5 mg 5 mg, Oral, Q4H PRN Pain, Moderate, Starting on Fri01/13/24 at 0532, Until Fri01/16/24 at 2117 0013 (Given - Provider: Nubia Lopez RN)1346 (Given - Provider: Katelyn Mott RN) 0511 (Given - Provider: Nubia Lopez RN)1512 (Given - Provider: Jinny Leigh RN) potassium chloride ER tab 20 mEq 20 mEq, Oral, PRN Other, Potassium repletion, Starting on Deb 01/15/24 at 0530, Until Fri01/16/24 at 2117, Patients MUST meet ALL the following criteria. IF ANY criteria are not met, Do Not Administer, and call covering provider for orders 1. Serum creatinine must be less than 1.5 2. Current urine output must be greater than 30 mL/hr. 3. Patient is taking medications by mouth (PO). Potassium repletion based on level 4.0 - 4.2, Give 20mEq x 1 dose 3.5 - 3.9, Give 20mEq every 2 hours x 2 doses 3.0 - 3.4, Give 20mEq every 2 hours x 3 doses If potassium is less than 3.0, Give 20mEq x1 dose and immediately call the covering provider for orders. 4. BMP result must be no older than 24 hours. 0547 (Given - Provider: Nubia Lopez RN)0745 (Given - Provider: Katelyn Mott RN)1111 (Given - Provider: Katelyn Mott RN) 0900 (Given - Provider: Brandie Edwards RN)1100 (Given - Provider: Brandie Edwards RN) documented in this encounter Advance Directives Latest [...] the patient have Health Care Power of Geothermal Production Manager? No Full Code 03/19/2012 2:23 PM 03/23/2012 [...] the patient have Health Care Power of Geothermal Production Manager? No Care Teams Fastener Sewing Machine Operator Relationship Specialty Start Date End Date Valerie Gonsalves MD [address] [facility] [address] PCP - General Family Medicine 12/18/23 documented as of this encounter
--- OUTSIDE RECORDS SUMMARY | 2024-01-22 12:17 | External Medical Summary | Summary of Care ---
Author Name Unknown Organization [facility] Address [address] [place] [address] Phone [phone] Care Team Providers Care Health Plan Manager Name Role Phone Valerie Gonsalves MD Primary Care Provider [phone] Encounter Details Date Type Department Care Team (Latest Contact Info) Description 01/12/2024 10:20 PM EST - 01/12/2024 10:24 PM EST Hospital Encounter Radiology Film File [address] [place] [address] Arrived Discharge Disposition: Home - Self Care Allergies Active Allergy Reactions Criticality Noted Date Comments Amlodipine 12/12/2023 Pneumococcal Vaccines Edema Other,Rash Low 09/09/20 13 documented as of this encounter (statuses as of 01/15/2024) Medications Medication Sig Dispensed Refills Start Date End Date Status METOPROLOL TARTRATE 25 MG PO TABSIndications:Rebecca mcmillan coronary artery disease Take 1/2 tab two times daily 60 Tab 3 03/23/2012 Suspended Additional Information ABILIFY 2 MG PO TABS 1 tab once a day 0 Suspende d ASPIRIN 325 MG PO TABSIndications:IN TERFACED RESULT,Chronic coronary artery disease,BCC (basal cell carcinoma), face,Pericarditis, Neoplasm of uncertain behavior of skin,ADVANCE DIRECTIVE INFORMATION,Histor y of basal cell carcinoma,Depressi on,Anxiety,Tobacco use disorder As directed 200 Tab 0 04/27/2012 Suspended Additional Information Patient not taking.Reported on 01/13/2024 NITROGLYCERIN 0.4 MG SL SUBLIndications:IN TERFACED RESULT 1 Tab Sublingual Every 5 minutes as needed for chest pain. Seek medical attention if you use this medication 20 Tab 20 04/27/2012 Suspended Additional Information clonazePAM (KLONOPIN) 0.5 MG Tablet Take 1 Tablet by mouth at bedtime. 0 01/09/2015 Suspended PARoxetine (PAXIL) 10 MG Tablet 0 01/09/2015 Suspended atorvaSTATin (LIPITOR) 80 MG Tablet 0 01/06/2015 Suspended PARoxetine (PAXIL) 40 MG Tablet Take 1 Tablet by mouth in the morning. 0 01/15/2017 Suspended lisinopril (PRINIVIL) 5 MG Tablet 0 01/17/2017 Suspended gabapentin (NEURONTIN) 100 MG Capsule take 1 capsule by mouth once daily if needed for anxiety 0 04/09/2018 Suspended traZODone (DESYREL) 50 MG Tablet Take 1 Tablet by mouth at bedtime as needed. 0 10/11/2019 Suspended Apixaban 5 MG Oral Tablet (Eliquis) Eliquis 5 mg tablet take 1 tablet by mouth twice a day 0 Suspended PreserVision AREDS 2 Oral Tablet Chewable Take by mouth. 0 Suspended amLODIPine 1.25 MG OR TABS Take by mouth daily. 0 Suspended Levalbuterol Tartrate 45 MCG/ACT Inhalation Aerosol (Xopenex HFA) Inhale 1 Puff by mouth every 4 hours as needed for Wheezing. 0 Suspended Vitamin B12 100 MCG Oral Tablet Take by mouth. 0 Suspe nded Potassium Citrate ER 10 MEQ (1080 MG) Oral Tablet Extended Release (Urocit-K) Take 1 Tablet by mouth in the morning. 0 Suspended documented as of this encounter (statuses as of 01/15/2024) Active Problems Problem Noted Date Diagnosed Date [...] as of this encounter (statuses as of 01/15/2024) Immunizations Name Administration Dates Next Due Pneumococcal [...] this encounter Medical Devices Implanted Type Area Manager Wireless Device Identifier Shelf Expiration Date Model / Serial / Lot Sut Steel 6 [id number] - [id number] Implanted:Qty: 6 on 03/19/2012 at OR [facility] N/A: Chest DO NOT USE 11/17/2016 [id number] / / [id number] Graft Marker Coronary - [id number] Implanted:Qty: 2 on 03/19/2012 at OR [facility] N/A: Aorta VM CARDIO VASCULAR 05/17/2014 [id number] / / [id number] documented as of this encounter Procedures Procedure Name Priority Date/Time Associated Diagnosis Comments RADIOLOGY EXAM - CT (IMAGES ONLY, NO REPORT) Routine 01/12/2024 10:20 PM EST documented in this encounter Results * RADIOLOGY EXAM - CT (IMAGES ONLY, NO REPORT) (01/12/2024 10:20 PM EST) 01/12/2024 10:1 8 PM EST Narrative Scheduling, Silent - 01/14/2024 2:52 PM EST This is an imaging study not interpreted or resulted by a [employer] or [employer] contracted radiologist. Brandan Fish MD RAD CT documented in this encounter Advance Directives Latest Code Status on File Code Status Date Activated Date Inactivated Comments Full Code 01/13/2024 2:57 AM This order reflects the patients wishes and [...] the patient have Health Care Power of Soil Sort Worker? No Full Code 03/19/2012 2:23 PM 03/23/2012 [...] the patient have Health Care Power of Soil Sort Worker? No Care Teams Health Plan Manager Relationship Specialty Start Date End Date Valerie Gonsalves MD [address] [facility] [place] [address] PCP - General Family Medicine 12/18/23 documented as of this encounter
--- OUTSIDE RECORDS SUMMARY | 2024-01-22 12:17 | External Medical Summary ---
Author Name Unknown Address Unknown Organization [id number]:LABORATORY [facility] [place] - [address] [place] [address] Laboratory Report Ordering Provider Test Date Status KOKI MORA 01/16/2024 04:30:00 Final Warfarin Therapy
INR: 2 .0-3.0 conventional anticoagulation
INR: 2.5- 3.5 high intensity anticoagulation Observation Date Value Abnormality Reference (Units ) Status PT 01/16/2024 04:30:00 14.3 11.6-15.2 (seconds) Final INR 01/16/2024 04:30:00 1.1 0.8-1.2 Final Performing Location LABORATORY [facility] [place] - [address] [place] [address]
--- OUTSIDE RECORDS SUMMARY | 2024-01-22 12:17 | External Medical Summary | Summary of Care ---
Author Name Unknown Organization [facility] Address [address] [place] [address] Phone [phone] Care Team Providers Care Ground Operations Supervisor Name Role Phone Valerie Gonsalves MD Primary Care Provider [phone] Encounter Details Date Type Department Care Team (Latest Contact Info) Description 01/12/2024 10:40 PM EST - 01/12/2024 11:59 PM EST Hospital Encounter Radiology Film File [address] [place] [address] Arrived Discharge Disposition: Home - [...] this encounter Medical Devices Implanted Type Area Sandfill Operator Device Identifier Shelf Expiration Date Model / Serial / Lot Sut Steel 6 M654g - [id number] Implanted:Qty: 6 on 03/19/2012 at OR [facility] N/A: Chest DO NOT USE 11/17/2016 [id number] / / [id number] Graft Marker Coronary - [id number] Implanted:Qty: 2 on 03/19/2012 at OR [facility] N/A: Aorta VM CARDIO VASCULAR 05/17/2014 [id number] / / [id number] documented as of this encounter Procedures Procedure Name Priority Date/Time Associated Diagnosis Comments RADIOLOGY EXAM - GENERAL RAD (IMAGES ONLY,NO REPORT) Routine 01/12/2024 10:40 PM EST documented in this encounter Results * RADIOLOGY EXAM - GENERAL RAD (IMAGES ONLY,NO REPORT) (01/12/2024 10:40 PM EST) 01/12/2024 10:3 7 PM EST Narrative Scheduling, Silent - 01/14/2024 2:51 PM EST This is an imaging study not interpreted or resulted by a [employer] or [employer] contracted radiologist. Brandan Fish MD RADIOLOGY ( RAD GENERAL) documented in this encounter Advance Directives Latest [...] the patient have Health Care Power of Director Sales? No Full Code 03/19/2012 2:23 PM 03/23/2012 [...] the patient have Health Care Power of Director Sales? No Care Teams Ground Operations Supervisor Relationship Specialty Start Date End Date Valerie Gonsalves MD [address] [place] [address] PCP - General Family Medicine 12/18/23 documented as of this encounter
--- OUTSIDE RECORDS SUMMARY | 2024-01-22 12:17 | External Medical Summary | Summary of Care ---
Author Name Unknown Organization [facility] Address [address] [place] [address] Phone [phone] Care Team Providers Care Manager Of Regulatory Affairs Name Role Phone Valerie Gonsalves MD Primary Care Provider [phone] Reason for Visit * Reason Onset Date Comments Order Request 01/17/2024 Encounter Details Date Type Department Care Team (Late st Contact Info) Description 01/17/2024 Telephone Cardiothoracic Surg [facility] [address], [place] [id number] Blanca Belle PA-C [address], [place] [phone] Order Request Allergies Active Allergy Reactions Criticality [...] encounter Miscellaneous Notes * Telephone Encounter - Jacinta Underwood OSA - 01/20/2024 9:43 AM EST Pt (Tirso) calling in stating [facility]. Could someone [facility] the orders [facility] [...] 2:15 PM EDT Office Visit Cardiothoracic Surg [facility] [address] [place] [address] Brandan Fish MD [address] [place] [address] Scheduled Procedures Name Priority Associated Diagnoses Date/Ti [...] this encounter Medical Devices Implanted Type Area Records Officer Device Identifier Shelf Expiration Date Model / Serial / Lot Sut Steel 6 M654g - [id number] Implanted:Qty: 6 on 03/19/2012 at OR [facility] N/A: Chest DO NOT USE 11/17/2016 [id number] / / [id number] Graft Marker Coronary - [id number] Implanted:Qty: 2 on 03/19/2012 at OR [facility] N/A: Aorta VM CARDIO VASCULAR 05/17/2014 [id number] / / [id number] documented as of this encounter Advance Directives [...] the patient have Health Care Power of Treater Helper? No Full Code 03/19/2012 2:23 PM 03/23/2012 [...] the patient have Health Care Power of Treater Helper? No Care Teams Manager Of Regulatory Affairs Relationship Specialty Start Date End Date Valerie Gonsalves MD [address] [facility] [place] [address] PCP - General Family Medicine 12/18/23 documented as of this encounter
--- OUTSIDE RECORDS SUMMARY | 2024-01-22 12:17 | External Medical Summary | Summary of Care ---
Author Name Unknown Organization [facility] Address [address] [place] [address] Phone [phone] Care Team Providers Care Showroom Sales Assistant Name Role Phone Valerie Gonsalves MD Primary Care Provider [phone] Reason for Visit * Reason Onset Date Comments Order Request 01/17/2024 Encounter Details Date Type Department Care Team (Late st Contact Info) Description 01/17/2024 Telephone Cardiothoracic Surg [facility] [address], [place] [phone] Blanca Belle PA-C [address], [place] [phone] Order Request Allergies Active Allergy Reactions Criticality Noted Date Comments Amlodipine 12/12/2023 Pneumococcal Vaccines Edema Other,Rash Low 09/09/20 13 documented as of this encounter (statuses as of 01/21/2024) Medications Medication Sig Dispensed Refills Start Date [...] as of this encounter (statuses as of 01/21/2024) Active Problems Problem Noted Date Diagnosed Date [...] as of this encounter (statuses as of 01/21/2024) Immunizations Name Administration Dates Next Due Pneumococcal [...] Capellan RN - 01/20/2024 1:[address] [facility] will not accept orders without a precert. Email sent to [facility] team to obtain precert. This can take 3-5 business days. Will fax all information once precert is received. Attempted to call patient to make her aware. There was no answer at this time, I left a VM with my call back number. Rain Capellan RN 01/20/2024 2:01 PM * Telephone Encounter - Jacinta Underwood OSA - 01/20/2024 9:43 AM EST Pt (Tirso) calling in stating they want to go to [facility] Could someone fax the orders to [facility] so the pt can be scheduled. The states [facility] still doesn't have the orders for the pt to get scheduled yet. Pt would like an appointment set up ANJELICA. documented in this encounter Plan of Treatment Upcoming Encounters Date Type Department Care Team (Late st Contact Info) Description 01/23/2024 10:00 AM EST Telemedicine Cardi[facility]acic [facility] [address] [place] [address] Davey Mobley PA-C Formerly named [facility] [address] [facility] [place] [address] 02/18/2024 2:15 PM EDT Office Visit Cardiothoracic Surg [facility] [address] [place] [address] Brandan Fish MD [address] [place] [address] Scheduled Procedures Name Priority Associated Diagnoses Date/Ti [...] this encounter Medical Devices Implanted Type Area In Store Demonstrator Device Identifier Shelf Expiration Date Model / Serial / Lot Sut Steel 6 M654g - [id number] Implanted:Qty: 6 on 03/19/2012 at OR [facility] N/A: Chest DO NOT USE 11/17/2016 M654G / / [id number] Graft Marker Coronary - [id number] Implanted:Qty: 2 on 03/19/2012 at OR [facility] N/A: Aorta VM CARDIO VASCULAR 05/17/2014 [id number] / / [id number] documented as of this encounter Advance Directives [...] the patient have Health Care Power of Manager Mobility? No Full Code 03/19/2012 2:23 PM 03/23/2012 [...] the patient have Health Care Power of Manager Mobility? No Care Teams Showroom Sales Assistant Relationship Specialty Start Date End Date Valerie Gonsalves MD [address] [place] [address] PCP - General Family Medicine 12/18/23 documented as of this encounter
--- OUTSIDE RECORDS SUMMARY | 2024-01-22 12:17 | External Medical Summary | Summary of Care ---
Author Name Unknown Organization [facility] Address [address] [place] [address] Phone [phone] Care Team Providers Care Spiritual Advisor Name Role Phone Valerie Gonsalves MD Primary Care Provider [phone] Encounter Details Date Type Department Care Team (Latest Contact Info) Description 01/12/2024 10:25 PM EST - 01/12/2024 10:39 PM EST Hospital Encounter Radiology Film File [address] [place] [address] Arrived Discharge Disposition: Home - [...] this encounter Medical Devices Implanted Type Area Food And Beverage Intern Device Identifier Shelf Expiration Date Model / Serial / Lot Sut Steel 6 M654g - [id number] Implanted:Qty: 6 on 03/19/2012 [place] [facility] [place]/A: Chest DO NOT USE 11/17/2016 [id number] / / [id number] Graft Marker Coronary - [id number] Implanted:Qty: 2 on 03/19/2012 [place] [facility] [place]/A: Aorta VM CARDIO VASCULAR 05/17/2014 [id number] / / [id number] documented as of this encounter Procedures Procedure Name Priority Date/Time Associated Diagnosis Comments RADIOLOGY EXAM - CT (IMAGES ONLY, NO REPORT) Routine 01/12/2024 10:25 PM EST documented in this encounter Results * RADIOLOGY EXAM - CT (IMAGES ONLY, NO REPORT) (01/12/2024 10:25 PM EST) 01/12/2024 10:1 8 PM EST Narrative Scheduling, Silent - 01/14/2024 2:53 PM EST This is an imaging study not interpreted or resulted by a [employer])er or [employer] contracted radiologist. Brandan Fish MD RAD CT [...] the patient have Health Care Power of Tank Pumper? No Full Code 03/19/2012 2:23 PM 03/23/2012 [...] the patient have Health Care Power of Tank Pumper? No Care Teams Spiritual Advisor Relationship Specialty Start Date End Date Valerie Gonsalves MD [address] [facility] [place] [address] PCP - General Family Medicine 12/18/23 documented as of this encounter
--- OUTSIDE RECORDS SUMMARY | 2024-01-22 12:18 | External Medical Summary ---
Author Name Unknown Address Unknown Organization K01:LABORATORY [facility] - [address] [facility] [address] Laboratory Report Ordering Provider Test Date Status YEYO BAKER 01/13/2024 09:25:00 Final Observation Date Value Abnormality Reference (Units ) Status BUN 01/13/2024 09:25:00 15 6-20 (mg/dL) Final Creatinine 01/13/2024 09:25:00 0.7 0.5-1.0 (mg/dL) Final Glomerular filtration rate/1.73 sq M.predicted [Volume Rate/Area] in Serum, Plasma or Blood by Creatinine-based formula (CKD-EPI) 01/13/2024 09:25:00 >90 >=60 (mL/min) Final eGFR is calculated based on the CKD-EPI 2020 equation SODIUM 01/13/2024 09:25:00 140 135-146 (m mol/L) Final Potassium 01/13/2024 09:25:00 3.8 3.5-5.1 (m mol/L) Final Cl 01/13/2024 09:25:00 111 Above high normal 98 -107 (mmol/L) Final CO2 01/13/2024 09:25:00 19 Below low normal 22- 32 (mmol/L) Final Anion gap 01/13/2024 09:25:00 10 7-15 (mmol /L) Final Glucose 01/13/2024 09:25:00 109 70-120 (mg /dL) Final Calcium 01/13/2024 09:25:00 8.0 Below low normal 8.4 -10.2 (mg/dL) Final Performing Location LABORATORY [facility] - [address] [place] [address]
--- OUTSIDE RECORDS SUMMARY | 2024-01-22 12:18 | External Medical Summary ---
Author Name Unknown Address Unknown Organization K01:LABORATORY [facility] - [facility] [address] [place] [address] Laboratory Report Ordering Provider Test Date Status YEYO BAKER 01/15/2024 04:44:00 Final Observation Date Value Abnormality Reference (Units ) Status BUN 01/15/2024 04:44:00 16 6-20 (mg/dL) Final Creatinine 01/15/2024 04:44:00 0.8 0.5-1.0 (mg/dL) Final Glomerular filtration rate/1.73 sq M.predicted [Volume Rate/Area] in Serum, Plasma or Blood by Creatinine-based formula (CKD-EPI) 01/15/2024 04:44:00 80 >=60 (mL/min) Final eGFR is calculated based on the CKD-EPI 2020 equation SODIUM 01/15/2024 04:44:00 135 135-146 (m mol/L) Final Potassium 01/15/2024 04:44:00 3.3 Below low normal 3.5 -5.1 (mmol/L) Final Cl 01/15/2024 04:44:00 103 98-107 (mm ol/L) Final CO2 01/15/2024 04:44:00 23 22-32 (mmo l/L) Final Anion gap 01/15/2024 04:44:00 9 7-15 (mmol /L) Final Glucose 01/15/2024 04:44:00 116 70-120 (mg /dL) Final Calcium 01/15/2024 04:44:00 8.4 8.4-10.2 ( mg/dL) Final Performing Location LABORATORY [facility] - [address] [place] [address]
--- OUTSIDE RECORDS SUMMARY | 2024-01-22 12:18 | External Medical Summary ---
Author Name Unknown Address Unknown Organization K01[facility] [address] [place] [address] [place] [address] Laboratory Report Ordering Provider Test Date Status FLORINA GIBBONS 01/13/2024 16:34:00 Final Observation Date Value Abnormality Reference (Units ) Status Lactic Acid 01/13/2024 16:34:00 1.8 0.4-2.0 (mmol/L) Final Performing Location [facility] [place] [address] [facility] [address]
--- OUTSIDE RECORDS SUMMARY | 2024-01-22 12:18 | External Medical Summary ---
Author Name Unknown Address Unknown Organization K01:[facility] [address] [place] [address] Laboratory Report Ordering Provider Test Date Status KOKI MORA 01/15/2024 04:44:00 Final Observation Date Value Abnormality Reference (Units ) Status WBC, Total 01/15/2024 04:44:00 8.79 4.00-10.80 (K/uL) Final RBC 01/15/2024 04:44:00 3.37 3.85-5.15 (M/uL) Final Hemoglobin 01/15/2024 04:44:00 10.1 Below low normal 12.0-15.3 (g/dL) Final HCT 01/15/2024 04:44:00 31.4 Below low normal 36.0-45.2 (%) Final MCV 01/15/2024 04:44:00 93.2 81.5-97.5 (fL) Final MCH 01/15/2024 04:44:00 30.0 27.0-34.0 (pg) Final MCHC 01/15/2024 04:44:00 32.2 32.0-36.0 (g/dL) Final RDW 01/15/2024 04:44:00 13.7 11.5-15.5 (%) Final Platelets 01/15/2024 04:44:00 126 Below low normal 140-400 (K/uL) Final MPV 01/15/2024 04:44:00 9.2 6.6-11.1 (fL) Final Nucleated erythrocytes/100 leukocytes [Ratio] in Blood by Automated count 01/15/2024 04:44:00 0 <=0 (/100 WBCs) Final Performing Location [facility] - [address] [place] [address]
--- OUTSIDE RECORDS SUMMARY | 2024-01-22 12:18 | External Medical Summary | Summary of Care ---
Author Name Unknown Organization [facility] Address [address] [place] [address] Phone [phone] Care Team Providers Care Narrative Writer Name Role Phone Valerie Gonsalves MD Primary Care Provider [phone] Reason for Visit * Auth/Cert Specialty Diagnoses / Procedures Referred By Fozia t Referred To Contact Diagnoses acute aortic syndrome [facility] [address] [place] [address] Phone: [phone] [facility] [address] [place] [address] Referral ID Status Reason Start Date Expiration Date Visits Re quested Visits Authorized [id number] Encounter Details Date Type Department Care Team (Latest Contact Info) Description 01/13/2024 10:21 AM EST - 01/13/2024 11:59 PM EST Hospital Encounter Cardiac Studies [facility] [address] [place] [address] Discharge Disposition: Home - Self Care Allergies Active Allergy Reactions Criticality Noted Date Comments Amlodipine 12/12/2023 Pneumococcal Vaccines Edema Other,Rash Low 09/09/20 13 documented as of this encounter (statuses as of 01/14/2024) Medications Medication Sig Dispensed Refills Start Date End Date Status METOPROLOL TARTRATE 25 MG PO TABSIndications:Ch ronic coronary artery disease Take 1/2 tab two [...] as of this encounter (statuses as of 01/14/2024) Active Problems Problem Noted Date Diagnosed Date 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 S/P CABG x [...] as of this encounter (statuses as of 01/14/2024) Immunizations Name Administration Dates Next Due Pneumococcal [...] this encounter Medical Devices Implanted Type Area Regulatory Affairs Spec Device Identifier Shelf Expiration Date Model / Serial / Lot Sut Steel 6 [id number] - [id number] Implanted:Qty: 6 on 03/19/2012 at [place] [facility] [place] N/A: Chest DO NOT USE 11/17/2016 [id number] / / [id number] Graft Marker Coronary - [id number] Implanted:Qty: 2 on 03/19/2012 at OR [facility] N/A: Aorta VM CARDIO VASCULAR 05/17/2014 [id number] / / [id number] documented as of this encounter Procedures Procedure Name Priority Date/Time Associated Diagnosis Comments ECHO, COMPLETE (2D), TRANS-THORACIC Routine 01/13/2024 10:23 AM EST Chest pain, unspecified type documented in this encounter Visit Diagnoses Diagnosis 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 documented in this encounter Administered Medications Inactive Administered Medications - up to 3 most recent administrations Medication Order MAR Action Action Date Dose Rate Site perflutren lipid microsphere inj SUSP 1.956 mg 1.956 mg, Intravenous, ONCE PRN Other, For Echo Only - Suboptimal Echo Images, Starting on e 01/13/24 at 1021, Until Fri01/13/24 at 1220, For 2 hours, Administer IVP over 45 seconds, Cardiac Studies_HODHOV Given 01/13/2024 10:22 AM EST 1.956 mg documented in this encounter Advance Directives Latest [...] the patient have Health Care Power of Temporary Administrative Assistant? No Full Code 03/19/2012 2:23 PM 03/23/2012 [...] the patient have Health Care Power of Temporary Administrative Assistant? No Care Teams Narrative Writer Relationship Specialty Start Date End Date Valerie Gonsalves MD [address] [place] [facility] [address] PCP - General Family Medicine 12/18/23 documented as of this encounter
--- OUTSIDE RECORDS SUMMARY | 2024-01-22 12:18 | External Medical Summary ---
Author Name Unknown Address Unknown Organization K01:[facility] [address] [facility] [address] Laboratory Report Ordering Provider Test Date Status KOKI MORA 01/15/2024 04:44:00 Final Observation Date Value Abnormality Reference (Units ) Status SYNC LEUKOCYTES IN BLOOD BY AUTOMATED COUNT 01/15/2024 04:44:00 8.79 4.00-10.80 (K/uL) Final Segs 01/15/2024 04:44:00 70.2 40.0-75.0 (%) Final Lymphs % 01/15/2024 04:44:00 14.4 Below low normal 18.0-42.0 (%) Final Monos 01/15/2024 04:44:00 13.9 Above high normal 1.0-11.0 (%) Final Eosinophils 01/15/2024 04:44:00 0.6 0.0-6.0 (%) Final Basos 01/15/2024 04:44:00 0.3 0.0-2.0 (%) Final Immature Granulocyte, Percent 01/15/2024 04:44:00 0.6 0.0-2.0 (%) Final Absolute Segs 01/15/2024 04:44:00 6.17 1.80-7.70 (K/uL) Final Lymphs, absolute 01/15/2024 04:44:00 1.27 1.00-4.80 (K/ul) Final Monos, Abs 01/15/2024 04:44:00 1.22 Above high normal 0.00-1.10 (K/uL) Final Eos, Abs 01/15/2024 04:44:00 0.05 0.00-0.70 (K/uL) Final Basos, Abs 01/15/2024 04:44:00 0.03 0.00-0.20 (K/uL) Final Immature Granulocytes, Number 01/15/2024 04:44:00 0.05 0.00-0.20 (K/uL) Final Performing Location [facility] [facility] [address] [address]
--- OUTSIDE RECORDS SUMMARY | 2024-01-22 12:18 | External Medical Summary | Summary of Care ---
Author Name Unknown Organization [facility] Address [address] [place] [address] Phone [phone] Care Team Providers Care Career And Transition Teacher Name Role Phone Valerie Gonsalves MD Primary Care Provider [phone] Encounter Details Date Type Department Care Team (Late st Contact Info) Description 01/12/2024 Orders Only Cardiothoracic Surg [facility] [address] [place] [address] Brandan Fish MD [address], [place] [id number] Allergies Active Allergy Reactions Criticality Noted Date [...] this encounter Medical Devices Implanted Type Area Federal Appellate Law Clerk Device Identifier Shelf Expiration Date Model / Serial / Lot Sut Steel 6 M654g - [id number] Implanted:Qty: 6 on 03/19/2012 [place] [facility] [place]A: Chest DO NOT USE 11/17/2016 M654G / / [id number] Graft Marker Coronary - [id number] Implanted:Qty: 2 on 03/19/2012 [place] [facility] [place]A: Aorta VM CARDIO VASCULAR 05/17/2014 [id number] / / [id number] documented as of this encounter Procedures Procedure [...] study not interpreted or resulted by a Seen or Seen contracted radiologist. Brandan Fish MD RADIOLOGY ( [...] the patient have Health Care Power of Environmental Health Manager? No Full Code 03/19/2012 2:23 PM [...] the patient have Health Care Power of Environmental Health Manager? No Care Teams Career And Transition Teacher Relationship Specialty Start Date End Date Valerie Gonsalves MD [address] [place] [address] PCP - General Family Medicine 12/18/23 documented as of this encounter
--- OUTSIDE RECORDS SUMMARY | 2024-01-22 12:18 | External Medical Summary | Summary of Care ---
Author Name Unknown Organization [facility] Address [address] [place] [address] Phone [phone] Care Team Providers Care Cook Dessert Name Role Phone Ector Stanton MD Primary Care Provider [phone] Encounter Details Date Type Department Care Team (Latest Contact Info) Description 07/14/2023 12:15 PM EDT - 07/14/2023 11:59 PM EDT Hospital Encounter Radiology Film [facility] [address] [place] [address] Discharge Disposition: Home - Self [...] by mouth twice a day 0 Suspended documented as of this encounter [...] AGES 18-100 12/01/2018 12/01/2013, 12/01/2013 COVID-19 Vaccine (2022-2 4 season) 2023 Influenza Vaccine (FLU shot) [...] this encounter Medical Devices Implanted Type Area Specialist Employee Labor Relations Device Identifier Shelf Expiration Date Model / Serial / Lot Sut Steel 6 M654g - [id number] Implanted:Qty: 6 on 03/19/2012 at OR [facility] [place] N/A: Chest DO NOT USE 11/17/2016 M654G / / [id number] Graft Marker Coronary - [id number] Implanted:Qty: 2 on 03/19/2012 at OR [facility] [place] N/A: Aorta VM CARDIO VASCULAR 05/17/2014 [id number] / / [id number] documented as of this encounter Procedures Procedure Name Priority Date/Time Associated Diagnosis Comments RADIOLOGY EXAM - CT (IMAGES ONLY, NO REPORT) Routine 07/14/2023 12:15 PM EDT documented in this encounter Results * RADIOLOGY EXAM - CT (IMAGES ONLY, NO REPORT) (07/14/2023 12:15 PM EDT) 07/14/2023 12:1 1 PM EDT Narrative Scheduling, Silent - 01/14/2024 2:55 PM EST This is an imaging study not interpreted or resulted by a [facility] or [facility] contracted radiologist. Brandan Fish MD RAD CT [...] the patient have Health Care Power of Buttonhole Maker? No Full Code 03/19/2012 2:23 PM 03/23/2012 [...] the patient have Health Care Power of Buttonhole Maker? No Care Teams Cook Dessert Relationship Specialty Start Date End Date Ector Stanton MD PCP - General Internal Medicine 02/12/15 12/17/23 documented as of this encounter
--- OUTSIDE RECORDS SUMMARY | 2024-01-22 12:18 | External Medical Summary | Summary of Care ---
Author Name Unknown Organization [facility] Address [address] [place] [address] Phone [phone] Care Team Providers Care Mercerizing Range Controller Name Role Phone Valerie Gonsalves MD Primary Care Provider Reason for Visit * Auth/Cert Specialty Diagnoses / Procedures Referred By Fozia t Referred To Contact Diagnoses acute aortic syndrome [facility] [address] [place] [address] Phone: [phone] Admissions [facility] [address] [place] [address] Referral ID Status Reason Start Date Expiration Date Visits Re quested Visits Authorized [id number] [phone] Encounter Details Date Type Department Care Team (Latest Contact Info) Description 01/13/2024 7:47 AM EST - 01/13/2024 10:20 AM EST Hospital Encounter Cardiac Studies [facility] [address] [place] [address] Discharge Disposition: Home - Self [...] 200 Tab 0 04/27/2012 Suspended Additional Information NITROGLYCERIN 0.4 MG SL SUBLIndications:IN TERFACED RESULT [...] as of this encounter Miscellaneous Notes * Ancillary Progress Note - Nicole Ulrich RDCS - 01/13/2024 7:50 AM EST Overnite bedside limited echo done by screwhead stoner and polisher. No residence manager present. documented in this encounter Plan of Treatment Scheduled Procedures [...] this encounter Medical Devices Implanted Type Area Reprographics Associate Device Identifier Shelf Expiration Date Model / Serial / Lot Sut Steel 6 M654g - [id number] Implanted:Qty: 6 on 03/19/2012 at [place] [facility] [place] N/A: Chest DO NOT USE 11/17/2016 M654G / / [id number] Graft Marker Coronary - [id number] Implanted:Qty: 2 on 03/19/2012 at [place] [facility] [place] N/A: Aorta VM CARDIO VASCULAR 05/17/2014 [id number] / / [id number] documented as of this encounter Procedures Procedure Name Priority Date/Time Associated Diagnosis Comments ECHO, TTE, LIMITED Routine 01/13/2024 7: 52 AM EST Valvular heart disease documented in this encounter Results * ECHO, TTE, LIMITED (01/13/2024 7:52 AM EST) LEFT VENTRICULAR EJECTION FRACTION 55 % [facility] 01/13/2024 9:43 AM EST Brittney Balbuena PA-C ECHOCARDIOLOGY [facility] documented in this encounter Advance Directives Latest [...] the patient have Health Care Power of Synthetic Filament Spinner? No Full Code 03/19/2012 2:23 PM 03/23/2012 [...] the patient have Health Care Power of Synthetic Filament Spinner? No Care Teams Mercerizing Range Controller Relationship Specialty Start Date End Date Valerie Gonsalves MD [address] [place] [address] PCP - General Family Medicine 12/18/23 documented as of this encounter
--- OUTSIDE RECORDS SUMMARY | 2024-01-22 12:18 | External Medical Summary | Summary of Care ---
Author Name Unknown Organization [facility] Address [address] [place] [address] Phone [phone] Care Team Providers Care Hardness Tester Name Role Phone Valerie Gonsalves MD Primary Care Provider [phone] Encounter Details Date Type Department Care Team (Late st Contact Info) Description 01/12/2024 Orders Only Cardiothoracic Surg [facility] [address] [place] [address] Brandan Fish MD [address] [place], [place] [phone] Allergies Active Allergy Reactions Criticality Noted Date [...] this encounter Medical Devices Implanted Type Area Entry Level Financial Analyst Device Identifier Shelf Expiration Date Model / Serial / Lot Sut Steel 6 M654g - [id number] Implanted:Qty: 6 on 03/19/2012 at [place] [facility] [place] N/A: Chest DO NOT USE 11/17/2016 M654G / / [id number] Graft Marker Coronary - [id number] Implanted:Qty: 2 on 03/19/2012 at OR [facility] [place] N/A: Aorta VM CARDIO VASCULAR 05/17/2014 [id number] / / [id number] documented as of this encounter Procedures Procedure [...] study not interpreted or resulted by a [facility] or [facility] contracted radiologist. Brandan Fish MD RAD CT [...] the patient have Health Care Power of Commercial Glazier? No Full Code 03/19/2012 2:23 PM 03/23/2012 [...] the patient have Health Care Power of Commercial Glazier? No Care Teams Hardness Tester Relationship Specialty Start Date End Date Valerie Gonsalves MD [address] [place] [address] PCP - General Family Medicine 12/18/23 documented as of this encounter
--- OUTSIDE RECORDS SUMMARY | 2024-01-22 12:18 | External Medical Summary | Summary of Care ---
Author Name Unknown Organization [facility] Address [address] [place] [address] Phone [phone] Care Team Providers Care Automobile Washer Steam Name Role Phone Valerie Gonsalves MD Primary Care Provider [phone] Encounter Details Date Type Department Care Team (Late st Contact Info) Description 01/12/2024 Orders Only Cardiothoracic Surg [facility] [address] [place] [address] Brandan Fish MD [address], [place] [phone] Allergies Active Allergy Reactions Criticality Noted Date [...] this encounter Medical Devices Implanted Type Area Gold Beater Device Identifier Shelf Expiration Date Model / Serial / Lot Sut Steel 6 M654g - [id number] Implanted:Qty: 6 on 03/19/2012 at [place] [facility] [place] N/A: Chest DO NOT USE 11/17/2016 M654G / / [id number] Graft Marker Coronary - [id number] Implanted:Qty: 2 on 03/19/2012 at [place] [facility] [place] N/A: Aorta VM CARDIO VASCULAR 05/17/2014 [id number] / / [id number] documented as of this encounter Procedures Procedure [...] study not interpreted or resulted by a [facility] or [facility] contracted radiologist. Brandan Fish MD RAD CT [...] the patient have Health Care Power of Occupational Analyst? No Full Code 03/19/2012 2:23 PM 03/23/2012 [...] the patient have Health Care Power of Occupational Analyst? No Care Teams Automobile Washer Steam Relationship Specialty Start Date End Date Valerie Gonsalves MD [address] [place] [address] PCP - General Family Medicine 12/18/23 documented as of this encounter
--- OUTSIDE RECORDS SUMMARY | 2024-01-22 12:18 | External Medical Summary ---
Author Name Unknown Address Unknown Organization : Laboratory Report Ordering Provider Test Date Status DIRK JONES 01/13/2024 12:43:35 Final Observation Date Value Abnormality Reference (Units ) Status Glucose Point of Care 01/13/2024 12:43:35 106 70-120 (mg/dL) Final Performing Location
--- OUTSIDE RECORDS SUMMARY | 2024-01-22 12:18 | External Medical Summary ---
Author Name Unknown Address Unknown Organization K01:LABORATORY [facility] - [address] [place] [address] Laboratory Report Ordering Provider Test Date Status YEYO BAKER 01/14/2024 04:36:00 Final Observation Date Value Abnormality Reference (Units ) Status BUN 01/14/2024 04:36:00 16 6-20 (mg/dL) Final Creatinine 01/14/2024 04:36:00 0.7 0.5-1.0 (mg/dL) Final Glomerular filtration rate/1.73 sq M.predicted [Volume Rate/Area] in Serum, Plasma or Blood by Creatinine-based formula (CKD-EPI) 01/14/2024 04:36:00 87 >=60 (mL/min) Final eGFR is calculated based on the CKD-EPI 2020 equation SODIUM 01/14/2024 04:36:00 141 135-146 (m mol/L) Final Potassium 01/14/2024 04:36:00 3.8 3.5-5.1 (m mol/L) Final Cl 01/14/2024 04:36:00 109 Above high normal 98 -107 (mmol/L) Final CO2 01/14/2024 04:36:00 22 22-32 (mmo l/L) Final Anion gap 01/14/2024 04:36:00 10 7-15 (mmol /L) Final Glucose 01/14/2024 04:36:00 127 Above high normal 70 -120 (mg/dL) Final Calcium 01/14/2024 04:36:00 8.6 8.4-10.2 ( mg/dL) Final Performing Location LABORATORY [facility] - [address] [place] [address]
--- OUTSIDE RECORDS SUMMARY | 2024-01-22 12:18 | External Medical Summary ---
Author Name Unknown Address Unknown Organization K01:[facility]ATORY [facility] [place] - [address] [facility] [address] Laboratory Report Ordering Provider Test Date Status KOKI MORA 01/14/2024 04:36:00 Final Observation Date Value Abnormality Reference (Units ) Status SYNC LEUKOCYTES IN BLOOD BY AUTOMATED COUNT 01/14/2024 04:36:00 9.55 4.00-10.80 (K/uL) Final Segs 01/14/2024 04:36:00 72.4 40.0-75.0 (%) Final Lymphs % 01/14/2024 04:36:00 12.3 Below low normal 18.0-42.0 (%) Final Monos 01/14/2024 04:36:00 14.6 Above high normal 1.0-11.0 (%) Final Eosinophils 01/14/2024 04:36:00 0.0 0.0-6.0 (%) Final Basos 01/14/2024 04:36:00 0.2 0.0-2.0 (%) Final Immature Granulocyte, Percent 01/14/2024 04:36:00 0.5 0.0-2.0 (%) Final Absolute Segs 01/14/2024 04:36:00 6.92 1.80-7.70 (K/uL) Final Lymphs, absolute 01/14/2024 04:36:00 1.17 1.00-4.80 (K/ul) Final Monos, Abs 01/14/2024 04:36:00 1.39 Above high normal 0.00-1.10 (K/uL) Final Eos, Abs 01/14/2024 04:36:00 0.00 0.00-0.70 (K/uL) Final Basos, Abs 01/14/2024 04:36:00 0.02 0.00-0.20 (K/uL) Final Immature Granulocytes, Number 01/14/2024 04:36:00 0.05 0.00-0.20 (K/uL) Final Performing Location LAB[facility]ATORY [facility] - [facility] [address] [place] [address]
--- OUTSIDE RECORDS SUMMARY | 2024-01-22 12:18 | External Medical Summary | Summary of Care ---
Author Name Unknown Organization [facility] Address [address] [place] [address] Phone [phone] Care Team Providers Care Rating Examiner Name Role Phone Valerie Gonsalves MD Primary Care Provider [phone] Encounter Details Date Type Department Care Team (Late st Contact Info) Description 01/13/2024 CardioDiagnostic Study Cardiothoracic Surg [facility] [address] [place] [address] Brandan Fish MD [address] [place] [address] EKG Report Allergies Active Allergy Reactions Criticality [...] as of this encounter Procedure Notes * Mohamud Navarrete MD - 01/13/2024 12:48 PM ESTAssociated Order(s): EKG REPORT REASON FOR STUDY: CONCLUSIONS: Normal sinus rhythm Left axis deviation Incomplete right bundle branch block ST & T wave abnormality, consider anterior ischemia Prolonged QT interval or tu fusion, consider myocardial disease, electrolyte imbalance, or drug effects Abnormal ECG When compared with ECG of 13-JAN-2024 02:50, Nonspecific T wave abnormality, improved in Lateral leads Ventricular Rate: 99 Atrial Rate: 99 IL Interval: 130 QRS Duration: 116 QT/QTc: 396/508 ms P-R-T [place]: 30 : -44 : 68 degrees documented in this encounter Plan of [...] this encounter Medical Devices Implanted Type Area Resident Engineer Device Identifier Shelf Expiration Date Model / Serial / Lot Sut Steel 6 M654g - [id number] Implanted:Qty: 6 on 03/19/2012 at [place] [facility] [place] N/A: Chest DO NOT USE 11/17/2016 [id number] / / [id number] Graft Marker Coronary - [id number] Implanted:Qty: 2 on 03/19/2012 at OR [facility] [place] N/A: Aorta VM CARDIO VASCULAR 05/17/2014 [id number] / / [id number] documented as of this encounter Procedures Procedure Name Priority Date/Time Associated Diagnosis Comments EKG REPORT 01/13/2024 12:48 PM EST documented in this encounter Results * EKG REPORT (01/13/2024 12:48 PM EST) 01/13/2024 12:4 8 PM EST Narrative Procedure Note Mohamud Navarrete MD - 01/13/2024 12:48 PM EST REASON FOR STUDY: CONCLUSIONS: Normal sinus rhythm Left axis deviation Incomplete right bundle branch block ST & T wave abnormality, consider anterior ischemia Prolonged QT interval or tu fusion, consider myocardial disease,electrolyte imbalance, or drug effects Abnormal ECG When compared with ECG of 13-JAN-2024 02:50, Nonspecific T wave abnormality, improved in Lateral leads Ventricular Rate: 99 Atrial Rate: 99 [place] Interval: 130 QRS Duration: 116 QT/QTc: 396/508 ms P-R-T [place]: 30 : -44 : 68 degrees Brandan Fish MD EKG documented in this encounter Advance Directives [...] the patient have Health Care Power of Plater Hot Dip? No Full Code 03/19/2012 2:23 PM 03/23/2012 [...] the patient have Health Care Power of Plater Hot Dip? No Care Teams Rating Examiner Relationship Specialty Start Date End Date Valerie Gonsalves MD [address] [place] [facility] [address] PCP - General Family Medicine 12/18/23 documented as of this encounter
--- OUTSIDE RECORDS SUMMARY | 2024-01-22 12:18 | External Medical Summary ---
Author Name Unknown Address Unknown Organization K01:[facility]ORY [facility] [place] [address] [place] [id number] Laboratory Report Ordering Provider Test Date Status KOKI MORA 01/14/2024 08:38:37 Final Observation Date Value Abnormality Reference (Units) Status Bacteria identified in Specimen by Culture 01/14/2024 08:38:37 No significant growth Final Test: Culture, Urine, Quanti tative
Specimen Source: Urine, Clean Catch
Specimen Type: Urine
Specimen Date: 01/14/2024 8:38 AM
Result Date: 01/15/2024 8:52 AM
Result Status: Final result
Resulting Lab: [facility]
[address]
[place] [address]

CULTURE

No significant growth

null Performing Location [facility] [place] [address] [facility] [address]
--- OUTSIDE RECORDS SUMMARY | 2024-01-22 12:18 | External Medical Summary ---
Author Name Unknown Address Unknown Organization K01:[facility] [place] [address] [facility] [address] Laboratory Report Ordering Provider Test Date Status YEYO BAKER 01/13/2024 09:26:00 Final Observation Date Value Abnormality Reference (Units ) Status Lactic Acid 01/13/2024 09:26:00 1.4 0.4-2.0 (mmol/L) Final Performing Location LABORATORY [facility] - [address] [facility] [address]
--- OUTSIDE RECORDS SUMMARY | 2024-01-22 12:18 | External Medical Summary ---
Author Name Unknown Address Unknown Organization K01:LABORATORY [facility] [place] - [address] [facility] [address] [facility] [address] Laboratory Report Ordering Provider Test Date Status KOKI MORA 01/14/2024 04:36:00 Final Observation Date Value Abnormality Reference (Units ) Status WBC, Total 01/14/2024 04:36:00 9.55 4.00-10.80 (K/uL) Final RBC 01/14/2024 04:36:00 3.55 3.85-5.15 (M/uL) Final Hemoglobin 01/14/2024 04:36:00 10.7 Below low normal 12.0-15.3 (g/dL) Final HCT 01/14/2024 04:36:00 33.4 Below low normal 36.0-45.2 (%) Final MCV 01/14/2024 04:36:00 94.1 81.5-97.5 (fL) Final MCH 01/14/2024 04:36:00 30.1 27.0-34.0 (pg) Final MCHC 01/14/2024 04:36:00 32.0 32.0-36.0 (g/dL) Final RDW 01/14/2024 04:36:00 13.7 11.5-15.5 (%) Final Platelets 01/14/2024 04:36:00 156 140-400 (K/uL) Final MPV 01/14/2024 04:36:00 9.0 6.6-11.1 (fL) Final Nucleated erythrocytes/100 leukocytes [Ratio] in Blood by Automated count 01/14/2024 04:36:00 0 <=0 (/100 WBCs) Final Performing Location LABORATORY [facility] - [address] [place] [address]
--- OUTSIDE RECORDS SUMMARY | 2024-01-22 12:18 | External Medical Summary ---
Author Name Unknown Address Unknown Organization K01:LABORATORY [facility] [place] - [address] [facility] [address] Laboratory Report Ordering Provider Test Date Status YEYO BAKER 01/15/2024 04:44:00 Final Observation Date Value Abnormality Reference (Units ) Status Lactic Acid 01/15/2024 04:44:00 0.9 0.4-2.0 (mmol/L) Final Performing Location LABORATORY [facility] - [address] [facility] [address]
--- OUTSIDE RECORDS SUMMARY | 2024-01-22 12:18 | External Medical Summary ---
Author Name Unknown Address Unknown Organization K01:[place] [facility] [place] [address] [facility] [address] Laboratory Report Ordering Provider Test Date Status YEYO BAKER 01/14/2024 04:36:00 Final Observation Date Value Abnormality Reference (Units ) Status Lactic Acid 01/14/2024 04:36:00 2.4 Above high normal 0.4-2.0 (mmol/L) Final Performing Location [place] [facility] [place] [address] [place] [address]
--- OUTSIDE RECORDS SUMMARY | 2024-01-22 12:19 | External Medical Summary ---
Author Name Unknown Address Unknown Organization K01:LAB[facility]ATORY [facility] [place] - [address] [facility] [address] Laboratory Report Ordering Provider Test Date Status KOKI MORA 01/13/2024 04:19:01 Final SCREENING Observation Date Value Abnormality Reference (Units ) Status SARS Coronavirus 2 01/13/2024 04:19:01 Negative N egative Final 2019 Novel Coronavirus not d etected.

This express test was developed and its performance characteristics determined by [employer]. It has not been cleared or approved [...] (RT-PCR) test, or a Centers for Disease Control-acceptable equivalent. The test is performed in a high complexity Clinical Laboratory Improvement Amendments-(CLIA) certified laboratory. The test is acceptable for SARS-CoV-2 diagnosis, surveillance, and travel within the [place] and to most countries. Please check with local testing authorities about requirements before travel.

The validation of bronchial specimens, tracheal aspirates, and sputum for this assay was developed and performance characteristics determined by [employer]. The validation of alternate specimen types has not been cleared or approved by the U.S. Food and Drug Administration (FDA). It has been determined that such clearance is not necessary. Performing Location LABORATORY [facility] [place] - [facility] [address] [facility] [address]
--- OUTSIDE RECORDS SUMMARY | 2024-01-22 12:19 | External Medical Summary ---
Author Name Unknown Address Unknown Organization K01:LABORATORY [facility] [place] - [address] [address] Laboratory Report Ordering Provider Test Date Status MORGANKOKI 01/13/2024 03:55:00 Final Observation Date Value Abnormality Reference (Units ) Status Troponin T 01/13/2024 03:55:00 80 Above high normal < =14 (ng/L) Final Performing Location LABORATORY [facility] [place] - [address] [place] [address]
--- OUTSIDE RECORDS SUMMARY | 2024-01-22 12:19 | External Medical Summary ---
Author Name Unknown Address Unknown Organization K01:[place] [facility] [place] [address] [place] [address] Laboratory Report Ordering Provider Test Date Status KOKI MORA 01/13/2024 03:55:00 Final Observation Date Value Abnormality Reference (Units ) Status BUN 01/13/2024 03:55:00 14 6-20 (mg/dL) Final Creatinine 01/13/2024 03:55:00 0.7 0.5-1.0 (mg/dL) Final Glomerular filtration rate/1.73 sq M.predicted [Volume Rate/Area] in Serum, Plasma or Blood by Creatinine-based formula (CKD-EPI) 01/13/2024 03:55:00 90 >=60 (mL/min) Final eGFR is calculated based on the CKD-EPI 2020 equation SODIUM 01/13/2024 03:55:00 141 135-146 (m mol/L) Final Potassium 01/13/2024 03:55:00 4.0 3.5-5.1 (m mol/L) Final Cl 01/13/2024 03:55:00 112 Above high normal 98 -107 (mmol/L) Final CO2 01/13/2024 03:55:00 18 Below low normal 22- 32 (mmol/L) Final Anion gap 01/13/2024 03:55:00 11 7-15 (mmol /L) Final Glucose 01/13/2024 03:55:00 106 70-120 (mg /dL) Final Calcium 01/13/2024 03:55:00 7.7 Below low normal 8.4 -10.2 (mg/dL) Final Performing Location [place] [facility] [place] [address] [address]
--- OUTSIDE RECORDS SUMMARY | 2024-01-22 12:19 | External Medical Summary ---
Author Name Unknown Address Unknown Organization K01:LABORATORY [facility] [place] - [address] [address] Laboratory Report Ordering Provider Test Date Status KOKI MORA 01/13/2024 03:55:00 Final Observation Date Value Abnormality Reference (Units ) Status SYNC LEUKOCYTES IN BLOOD BY AUTOMATED COUNT 01/13/2024 03:55:00 8.67 4.00-10.80 (K/uL) Final Segs 01/13/2024 03:55:00 84.0 Above high normal 40.0-75.0 (%) Final Lymphs % 01/13/2024 03:55:00 9.7 Below low normal 18.0-42.0 (%) Final Monos 01/13/2024 03:55:00 5.7 1.0-11.0 (%) Final Eosinophils 01/13/2024 03:55:00 0.1 0.0-6.0 (%) Final Basos 01/13/2024 03:55:00 0.2 0.0-2.0 (%) Final Immature Granulocyte, Percent 01/13/2024 03:55:00 0.3 0.0-2.0 (%) Final Absolute Segs 01/13/2024 03:55:00 7.28 1.80-7.70 (K/uL) Final Lymphs, absolute 01/13/2024 03:55:00 0.84 Below low normal 1.00-4.80 (K/ul) Final Monos, Abs 01/13/2024 03:55:00 0.49 0.00-1.10 (K/uL) Final Eos, Abs 01/13/2024 03:55:00 0.01 0.00-0.70 (K/uL) Final Basos, Abs 01/13/2024 03:55:00 0.02 0.00-0.20 (K/uL) Final Immature Granulocytes, Number 01/13/2024 03:55:00 0.03 0.00-0.20 (K/uL) Final Performing Location LABORATORY [facility] [place] - [facility] [address] [place] [address]
--- OUTSIDE RECORDS SUMMARY | 2024-01-22 12:19 | External Medical Summary ---
Author Name Unknown Address Unknown Organization K01:LABORATORY [facility] [place] - [address] [address] Laboratory Report Ordering Provider Test Date Status KOKI MORA 01/13/2024 03:55:00 Final Warfarin Therapy
INR: 2 .0-3.0 conventional anticoagulation
INR: 2.5- 3.5 high intensity anticoagulation Observation Date Value Abnormality Reference (Units ) Status PT 01/13/2024 03:55:00 13.9 11.6-15.2 (seconds) Final INR 01/13/2024 03:55:00 1.1 0.8-1.2 Final Performing Location LABORATORY [facility] [place] - [address] [place] [address]
--- OUTSIDE RECORDS SUMMARY | 2024-01-22 12:19 | External Medical Summary ---
Author Name Unknown Address Unknown Organization K01:LABORATORY [facility] [place] - [address] [address] Laboratory Report Ordering Provider Test Date Status KOKI MORA 01/13/2024 03:55:00 Final Observation Date Value Abnormality Reference (Units ) Status Iron 01/13/2024 03:55:00 83 33-151 (ug/dL) Final Iron-binding capacity 01/13/2024 03:55:00 243 Below low normal 250-425 (ug/dL) Final Transferrin Sat % 01/13/2024 03:55:00 34 15-55 (%) Final Performing Location LABORATORY [facility] [place] - [address] [place] [address]
--- OUTSIDE RECORDS SUMMARY | 2024-01-22 12:19 | External Medical Summary ---
Author Name Unknown Address Unknown Organization K01:[place] [facility] [place] [facility] [address] [address] Laboratory Report Ordering Provider Test Date Status KOKI MORA 01/13/2024 03:55:00 Final Observation Date Value Abnormality Reference (Units ) Status Retic, % (auto) 01/13/2024 03:55:00 1.48 0.80-1.90 (%) Final Reticulocytes, Absolute 01/13/2024 03:55:00 55.5 31.3-100.1 (K/uL) Final Reticulocyte fraction, immature 01/13/2024 03:55:00 7.7 2.5-20.6 (%) Final Reticulocyte HGB 01/13/2024 03:55:00 34.8 29.7-37.4 (pg) Final Performing Location [place] [facility] [place] [address] [place] [address]
--- OUTSIDE RECORDS SUMMARY | 2024-01-22 12:19 | External Medical Summary ---
Author Name Unknown Address Unknown Organization K01:LABORATORY [facility] [place] - [address] [address] Laboratory Report Ordering Provider Test Date Status KOKI MORA 01/13/2024 03:55:00 Final Observation Date Value Abnormality Reference (Units ) Status Albumin 01/13/2024 03:55:00 3.5 Below low normal 3.8-5.0 (g/dL) Final AST (Aspartate aminotransferase) 01/13/2024 03:55:00 33 10-35 (U/L) Final Alk Phos 01/13/2024 03:55:00 67 35-130 (U/L) Final ALT (Alanine aminotransferase) 01/13/2024 03:55:00 20 10-35 (U/L) Final Bilirubin, Total 01/13/2024 03:55:00 0.6 <=1.2 (mg/dL) Final Bilirubin, Direct 01/13/2024 03:55:00 0.2 0.0-0.3 (mg/dL) Final Protein 01/13/2024 03:55:00 5.7 Below low normal 6.0-8.3 (g/dL) Final Performing Location LABORATORY [facility] [place] - [address] [place] [address]
--- OUTSIDE RECORDS SUMMARY | 2024-01-22 12:19 | External Medical Summary ---
Author Name Unknown Address Unknown Organization K01:[place] [facility] [place] [address] [facility] [address] Laboratory Report Ordering Provider Test Date Status KOKI MORA 01/13/2024 03:55:00 Final Observation Date Value Abnormality Reference (Units ) Status TSH 01/13/2024 03:55:00 1.55 0.27-4.20 (uIU/mL) Final Performing Location LABORATORY [facility] - [address] [place] [address]
--- OUTSIDE RECORDS SUMMARY | 2024-01-22 12:19 | External Medical Summary ---
Author Name Unknown Address Unknown Organization K01:[facility] [place] [facility] [facility] [place] [address] [address] Laboratory Report Ordering Provider Test Date Status KOKI MORA 01/13/2024 03:55:00 Final Observation Date Value Abnormality Reference (Units ) Status ABO 01/13/2024 03:55:00 O Final RH 01/13/2024 03:55:00 Positive Final RED BLOOD CELL ANTIBODY SCREEN 01/13/2024 03:55:00 Negative Final SPECIMEN EXPIRATION DATE 01/13/2024 03:55:00 01/16/2024 23:59 Final Performing Location [facility] [place] [address] [place] [address]
--- OUTSIDE RECORDS SUMMARY | 2024-01-22 12:19 | External Medical Summary ---
Author Name Unknown Address Unknown Organization K01:[place] [facility] [place] [address] [facility] [address] Laboratory Report Ordering Provider Test Date Status KOKI MORA 01/13/2024 03:55:00 Final Observation Date Value Abnormality Reference (Units ) Status WBC, Total 01/13/2024 03:55:00 8.67 4.00-10.80 (K/uL) Final RBC 01/13/2024 03:55:00 3.75 3.85-5.15 (M/uL) Final Hemoglobin 01/13/2024 03:55:00 11.3 Below low normal 12.0-15.3 (g/dL) Final HCT 01/13/2024 03:55:00 34.1 Below low normal 36.0-45.2 (%) Final MCV 01/13/2024 03:55:00 90.9 81.5-97.5 (fL) Final MCH 01/13/2024 03:55:00 30.1 27.0-34.0 (pg) Final MCHC 01/13/2024 03:55:00 33.1 32.0-36.0 (g/dL) Final RDW 01/13/2024 03:55:00 13.6 11.5-15.5 (%) Final Platelets 01/13/2024 03:55:00 187 140-400 (K/uL) Final MPV 01/13/2024 03:55:00 9.4 6.6-11.1 (fL) Final Nucleated erythrocytes/100 leukocytes [Ratio] in Blood by Automated count 01/13/2024 03:55:00 0 <=0 (/100 WBCs) Final Performing Location LABORATORY [facility] - [address] [place] [address]
--- NOTE | 2024-01-22 15:16 | Hospitalist Progress Note ---
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 Desires home hospice; process started with discharge planned for tomorrow Continue aggressive blood pressure control until discharge Pain, anxiety, nausea medications PRN Insomnia/generalized anxiety disorder- Continue aripiprazole, clonazepam at bedtime, gabapentin as needed, paroxetine, and trazodone at bedtime as needed Admission and Anticipated Discharge Date Admission Date: January 22, 2024 Supervising Physician Co-Signing Physician Notes Attending Physician Supervision Note: I independently interviewed and examined the patient and verified the casillas history and physical, reviewed labs and image studies and agree with findings and care plan noted above. Subjective Patient seen and evaluated at bedside this morning. No acute events overnight. Discussion was had with patient and , they wish to pursue home hospice care. Review of Systems Review of Systems: reviewed, per HPI Physical Exam Physical Exam: Constitutional: ill appearing, no acute distress HEENT: NCAT, no conjunctival injection CV: extremities well-perfused, no LE edema Resp: no increased work of breathing GI: nondistended MSK: no gross deformities appreciated Skin: warm, dry, no rash appreciated Neuro: alert, oriented, no focal neurologic deficit appreciated Results & Data Results & Data Vital Signs (Past 12 Hours) Vital Signs Pulse Pulse Resp BP Pulse Ox O2 Del Method O2 Flow Rate 01/22/24 14:00 66 14 114/75 94 Nasal Cannula 3 01/22/24 13:00 69 18 133/84 94 Nasal Cannula 3 01/22/24 12:00 67 16 116/65 92 Nasal Cannula 3 01/22/24 11:00 68 19 133/77 92 Nasal Cannula 01/22/24 08:41 Nasal Cannula 3 01/22/24 08:31 84 20 177/98 H 93 Nasal Cannula 3 03/07/24 07:18 84 01/22/24 06:03 85 17 138/76 97 Nasal Cannula 2 01/22/24 04:00 82 20 156/90 H 94 Nasal Cannula 2 Resident Activity Tracking Resident Involvement: Resident Care Provided Care Provided: Adult Hospital Medicine
--- NOTE | 2024-01-22 16:56 | Electrocardiogram Report ---
Test Reason : Blood Pressure : / mmHG Vent. Rate : 093 BPM Atrial Rate : 093 BPM P-R Int : 112 ms QRS Dur : 112 ms QT Int : 368 ms P-R-T Axes : 014 -32 064 degrees QTc Int : 457 ms Normal sinus rhythm Left axis deviation Right bundle branch block with repolarization abnormality Abnormal ECG When compared with ECG of 12-JAN-2024 23:39, T wave inversion no longer evident in Lateral leads Confirmed by Harpal Ring ([id number]) on 01/22/2024 4:56:31 PM Referred By: REFERRED SELF Confirmed By:Harpal Ring
[2024-01-22] MEDS: clonazePAM 0.5 MG TAB PO SCH (20:25)
[2024-01-22] MEDS: ATORVASTATIN 40 MG TAB PO SCH (20:25)
--- NOTE | 2024-01-23 08:26 | Discharge Summary ---
Date of Service January 23, 2024 Admission HPI Per Admitting Provider The patient is a 78-year-old female with a past medical history including aortic mural thrombus, enlarging aortic aneurysm, aortic arch syndrome, multiple pulmonary nodules, COPD with emphysema, status post CABG x 3, coronary artery disease, generalized anxiety disorder, hypertension, cerebrovascular disease and B12 deficiency. She presents to the emergency department with symptoms and history as above. CT angiography of chest performed in the emergency departments evening showed ascending aortic dissection 4.4 cm, and when reviewed by cardiothoracic surgery at [facility] in [place], they felt that there was a worsening since she was there and discharged on 01/16/2024. Since cardiothoracic surgery felt that there was no surgical intervention to be performed since she was not a good candidate, they advised admission to [facility] and control of blood pressure and pain. Principal Diagnosis Aortic Dissection Discharge Exam Constitutional: in no acute distress, pleasant and sad affect, intact memory. Vitals as above. HEENT: No scleral injection or discharge. Moist mucous membranes. Neck: Trachea midline. Lungs: CTAB Cardiac: RRR. No lower extremity edema. 2+ distal peripheral pulses. Abdomen: Soft, nontender, and nondistended.No guarding. MSK: No cyanosis or clubbing. Skin: No rashes, warm, dry. Neurologic: no focal deficits Discharge Data Allergies Allergy/AdvReac Type Severity Reaction Status Date / Time amlodipine Allergy Unknown Verified 01/21/24 23:18 pneumococcal vaccine Allergy Unknown Verified 01/21/24 23:19 Ordered Studies Laboratory Results WBC 8.97 K/ul (4.8-10.8) 01/22/24 04:08 RBC 3.75 M/uL (4.20-5.40) L 01/22/24 04:08 Hgb 10.8 g/dl (12.0-16.0) L 01/22/24 04:08 Hct 33.1 % (37.0-47.0) L 01/22/24 04:08 MCV 88.3 fL (80.0-100.0) 01/22/24 04:08 MCH 28.8 pg (25.0-34.0) 01/22/24 04:08 MCHC 32.6 g/dL (32.0-36.0) 01/22/24 04:08 RDW Std Deviation 44.7 fL (36.4-46.3) 01/22/24 04:08 RDW Coeff of Paul 13.8 % (11.5-14.5) 01/22/24 04:08 Plt Count 339 K/uL (130-400) 01/22/24 04:08 MPV 8.3 fL (9.4-12.4) L 01/22/24 04:08 Immature Gran % (Auto) 0.8 % 01/22/24 04:08 Neut % (Auto) 70.5 % 01/22/24 04:08 Lymph % (Auto) 14.8 % 01/22/24 04:08 [place] % (Auto) 13.0 % 01/22/24 04:08 Eos % (Auto) 0.7 % 01/22/24 04:08 Baso % (Auto) 0.2 % 01/22/24 04:08 Neut # (Auto) 6.32 K/uL (1.40-6.50) 01/22/24 04:08 Lymph # (Auto) 1.33 K/uL (1.20-3.40) 01/22/24 04:08 [place] # (Auto) 1.17 K/uL (0.11-0.59) H 01/22/24 04:08 Eos # (Auto) 0.06 K/uL (0.00-0.50) 01/22/24 04:08 Baso # (Auto) 0.02 K/uL (0.00-0.20) 01/22/24 04:08 Immature Gran # (Auto) 0.07 K/uL (0.01-0.20) 01/22/24 04:08 PT 12.7 Seconds (9.0-12.0) H 01/21/24 20:17 INR 1.2 (0.9-1.1) H 01/21/24 20:17 APTT 27 Seconds (21-31) 01/21/24 20:17 PTT Ratio 1.0 01/21/24 20:17 Sodium 140 mmol/L (136-145) 01/22/24 04:08 Potassium 3.3 mmol/L (3.5-5.1) L 01/22/24 04:08 Chloride 105 mmol/L (98-107) 01/22/24 04:08 Carbon Dioxide 25 mmol/L (21-32) 01/22/24 04:08 Anion Gap 10 (3-11) 01/22/24 04:08 BUN 8 mg/dl (6-23) 01/22/24 04:08 Creatinine 0.66 mg/dl (0.6-1.2) 01/22/24 04:08 Est Cr Clr Drug Dosing 66.8 ml/min 01/22/24 04:08 Est GFR ( Amer) 99.5 ml/min 01/22/24 04:08 Est GFR (Non-Af Amer) 85.8 ml/min 01/22/24 04:08 BUN/Creatinine Ratio 12.1 (10-20) 01/22/24 04:08 Glucose 129 mg/dl (70-99(Fasting)) H 01/22/24 04:08 Calcium 8.2 mg/dl (8.6-10.3) L 01/22/24 04:08 Phosphorus 4.4 mg/dl (2.5-4.9) 01/22/24 04:08 Total Bilirubin 1.1 mg/dl (0.2-1.0) H 01/21/24 20:17 AST 19 U/L (13-39) 01/21/24 20:17 ALT 22 U/L (7-52) 01/21/24 20:17 Alkaline Phosphatase 117 U/L (34-104) H 01/21/24 20:17 Troponin I High Sens 41.7 pg/ml (0-14) H 01/21/24 22:33 Total Protein 7.1 gm/dl (6.0-8.3) 01/21/24 20:17 Albumin 3.5 gm/dl (3.4-5.0) 01/22/24 04:08 Globulin 3.3 gm/dl (2.5-4.0) 01/21/24 20:17 Albumin/Globulin Ratio 1.2 (0.9-2) 01/21/24 20:17 Impressions Chest X-Ray 01/21/24 19:57 XR chest 1V not portable CLINICAL HISTORY: Chest pain, nonspecific TECHNIQUE: Single frontal radiograph of the chest was obtained. Comparison: Comparison is made to chest radiograph 01/12/2024 FINDINGS: Median sternotomy wires are unchanged. The aorta is tortuous. The remainder of the cardiomediastinal silhouette is unremarkable. The lungs are clear. Small bilateral pleural effusions are seen. IMPRESSION: Small bilateral pleural effusions. ACT 112: Negative or not required by law. Electronically signed by: Clyde Sabillon M.D. 01/22/2024 6:42 AM Chest CTA 01/21/24 20:10 CR Exam(s): CTA CHEST W/WO Contrast IV Amt: 116ml EXAM: CT Angiography Chest Without and With Intravenous Contrast CLINICAL HISTORY: Reason for exam: chest pain, hx intramural hematoma. TECHNIQUE: Axial computed tomographic angiography images of the chest without and with intravenous contrast. CTDI is 20.2 mGy and DLP is 727 mGy-cm. Automated exposure control was utilized for the study. A dose lowering technique was utilized adhering to the principles of ALARA. MIP reconstructed images were created and reviewed. CONTRAST: Patient received 116ml of IV contrast COMPARISON: January 12, 2024 FINDINGS: Pulmonary arteries: Unremarkable. No pulmonary embolism. Aorta: There is a Alfonzo a dissection with dilation of the ascending aortic arch to 4.4 cm and mural thrombus extending over the descending thoracic aorta to the level of the diaphragm. Great vessels of aortic arch: The great vessels are widely patent. Lungs: Mild emphysematous changes in the lungs. Small amount of left lung base atelectasis, similar to previous. No mass. Pleural space: There are small bilateral pleural effusions measuring approximate 1 cm. No pneumothorax. Heart: Previous CABG with severe coronary calcification and mild cardiomegaly. No pericardial effusion. No evidence of RV dysfunction. Bones/joints: Mild multilevel degenerative change are seen throughout the spine. No acute fracture or subluxation is seen. Soft tissues: Unremarkable. Lymph nodes: Unremarkable. No enlarged lymph nodes. Gallbladder and bile ducts: Limited images of the upper abdomen demonstrate biliary duct dilation. IMPRESSION: There is a Alfonzo A dissection with dilation of the ascending aortic arch to 4.4 cm and mural thrombus extending over the descending thoracic aorta to the level of the diaphragm. No great vessel compromise is seen. Small bilateral pleural effusions with mild emphysematous changes and bibasilar atelectasis, increased since previous. 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: (4) Enlarging aortic aneurysm: (5) Elevated troponin: (6) S/P CABG x 3: (7) Hypertension: (8) CHER (generalized anxiety disorder): Plan #Dissecting aneurysm of thoracic aorta, [place] type a/aortic mural thrombus/aortic arch syndrome/enlarging aortic aneurysm- -Patient has did been determined to not be a good surgical candidate - transition to home hospice care -will continue labetalol 200mg bid as a palliative measure - controlling BP can reduce her pain from the dissection #Insomnia/generalized anxiety disorder- -Palliative meds as determined by Hospice care Total Time Total Time Spent Total Time Spent (In Minutes): 30 Discharge Plan Discharge Items Patient Disposition: Hospice - Home Reason For Visit: AORTIC DISSECTION Discharge Diagnosis: Aortic dissection Activity: Per Instructions section Non-emergency contact: Primary Care Provider Call non-emergency contact if: you have any medication questions Follow-up/Referrals: Valerie Gonsalves DO [Primary Care Provider] - Diet: Regular Addtl Attending Provider Instructions: Hospice will be set up when you arrive at home. Please continue taking a blood pressure medication as below which will help minimize your pain as well. Medications: -Labetalol 200mg twice a day Pending Studies at Discharge: No Stand-Alone Forms: My [facility] Medications and DC Order Prescriptions: New labetalol 200 mg tablet 200 mg PO BID Qty: 60 0RF Discontinued nitroglycerin [Nitrostat] 0.4 mg tablet, sublingual 0.4 mg sublingual Q5M PRN (Reason: chest pain) Qty: 25 3RF Rx Instructions: take 1 tablet every 5 minutes as needed for angina.if not resolved after the 3rd dose,call 911 atorvastatin [Lipitor] 80 mg tablet 80 mg PO HS Qty: 90 3RF clonazepam 0.5 mg tablet 0.5 mg PO HS Qty: 3 0RF Preser[employer]ision AREDS-2 [id number]-mg capsule 2 tab PO QAM gabapentin [Neurontin] 100 mg capsule 100 mg PO DAILY PRN (Reason: Anxiety) docusate sodium 100 mg capsule 100 mg PO TID PRN (Reason: Constipation) labetalol 100 mg tablet 100 mg PO BID trazodone 50 mg tablet 50 mg PO HS PRN (Reason: Insomnia) paroxetine HCl [Paxil] 40 mg Tablet 40 mg PO QAM aripiprazole [Abilify] 2 mg tablet 2 mg PO DAILY amiodarone 200 mg tablet 200 mg PO .UD Rx Instructions: BEGIN 01/19/24 : TAKE ONE TABLET BY MOUTH WITH BREAKFAST, AND ONE TABLET WITH LUNCH, AND ONE TABLET WITH EVENING MEAL FOR ONE WEEK. THEN, TAKE ONE TABLET BY MOUTH WITH BREAKFAST AND ONE TABLET WITH EVENING MEAL ONLY FOR THE REST OF THE MONTH. TAKE THIS MEDICATION WITH MEALS. levalbuterol tartrate [Xopenex HFA] 45 mcg/actuation HFA aerosol inhaler 1 inh inhalation Q4H PRN (Reason: shortness of breath or wheezing) sennosides [senna] 8.6 mg Tablet 8.6 mg PO DAILY PRN (Reason: Constipation) oxycodone 5 mg tablet 5 mg PO Q4H PRN (Reason: Pain) Discharge Orders: Discharge Order (Routine); Ordered 01/23/24 Ordered By: Twin Singleton Admission Data Admit Date/Time: 01/22/24 00:46 Attending Provider: Joyce Cohen Admit Provider: Edmundo Pinto Primary Care Provider: Valerie Gonsalves Other Providers: [facility],Home Healthcare Other Interventions: Discharge Summary Assessment (RN) Last Done: 01/23/24 09:45 Supervising Physician Co-Signing Physician Notes Attending Physician Supervision Note: I independently interviewed and examined the patient and verified the casillas history and physical, reviewed labs and image studies and agree with findings and care plan noted above. Resident Activity Tracking Resident Involvement: Resident Care Provided Care Provided: Adult Hospital Medicine
--- OUTSIDE RECORDS SUMMARY | 2024-01-23 21:03 | External Medical Summary | Summary of Care ---
Author Name Unknown Organization [facility] Address [address] [place] [address] Phone [phone] Care Team Providers Care Die Trouble Shooter Name Role Phone Valerie Gonsalves MD Primary Care Provider [phone] Encounter Details Date Type Department Care Team ([facility] st Contact Info) Description 01/21/2024 Orders Only Unspecified Department Valerie Gonsalves MD [address] [place] [address] Allergies Active Allergy Reactions Criticality Noted Date Comments Amlodipine 12/12/2023 Pneumococcal Vaccines Edema Other,Rash Low 09/09/20 13 documented as of this encounter (statuses as of 01/22/2024) Medications Medication Sig Dispensed Refills Start Date [...] as of this encounter (statuses as of 01/22/2024) Active Problems Problem Noted Date Diagnosed Date [...] as of this encounter (statuses as of 01/22/2024) Immunizations Name Administration Dates Next Due Pneumococcal [...] as of this encounter Plan of Treatment Upcoming Encounters Date Type Department Care Team (Late st Contact Info) Description 01/23/2024 10:00 AM EST Telemedicine Cardiothoracic Surg [facility] [place] [address] [place] [address] Davey Mobley PA-C [facility] [address] [facility] [place] [phone] 02/18/2024 2:15 PM EDT Office Visit Cardiothoracic Surg [facility] [place] [address] [place] [address] Brandan Fish MD [address] [place] [address] Scheduled Procedures Name Priority Associated Diagnoses Date/Ti [...] this encounter Medical Devices Implanted Type Area Composition Teacher Device Identifier Shelf Expiration Date Model / Serial / Lot Sut Steel 6 [id number] - [id number] Implanted:Qty: 6 on 03/19/2012 at OR [facility] [place] N/A: Chest DO NOT USE 11/17/2016 [id number] / / [id number] Graft Marker Coronary - [id number] Implanted:Qty: 2 on 03/19/2012 at OR [facility] [place] N/A: Aorta VM CARDIO VASCULAR 05/17/2014 [id number] / / [id number] documented as of this encounter Procedures Procedure Name Priority Date/Time Associated Diagnosis Comments RADIOLOGY EXAM - GENERAL RAD (IMAGES ONLY,NO REPORT) Routine 01/21/2024 8:35 PM EST documented in this encounter Results * RADIOLOGY EXAM - GENERAL RAD (IMAGES ONLY,NO REPORT) (01/21/2024 8:35 PM EST) 01/21/2024 8:31 PM EST Narrative Scheduling, Silent - 01/22/2024 3:11 PM EST This is an imaging study not interpreted or resulted by a [facility] or [facility] contracted radiologist. Valerie Gonsalves MD RADIOLOGY (RAD GENER AL) documented in this encounter Advance Directives Latest [...] the patient have Health Care Power of Shade Classifier? No Full Code 03/19/2012 2:23 PM 03/23/2012 [...] the patient have Health Care Power of Shade Classifier? No Care Teams Die Trouble Shooter Relationship Specialty Start Date End Date Valerie Gonsalves MD [address] [place] [address] PCP - General Family Medicine 12/18/23 documented as of this encounter
--- OUTSIDE RECORDS SUMMARY | 2024-01-23 21:03 | External Medical Summary | Summary of Care ---
Author Name Unknown Organization [facility] Address [address] [place] [address] Phone [phone] Care Team Providers Care Powerhouse Tender Name Role Phone Valerie Gonsalves MD Primary Care Provider [phone] Encounter Details Date Type Department Care Team ([facility] st Contact Info) Description 01/21/2024 Orders Only Unspecified Department Valerie Gonsalves MD [address] [place] [address] Allergies Active Allergy Reactions Criticality [...] 01/23/2024 10:00 AM EST Telemedicine Cardiothoracic Surg [facility] [place] [address] [place] [address] Davey Mobley PA-C [facility] [place] [phone] 02/18/2024 2:15 PM EDT Office Visit Cardiothoracic Surg [facility] [place] [address] [place] [address] Brandan Fish MD [address] [place] [address] Scheduled Procedures Name Priority Associated Diagnoses Date/Ti [...] this encounter Medical Devices Implanted Type Area Power Shovel Engineer Device Identifier Shelf Expiration Date Model / Serial / Lot Sut Steel 6 M654g - [id number] Implanted:Qty: 6 on 03/19/2012 at OR [facility] [place] N/A: Chest DO NOT USE 11/17/2016 [id number] / / [id number] Graft Marker Coronary - [id number] Implanted:Qty: 2 on 03/19/2012 at OR [facility] [place] N/A: Aorta VM CARDIO VASCULAR 05/17/2014 [id number] / / [id number] documented as of this encounter Procedures Procedure Name Priority Date/Time Associated Diagnosis Comments RADIOLOGY EXAM - CT (IMAGES ONLY, NO REPORT) Routine 01/21/2024 9:10 PM EST documented in this encounter Results * RADIOLOGY EXAM - CT (IMAGES ONLY, NO REPORT) (01/21/2024 9:10 PM EST) 01/21/2024 9:08 PM EST Narrative Scheduling, Silent - 01/22/2024 3:09 PM EST This is an imaging study not interpreted or resulted by a [facility] [place] [facility] radiologist. Valerie Gonsalves MD RAD CT documented in this encounter [...] the patient have Health Care Power of Core Assembly Supervisor? No Full Code 03/19/2012 2:23 PM 03/23/2012 [...] the patient have Health Care Power of Core Assembly Supervisor? No Care Teams Powerhouse Tender Relationship Specialty Start Date End Date Valerie Gonsalves MD [address] [place] [address] PCP - General Family Medicine 12/18/23 documented as of this encounter
== END 2024-01-23 10:05 | disposition hospice, home (50) ==
LOC: ED 19:51 → EDINP 19:51 → SUATTDRO 01-22 00:46 → 2E 01-22 01:57